=== PATIENT | female | born 1955 | race Two or more races ===

== ENCOUNTER 2020-05-01 07:41 | Emergency (ER) | payer MEDICARE, MEDICAID, SELFPAY ==
--- NOTE | 2020-05-01 08:04 | ED.FEMALEGU ---
HPI - Female Genitourinary General Chief complaint: Abdominal Pain Stated complaint: ABD PAIN TINGLING IN R ARM Time Seen by Provider: 05/01/20 08:03 Source: patient Mode of arrival: ambulatory Limitations: no limitations History of Present Illness HPI Narrative: patient noticed urinary symptoms for last 2- 3 days and pain in left lower abdomen since last night similar to that in the past when she had UTI hematuria no fever no nausea no vomiting from flank pain patient denies any history of kidney stone in the past had CT scan done on 03/12 which showed no stones Related Data Allergies Allergy/AdvReac Type Severity Reaction Status Date / Time No Known Allergies Allergy Unverified 04/09/20 14:54 [No Known Allergies*] Review of Systems Review of Systems: REVIEW OF SYSTEMS: Pertinent positives and negatives are stated above in the history. GEN: no fevers, chills, fatigue HEENT: no nasal congestion, sore throat, ear pain NEURO: no headache, dizziness, focal weakness PULM: no cough, shortness of breath CV: no chest pain, palpitations, LE edema ABD: no abdominal pain, nausea, vomiting, diarrhea SKIN: no rash ROS otherwise negative x 10 [facility] Social History Social History Alcohol intake: unknown Smoking Status: Unknown if ever smoked Use of substances other than those prescribed or required for medical reasons: No Advance Directives: No Advance Directives Information Provided: No Physical Exam Vital Signs and I&O and Narrative: Vital Signs and I&O: Vital Signs Temp 98.7 F 05/01/20 08:10 Pulse 51 05/01/20 09:55 Resp 18 05/01/20 09:55 BP 167/84 H 05/01/20 10:12 Pulse Ox 99 05/01/20 08:10 Intake & Output 04/30/20 05/01/20 05/01/20 18:59 06:59 18:59 Weight 85.729 kg Body Mass Index 34.5 Appearance: Alert. Oriented X3. No acute distress. Eyes: Pupils equal, round and reactive to light. ENT: Pharynx normal. Neck: Normal inspection. Neck supple. CVS: Normal heart rate and rhythm. Pulses normal. Respiratory: No respiratory distress. Breath sounds normal. Abdomen: Soft and mild tenderness left lower quadrant no CVA tenderness Skin: Skin warm and dry. Normal skin color. Normal skin turgor. Extremities: No lower extremity edema. No lower extremity edema. Neuro: Oriented X 3. No motor deficit. No sensory deficit. Course Course Course Narrative: patient with UTI will give her Levaquin and Pyridium feels better discharge her home MDM - Female Genitourinary Lab Data Labs: Lab Results 05/01/20 Range/Units 08:12 Urine Color YELLOW Urine Appearance CLOUDY Urine pH 6.0 (5.0-8.0) Ur Specific [place] 1.025 (1.005-1.025) Urine Protein NEG (NEG-TRACE) MG/DL Urine Glucose (UA) NEG (NEG) MG/DL Urine Ketones NEG (NEG) MG/DL Urine Blood 1+ H (NEG) Urine Nitrite NEG (NEG) Ur Leukocyte Esterase 2+ H (NEG) Urine RBC 1-4 (0) /HPF Urine WBC 15-29 H (0-4) /HPF Ur Squamous Epith Cells 4+ /LPF Urine Bacteria 1+ /LPF Urine Mucus 1+ /LPF
[2020-05-01 08:07] VITALS: BP 176/83; PULSE 64; RESP 18; TEMP 37.1; O2SAT 99; BMI 34.5
[2020-05-01 08:10] VITALS: BP 176/83; PULSE 64; RESP 18; TEMP 37.1; O2SAT 99
[2020-05-01] MEDS: oxyCODONE HCl Immed Release 5 MG TABLET PO (08:17)
[2020-05-01 08:38] LABS: Glucose Urine UA NEG (NEG); Leukocyte Esterase Urine 2+ (NEG); Nitrite Urine NEG (NEG); Specific Gravity - Urine 1.025 (1.005-1.025); Urine Blood 1+ (NEG); Urine Ketones NEG (NEG); Urine Protein NEG (NEG-TRACE)
[2020-05-01 08:41] LABS: Appearance Urine CLOUDY; Color Urine YELLOW
[2020-05-01 08:49] LABS: Bacteria Urine 1+ /LPF; Mucus Urine 1+ /LPF; Squamous Epithelial Cell Urine 4+ /LPF
[2020-05-01 09:55] VITALS: BP 163/75; PULSE 51; RESP 18
[2020-05-01 10:12] VITALS: BP 167/84
[2020-05-01] MEDS: Phenazopyridine HCL 200 MG TABLET PO (10:18)
[2020-05-01] MEDS: levoFLOXacin 500 MG TABLET PO (10:18)
== END 2020-05-01 11:19 | disposition home or self-care (01) ==
PROVIDERS: Emergency Provider Internal Medicine; PCP Family Medicine
DX: R10.9 Unspecified abdominal pain (principal); R20.2 Paresthesia of skin; Z79.899 Other long term (current) drug therapy
CPT/HCPCS: 81001; 87086; 99283; 99284

== ENCOUNTER 2020-12-17 10:22 | Outpatient (REF) | payer MEDICARE, MEDICAID, SELFPAY ==
--- NOTE | ~2020-12-17 | MM_ITS ---
EXAMINATION: MM SCREENING DIGITAL BREAST TOMOSYNTHESIS, BILATERAL CLINICAL INFORMATION: Screening. Asymptomatic. The lifetime risk of breast cancer based on the Tyrer-Cuzick Model is 3.6%. COMPARISON: Mammography: September 17, 2019 and studies dating back to July 01, 2016 TECHNIQUE: Digital breast tomosynthesis is performed in both the craniocaudal and mediolateral oblique views along with computer-aided detection (CAD). Synthesized 2D images are generated from the tomosynthesis. FINDINGS: The breasts are almost entirely fatty (ACR BI-RADS breast composition Category a). There are no significant masses, abnormal calcifications, or other abnormalities. MM/MM tomosynthesis screening BI IMPRESSION: There are no significant changes from prior study. ASSESSMENT: BI-RADS 1: Negative RECOMMENDATION: Routine annual mammography screening. This patient's information was entered into a reminder system with a target due date for their next mammogram.
== END 2020-12-17 10:23 | disposition home or self-care (01) ==
LOC: HO.MAMMO 10:22
PROVIDERS: PCP Family Medicine; Visit Provider Family Medicine
DX: Z12.31 Encounter for screening mammogram for malignant neoplasm of breast (principal)
CPT/HCPCS: 77063; 77067

== ENCOUNTER 2021-02-23 08:29 | Outpatient (REF) | payer MEDICARE, MEDICAID, SELFPAY ==
[2021-02-23 10:44] LABS: Hematocrit 37.3 % (37-47); Hemoglobin 12.3 g/dl (12.0-16.0); Mean Corpuscular Hemoglobin 29.1 pg (27.0-33.0); Mean Corpuscular Volume 88.2 fL (80-98); Mean Platelet Volume 10.2 fL (9.4-12.3); Platelet Count 320 X10*3/uL (160-400); Red Blood Count 4.23 X10*6/uL (4.20-5.50); White Blood Count 6.2 X10*3/uL (4.8-10.8)
[2021-02-23 11:22] LABS: Alanine Aminotransferase 19 U/L (0-31); Albumin Level 4.4 g/dL (3.5-5.0); Alkaline Phosphatase 94 U/L (39-117); Anion Gap 14 (12-20); Aspartate Amino Transferase 32 U/L (5-31); Bilirubin Total 0.5 mg/dL (0.0-1.0); Blood Urea Nitrogen 15 mg/dL (9-16); Calcium 9.3 mg/dL (8.4-10.2); Carbon Dioxide 24 mmol/L (22-29); Chloride 102 mmol/L (96-108); Estimated Glomerular Filt Rate > 60; Glucose Random 82 mg/dL (60-115); Potassium 4.3 mmol/L (3.3-5.1); Sodium 136 mmol/L (135-145); Total Protein 7.7 g/dL (6.5-8.0)
== END 2021-02-23 08:30 | disposition home or self-care (01) ==
LOC: HO.LAB 08:29
PROVIDERS: PCP Family Medicine; Referring Provider Family Medicine; Visit Provider Nurse Practitioner Family
DX: K58.2 Mixed irritable bowel syndrome (principal); K59.01 Slow transit constipation; Z79.899 Other long term (current) drug therapy
CPT/HCPCS: 36415; 80053; 85027; 99212

== ENCOUNTER → 2021-04-02 08:21 | Outpatient (BNVA) | payer MEDICARE, MEDICAID, SELFPAY | PROVIDERS: PCP Family Medicine; Visit Provider Nurse Practitioner Family | DX: K58.1 Irritable bowel syndrome with constipation (principal) | CPT/HCPCS: 99212 ==

== ENCOUNTER 2021-05-18 09:17 | Outpatient (REF) | payer MEDICARE, MEDICAID, SELFPAY ==
[2021-05-19 13:18] LABS: BV Int Neg Control Negative (Negative); BV Int Pos Control Positive (Positive)
[2021-05-19 13:56] LABS: CT PCR NOT DETECTED (Not Detect.); NG PCR NOT DETECTED (Not Detect.)
[2021-05-21 15:01] LABS: HPV mRNA E6/E7 rflx Not Detected (Not Detected)
== END 2021-05-18 09:18 | disposition home or self-care (01) ==
LOC: HO.LAB 09:17
PROVIDERS: PCP Family Medicine; Visit Provider Advanced Practice Midwife
DX: Z01.419 Encounter for gynecological examination (general) (routine) without abnormal findings (principal); Z11.3 Encounter for screening for infections with a predominantly sexual mode of transmission; Z20.2 Contact with and (suspected) exposure to infections with a predominantly sexual mode of transmission
CPT/HCPCS: 87480; 87491; 87510; 87591; 87624; 87660; 88142

== ENCOUNTER 2021-08-12 09:00 | Outpatient (REF) | payer MEDICARE, MEDICAID, SELFPAY ==
[2021-08-12 12:04] LABS: TSH reflex Free T4 0.59 uIU/mL (0.32-4.0)
[2021-08-12 12:23] LABS: Folate 11.4 ng/mL (> or = 4.0); Vitamin B12 188 pg/mL (200-900)
[2021-08-17 12:32] LABS: Vitamin D 25-OH, D2 <4 ng/mL; Vitamin D 25-OH, D3 12 ng/mL; Vitamin D 25-OH, Total 12 ng/mL (30-100)
== END 2021-08-12 09:01 | disposition home or self-care (01) ==
LOC: HO.LAB 09:00
PROVIDERS: PCP Family Medicine; Referring Provider Family Medicine; Visit Provider Nurse Practitioner Family
DX: R10.32 Left lower quadrant pain (principal); K59.04 Chronic idiopathic constipation; K58.1 Irritable bowel syndrome with constipation; E55.9 Vitamin D deficiency, unspecified; R19.7 Diarrhea, unspecified
CPT/HCPCS: 36415; 82306; 82607; 82746; 84443; 99212

== ENCOUNTER 2021-10-04 09:33 | Outpatient (REF) | payer MEDICARE, MEDICAID, SELFPAY ==
--- NOTE | ~2021-10-04 | XR_ITS ---
EXAMINATION: XR KNEE, LEFT CLINICAL INFORMATION: Left knee pain COMPARISON: Radiographs left knee 12/12/2016 TECHNIQUE: 5 views of the left knee. FINDINGS: There has been prior total knee arthroplasty. Hardware is intact. No fracture, dislocation, destructive process, or osteolysis. No periostitis. There is probable trace fluid suprapatellar bursa. XR/XR knee LT 3V IMPRESSION: Prior knee arthroplasty. Hardware intact. No destructive process.
== END 2021-10-04 09:34 | disposition home or self-care (01) ==
LOC: HO.XRAY 09:33
PROVIDERS: Absent Provider Family Medicine; PCP Family Medicine; Visit Provider Family Medicine
DX: M25.562 Pain in left knee (principal)
CPT/HCPCS: 73562

== ENCOUNTER 2021-12-13 08:25 | Outpatient (REF) | payer MEDICARE, MEDICAID, SELFPAY ==
[2021-12-13 09:40] LABS: Hematocrit 35.2 % (37.0-47.0); Hemoglobin 11.6 g/dl (12.0-16.0); Mean Corpuscular Hemoglobin 29.7 pg (27.0-33.0); Mean Platelet Volume 9.8 fL (9.4-12.3); Platelet Count 294 X10*3/uL (160-400); Red Blood Count 3.91 X10*6/uL (4.20-5.50); Red Cell Distribution Width 12.5 % (11.0-16.0); White Blood Count 5.9 X10*3/uL (4.8-10.8)
[2021-12-13 09:47] LABS: Estimated Average Glucose 114 mg/dL; Hemoglobin A1c % 5.6 %
[2021-12-13 10:02] LABS: Alanine Aminotransferase 23 U/L (0-31); Alkaline Phosphatase 80 U/L (39-117); Anion Gap 12 (12-20); Aspartate Amino Transferase 27 U/L (5-31); Bilirubin Total 0.5 mg/dL (0.0-1.0); Blood Urea Nitrogen 18 mg/dL (9-16); Calcium 9.4 mg/dL (8.4-10.2); Carbon Dioxide 26 mmol/L (22-29); Chloride 104 mmol/L (96-108); Cholesterol 266 mg/dL; Estimated Glomerular Filt Rate > 60; Glucose Random 94 mg/dL (60-115); HDL Cholesterol 60 mg/dL; LDL Cholesterol Calculated 179 mg/dl; Potassium 4.7 mmol/L (3.3-5.1); Sodium 137 mmol/L (135-145); Total Protein 7.3 g/dL (6.5-8.0); Triglycerides 138 mg/dL
[2021-12-13 10:25] LABS: TSH reflex Free T4 0.53 uIU/mL (0.32-4.0)
[2021-12-13 10:36] LABS: Vitamin B12 223 pg/mL (200-900)
== END 2021-12-13 08:26 | disposition home or self-care (01) ==
LOC: HO.LAB 08:25
PROVIDERS: PCP Family Medicine; Visit Provider Family Medicine
DX: E53.8 Deficiency of other specified B group vitamins (principal); E55.9 Vitamin D deficiency, unspecified; E78.5 Hyperlipidemia, unspecified; I10 Essential (primary) hypertension
CPT/HCPCS: 36415; 80053; 80061; 82607; 83036; 84443; 85027

== ENCOUNTER → 2021-12-15 08:32 | Outpatient (BNVA) | payer MEDICARE, MEDICAID, SELFPAY | PROVIDERS: PCP Family Medicine; Referring Provider Family Medicine; Visit Provider Nurse Practitioner Family | DX: K59.04 Chronic idiopathic constipation (principal); K58.2 Mixed irritable bowel syndrome; R10.32 Left lower quadrant pain; Z79.899 Other long term (current) drug therapy | CPT/HCPCS: 99212 ==

== ENCOUNTER 2021-12-21 09:20 | Outpatient (REF) | payer MEDICARE, MEDICAID, SELFPAY ==
--- NOTE | ~2021-12-21 | MM_ITS ---
EXAMINATION: MM SCREENING DIGITAL BREAST TOMOSYNTHESIS, BILATERAL CLINICAL INFORMATION: Screening. Asymptomatic. The lifetime risk of breast cancer based on the Tyrer-Cuzick Model is 3.4%. COMPARISON: Mammography: December 17, 2020 and studies dating back to July 01, 2016 TECHNIQUE: Digital breast tomosynthesis is performed in both the craniocaudal and mediolateral oblique views along with computer-aided detection (CAD). Synthesized 2D images are generated from the tomosynthesis. FINDINGS: The breasts are almost entirely fatty (ACR BI-RADS breast composition Category a). There are no significant masses, abnormal calcifications, or other abnormalities. MM/MM tomosynthesis screening BI IMPRESSION: There are no significant changes from prior study. ASSESSMENT: BI-RADS 1: Negative RECOMMENDATION: Routine annual mammography screening. This patient's information was entered into a reminder system with a target due date for their next mammogram.
== END 2021-12-21 09:21 | disposition home or self-care (01) ==
LOC: HO.MAMMO 09:20
PROVIDERS: Visit Provider Family Medicine
DX: Z12.31 Encounter for screening mammogram for malignant neoplasm of breast (principal)
CPT/HCPCS: 77063; 77067

== ENCOUNTER 2022-02-22 10:54 | Outpatient (REF) | payer MEDICARE, MEDICAID, SELFPAY ==
--- NOTE | ~2022-02-22 | US_ITS ---
EXAMINATION: US VENOUS ULTRASOUND WITH DOPPLER LOWER EXTREMITY, LEFT CLINICAL INFORMATION: Left thigh pain COMPARISON: Previous exam April 2017 TECHNIQUE: Ultrasound of the deep veins is performed from the hip to the calf with compression sonography and color and pulse Doppler assessment. Spectral analysis with color-flow imaging is performed. FINDINGS: There is normal venous compression and respiratory variation and augmented flow. The visualized common femoral vein, superficial femoral vein, profunda femoral vein, popliteal vein, and the trifurcation region shows no evidence of deep venous thrombosis. There is no significant popliteal fossa cyst. US/US venous duplex LE LT IMPRESSION: No DVT demonstrated in the left lower extremity.
--- NOTE | ~2022-02-22 | XR_ITS ---
EXAMINATION: XR FEMUR, LEFT CLINICAL INFORMATION: Left thigh pain. COMPARISON: Prior radiographs, most recently 10/04/2021 and 08/29/2016. TECHNIQUE: AP and lateral views of the left femur were obtained. FINDINGS: Bony alignment and mineralization are normal. The left acetabular joint space is well-maintained. There is a tiny peripheral osteophyte of the left acetabular roof. No fracture or dislocation is seen. This no abnormal bone erosion or periosteal thickening. There is an intact left hip total arthroplasty, without hardware failure or loosening noted. The soft tissue tissue planes are unremarkable, without gas or foreign body. XR/XR femur LT 2V IMPRESSION: Unremarkable left femur. There is minimal osteoarthritic change of the left hip. An intact left total knee arthroplasty is seen.
== END 2022-02-22 10:55 | disposition home or self-care (01) ==
LOC: HO.US 10:54
PROVIDERS: Absent Provider Family Medicine; PCP Family Medicine; Visit Provider Emergency Medicine
DX: M79.652 Pain in left thigh (principal)
CPT/HCPCS: 73552; 93971

== ENCOUNTER 2022-03-19 07:11 | Outpatient (REF) | payer MEDICARE, MEDICAID, SELFPAY ==
[2022-03-19 07:47] LABS: FIT1 NEGATIVE (NEGATIVE)
[2022-03-19 07:48] LABS: FIT Int Ctl YES; FIT2 NEGATIVE (NEGATIVE)
== END 2022-03-19 07:12 | disposition home or self-care (01) ==
LOC: HO.LNP 07:11
PROVIDERS: Visit Provider Nurse Practitioner Family
DX: Z12.11 Encounter for screening for malignant neoplasm of colon (principal)
CPT/HCPCS: 82274

== ENCOUNTER 2022-03-22 08:24 | Outpatient (REF) | payer MEDICARE, MEDICAID, SELFPAY ==
--- NOTE | ~2022-03-22 | XR_ITS ---
EXAMINATION: XR SHOULDER, LEFT CLINICAL INFORMATION: Pain COMPARISON: None TECHNIQUE: AP external rotation, Grashey, scapular Y, and axillary views of the left shoulder. FINDINGS: Bone alignment is normal. No fracture or dislocation is seen. There is arthritis at the glenohumeral and acromioclavicular joints. Soft tissues are unremarkable. There is question of small left upper lobe pulmonary nodules largest measuring 4 mm. XR/XR shoulder LT min 2V IMPRESSION: Arthritis at the glenohumeral and acromioclavicular joints. Question small left upper lobe pulmonary nodules. Follow-up chest x-ray recommended.
== END 2022-03-22 08:25 | disposition home or self-care (01) ==
LOC: HO.XRAY 08:24
PROVIDERS: PCP Family Medicine; Visit Provider Family Medicine
DX: M25.512 Pain in left shoulder (principal)
CPT/HCPCS: 73030

== ENCOUNTER 2022-05-11 11:00 | Outpatient (RCR) | payer MEDICARE, MEDICAID, SELFPAY | END 2022-06-28 11:40 | disposition home or self-care (01) | LOC: HO.PT 11:00 | PROVIDERS: PCP Family Medicine; Visit Provider Family Medicine | DX: M25.512 Pain in left shoulder (principal) | CPT/HCPCS: 97110; 97140; 97161 ==

== ENCOUNTER 2022-06-09 11:51 | Outpatient (REF) | payer MEDICARE, MEDICAID, SELFPAY ==
[2022-06-10 02:44] LABS: CT PCR NOT DETECTED (Not Detect.); NG PCR NOT DETECTED (Not Detect.)
[2022-06-10 10:10] LABS: BV Int Neg Control Negative (Negative); BV Int Pos Control Positive (Positive)
== END 2022-06-09 11:52 | disposition home or self-care (01) ==
LOC: HO.LNP 11:51
PROVIDERS: Visit Provider Advanced Practice Midwife
DX: Z01.419 Encounter for gynecological examination (general) (routine) without abnormal findings (principal)
CPT/HCPCS: 87480; 87491; 87510; 87591; 87660

== ENCOUNTER 2022-08-29 09:24 | Outpatient (REF) | payer MEDICARE, MEDICAID, SELFPAY ==
--- NOTE | ~2022-08-29 | XR_ITS ---
EXAMINATION: XR HIP, LEFT CLINICAL INFORMATION: Hip pain COMPARISON: 02/22/2022 TECHNIQUE: Two views of the left hip. FINDINGS: No fracture or dislocation. The left hip is well aligned. The joint space is maintained with subchondral sclerosis present. The visualized pelvis is intact. Normal bowel gas pattern. XR/XR hip LT min 2V IMPRESSION: Mild degenerative change of the left hip.
== END 2022-08-29 09:25 | disposition home or self-care (01) ==
LOC: HO.XRAY 09:24
PROVIDERS: PCP Family Medicine; Visit Provider Registered Nurse
DX: M25.552 Pain in left hip (principal)
CPT/HCPCS: 73502

== ENCOUNTER 2022-09-28 10:00 | Outpatient (RCR) | payer MEDICARE, MEDICAID, SELFPAY | END 2022-10-12 14:52 | disposition home or self-care (01) | LOC: HO.PT 10:00 | PROVIDERS: PCP Family Medicine; Visit Provider Registered Nurse | DX: M25.552 Pain in left hip (principal) | CPT/HCPCS: 97110; 97140; 97161 ==

== ENCOUNTER 2022-12-27 08:29 | Outpatient (REF) | payer MEDICARE, MEDICAID, SELFPAY ==
--- NOTE | ~2022-12-27 | MM_ITS ---
EXAMINATION: MM SCREENING DIGITAL BREAST TOMOSYNTHESIS, BILATERAL CLINICAL INFORMATION: Screening. Asymptomatic. The lifetime risk of breast cancer based on the Tyrer-Cuzick Model is 4%. COMPARISON: Mammography: 12/21/2021, 12/17/2020, 09/17/2019 TECHNIQUE: Digital breast tomosynthesis is performed in both the craniocaudal and mediolateral oblique views along with computer-aided detection (CAD). Synthesized 2D images are generated from the tomosynthesis. FINDINGS: The breasts are almost entirely fatty (ACR BI-RADS breast composition Category a). Background stromal markings are normal. No developing density or architectural abnormality. There are no significant masses, abnormal calcifications, or other abnormalities. The axilla and skin contours are unremarkable. MM/MM tomosynthesis screening BI IMPRESSION: No mammographic evidence of malignancy. ASSESSMENT: BI-RADS 1: Negative RECOMMENDATION: Routine annual mammography screening. This patient's information was entered into a reminder system with a target due date for their next mammogram.
== END 2022-12-27 08:30 | disposition home or self-care (01) ==
LOC: HO.MAMMO 08:29
PROVIDERS: PCP Family Medicine; Visit Provider Family Medicine
DX: Z12.31 Encounter for screening mammogram for malignant neoplasm of breast (principal)
CPT/HCPCS: 77063; 77067

== ENCOUNTER 2023-01-12 08:21 | Emergency (ER) | payer MEDICARE, MEDICAID, SELFPAY ==
[2023-01-12 08:26] VITALS: BP 137/80; PULSE 60; RESP 16; TEMP 36.7; O2SAT 99; BMI 33.3
--- NOTE | 2023-01-12 08:43 | PC.NURSE ---
pt states LUQ abd/L. sided pain x 3 days. pt states worse with movement, onset while lifting herself from bed at home.
--- NOTE | 2023-01-12 09:02 | ED.GENADULT ---
HPI - General Adult General Chief complaint: General Medical Stated complaint: Left body side pain Time Seen by Provider: 01/12/23 08:34 Source: patient Mode of arrival: ambulatory History of Present Illness HPI narrative: 67-year-old female arrives with left chest wall pain that started after reaching for an item on a high shelf and denies any falls or traumatic injury, she also denies any fever, chills, new, denies any GI symptoms such as nausea, vomiting, pain, dysuria. Related Data Home Medications Medication Instructions Recorded Confirmed hydrochlorothiazide 25 mg tablet 25 mg PO QAM 02/23/21 06/09/22 metoprolol tartrate 50 mg tablet 50 mg PO DAILY 08/12/21 06/09/22 rosuvastatin 20 mg tablet 20 mg PO BEDTIME 08/12/21 06/09/22 acetaminophen 325 mg tablet 325 mg PO Q4-6H PRN 06/09/22 06/09/22 ibuprofen 400 mg tablet 400 mg PO Q6H PRN pain 06/09/22 06/09/22 polyvinyl alcohol 1.4 % eye drops 1 drp ophthalmic (eye) TID-QID 06/09/22 06/09/22 Previous Rx's Medication Instructions Recorded phenazopyridine 200 mg tablet 200 mg PO TID 6 doses #6 tabs 05/01/20 (Pyridium) linaclotide 145 mcg capsule 145 mcg PO DAILY #30 caps 08/12/21 (Linzess) polyethylene glycol 3350 17 gram 17 g PO DAILY #100 ea 12/15/21 oral powder packet (Miralax) cholecalciferol (vitamin D3) 50 50 mcg PO DAILY #90 caps 03/29/22 mcg (2,000 unit) capsule cyanocobalamin (vitamin B-12) 500 500 mcg PO QAM #90 tabs 03/29/22 mcg tablet miconazole nitrate 2 % vaginal 1 appful vaginal BEDTIME 7 days 06/09/22 cream (Miconazole-7) #45 grams Allergies Allergy/AdvReac Type Severity Reaction Status Date / Time No Known Allergies Allergy Verified 06/09/22 10:56 [No Known Allergies*] Review of Systems Review of Systems: Pertinent positives and negatives as stated in HPI [facility] Past Medical History Source: nursing notes reviewed Medical History delivery delivered High cholesterol HTN (hypertension) Surgical History Hx of bilateral cataract extraction Hx of section Hx of colonoscopy Hx of knee surgery Hx of tubal ligation Family History Family History Mother Cancer Brother HTN (hypertension) Social History Social History Alcohol intake: unknown Patient Tobacco Use Status: Never used Tobacco Advance Directives: No Advance Directives Information Provided: No Gender identity: Female Physical Exam ED Vital Signs: Vital Signs - 24 hr 01/12/23 08:26 Temperature 98.1 F Pulse Rate 60 Respiratory Rate 16 Blood Pressure 137/80 Pulse Oximetry 99 Oxygen Delivery Method Room Air BMI result Body Mass Index 33.3 VITAL SIGNS: Reviewed. GENERAL: Well developed, well nourished, in no acute distress. HEAD: Normocephalic/atraumatic EYES: PERRLA, EOMI EARS: Ext canals without abnormality NOSE: Nares patent bilateral OROPHARYNX: no oral lesions noted, posterior pharynx clear NECK: Supple, no adenopathy LUNGS: Normal breath sounds. No adventitious sounds or accessory muscle use. SpO2<99>; CHEST WALL: There is reproducible discomfort on gentle palpation over the anterior lateral aspect of the chest wall without deformity/crepitus. CARDIOVASCULAR: Regular rate and rhythm without noted murmurs, no JVD or lower extremity edema. ABDOMEN: Soft, non-tender, non-distended with bowel sounds, no CVA tenderness. MUSCULOSKELETAL: No tenderness, deformities, or effusions noted on gross inspection. EXTREMITIES: No cyanosis, clubbing or edema. SKIN: Inspection of the skin reveals no rashes NEUROLOGIC: Alert and oriented x 4. Strength and sensation to light touch were grossly intact x 4. Medications Administered Discontinued Medications Generic Name Dose Route Start Last Admin Trade Name Freq PRN Reason Stop Dose Admin Acetaminophen 975 mg 01/12/23 08:59 01/12/23 09:34 Acetaminophen 325 Mg Tablet PO 01/12/23 09:00 975 mg ONCE ONE Administration Ibuprofen 400 mg 01/12/23 08:59 01/12/23 09:38 Ibuprofen 400 Mg Tablet PO 01/12/23 09:00 400 mg ONCE ONE Administration Lidocaine 1 patch 01/12/23 08:59 01/12/23 09:34 Lidocaine 4 % Patch Adh..Patch TRANSDERMA 01/12/23 09:00 1 patch ONCE ONE Administration Protocol Medical Decision Making Medical Decision Making MDM Narrative: 67-year-old female with history and clinical presentation consistent with muscle strain chest wall. Patient received combination analgesics to include a lidocaine patch was discharged home in stable condition. Differential Diagnosis Please see the discussion above Discharge Plan Discharge Clinical Impression: Muscle strain Patient Disposition: Home, Self-Care Instructions: Muscle Strain (ED) Additional Instructions: 1. Tylenol 1000 mg, orally, every 6 hours as needed for pain control. Do not exceed 4000 mg within 24 hours. 2. Ibuprofen 400 mg, orally with milk or food, every 6 hours as needed for pain control. You may take this medication with Tylenol for improved symptom relief. 3. Lidocaine patch, apply to the area of maximal tenderness as directed on the outside packaging. 4. Follow-up with your primary care provider in the next 1-2 days for re-evaluation and further outpatient management. Return to the ER for any worsening symptoms. Prescriptions: No Action cyanocobalamin (vitamin B-12) 500 mcg tablet 500 mcg PO QAM Qty: 90 2RF cholecalciferol (vitamin D3) 50 mcg (2,000 unit) capsule 50 mcg PO DAILY Qty: 90 3RF phenazopyridine [Pyridium] 200 mg tablet 200 mg PO TID Qty: 6 0RF rosuvastatin 20 mg tablet 20 mg PO BEDTIME metoprolol tartrate 50 mg tablet 50 mg PO DAILY Linzess 145 mcg capsule 145 mcg PO DAILY Qty: 30 2RF hydrochlorothiazide 25 mg tablet 25 mg PO QAM acetaminophen 325 mg tablet 325 mg PO Q4-6H PRN ibuprofen 400 mg tablet 400 mg PO Q6H PRN (Reason: pain) polyvinyl alcohol 1.4 % drops 1 drp ophthalmic (eye) TID-QID miconazole nitrate [Miconazole-7] 2 % cream 1 appful vaginal BEDTIME 7 Days Qty: 45 2RF Rx Instructions: May use externally to vagina for external irritation or may use internally and externally if very severe polyethylene glycol 3350 [Miralax] 17 gram powder in packet 17 g PO DAILY Qty: 100 3RF Referrals: Larisa Moreland MD [Primary Care Provider] -
[2023-01-12] MEDS: Acetaminophen 325 MG TABLET 975 MG PO (09:34)
[2023-01-12] MEDS: Lidocaine 4 % Patch ADH..PATCH 1 PATCH TRANSDERMA (09:34)
[2023-01-12] MEDS: Ibuprofen 400 MG TABLET PO (09:38)
== END 2023-01-12 09:57 | disposition home or self-care (01) ==
PROVIDERS: Emergency Provider Student in an Organized Health Care Education/Training Program; PCP Family Medicine
DX: S29.011A Strain of muscle and tendon of front wall of thorax, initial encounter (principal); X50.1XXA Overexertion from prolonged static or awkward postures, initial encounter; Y93.89 Activity, other specified; Y92.030 Kitchen in apartment as the place of occurrence of the external cause; Y99.9 Unspecified external cause status
CPT/HCPCS: 99283

== ENCOUNTER 2023-02-13 11:10 | Outpatient (REF) | payer MEDICARE, MEDICAID, SELFPAY | END 2023-02-13 11:11 | disposition home or self-care (01) | LOC: HO.HHCLNP 11:10 | PROVIDERS: Visit Provider Emergency Medicine | DX: R10.13 Epigastric pain (principal) | CPT/HCPCS: 87338 ==

== ENCOUNTER 2023-02-17 08:25 | Outpatient (REF) | payer MEDICARE, MEDICAID, SELFPAY ==
--- NOTE | ~2023-02-17 | US_ITS ---
EXAMINATION: US ABDOMEN COMPLETE CLINICAL INFORMATION: Epigastric pain. COMPARISON: CT abdomen and pelvis 03/05/2020. TECHNIQUE: Real-time imaging of the abdominal viscera. Technically limited study secondary to bowel gas and body habitus. FINDINGS: PANCREAS: Limited visualization. ABDOMINAL AORTA: Limited visualization. Mid abdominal aorta poorly visualized. Imaged portions of mid and distal abdominal aorta are nonaneurysmal. INFERIOR VENA CAVA: Visualized portions are normal. LIVER: Borderline mild diffuse increase in echogenicity of the liver is characteristic of primary hepatocellular disease, possibly due to hepatic steatosis and further limits visualization. GALLBLADDER: No gallstones. No gallbladder wall thickening. COMMON BILE DUCT: Normal in caliber measuring 0.3 cm in diameter. RIGHT KIDNEY: No hydronephrosis. No renal calculi. Renal cortical thickness is normal. Limited visualization. The kidney measures 9.0 cm in maximum dimension. LEFT KIDNEY: No hydronephrosis. No renal calculi. Renal cortical thickness is normal. Limited visualization. The kidney measures 9.2 cm in maximum dimension. SPLEEN: Normal. The spleen measures 8.0 cm in maximum dimension. FREE FLUID: None. US/US abdomen complete IMPRESSION: 1. Borderline mild diffuse increase in echogenicity of the liver is characteristic of primary hepatocellular disease, possibly due to hepatic steatosis and further limits visualization. 2. Limited visualization due to bowel gas and body habitus. CT scan should be considered for better visualization.
== END 2023-02-17 08:26 | disposition home or self-care (01) ==
LOC: HO.US 08:25
PROVIDERS: PCP Family Medicine; Visit Provider Emergency Medicine
DX: R10.13 Epigastric pain (principal)
CPT/HCPCS: 76700

== ENCOUNTER 2023-03-28 08:25 | Outpatient (REF) | payer MEDICARE, MEDICAID, SELFPAY ==
[2023-03-28 11:46] LABS: Anion Gap 12 (12-20); Blood Urea Nitrogen 18 mg/dL (9-16); Calcium 9.3 mg/dL (8.4-10.2); Carbon Dioxide 26 mmol/L (22-29); Chloride 103 mmol/L (96-108); Estimated Glomerular Filt Rate > 60; Glucose Random 88 mg/dL (60-115); Potassium 4.1 mmol/L (3.3-5.1); Sodium 137 mmol/L (135-145)
[2023-03-28 11:56] LABS: ~HepC Num1 0.14 S/CO (0.00-0.79); ~Hepatitis C Antibody Nonreactive (Nonreactive)
[2023-03-28 12:21] LABS: Vitamin D 25-OH Total 42.7 ng/mL (>30)
== END 2023-03-28 08:26 | disposition home or self-care (01) ==
LOC: HO.LAB 08:25
PROVIDERS: PCP Family Medicine; Visit Provider Family Medicine
DX: Z11.59 Encounter for screening for other viral diseases (principal); I10 Essential (primary) hypertension; E55.9 Vitamin D deficiency, unspecified
CPT/HCPCS: 36415; 80048; 82306; 86803

== ENCOUNTER 2023-05-11 08:46 | Outpatient (REF) | payer MEDICARE, MEDICAID, SELFPAY ==
[2023-05-11 12:17] LABS: Anion Gap 14 (12-20); Blood Urea Nitrogen 16 mg/dL (9-16); Calcium 9.6 mg/dL (8.4-10.2); Carbon Dioxide 25 mmol/L (22-29); Chloride 100 mmol/L (96-108); Estimated Glomerular Filt Rate > 60; Glucose Random 91 mg/dL (60-115); Potassium 4.4 mmol/L (3.3-5.1); Sodium 135 mmol/L (135-145)
== END 2023-05-11 08:47 | disposition home or self-care (01) ==
LOC: HO.HHCL 08:46
PROVIDERS: Visit Provider Family Medicine
DX: I10 Essential (primary) hypertension (principal)
CPT/HCPCS: 36415; 80048

== ENCOUNTER 2023-06-07 08:28 | Outpatient (REF) | payer MEDICARE, MEDICAID, SELFPAY ==
[2023-06-07 12:02] LABS: Anion Gap 13 (12-20); Blood Urea Nitrogen 13 mg/dL (9-16); Calcium 9.2 mg/dL (8.4-10.2); Carbon Dioxide 26 mmol/L (22-29); Chloride 101 mmol/L (96-108); Estimated Glomerular Filt Rate > 60; Glucose Random 90 mg/dL (60-115); Potassium 4.3 mmol/L (3.3-5.1); Sodium 136 mmol/L (135-145)
== END 2023-06-07 08:29 | disposition home or self-care (01) ==
LOC: HO.HHCL 08:28
PROVIDERS: Visit Provider Family Medicine
DX: I10 Essential (primary) hypertension (principal)
CPT/HCPCS: 36415; 80048

== ENCOUNTER 2023-07-13 17:27 | Outpatient (REF) | payer MEDICARE, MEDICAID, SELFPAY ==
[2023-07-14 21:18] LABS: C. trachomatis RNA TMA NOT DETECTED (NOT DETECTED); Candida glabrata RNA NOT DETECTED (NOT DETECTED); Candida species RNA DETECTED (NOT DETECTED); N. gonorrhoeae RNA TMA NOT DETECTED (NOT DETECTED); Trichomonas vaginalis RNA NOT DETECTED (NOT DETECTED)
== END 2023-07-13 17:28 | disposition home or self-care (01) ==
LOC: HO.HHCL 17:27
PROVIDERS: Visit Provider Student in an Organized Health Care Education/Training Program
DX: R10.31 Right lower quadrant pain (principal); Z20.2 Contact with and (suspected) exposure to infections with a predominantly sexual mode of transmission
CPT/HCPCS: 36415; 81513; 87481; 87491; 87591; 87661

== ENCOUNTER 2023-07-20 09:08 | Outpatient (REF) | payer MEDICARE, MEDICAID, SELFPAY ==
[2023-07-20 11:55] LABS: Alanine Aminotransferase 19 U/L (0-31); Albumin Level 4.3 g/dL (3.5-5.0); Alkaline Phosphatase 97 U/L (39-117); Anion Gap 13 (12-20); Aspartate Amino Transferase 32 U/L (5-31); Bilirubin Total 0.6 mg/dL (0.0-1.0); Blood Urea Nitrogen 15 mg/dL (9-16); Calcium 9.7 mg/dL (8.4-10.2); Carbon Dioxide 25 mmol/L (22-29); Chloride 102 mmol/L (96-108); Estimated Glomerular Filt Rate > 60; Glucose Random 97 mg/dL (60-115); Sodium 136 mmol/L (135-145); Total Protein 8.1 g/dL (6.5-8.0)
== END 2023-07-20 09:09 | disposition home or self-care (01) ==
LOC: HO.HHCL 09:08
PROVIDERS: Visit Provider Student in an Organized Health Care Education/Training Program
DX: R10.31 Right lower quadrant pain (principal)
CPT/HCPCS: 36415; 80053

== ENCOUNTER 2023-08-09 13:03 | Outpatient (REF) | payer MEDICARE, MEDICAID, SELFPAY ==
--- NOTE | ~2023-08-09 | US_ITS ---
EXAMINATION: US PELVIS CLINICAL INFORMATION: Right lower quadrant pain; postmenopausal patient. COMPARISON: CT abdomen and pelvis dated 03/05/2020; pelvic ultrasound dated 12/22/2015. TECHNIQUE: Ultrasound of the pelvis is performed using both transabdominal and transvaginal transducers along with Doppler. Transvaginal imaging is performed due to inadequate visualization transabdominally. FINDINGS: Uterus: The uterus is anteverted and retroflexed. The uterus measures 7.6 x 2.0 x 1.8 cm. The double wall endometrial thickness is 5 mm. The uterus is smooth in contour and has normal myometrial echogenicity. No visible fibroid. Adnexa: There is normal color flow to the adnexa. There is no left ovarian torsion. There is no pelvic ascites or fluid collection. The right ovary is surgically absent. Left ovary measures 2.5 x 1.4 x 1.7 cm, volume 3.1 mL. US/US pelvic and transvaginal IMPRESSION: The right ovary is surgically absent. The examination is otherwise unremarkable.
== END 2023-08-09 13:04 | disposition home or self-care (01) ==
LOC: HO.US 13:03
PROVIDERS: PCP Family Medicine; Visit Provider Student in an Organized Health Care Education/Training Program
DX: R10.31 Right lower quadrant pain (principal)
CPT/HCPCS: 76830; 76856

== ENCOUNTER 2023-10-04 09:39 | Outpatient (AMB) | payer MEDICARE, MEDICAID, SELFPAY ==
[2023-10-04 09:58] VITALS: BP 144/84; BMI 33.1
--- NOTE | 2023-10-04 09:58 | A.OFFVIS_ITS ---
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 Intake Note: having vaginal odor Medical Office Specialist Required: No Information Interpreted: non-clinical & clinical Final Inspector Movement Assembly: Final Inspector Movement Assembly Present (Aidyn) Allergies No Known Allergies [No Known Allergies*] Allergy (Verified 10/04/23 10:00) Medication List - Last Reconciled 10/04/23 by No Parrish CNM acetaminophen 325 mg PO Q4-6H PRN cholecalciferol (vitamin D3) 1,250 mcg PO QWEEK cyanocobalamin (vitamin B-12) 500 mcg PO QAM docusate sodium 100 mg PO BID PRN famotidine 20 mg PO BID hydrochlorothiazide 25 mg PO QAM ibuprofen 400 mg PO Q8H PRN ibuprofen 400 mg PO Q6H PRN linaclotide (Linzess) 145 mcg PO DAILY lisinopril 40 mg PO QPM metoprolol succinate ER 25 mg PO DAILY metoprolol tartrate 50 mg PO DAILY phenazopyridine (Pyridium) 200 mg PO TID 6 doses polyethylene glycol 3350 (Miralax) 17 grams PO DAILY polyvinyl alcohol 1.4% 1 drp ophthalmic (eye) TID-QID rosuvastatin 20 mg PO BEDTIME spironolactone 50 mg PO BID Is last menstrual period known: No Post menopausal: Yes Patient : No HPI 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 She is 68 years old she had her last Pap smear done and does not need anymore per [facility] protocols. She has not had sex for about 4 months she broke up with that person. She does sometimes complain of vaginal odor she sometimes uses different kinds of soaps and washes but she keeps herself clean she does notice that the odor will be different depending on what medication she has taken and she smells it in her urine. She has not having any abnormal discharge per se sometime she has a little itching not a lot and it has not there now she gets her regular mammograms she sees her primary care provider Dr. Moreland regularly and will be seeing her either next week or next month. She complained of leg cramps during the visit and she was holding her neck in an awkward tilt to the left. She has had both her knees replaced and was in rehab and does her exercises at home for those she tries to do some stretches. [facility] Medical History delivery delivered High cholesterol HTN (hypertension) Surgical History Hx of bilateral cataract extraction Hx of knee surgery Hx of section Hx of tubal ligation Hx of colonoscopy Family History (Updated 10/04/23 @ 10:05 by LUIS Gonsalez) Mother Cancer Uterine cancer Brother HTN (hypertension) Social History Alcohol intake: unknown Patient Tobacco Use Status: Never used Tobacco Gender identity: Female Female Reproductive History Menstrual Age of Menarche: 14 control method: other (tubal ligation) Total pregnancies: 3 Full term: 3 Number of Living Children: 3 Date of last pap smear: 05/19/21 (negative) Date of Mammogram: 12/27/22 Physical Exam Vital Signs: Last Vital Signs BP 144/84 H 10/04/23 09:58 BMI result Body Mass Index 33.1 Const Other: Patient appears shorter than her stated 5 ft 2 height in the chart Patient kept tilting her head awkwardly to the left as if in a spasm, while on the exam table Other: External exam within normal limits vagina is pink and moist cervix multiparous pink moist smooth there is no apparent abnormal discharge no apparent obvious odor perceptible today discharge is scant and clear and normal very normal appearing mucosa good tone with Kegel cervix multiparous nontender adnexa nontender uterus nontender nonenlarged Assessment & Plan Assessment & Plan (1) Cervical cancer screening: Comment: no hx abnormals, neg pap w neg hpv 2017, pap 05/18/21=neg/neg hpv ( yeast) .. 10/04/2023 now 68 years old no further Paps. Code(s): Z12.4 - Encounter for screening for malignant neoplasm of cervix (2) Women's annual routine gynecological examination: Code(s): Z01.419 - Encounter for gynecological examination (general) (routine) without abnormal findings (3) Vaginal odor: Comment: Discussed at length no apparent abnormal discharge will await testing results Code(s): N89.8 - Other specified noninflammatory disorders of vagina Plan -----Discussed in this visit the following: healthy balanced diet, regular and consistent exercise, getting recommended health screens, doing the best she can for her particular health concerns, kegel exercises, pap smear screening and followup recommendations, mammography screening and SBE, normal changes in cycles in her life stage--- . Gets her regular mammograms she follows up with her primary care provider about all of her health issues she does her best to drink lots of water and minimized soda intake she says she does not have diabetes she notices the change of odor depending on what medication or what she is eaten. She reports regular bowel habits. She is very careful to wipe front to back to prevent infection and I suggested that she may not need any special cleansers or soaps. But just clear water we will await testing results to see if there is anything to treat discussed that sometimes bacterial vaginosis can in part of odor but we will await the testing nothing obvious to treat today. Discussed stretches for her muscle spasms and recommend sufficient calcium in her bones she appears shorter than her stated height but she was not remeasured today suggested she discuss this with her primary care provider I also suggested the possibility of using magnesium and suggested she review this with her primary care provider as well as calcium and suggested she perhaps have 1 or 2 more Tums then she usually takes in reviewed her diet, she describes a healthy diet and reviewed sources of calcium as well I also suggested she maybe discuss any neck issues with her primary care provider as well she might benefit from PT. Coding Level of Care Code Est Pt Prev Care >65y(61651) Diagnoses Cervical cancer screening Z12.4 Women's annual routine gynecological examination Z01.419 Vaginal odor N89.8
== END 2023-10-04 11:39 | disposition home or self-care (01) ==
LOC: HO.HWSM 09:40
PROVIDERS: PCP Family Medicine; Visit Provider Advanced Practice Midwife
DX: Z12.4 Encounter for screening for malignant neoplasm of cervix (principal); Z01.419 Encounter for gynecological examination (general) (routine) without abnormal findings; N89.8 Other specified noninflammatory disorders of vagina
CPT/HCPCS: 99397

== ENCOUNTER 2023-10-04 09:39 | Outpatient (REF) | payer MEDICARE, MEDICAID, SELFPAY ==
[2023-10-05 11:48] LABS: CT PCR NOT DETECTED (Not Detect.); NG PCR NOT DETECTED (Not Detect.)
[2023-10-05 14:05] LABS: BV Int Neg Control Negative (Negative); BV Int Pos Control Positive (Positive)
== END 2023-10-04 09:40 | disposition home or self-care (01) ==
LOC: HO.LNP 09:39
PROVIDERS: PCP Family Medicine; Visit Provider Advanced Practice Midwife
DX: Z01.419 Encounter for gynecological examination (general) (routine) without abnormal findings (principal); N89.8 Other specified noninflammatory disorders of vagina
CPT/HCPCS: 0353U; 87480; 87510; 87660

== ENCOUNTER 2023-12-11 08:51 | Outpatient (REF) | payer MEDICARE, MEDICAID, SELFPAY ==
[2023-12-11 12:14] LABS: Alanine Aminotransferase 17 U/L (0-31); Albumin Level 4.1 g/dL (3.5-5.0); Alkaline Phosphatase 89 U/L (39-117); Anion Gap 17 (12-20); Aspartate Amino Transferase 32 U/L (5-31); Bilirubin Direct 0.1 mg/dL (0.0-0.5); Bilirubin Total 0.5 mg/dL (0.0-1.0); Blood Urea Nitrogen 15 mg/dL (9-16); Calcium 9.3 mg/dL (8.4-10.2); Carbon Dioxide 21 mmol/L (22-29); Chloride 103 mmol/L (96-108); Cholesterol 245 mg/dL (<200); Estimated Glomerular Filt Rate > 60; Glucose Random 87 mg/dL (60-115); HDL Cholesterol 60 mg/dL (>40); LDL Cholesterol Calculated 158 mg/dL (<100); Potassium 4.3 mmol/L (3.3-5.1); Sodium 137 mmol/L (135-145); Total Protein 7.9 g/dL (6.5-8.0); Triglycerides 135 mg/dL (<150)
[2023-12-12 12:26] LABS: Creatinine Urine 181.11 mg/dL; Microalbum/Creatinine Ratio Ur 18.2 ug/mg cr (<30)
== END 2023-12-11 08:52 | disposition home or self-care (01) ==
LOC: HO.HHCL 08:51
PROVIDERS: Visit Provider Family Medicine
DX: I10 Essential (primary) hypertension (principal); E78.5 Hyperlipidemia, unspecified
CPT/HCPCS: 36415; 80048; 80061; 80076; 82043; 82570

== ENCOUNTER 2023-12-29 08:32 | Outpatient (REF) | payer MEDICARE, MEDICAID, SELFPAY | END 2023-12-29 08:33 | disposition home or self-care (01) | LOC: HO.MAMMO 08:32 | PROVIDERS: PCP Family Medicine; Visit Provider Family Medicine | DX: Z12.31 Encounter for screening mammogram for malignant neoplasm of breast (principal) | CPT/HCPCS: 77063; 77067 ==

== ENCOUNTER → 2023-12-29 09:15 | Outpatient (BNV) | payer MEDICARE, MEDICAID, SELFPAY | PROVIDERS: PCP Family Medicine; Visit Provider Radiology Diagnostic Radiology | DX: Z12.31 Encounter for screening mammogram for malignant neoplasm of breast (principal) | CPT/HCPCS: 77063; 77067 ==

== ENCOUNTER 2024-01-10 10:02 | Outpatient (AMB) | payer MEDICARE, MEDICAID, SELFPAY ==
--- NOTE | 2024-01-10 10:36 | A.OFFVIS_ITS ---
Vital Signs 01/10/24 10:46 Height 5 ft 2 in Weight 181 lb 10.574 oz BMI 33.2 BP 144/74 H Blood Pressure Location Rt brachial Position Sitting Pulse 60 Pulse Source Pulse Oximeter Pulse Oximetry (%) 98 Oxygen Delivery Method Room Air Intake Visit Reasons: Colonoscopy Screening Intake Note: Trisha presents in office today for a scheduled routine colo scrn. CC; Pt reports that this is a recall colo s/p. Pt reports her last s/p was approximately 5 years ago. Pt reports having some intermittent constipation and loose stools. Pt reports that this has been a chronic issue for her that she has been trying to manage with her diet. 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 Patient continues to not empty her bowels completely Abdominal pain Occasional LLQ pain usually when patient does not have a bowel movement or does not feel like she empties completely. I will send her script for MiraLax. Patient can continue to take Linzess every day. IBS (irritable bowel syndrome) Occasional postprandial abdominal cramping usually on the left side. It could be due to gas trapping and being still constipated despite taking Linzess. Patient denies any diarrhea. Denies melena, hematochezia, unintentional weight loss or ribbon like stools. Patient can not try to take MiraLax she will call me in 2 weeks if this not going to be effective. I will see her in 6 months, sooner on as needed basis. Patient is agreeable to this plan and verbalizes understanding of instructions. She was given the opportunity to ask questions all questions answered. ? Thank you for allowing me to participate in her care Plan Medications New polyethylene glycol 3350 (Miralax) 17 grams PO DAILY 100 ea 3RF cholecalciferol (vitamin D3) 50 mcg PO DAILY 90 caps 3RF R79.89 Discontinued methylcellulose (laxative) take it with full glass of water Discontinued Reason: Patient no longer taking 500 mg PO DAILY 30 tabs 2RF K59.00 docusate sodium Discontinued Reason: Patient no longer taking 100 mg PO BEDTIME 30 caps 3RF K59.00 sennosides Discontinued Reason: Patient no longer taking 17.2 mg (2 x 8.6 mg) PO BEDTIME 60 tabs 1RF constipation K59.00 TODAY'S VISIT Last colonoscopy over 5 years ago. Symptoms of constipation and diarrhea on and off that have been going on for a long time. Patient has been treated in the past with Linzess, however her medication was not able to be approved by insurance. Patient is using [id number] laxatives. Patient reports that her symptoms of acid reflux are suppressed she is only using famotidine on as needed basis. Patient denies any melena, hematochezia, unintentional weight loss or ribbon like stools. Patient denies dyspepsia, dysphagia or odynophagia. No issues with anesthesia before. No history of sleep apnea PFSH Medical History delivery delivered High cholesterol HTN (hypertension) Surgical History Hx of bilateral cataract extraction Hx of knee surgery Hx of section Hx of tubal ligation Hx of colonoscopy Family History Mother Cancer Uterine cancer Brother HTN (hypertension) Social History Alcohol intake: unknown Patient Tobacco Use Status: Never used Tobacco Gender identity: Female Female Reproductive History Menstrual Age of Menarche: 14 Review of Systems Const Denies weight gain and Denies weight loss ENT Reports no additional complaints, Denies dysphagia and Denies odynophagia Card Reports no additional complaints Resp Reports no additional complaints GI Denies abdominal pain, Denies belching, Denies melena, Denies bloating, Reports constipation, Denies dysphagia, Denies excessive flatus, Denies dyspepsia, Denies heartburn, Denies diarrhea, Reports loose stools, Denies nausea, Denies odynophagia and Denies vomiting Reports no additional complaints Musc Reports no additional complaints Neuro Reports no additional complaints Psych Reports no additional complaints Endo Reports no additional complaints Physical Exam Vital Signs: Last Vital Signs Pulse 60 01/10/24 10:46 BP 144/74 H 01/10/24 10:46 Pulse Ox 98 01/10/24 10:46 Oxygen Delivery Method Room Air 01/10/24 10:46 BMI result Body Mass Index 33.2 Const General: healthy appearing, no acute distress and well developed Nutritional Appearance: well nourished Orientation/consciousness: patient oriented x3 Resp Effort & Inspection: normal respiratory effort, able to speak in complete sentences, no tracheal deviation and symmetric chest movement Auscultation: clear to auscultation bilaterally Cardio Rate: regular rate GI Inspection: Yes normal to inspection and No distended Palpation (GI): Soft to palpation, not firm, nontender and No hepatosplenomegaly present Auscultation: normal bowel sounds General: Yes no CVA tenderness Back/Spine/Pelvis Back: no CVA tenderness Skin General skin exam: elasticity normal, turgor normal and dry skin Neuro General: patient oriented x3 Psych Appearance: grossly normal Mental Status: mental status grossly normal Assessment & Plan Assessment & Plan (1) Screen for colon cancer: Code(s): Z12.11 - Encounter for screening for malignant neoplasm of colon (2) Chronic idiopathic constipation: Code(s): K59.04 - Chronic idiopathic constipation (3) IBS (irritable bowel syndrome): Code(s): K58.9 - Irritable bowel syndrome without diarrhea Qualifiers: Irritable bowel syndrome type: with both diarrhea and constipation Qualified Code(s): K58.2 - Mixed irritable bowel syndrome Plan Patient denies any cardiac or respiratory symptoms.? Denies any issues with anesthesia in the past.? Denies any history of sleep apnea.? No history infe ctious diseases in the past or present.? Not on any anticoagulation therapy.? No family or personal history of colon cancer or polyps.? Patient denies melena, hematochezia, unintentional weight loss or ribbon like stools.? Discussed at length the pre-procedure,? prep, diet & medications as well as what to expect prior, during and after the procedure.?? Patient will take Dulcolax starting week before the procedure to ensure good bowel prep. Recommended the use of Vaseline or Calmoseptine OTC & baby wipes with bowel movements to promote comfort.? ?Patient verbalizes understanding and agrees to plan of care.? She was given the opportunity to ask questions and all questions answered.? We will see her after the procedure.? Medications: New bisacodyl (Dulcolax (bisacodyl)) Start taking 2 tablet every night 7 days before the procedure and 1 day before procedure take 4 tablets at noon time followed by MiraLax prep 10 mg (2 x 5 mg) PO BEDTIME 16 tabs 0RF Z12.11 - Encounter for screening for malignant neoplasm of colon polyethylene glycol 3350 (Miralax) As directed by gastroenterology department at [facility] 238 grams PO ONCE 238 grams 0RF Z12.11 - Encounter for screening for malignant neoplasm of colon Coding Level of Care Code Est Pt Level 3 (76118) Diagnoses Screen for colon cancer Z12.11 Chronic idiopathic constipation K59.04 Irritable bowel syndrome with both constipation and diarrhea K58.2 Irritable bowel syndrome type: with both diarrhea and constipation Time Spent (min) 30 Comment 20 minutes spent with patient and additional 10 minutes spent reviewing her records
[2024-01-10 10:46] VITALS: BP 144/74; PULSE 60; O2SAT 98; BMI 33.2
== END 2024-01-10 11:22 | disposition home or self-care (01) ==
PROVIDERS: PCP Family Medicine; Visit Provider Nurse Practitioner Family
DX: K58.2 Mixed irritable bowel syndrome (principal); Z12.11 Encounter for screening for malignant neoplasm of colon
CPT/HCPCS: 99213

== ENCOUNTER → 2024-01-10 10:02 | Outpatient (BNVA) | payer MEDICARE, MEDICAID, SELFPAY | PROVIDERS: PCP Family Medicine; Visit Provider Nurse Practitioner Family | DX: Z12.11 Encounter for screening for malignant neoplasm of colon (principal); K59.04 Chronic idiopathic constipation; K58.2 Mixed irritable bowel syndrome | CPT/HCPCS: 99212 ==

== ENCOUNTER 2024-01-19 09:26 | Outpatient (REF) | payer MEDICARE, MEDICAID, SELFPAY ==
[2024-01-19 11:49] LABS: Anion Gap 12 (12-20); Blood Urea Nitrogen 13 mg/dL (9-16); Calcium 9.3 mg/dL (8.4-10.2); Carbon Dioxide 26 mmol/L (22-29); Chloride 101 mmol/L (96-108); Cholesterol 236 mg/dL (<200); Estimated Glomerular Filt Rate 52; Glucose Random 89 mg/dL (60-115); HDL Cholesterol 60 mg/dL (>40); LDL Cholesterol Calculated 152 mg/dL (<100); Potassium 4.1 mmol/L (3.3-5.1); Sodium 135 mmol/L (135-145); Triglycerides 123 mg/dL (<150)
== END 2024-01-19 09:27 | disposition home or self-care (01) ==
LOC: HO.HHCL 09:26
PROVIDERS: Visit Provider Family Medicine
DX: I10 Essential (primary) hypertension (principal); E78.5 Hyperlipidemia, unspecified
CPT/HCPCS: 36415; 80048; 80061

== ENCOUNTER 2024-02-28 08:47 | Outpatient (REF) | payer MEDICARE, MEDICAID, SELFPAY ==
[2024-02-28 11:39] LABS: Anion Gap 12 (12-20); Blood Urea Nitrogen 14 mg/dL (9-16); Calcium 9.3 mg/dL (8.4-10.2); Carbon Dioxide 24 mmol/L (22-29); Chloride 105 mmol/L (96-108); Estimated Glomerular Filt Rate > 60; Glucose Random 94 mg/dL (60-115); Potassium 3.9 mmol/L (3.3-5.1); Sodium 137 mmol/L (135-145)
== END 2024-02-28 08:48 | disposition home or self-care (01) ==
LOC: HO.HHCL 08:47
PROVIDERS: Visit Provider Family Medicine
DX: I10 Essential (primary) hypertension (principal)
CPT/HCPCS: 36415; 80048

== ENCOUNTER 2024-03-01 09:25 | Outpatient (AMB) | payer MEDICARE, MEDICAID, SELFPAY ==
[2024-03-01 09:59] VITALS: BP 176/90; PULSE 67; O2SAT 96; BMI 33.9
--- NOTE | 2024-03-01 09:59 | HO.NEPHOV ---
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 Walsh for evaluation of labile hypertension. She has not taken any of her antihypertensives prior to coming to office today. She denies any excessive salt intake, recent weight gain, uncontrolled thyroid disorders, sleep apnea, renal dysfunction, history of hypokalemia, hypercalcemia. She claims to be compliant with her medications. She has no history of proteinuria but has history of hypertensive retinopathy. She denies any coronary artery disease, congestive heart failure, CVA, carotid stenosis, peripheral arterial disease, renal artery stenosis. She denied any chest pain, shortness of breath, paroxysmal nocturnal dyspnea, orthopnea or urinary symptoms. She does not take excessive nonsteroidal anti-inflammatories but takes NSAIDs quite frequently. [facility] Medical History (Updated 03/01/24 @ 10:29 by José Miguel Prado MD) Hypertensive retinopathy Dyslipidemia Vitamin D deficiency Cobalamin deficiency Osteoarthritis IBS (irritable bowel syndrome) delivery delivered High cholesterol HTN (hypertension) Surgical History Hx of bilateral cataract extraction Hx of knee surgery Hx of section Hx of tubal ligation Hx of colonoscopy Family History Mother Cancer Uterine cancer Brother HTN (hypertension) Social History Alcohol intake: unknown Patient Tobacco Use Status: Never used Tobacco Gender identity: Female Female Reproductive History Menstrual Age of Menarche: 14 Review of Systems Const All systems reviewed & are unremarkable except as noted in HPI and below Physical Exam Vital Signs: Last Vital Signs Pulse 67 03/01/24 09:59 BP 176/90 H 03/01/24 09:59 Pulse Ox 96 03/01/24 09:59 Oxygen Delivery Method Room Air 03/01/24 09:59 BMI result Body Mass Index 33.9 Const General: comfortable and no acute distress Orientation/consciousness: patient oriented x3 HEENT Head: Yes normocephalic Mouth: Normal oral and palatal mucosa present Eyes EOM: EOMs intact bilaterally Neck Neck: Yes supple Resp Auscultation: clear to auscultation bilaterally Cardio Jugular venous distension: no JVD Rate: regular rate GI Palpation (GI): Soft to palpation Auscultation: normal bowel sounds General: Yes no CVA tenderness Back/Spine/Pelvis Back: no CVA tenderness Skin General skin exam: no rashes or lesions noted Neuro General: patient oriented x3 and moves all extremities Extrem General: Yes no pedal edema Results Reviewed Nephrology Results: Sodium 137 mmol/L (135-145) 02/28/24 Potassium 3.9 mmol/L (3.3-5.1) 02/28/24 Chloride 105 mmol/L (96-108) 02/28/24 Carbon Dioxide 24 mmol/L (22-29) 02/28/24 BUN 14 mg/dL (9-16) 02/28/24 Creatinine 0.86 mg/dL (0.5-1.4) 02/28/24 Calcium 9.3 mg/dL (8.4-10.2) 02/28/24 Urine Creatinine 181.11 mg/dL 12/11/23 Assessment & Plan Assessment & Plan (1) HTN (hypertension): Code(s): I10 - Essential (primary) hypertension Category: Medical Qualifiers: Hypertension type: primary hypertension Qualified Code(s): I10 - Essential (primary) hypertension Plan Ms. Walsh has longstanding hypertension. She is on multiple antihypertensive medications. She will benefit from losing some weight. I have asked her to cut back salt in the diet. She should avoid nonsteroidal anti-inflammatories. I increased her lisinopril to 20 mg daily. Her renal functions and serum potassium are normal. I have also ordered 24 hour ambulatory blood pressure monitor. I plan to check her thyroid function, renin, aldosterone, cortisol, metanephrines as well as Doppler of her renal arteries. I shall try to optimize her medications to keep her blood pressure at goal and avoid polypharmacy. All these have been explained in detail and all questions were answered. Follow-up appointment given. Orders: Orders AMB 24 HR B/P Monitor PLACEMENT Today I10 - Essential (primary) hypertension Medications: Discontinued ibuprofen Discontinued Reason: Doctor's Order 400 mg PO Q8H PRN 20 tabs 0RF pain Coding Level of Care Code New Pt Level 4 (68925) Diagnoses Primary hypertension I10 Hypertension type: primary hypertension
== END 2024-03-01 10:40 | disposition home or self-care (01) ==
PROVIDERS: PCP Family Medicine; Referring Provider Family Medicine; Visit Provider Internal Medicine Nephrology
DX: I10 Essential (primary) hypertension (principal)
CPT/HCPCS: 99204

== ENCOUNTER → 2024-03-01 09:25 | Outpatient (BNVA) | payer MEDICARE, MEDICAID, SELFPAY | PROVIDERS: PCP Family Medicine; Referring Provider Family Medicine; Visit Provider Internal Medicine Nephrology | DX: I10 Essential (primary) hypertension (principal) | CPT/HCPCS: 99202 ==

== ENCOUNTER 2024-03-06 09:27 | Outpatient (REF) | payer MEDICARE, MEDICAID, SELFPAY ==
[2024-03-06 12:14] LABS: Alanine Aminotransferase 16 U/L (0-31); Albumin Level 4.1 g/dL (3.5-5.0); Alkaline Phosphatase 81 U/L (39-117); Aspartate Amino Transferase 31 U/L (5-31); Bilirubin Direct 0.2 mg/dL (0.0-0.5); Bilirubin Total 0.5 mg/dL (0.0-1.0); Cholesterol 217 mg/dL (<200); HDL Cholesterol 64 mg/dL (>40); LDL Cholesterol Calculated 134 mg/dL (<100); Total Protein 7.5 g/dL (6.5-8.0); Triglycerides 97 mg/dL (<150)
== END 2024-03-06 09:28 | disposition home or self-care (01) ==
LOC: HO.HHCL 09:27
PROVIDERS: Visit Provider Family Medicine
DX: E78.5 Hyperlipidemia, unspecified (principal)
CPT/HCPCS: 36415; 80061; 80076

== ENCOUNTER → 2024-04-04 09:38 | Outpatient (BNVA) | payer MEDICARE, MEDICAID, SELFPAY | PROVIDERS: PCP Family Medicine; Visit Provider Internal Medicine Nephrology ==

== ENCOUNTER 2024-04-05 09:40 | Outpatient (AMB) | payer MEDICARE, MEDICAID, SELFPAY ==
[2024-04-05 09:46] VITALS: BP 144/88; PULSE 63; O2SAT 99; BMI 34.0
--- NOTE | 2024-04-05 09:46 | HO.NEPHOV_ITS ---
Vital Signs 04/05/24 09:46 Height 5 ft 2 in Weight 186 lb BMI 34.0 BP 144/88 H Blood Pressure Location Rt brachial Position Sitting Pulse 63 Pulse Source Pulse Oximeter Pulse Oximetry (%) 99 Oxygen Delivery Method Room Air Intake Visit Reasons: 1 mon follow up- [facility] Emt Required: No Accompanied by: Self / Same As Patient Allergies No Known Allergies [No Known Allergies*] Allergy (Verified 04/05/24 09:47) HPI Comments Details: Ms. Walsh was seen in follow up for labile hypertension. She had a 24 hour BP monitor which showed uncontrolled BP. She is not very sure about the medications she takes in the morning and evening. She denies any excessive salt intake, recent weight gain, uncontrolled thyroid disorders, sleep apnea, renal dysfunction, history of hypokalemia, hypercalcemia. She claims to be compliant with her medications. She has no history of proteinuria but has history of hypertensive retinopathy. She denies any coronary artery disease, congestive heart failure, CVA, carotid stenosis, peripheral arterial disease, renal artery stenosis. She denied any chest pain, shortness of breath, paroxysmal nocturnal dyspnea, orthopnea or urinary symptoms. She does not take excessive nonsteroidal anti-inflammatories but takes NSAIDs quite frequently. [facility] Medical History (Updated 03/01/24 @ 10:29 by José Miguel Prado MD) Hypertensive retinopathy Dyslipidemia Vitamin D deficiency Cobalamin deficiency Osteoarthritis IBS (irritable bowel syndrome) delivery delivered High cholesterol HTN (hypertension) Surgical History Hx of bilateral cataract extraction Hx of knee surgery Hx of section Hx of tubal ligation Hx of colonoscopy Family History Mother Cancer Uterine cancer Brother HTN (hypertension) Social History Alcohol intake: unknown Patient Tobacco Use Status: Never used Tobacco Gender identity: Female Female Reproductive History Menstrual Age of Menarche: 14 Review of Systems Const All systems reviewed & are unremarkable except as noted in HPI and below Physical Exam Vital Signs: Last Vital Signs Pulse 63 04/05/24 09:46 BP 144/88 H 04/05/24 09:46 Pulse Ox 99 04/05/24 09:46 Oxygen Delivery Method Room Air 04/05/24 09:46 BMI result Body Mass Index 34.0 Const General: comfortable and no acute distress Orientation/consciousness: patient oriented x3 HEENT Head: Yes normocephalic Mouth: Normal oral and palatal mucosa present Eyes EOM: EOMs intact bilaterally Neck Neck: Yes supple Resp Auscultation: clear to auscultation bilaterally Cardio Jugular venous distension: no JVD Rate: regular rate GI Palpation (GI): Soft to palpation Auscultation: normal bowel sounds General: Yes no CVA tenderness Back/Spine/Pelvis Back: no CVA tenderness Skin General skin exam: no rashes or lesions noted Neuro General: patient oriented x3 and moves all extremities Extrem General: Yes no pedal edema Results Reviewed Nephrology Results: Sodium 137 mmol/L (135-145) 02/28/24 Potassium 3.9 mmol/L (3.3-5.1) 02/28/24 Chloride 105 mmol/L (96-108) 02/28/24 Carbon Dioxide 24 mmol/L (22-29) 02/28/24 BUN 14 mg/dL (9-16) 02/28/24 Creatinine 0.86 mg/dL (0.5-1.4) 02/28/24 Calcium 9.3 mg/dL (8.4-10.2) 02/28/24 Assessment & Plan Assessment & Plan (1) HTN (hypertension): Code(s): I10 - Essential (primary) hypertension Category: Medical Qualifiers: Hypertension type: primary hypertension Qualified Code(s): I10 - Essential (primary) hypertension Plan Ms. Walsh has longstanding hypertension. She is on multiple antihypertensive medications. She had a 24 hour ABPM which showed sub optimally controlled BP readings. She does not know the names/doses of medications she takes in the morning and evening. She is going to call office today with the medications and doses , after which I shall adjust her medications to keep her BP at goal. She will benefit from losing some weight. I have asked her to cut back salt in the diet. She should avoid nonsteroidal anti-inflammatories. Her renal functions and serum potassium are normal. I plan to check her thyroid function, renin, aldosterone, cortisol, metanephrines as well as Doppler of her renal arteries. I shall try to optimize her medications to keep her blood pressure at goal and avoid polypharmacy. All these have been explained in detail and all questions were answered. Follow-up appointment given Coding Level of Care Code Est Pt Level 4 (38324) Diagnoses Primary hypertension I10 Hypertension type: primary hypertension
== END 2024-04-05 10:13 | disposition home or self-care (01) ==
PROVIDERS: PCP Family Medicine; Visit Provider Internal Medicine Nephrology
DX: I10 Essential (primary) hypertension (principal)
CPT/HCPCS: 93790; 99214

== ENCOUNTER → 2024-04-05 09:40 | Outpatient (BNVA) | payer MEDICARE, MEDICAID, SELFPAY | PROVIDERS: PCP Family Medicine; Visit Provider Internal Medicine Nephrology | DX: I10 Essential (primary) hypertension (principal); Z79.899 Other long term (current) drug therapy | CPT/HCPCS: 99212 ==

== ENCOUNTER 2024-04-21 12:04 | Emergency (ER) | payer MEDICARE, MEDICAID, SELFPAY ==
[2024-04-21 12:15] VITALS: BP 216/98; PULSE 69; RESP 18; TEMP 36.9; O2SAT 100; BMI 36.9
--- NOTE | 2024-04-21 12:15 | ED_ITS ---
HPI - General Adult General Chief complaint: Headache Stated complaint: neck pain Related Data Home Medications ?Medication ?Instructions ?Recorded ?Confirmed acetaminophen 325 mg tablet 325 mg PO Q4-6H PRN 06/09/22 06/09/22 docusate sodium 100 mg capsule 100 mg PO BID PRN constipation 10/04/23 10/04/23 spironolactone 50 mg tablet 50 mg PO BID 10/04/23 10/04/23 ezetimibe 10 mg tablet 10 mg PO DAILY 01/10/24 rosuvastatin 40 mg tablet 40 mg PO DAILY 01/10/24 amlodipine 10 mg tablet 10 mg PO QPM 04/09/24 chlorthalidone 25 mg tablet 25 mg PO QAM 04/09/24 cholecalciferol (vitamin D3) 25 25 mcg PO DAILY 04/09/24 mcg (1,000 unit) capsule diclofenac sodium 1 % topical gel 2 g topical BID 04/09/24 famotidine 20 mg tablet 20 mg PO BID 04/09/24 linaclotide 145 mcg capsule 145 mcg PO QAM 04/09/24 lisinopril 40 mg tablet 40 mg PO QPM 04/09/24 metoprolol succinate 25 mg 25 mg PO QAM 04/09/24 tablet,extended release 24 hr Previous Rx's ?Medication ?Instructions ?Recorded cyanocobalamin (vitamin B-12) 500 500 mcg PO QAM #90 tabs 03/29/22 mcg tablet Allergies Allergy/AdvReac Type Severity Reaction Status Date / Time No Known Allergies Allergy Verified 04/21/24 12:18 [No Known Allergies*] [facility] Past Medical History Medical History (Updated 04/24/24 @ 02:16 by Selene Singh CNP) Hypertensive retinopathy Dyslipidemia Vitamin D deficiency Cobalamin deficiency Osteoarthritis IBS (irritable bowel syndrome) delivery delivered High cholesterol HTN (hypertension) Surgical History Hx of bilateral cataract extraction Hx of knee surgery Hx of section Hx of tubal ligation Hx of colonoscopy Family History Family History Mother Cancer Uterine cancer Brother HTN (hypertension) Social History Social History Alcohol intake: unknown Patient Tobacco Use Status: Never used Tobacco Advance Directives: No Advance Directives Information Provided: No Do you have a plan to hurt others: No Plan Gender identity: Female Physical Exam ED Vital Signs: BMI result Body Mass Index 36.9 Course Course Course Narrative: This is an RME performed by Srikanth Singh CNP: Additional HPI, ROS, PE not included below will be deferred to primary provider. Patient is a 68-year-old female with past medical history of hypertension, poor compliance with her antihypertensive regimen, states she often forgets to take ?some?. She presents emergency department for evaluation of posterior neck pain extending up along her hairline to the back of her head into the frontal region. She states that she did take her blood pressure medications this morning, but does not know which ones. On arrival her blood pressure is 216/98. Denies associated chest pain or shortness of breath. Plan: Serum labs, will require hypertension crisis management Medical Decision Making Lab Data 04/21/24 12:38 04/21/24 12:38 Labs: Lab Results 04/21/24 Range/Units 12:38 WBC 6.3 (4.8-10.8) X10*3/uL RBC 3.88 L (4.20-5.50) X10*6/uL Hgb 11.8 L (12.0-16.0) g/dl Hct 34.6 L (37.0-47.0) % MCV 89.2 (80.0-98.0) fL MCH 30.4 (27.0-33.0) pg MCHC 34.1 (31.0-35.0) g/dl RDW 12.2 (11.0-16.0) % Plt Count 308 (160-400) X10*3/uL MPV 9.6 (9.4-12.3) fL Immature Gran % (Auto) 0.3 (0.0-0.4) % Neut % (Auto) 61.8 (45-73) % Lymph % (Auto) 28.5 (20-40) % [place] % (Auto) 7.8 (2-11) % Eos % (Auto) 1.1 (0-4) % Baso % (Auto) 0.5 (0-2) % Lymph # (Auto) 1.8 (1.2-4.9) X10*3/uL [place] # (Auto) 0.5 (0.1-1.2) X10*3/uL Eos # (Auto) 0.1 (0.0-0.4) X10*3/uL Baso # (Auto) 0.0 (0.0-0.2) X10*3/uL Abs Immat Gran (auto) 0.02 (0.00-0.03) X10*3/uL Absolute Neuts (auto) 3.9 (2.0-8.3) x10*3/uL Absolute Nucleated RBC 0.000 (0.0-0.012) X10*3/uL Nucleated RBC % (auto) 0.0 (0.0-0.2) /100WBC Sodium 135 (135-145) mmol/L Potassium 3.7 (3.3-5.1) mmol/L Chloride 100 (96-108) mmol/L Carbon Dioxide 25 (22-29) mmol/L Anion Gap 14 (12-20) BUN 19 H (9-16) mg/dL Creatinine 0.93 (0.5-1.4) mg/dL Estim Creat Clear Calc 54.7 Estimated GFR > 60 Random Glucose 99 (60-115) mg/dL Calcium 9.7 (8.4-10.2) mg/dL Magnesium 1.9 (1.6-2.6) mg/dL Total Bilirubin 0.4 (0.0-1.0) mg/dL AST 27 (5-31) U/L ALT 18 (0-31) U/L Alkaline Phosphatase 79 (39-117) U/L Troponin I High Sens < 2.7 (<3.5-17.0) ng/L Total Protein 7.7 (6.5-8.0) g/dL Albumin 4.3 (3.5-5.0) g/dL Discharge Plan Discharge Clinical Impression: Neck pain Patient Disposition: Left W/O Completing Treatment Prescriptions: No Action cyanocobalamin (vitamin B-12) 500 mcg tablet 500 mcg PO QAM Qty: 90 2RF acetaminophen 325 mg tablet 325 mg PO Q4-6H PRN spironolactone 50 mg tablet 50 mg PO BID docusate sodium 100 mg capsule 100 mg PO BID PRN (Reason: constipation) metoprolol succinate 25 mg tablet extended release 24 hr 25 mg PO QAM famotidine 20 mg tablet 20 mg PO BID cholecalciferol (vitamin D3) 25 mcg (1,000 unit) capsule 25 mcg PO DAILY lisinopril 40 mg tablet 40 mg PO QPM diclofenac sodium 1 % gel 2 g topical BID linaclotide 145 mcg capsule 145 mcg PO QAM rosuvastatin 40 mg tablet 40 mg PO DAILY ezetimibe 10 mg tablet 10 mg PO DAILY amlodipine 10 mg tablet 10 mg PO QPM chlorthalidone 25 mg tablet 25 mg PO QAM Discharge Date/Time: 04/21/24 19:25
--- NOTE | 2024-04-21 12:17 | ECG_ITS ---
Test Reason : HYPERTENSION Blood Pressure : / mmHG Vent. Rate : 071 BPM Atrial Rate : 071 BPM P-R Int : 148 ms QRS Dur : 084 ms QT Int : 414 ms P-R-T Axes : 069 011 034 degrees QTc Int : 449 ms Normal sinus rhythm Moderate voltage criteria for LVH, may be normal variant ( R in aVL , Karthaus product ) Borderline ECG No previous ECGs available Referred By: Selene Singh Electronically Signed By:MAURICE HERRING
[2024-04-21 12:42] LABS: MANUAL DIFF FLAG NO
[2024-04-21 12:43] LABS: Basophils Percent Auto 0.5 % (0-2); Eosinophils Absolute Auto 0.1 X10*3/uL (0.0-0.4); Eosinophils Percent Auto 1.1 % (0-4); Hematocrit 34.6 % (37.0-47.0); Hemoglobin 11.8 g/dl (12.0-16.0); Imm Gran Abs Auto 0.02 X10*3/uL (0.00-0.03); Imm Gran Pct Auto 0.3 % (0.0-0.4); Lymphocytes Absolute Auto 1.8 X10*3/uL (1.2-4.9); Lymphocytes Percent Auto 28.5 % (20-40); Mean Corpuscular HGB Conc 34.1 g/dl (31.0-35.0); Mean Corpuscular Hemoglobin 30.4 pg (27.0-33.0); Mean Corpuscular Volume 89.2 fL (80.0-98.0); Mean Platelet Volume 9.6 fL (9.4-12.3); Monocytes Absolute Auto 0.5 X10*3/uL (0.1-1.2); Monocytes Percent Auto 7.8 % (2-11); Neutrophils Absolute Auto 3.9 x10*3/uL (2.0-8.3); Neutrophils Percent Auto 61.8 % (45-73); Platelet Count 308 X10*3/uL (160-400); Red Blood Count 3.88 X10*6/uL (4.20-5.50); Red Cell Distribution Width 12.2 % (11.0-16.0); White Blood Count 6.3 X10*3/uL (4.8-10.8)
[2024-04-21 12:58] LABS: Alanine Aminotransferase 18 U/L (0-31); Albumin Level 4.3 g/dL (3.5-5.0); Alkaline Phosphatase 79 U/L (39-117); Anion Gap 14 (12-20); Aspartate Amino Transferase 27 U/L (5-31); Bilirubin Total 0.4 mg/dL (0.0-1.0); Blood Urea Nitrogen 19 mg/dL (9-16); Calcium 9.7 mg/dL (8.4-10.2); Carbon Dioxide 25 mmol/L (22-29); Chloride 100 mmol/L (96-108); Creatinine Clr Calc Pharmacy 54.7; Estimated Glomerular Filt Rate > 60; Glucose Random 99 mg/dL (60-115); Magnesium 1.9 mg/dL (1.6-2.6); Potassium 3.7 mmol/L (3.3-5.1); Sodium 135 mmol/L (135-145); Total Protein 7.7 g/dL (6.5-8.0)
[2024-04-21 13:05] LABS: Troponin-I High Sensitivity < 2.7 ng/L (<3.5-17.0)
--- NOTE | 2024-04-21 19:28 | PC.NURSE ---
Pt N/A from w/r at 1925. LWCT.
== END 2024-04-21 19:25 | disposition left against medical advice (07) ==
PROVIDERS: Nurse Practitioner Family; Emergency Provider Emergency Medicine; PCP Family Medicine
DX: R51.9 Headache, unspecified (principal); M54.2 Cervicalgia; I10 Essential (primary) hypertension; R94.31 Abnormal electrocardiogram [ECG] [EKG]; Z79.899 Other long term (current) drug therapy
CPT/HCPCS: 36415; 80053; 83735; 84484; 85025; 93005; 99283

== ENCOUNTER 2024-05-08 09:30 | Outpatient (AMB) | payer MEDICARE, MEDICAID, SELFPAY ==
[2024-05-08 09:59] VITALS: BP 104/60; PULSE 71; O2SAT 96; BMI 37.0
--- NOTE | 2024-05-08 09:59 | HO.NEPHOV_ITS ---
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 Walsh was seen in follow up for labile hypertension. She had a 24 hour BP monitor which showed uncontrolled but gotten better with medication compliance. She denies any excessive salt intake, recent weight gain, uncontrolled thyroid disorders, sleep apnea, renal dysfunction, history of hypokalemia, hypercalcemia. She has no history of proteinuria but has history of hypertensive retinopathy. She denies any coronary artery disease, congestive heart failure, CVA, carotid stenosis, peripheral arterial disease, renal artery stenosis. She denied any chest pain, shortness of breath, paroxysmal nocturnal dyspnea, orthopnea or urinary symptoms. She does not take excessive nonsteroidal anti-inflammatories but takes NSAIDs quite frequently. [facility] Medical History (Updated 04/25/24 @ 00:00 by Osvaldo Hodges) Hypertensive retinopathy Dyslipidemia Vitamin D deficiency Cobalamin deficiency Osteoarthritis IBS (irritable bowel syndrome) delivery delivered High cholesterol HTN (hypertension) Surgical History Hx of bilateral cataract extraction Hx of knee surgery Hx of section Hx of tubal ligation Hx of colonoscopy Family History Mother Cancer Uterine cancer Brother HTN (hypertension) Social History Alcohol intake: unknown Patient Tobacco Use Status: Never used Tobacco Gender identity: Female Female Reproductive History Menstrual Age of Menarche: 14 Review of Systems Const All systems reviewed & are unremarkable except as noted in HPI and below Physical Exam Vital Signs: Last Vital Signs Pulse 71 05/08/24 09:59 BP 104/60 05/08/24 09:59 Pulse Ox 96 05/08/24 09:59 Oxygen Delivery Method Room Air 05/08/24 09:59 BMI result Body Mass Index 37.0 Const General: comfortable and no acute distress Orientation/consciousness: patient oriented x3 HEENT Head: Yes normocephalic Mouth: Normal oral and palatal mucosa present Eyes EOM: EOMs intact bilaterally Neck Neck: Yes supple Resp Auscultation: clear to auscultation bilaterally Cardio Jugular venous distension: no JVD Rate: regular rate GI Palpation (GI): Soft to palpation Auscultation: normal bowel sounds General: Yes no CVA tenderness Back/Spine/Pelvis Back: no CVA tenderness Skin General skin exam: no rashes or lesions noted Neuro General: patient oriented x3 and moves all extremities Extrem General: Yes no pedal edema Results Reviewed Nephrology Results: Hgb 11.8 g/dl (12.0-16.0) L 04/21/24 WBC 6.3 X10*3/uL (4.8-10.8) 04/21/24 Plt Count 308 X10*3/uL (160-400) 04/21/24 Sodium 135 mmol/L (135-145) 04/21/24 Potassium 3.7 mmol/L (3.3-5.1) 04/21/24 Chloride 100 mmol/L (96-108) 04/21/24 Carbon Dioxide 25 mmol/L (22-29) 04/21/24 BUN 19 mg/dL (9-16) H 04/21/24 Creatinine 0.93 mg/dL (0.5-1.4) 04/21/24 Calcium 9.7 mg/dL (8.4-10.2) 04/21/24 Assessment & Plan Assessment & Plan (1) HTN (hypertension): Code(s): I10 - Essential (primary) hypertension Category: Medical Qualifiers: Hypertension type: primary hypertension Qualified Code(s): I10 - Essential (primary) hypertension Plan Ms. Walsh has longstanding hypertension. She is on multiple antihypertensive medications the timings of which I adjusted and her BP is at goal. She will benefit from losing some weight. I have asked her to cut back salt in the diet. She should avoid nonsteroidal anti-inflammatories. Her renal functions and serum potassium are normal. I plan to check her thyroid function, renin, aldosterone, cortisol, metanephrines as well as Doppler of her renal arteries. All these have been explained in detail and all questions were answered. Follow-up appointment given Coding Level of Care Code Est Pt Level 4 (84382) Diagnoses Primary hypertension I10 Hypertension type: primary hypertension
== END 2024-05-08 10:19 | disposition home or self-care (01) ==
PROVIDERS: PCP Family Medicine; Visit Provider Internal Medicine Nephrology
DX: I10 Essential (primary) hypertension (principal)
CPT/HCPCS: 99214

== ENCOUNTER → 2024-05-08 09:30 | Outpatient (BNVA) | payer MEDICARE, MEDICAID, SELFPAY | PROVIDERS: PCP Family Medicine; Visit Provider Internal Medicine Nephrology | DX: I10 Essential (primary) hypertension (principal) | CPT/HCPCS: 99212 ==

== ENCOUNTER 2024-05-30 10:11 | Day surgery (SDC) | payer MEDICARE, MEDICAID, SELFPAY ==
[2024-05-28 14:24] VITALS: BMI 33.1
--- NOTE | 2024-05-29 08:41 | HO.ANESPROP2 ---
Documented by User: Olamide Cordova NP 05/29/24 08:41 HPI - Anesthesia Eval Consult details Narrative: 68yo F for Colonoscopy PMFSH Active Problems Active Problems: All Active Problems HTN (hypertension) (Acute) Vaginal odor (Acute) Cervical cancer screening (Acute) Women's annual routine gynecological examination (Acute) Past Medical History Medical History Hypertensive retinopathy Dyslipidemia Vitamin D deficiency Cobalamin deficiency Osteoarthritis IBS (irritable bowel syndrome) delivery delivered High cholesterol HTN (hypertension) Family History Family History Mother Cancer Uterine cancer Brother HTN (hypertension) Surgical History Surgical History Hx of bilateral cataract extraction Hx of knee surgery Hx of section Hx of tubal ligation Hx of colonoscopy Social History Social History Alcohol intake: unknown Patient Tobacco Use Status: Never used Tobacco Have you been hit, kicked, punched, or otherwise hurt by someone within the past year? If so, by whom?: No Are you DNR?: No Advance Directives: No Advance Directives Information Provided: Yes Gender identity: Female Meds Allergies Allergy/AdvReac Type Severity Reaction Status Date / Time No Known Allergies Allergy Verified 05/08/24 10:02 [No Known Allergies*] Home Medications ?Medication ?Instructions ?Recorded ?Confirmed ?Last Taken ?Type acetaminophen 325 mg tablet 325 mg PO Q4-6H PRN Pain (Scale 06/09/22 05/30/24 Unknown History Score 4-6) docusate sodium 100 mg capsule 100 mg PO BID PRN constipation 10/04/23 05/30/24 Unknown History spironolactone 50 mg tablet 50 mg PO BID 10/04/23 05/30/24 Unknown History ezetimibe 10 mg tablet 10 mg PO DAILY 01/10/24 05/30/24 Unknown History rosuvastatin 40 mg tablet 40 mg PO DAILY 01/10/24 05/30/24 Unknown History amlodipine 10 mg tablet 10 mg PO QPM 04/09/24 05/30/24 05/30/24 History chlorthalidone 25 mg tablet 25 mg PO QAM 04/09/24 05/30/24 Unknown History cholecalciferol (vitamin D3) 25 25 mcg PO DAILY 04/09/24 05/30/24 Unknown History mcg (1,000 unit) capsule diclofenac sodium 1 % topical gel 2 g topical BID 04/09/24 05/30/24 Unknown History famotidine 20 mg tablet 20 mg PO BID 04/09/24 05/30/24 Unknown History linaclotide 145 mcg capsule 145 mcg PO QAM 04/09/24 05/30/24 Unknown History lisinopril 40 mg tablet 40 mg PO QPM 04/09/24 05/30/24 Unknown History metoprolol succinate 25 mg 25 mg PO QAM 04/09/24 05/30/24 05/30/24 History tablet,extended release 24 hr Exam Height,Weight and Vital Signs: Height 5 ft 2 in Weight 82.1 kg Assessment and Plan Assessment Anesthesia Assessment: Chart Reviewed Documented by User: Vivian Roman MD 05/30/24 11:18 PMFSH Past Medical History Medical History Hypertensive retinopathy Dyslipidemia Vitamin D deficiency Cobalamin deficiency Osteoarthritis IBS (irritable bowel syndrome) delivery delivered High cholesterol HTN (hypertension) Family History Family History Mother Cancer Uterine cancer Brother HTN (hypertension) Family history of problems with anesthesia: No Surgical History Surgical History Hx of bilateral cataract extraction Hx of knee surgery Hx of section Hx of tubal ligation Hx of colonoscopy History of Problems with Anesthesia: No Social History Social History Alcohol intake: unknown Patient Tobacco Use Status: Never used Tobacco Have you been hit, kicked, punched, or otherwise hurt by someone within the past year? If so, by whom?: No Are you DNR?: No Advance Directives: No Advance Directives Information Provided: Yes Gender identity: Female Meds Allergies Allergy/AdvReac Type Severity Reaction Status Date / Time No Known Allergies Allergy Verified 05/08/24 10:02 [No Known Allergies*] Home Medications ?Medication ?Instructions ?Recorded ?Confirmed ?Last Taken ?Type acetaminophen 325 mg tablet 325 mg PO Q4-6H PRN Pain (Scale 06/09/22 05/30/24 Unknown History Score 4-6) docusate sodium 100 mg capsule 100 mg PO BID PRN constipation 10/04/23 05/30/24 Unknown History spironolactone 50 mg tablet 50 mg PO BID 10/04/23 05/30/24 Unknown History ezetimibe 10 mg tablet 10 mg PO DAILY 01/10/24 05/30/24 Unknown History rosuvastatin 40 mg tablet 40 mg PO DAILY 01/10/24 05/30/24 Unknown History amlodipine 10 mg tablet 10 mg PO QPM 04/09/24 05/30/24 05/30/24 History chlorthalidone 25 mg tablet 25 mg PO QAM 04/09/24 05/30/24 Unknown History cholecalciferol (vitamin D3) 25 25 mcg PO DAILY 04/09/24 05/30/24 Unknown History mcg (1,000 unit) capsule diclofenac sodium 1 % topical gel 2 g topical BID 04/09/24 05/30/24 Unknown History famotidine 20 mg tablet 20 mg PO BID 04/09/24 05/30/24 Unknown History linaclotide 145 mcg capsule 145 mcg PO QAM 04/09/24 05/30/24 Unknown History lisinopril 40 mg tablet 40 mg PO QPM 04/09/24 05/30/24 Unknown History metoprolol succinate 25 mg 25 mg PO QAM 04/09/24 05/30/24 05/30/24 History tablet,extended release 24 hr Exam Airway Mallampati Class: II TM Dist: >3cm Neck ROM: Full Heart: rrr Lungs: cta Assessment and Plan Assessment Anesthesia Assessment: Anesthesia Plan Discussed Final Anesthetic Review Family History of Problems with Anesthesia: No History of Problems with Anesthesia: No NPO: Yes ASA Class: II Final Preanesthetic Review: No Changes in Pt Med Stat, Meds/Allgs Chart Reviewed, Consent Obtained/Reviewed and Anes Risks/Benef Reviewed Patient Risk: Low Procedure Risk: Low Anesthetic Plan Anesthetic Plan: MAC: Disposition: Standard PACU
[2024-05-30 10:32] VITALS: BP 168/92; PULSE 76; RESP 20; TEMP 36.4; O2SAT 97; BMI 33.2
[2024-05-30] MEDS: Lactated Ringers 1,000 ML 100 ML IVCONT (11:04)
--- NOTE | 2024-05-30 12:17 | MHC.SHP ---
Pre-Procedural Eval Section A - 24 Hr Update-Section A only Date of Service: 05/30/24 Section B - Complete if H&P > 30 days Chief Complaint: screening Details of Present Illness: delivery delivered High cholesterol HTN (hypertension) Surgical History Hx of bilateral cataract extraction Hx of knee surgery Hx of section Hx of tubal ligation Hx of colonoscopy History of Previous Operations: No relevant previous surgery Allergies: Allergies Allergy/AdvReac Type Severity Reaction Status Date / Time No Known Allergies Allergy Verified 05/08/24 10:02 [No Known Allergies*] Review of Systems Review of Systems Comment: Ten point ROS negative Exam Exam Comment: Gen appear: No acute distress HEENT: no icterus Chest: No overt resp distress Abd: soft, nontender, nondistended Psych: Stable affect, answering questions appropriately Neuro: A/Ox3 noted to move all extremities spontaneously Ext: no peripheral edema Plan Diagnosis/Plan: Unchanged I have reviewed the history and physical and performed a pertinent physical examination on my patient. No changes have occurred unless specified. Time Spent With Patient Time: Total time managing care of this patient today ____ minutes.
--- NOTE | 2024-05-30 13:06 | P.OPN-COLO_ITS ---
Colonoscopy Operative Note Operative Note Date of Service: 05/30/24 Narrative: Procedure: Colonoscopy Indication: Personal history of polyps Endoscopist: Reshma Lewis MD Anesthesia Provider: Juju Kirkland CRNA Anesthesia type: MAC Instrument: Olympus [id number]-H190L and [id number] Consent: Indication, risks vs benefits, and alternatives were discussed with the patient who gave written informed consent to proceed. EKG, pulse, pulse oximetry and blood pressure were monitored throughout the procedure. Please see anesthesi a flowsheet. Procedure: The patient was brought to the procedure room and placed in the left lateral decubitus position. IV medications were administered by the anesthesia provider in attendance. A digital rectal exam was performed which was normal. A distal attachment cap was affixed to the tip of the colonoscope which was then inserted through the anus and advanced through the colon to the hepatic flexure. Despite utilizing to person pressure, repositioning, cecum could not be intubated. We therefore changed the scope to the adult colonoscope. The cecum was then reached at 80 cm. Appendiceal orifice and ileocecal valve were identified. Mucosa was carefully examined under high definition white light as the instrument was slowly withdrawn in a retrograde panoramic fashion. Retroflexion was performed in rectum. The procedure was somewhat difficult. There were no immediate obvious complications. The quality of the prep was BBPS: 3+2+3 = adequate Withdrawal time 7 minutes. Limitations: No limitations. Findings: Mucosa: Normal to cecum and terminal ileum. Protruding lesions: * Medium internal hemorrhoids without stigmata of recent bleeding. Excavated lesions: * Mild to moderate diverticulosis of sigmoid colon. Impression: 1. Normal colon mucosa 2. Internal hemorrhoids Recommendations: - Repeat colonoscopy in 7-10 years.
[2024-05-30 13:10] VITALS: BP 93/69; PULSE 67; RESP 16; TEMP 36.3; O2SAT 97
[2024-05-30 13:25] VITALS: BP 125/65; PULSE 76; RESP 16; O2SAT 99
[2024-05-30 13:33] VITALS: BP 139/85; PULSE 67; RESP 16; TEMP 36.1; O2SAT 99
== END 2024-05-30 14:12 | disposition home or self-care (01) ==
PROVIDERS: PCP Family Medicine; Visit Provider Internal Medicine
PROC: 0DJD8ZZ Inspection of Lower Intestinal Tract, Via Natural or Artificial Opening Endoscopic (ICD-10-PCS; CPT 45378; principal; 2024-05-30 12:20)
DX: Z12.11 Encounter for screening for malignant neoplasm of colon (principal); K57.30 Diverticulosis of large intestine without perforation or abscess without bleeding; K64.8 Other hemorrhoids; K59.04 Chronic idiopathic constipation; K58.2 Mixed irritable bowel syndrome; I10 Essential (primary) hypertension; E78.5 Hyperlipidemia, unspecified; Z79.899 Other long term (current) drug therapy; Z79.02 Long term (current) use of antithrombotics/antiplatelets
CPT/HCPCS: G0121; J2003; J2704

== ENCOUNTER → 2024-05-30 10:11 | Outpatient (BNV) | payer MEDICARE, MEDICAID, SELFPAY | PROVIDERS: PCP Family Medicine; Visit Provider Internal Medicine | DX: Z12.11 Encounter for screening for malignant neoplasm of colon (principal); Z86.0100 Personal history of colon polyps, unspecified; K57.30 Diverticulosis of large intestine without perforation or abscess without bleeding; K64.8 Other hemorrhoids | CPT/HCPCS: G0105 ==

== ENCOUNTER 2024-06-17 16:58 | Inpatient (IN) | payer MEDICARE, MEDICAID, SELFPAY ==
[2024-06-17] VITALS (7 sets, daily range): BP systolic 83–114; BP diastolic 33–70; PULSE 57–79; RESP 16–25; TEMP 36.1–36.8; O2SAT 97–100; BMI 56.2
[2024-06-17 19:00] LABS: MANUAL DIFF FLAG NO
[2024-06-17 19:06] LABS: Basophils Percent Auto 0.2 % (0-2); Eosinophils Percent Auto 0.1 % (0-4); Hematocrit 37.5 % (37.0-47.0); Hemoglobin 13.4 g/dl (12.0-16.0); Imm Gran Pct Auto 0.6 % (0.0-0.4); Lymphocytes Absolute Auto 1.2 X10*3/uL (1.2-4.9); Lymphocytes Percent Auto 6.9 % (20-40); Mean Corpuscular HGB Conc 35.7 g/dl (31.0-35.0); Mean Corpuscular Hemoglobin 30.7 pg (27.0-33.0); Mean Corpuscular Volume 85.8 fL (80.0-98.0); Mean Platelet Volume 9.3 fL (9.4-12.3); Monocytes Absolute Auto 0.7 X10*3/uL (0.1-1.2); Monocytes Percent Auto 4.3 % (2-11); Neutrophils Absolute Auto 14.8 x10*3/uL (2.0-8.3); Neutrophils Percent Auto 87.9 % (45-73); Platelet Count 376 X10*3/uL (160-400); Red Blood Count 4.37 X10*6/uL (4.20-5.50); White Blood Count 16.8 X10*3/uL (4.8-10.8)
[2024-06-17 19:09] LABS: Influenza A PCR NEGATIVE (Negative); Influenza B PCR NEGATIVE (Negative); Resp Syncy Virus RNA Qual PCR NEGATIVE (Negative); SARS COV2 PCR INHOUSE NEGATIVE (Negative)
[2024-06-17 19:15] LABS: Alanine Aminotransferase 18 U/L (0-31); Alkaline Phosphatase 83 U/L (39-117); Anion Gap 19 (12-20); Aspartate Amino Transferase 39 U/L (5-31); Bilirubin Total 0.7 mg/dL (0.0-1.0); Blood Urea Nitrogen 23 mg/dL (9-16); Calcium 9.3 mg/dL (8.4-10.2); Carbon Dioxide 23 mmol/L (22-29); Chloride 87 mmol/L (96-108); Estimated Glomerular Filt Rate 33; Glucose Random 145 mg/dL (60-115); Potassium 3.9 mmol/L (3.3-5.1); Sodium 125 mmol/L (135-145); Total Protein 7.1 g/dL (6.5-8.0)
--- NOTE | 2024-06-17 20:09 | ECG_ITS ---
Test Reason : SYNCOPE Blood Pressure : / mmHG Vent. Rate : 058 BPM Atrial Rate : 058 BPM P-R Int : 140 ms QRS Dur : 078 ms QT Int : 454 ms P-R-T Axes : 066 029 047 degrees QTc Int : 445 ms Sinus bradycardia Otherwise normal ECG When compared with ECG of 21-APR-2024 12:18, No significant change was found Referred By: Nhi Lyons Electronically Signed By:JAMILAH FELICIANO
--- NOTE | 2024-06-17 20:09 | ED.GENADULT ---
HPI - General Adult General Chief complaint: Weakness Stated complaint: Lethargy Time Seen by Provider: 06/17/24 19:52 Source: patient Mode of arrival: ambulatory Limitations: no limitations History of Present Illness ED Provider: Dr. Nhi Lyons HPI narrative: Patient comes to the emergency room complaining of 1 episode of diarrhea, vomiting, weakness and syncope. Patient states that earlier today she had to run to the bathroom because she had diarrhea. Then, while patient was sitting trying to clean herself, patient states that her sister was assisting her, then patient passed out while sitting in the bathroom. According to the patient's sister, patient was out for about 30 seconds. Patient states that she has no abdominal pain Related Data Home Medications ?Medication ?Instructions ?Recorded ?Confirmed acetaminophen 325 mg tablet 325 mg PO Q4-6H PRN Pain (Scale 06/09/22 05/30/24 Score 4-6) docusate sodium 100 mg capsule 100 mg PO BID PRN constipation 10/04/23 05/30/24 spironolactone 50 mg tablet 50 mg PO BID 10/04/23 05/30/24 ezetimibe 10 mg tablet 10 mg PO DAILY 01/10/24 05/30/24 rosuvastatin 40 mg tablet 40 mg PO DAILY 01/10/24 05/30/24 amlodipine 10 mg tablet 10 mg PO QPM 04/09/24 05/30/24 chlorthalidone 25 mg tablet 25 mg PO QAM 04/09/24 05/30/24 cholecalciferol (vitamin D3) 25 25 mcg PO DAILY 04/09/24 05/30/24 mcg (1,000 unit) capsule diclofenac sodium 1 % topical gel 2 g topical BID 04/09/24 05/30/24 famotidine 20 mg tablet 20 mg PO BID 04/09/24 05/30/24 linaclotide 145 mcg capsule 145 mcg PO QAM 04/09/24 05/30/24 lisinopril 40 mg tablet 40 mg PO QPM 04/09/24 05/30/24 metoprolol succinate 25 mg 25 mg PO QAM 04/09/24 05/30/24 tablet,extended release 24 hr Previous Rx's ?Medication ?Instructions ?Recorded cyanocobalamin (vitamin B-12) 500 500 mcg PO QAM #90 tabs 03/29/22 mcg tablet Allergies Allergy/AdvReac Type Severity Reaction Status Date / Time No Known Allergies Allergy Verified 06/17/24 17:24 [No Known Allergies*] Review of Systems Review of Systems: Constitutional : No Weight loss, No Fever, No Chills, No Night Sweats, No Fatigue, No Malaise ENT/Mouth : No Hearing loss, No Ear Pain, No Nasal Congestion, No Sinus Pain, No Hoarseness, No sore throat, No Rhinorrhea, No Swallowing Difficulty Eyes: No Eye Pain, No Swelling, No Redness, No Foreign Body, No Discharge, No Vision Changes Cardiovascular : No Chest Pain, No SOB, No Dyspnea on Exertion, No Orthopnea, No Edema, No Palpitations Respiratory : No Cough, No Sputum, No Wheezing, No Smoke Exposure, No Dyspnea Gastrointestinal : Complaining of 1 episode of vomiting and diarrhea, No Constipation, No abdominal Pain, No Hematochezia, No Melena Genitourinary : no irregular bleeding, No Dysuria, No Urinary Frequency, No Hematuria, No Urinary Incontinence, No Urgency, No Flank Pain, No Urinary Flow Changes, No Hesitancy Musculoskeletal : No joint pain, No Myalgias, No Joint Swelling Skin : No Skin Lesions, No rash Neuro : No Weakness, No Numbness, No Paresthesias, 1 vasovagal episode of syncope while sitting in the bathroom Psych : No Anxiety/Panic, No Depression, No SI/HI/AH/VH, No Social Issues, Heme/Lymph: No Bruising, No Bleeding,No Lymphadenopathy Endocrine : No Polyuria, No Polydipsia, No Temperature Intolerance PMFSH Past Medical History Medical History Hypertensive retinopathy Dyslipidemia Vitamin D deficiency Cobalamin deficiency Osteoarthritis IBS (irritable bowel syndrome) delivery delivered High cholesterol HTN (hypertension) Surgical History Hx of bilateral cataract extraction Hx of knee surgery Hx of section Hx of tubal ligation Hx of colonoscopy Family History Family History Mother Cancer Uterine cancer Brother HTN (hypertension) Social History Social History Alcohol intake: unknown Patient Tobacco Use Status: Never used Tobacco Advance Directives: No Advance Directives Information Provided: No Gender identity: Female Physical Exam ED Vital Signs: Vital Signs - 24 hr 06/17/24 17:23 06/17/24 20:09 06/17/24 20:28 Temperature 97 F 98.2 F Pulse Rate 60 57 59 Respiratory Rate 16 16 Blood Pressure 100/50 L 83/33 L 95/44 L Pulse Oximetry 100 99 Oxygen Delivery Method Room Air Room Air 06/17/24 20:29 06/17/24 20:29 Temperature Pulse Rate 70 79 Respiratory Rate Blood Pressure 108/63 95/54 L Pulse Oximetry Oxygen Delivery Method BMI result Body Mass Index 56.2 Const Other: Appearance: Alert. Oriented X3. No acute distress. Well-appearing Eyes: Pupils equal, round and reactive to light. ENT: Pharynx normal. Neck: Normal inspection. Neck supple. No lymph nodes noted. No crepitus CVS: Normal heart rate and rhythm. Pulses normal. Normal S1 and S2 Respiratory: No respiratory distress. Breath sounds normal. No Wheezing. No rales Abdomen: Soft and nontender. No rigidity. No distention. Skin: Skin warm and dry. Normal skin color. Normal skin turgor. Extremities: No lower extremity edema. No Lacerations. No Rash Neuro: Oriented X 3. No motor deficit. No sensory deficit. Moving all extremities. No slurred speech. CN 2 through 12 grossly intact Psych: calm, cooperative, normal affect Medications Administered Discontinued Medications Generic Name Dose Route Start Last Admin Trade Name Freq PRN Reason Stop Dose Admin Sodium Chloride 250 mls @ 999 mls/hr 06/17/24 20:07 06/17/24 20:33 Ns IVCONT 06/17/24 20:22 Infused .Q16M ONE Infusion Medical Decision Making Medical Decision Making MDM Narrative: Patient has no abdominal pain. Patient states that she feels a bit better but still weak. -my interpretation of labs, patient's white blood cell count 16.8, likely reactive leukocytosis. Patient likely has viral gastritis versus gastroenteritis. Patient's sodium is 125, creatinine 1.55, baseline below 1.0. -patient being hydrated slowly to help with the DARRYN. However, going so due to hyponatremia. -in the emergency room, patient has not had any episodes of diarrhea or vomiting. -overall patient feels well. However patient does feel weak I discussed the patient with Dr. Rivas from the Medicine team, patient being admitted Differential Diagnosis Differential Diagnoses: The differential diagnosis associated with the presentation includes Admission/Observation Consideration of admission/observation: Escalation of care including admission/observation considered Consult Healthcare Provider Management of the patient was discussed with: Hospitalist Lab Data [facility] Lab Attestation statement: I reviewed the patient's lab results. 06/17/24 18:56 06/17/24 18:56 Labs: Lab Results 06/17/24 06/17/24 Range/Units 18:26 18:56 WBC 16.8 H (4.8-10.8) X10*3/uL RBC 4.37 (4.20-5.50) X10*6/uL Hgb 13.4 (12.0-16.0) g/dl Hct 37.5 (37.0-47.0) % MCV 85.8 (80.0-98.0) fL MCH 30.7 (27.0-33.0) pg MCHC 35.7 H (31.0-35.0) g/dl RDW 12.0 (11.0-16.0) % Plt Count 376 (160-400) X10*3/uL MPV 9.3 L (9.4-12.3) fL Immature Gran % (Auto) 0.6 H (0.0-0.4) % Neut % (Auto) 87.9 H (45-73) % Lymph % (Auto) 6.9 L (20-40) % [place] % (Auto) 4.3 (2-11) % Eos % (Auto) 0.1 (0-4) % Baso % (Auto) 0.2 (0-2) % Lymph # (Auto) 1.2 (1.2-4.9) X10*3/uL [place] # (Auto) 0.7 (0.1-1.2) X10*3/uL Eos # (Auto) 0.0 (0.0-0.4) X10*3/uL Baso # (Auto) 0.0 (0.0-0.2) X10*3/uL Abs Immat Gran (auto) 0.10 H (0.00-0.03) X10*3/uL Absolute Neuts (auto) 14.8 H (2.0-8.3) x10*3/uL Absolute Nucleated RBC 0.000 (0.0-0.012) X10*3/uL Nucleated RBC % (auto) 0.0 (0.0-0.2) /100WBC Sodium 125 L (135-145) mmol/L Potassium 3.9 (3.3-5.1) mmol/L Chloride 87 L (96-108) mmol/L Carbon Dioxide 23 (22-29) mmol/L Anion Gap 19 (12-20) BUN 23 H (9-16) mg/dL Creatinine 1.55 H (0.5-1.4) mg/dL Estim Creat Clear Calc 26.0 Estimated GFR 33 Random Glucose 145 H (60-115) mg/dL Calcium 9.3 (8.4-10.2) mg/dL Magnesium 2.0 (1.6-2.6) mg/dL Total Bilirubin 0.7 (0.0-1.0) mg/dL AST 39 H (5-31) U/L ALT 18 (0-31) U/L Alkaline Phosphatase 83 (39-117) U/L Troponin I High Sens 8.2 D (<3.5-17.0) ng/L Total Protein 7.1 (6.5-8.0) g/dL Albumin 4.0 (3.5-5.0) g/dL Influenza Type A (PCR) NEGATIVE (Negative) Influenza Type B (PCR) NEGATIVE (Negative) RSV RNA Qual (PCR) NEGATIVE (Negative) SARS-CoV-2 RNA (RT-PCR) NEGATIVE (Negative) Critical Care Time Critical Care Time Critical Care Time: Yes Total Critical Care Time: 60 Attestation: I have personally provided critical care time. Time includes review of lab data, radiology results, discussion with consultants, and monitoring for potential decompensation. Intervention performed as documented. Discharge Plan Discharge Clinical Impression: Acute hyponatremia, DARRYN (acute kidney injury), Nausea vomiting and diarrhea Patient Disposition: Admitted As Inpatient Prescriptions: No Action cyanocobalamin (vitamin B-12) 500 mcg tablet 500 mcg PO QAM Qty: 90 2RF acetaminophen 325 mg tablet 325 mg PO Q4-6H PRN (Reason: Pain (Scale Score 4-6)) spironolactone 50 mg tablet 50 mg PO BID docusate sodium 100 mg capsule 100 mg PO BID PRN (Reason: constipation) metoprolol succinate 25 mg tablet extended release 24 hr 25 mg PO QAM famotidine 20 mg tablet 20 mg PO BID cholecalciferol (vitamin D3) 25 mcg (1,000 unit) capsule 25 mcg PO DAILY lisinopril 40 mg tablet 40 mg PO QPM diclofenac sodium 1 % gel 2 g topical BID linaclotide 145 mcg capsule 145 mcg PO QAM rosuvastatin 40 mg tablet 40 mg PO DAILY ezetimibe 10 mg tablet 10 mg PO DAILY amlodipine 10 mg tablet 10 mg PO QPM chlorthalidone 25 mg tablet 25 mg PO QAM Print Language: Scottish
[2024-06-17] MEDS: 0.9 % Sodium Chloride 250 ML 999 ML IVCONT (20:15)
[2024-06-17 20:29] LABS: Troponin-I High Sensitivity 8.2 ng/L (<3.5-17.0)
--- NOTE | 2024-06-17 21:38 | P.HPHOSP_ITS ---
History of Present Illness Date of Service: 06/17/24 Attending physician on admission: Dain Osborn Chief Complaint: I fainted Trisha Walsh is a 68 years old past medical history significant essential hypertension on metoprolol, lisinopril, amlodipine, chlorthalidone and spironolactone presents to the ED via EMS after she fainted today. At the time of fainting the patient was sitting on the toilet and had 1 event of watery nonbloody diarrhea. She also reported 1 event of nonbloody vomiting. She denied abdominal pain or fever. She did not report any acute urinary symptoms. Denies headache, focal weakness or acute visual problems. She reported poor appetite. Denied alcohol abuse, tobacco smoking or illicit drug use. Denies recent travel history or contact with ill people. Abdominal surgery history is remarkable for x3 and tubal ligation. In the ED, she was found to have blood pressure of 83/33 (positive orthostatics). There is no tachycardia, fever and O2 sats are normal on room air. Blood workup was remarkable for leukocytosis of 16.8. Hemoglobin is 13.4 and platelets are normal. There is hyponatremia of 125 and creatinine is 1.55 (prior 0.93). LFTs are basically unremarkable except for minimal elevation of AST of 39. ECG showed sinus bradycardia, 58 bpm without ischemic changes. ED tx: NS 250 ml Review of Systems 2 Review of Systems: All 12 systems were reviewed and normal except as noted in HPI. [facility] Medical History Hypertensive retinopathy Dyslipidemia Vitamin D deficiency Cobalamin deficiency Osteoarthritis IBS (irritable bowel syndrome) delivery delivered High cholesterol HTN (hypertension) Family History Mother Cancer Uterine cancer Brother HTN (hypertension) Surgical History Hx of bilateral cataract extraction Hx of knee surgery Hx of section Hx of tubal ligation Hx of colonoscopy Social History Alcohol intake: unknown Patient Tobacco Use Status: Never used Tobacco Advance Directives: No Advance Directives Information Provided: No Gender identity: Female Meds Allergies Allergy/AdvReac Type Severity Reaction Status Date / Time No Known Allergies Allergy Verified 06/17/24 17:24 [No Known Allergies*] Active Medications: Current Medications Acetaminophen (Acetaminophen 325 Mg Tablet) 975 mg PO Q6H PRN PRN Reason: Pain, Mild (Pain Scale 1-3), fever or headache Calcium Carbonate (Calcium Carbonate 750 Mg Tab.Chew) 750 mg PO Q4H PRN PRN Reason: Heartburn Enoxaparin Sodium (Enoxaparin Sodium 40 Mg/0.4 Ml Syringe) 40 mg SUBCUT Q24H LD Sodium Chloride (Ns) 1,000 mls @ 999 mls/hr IV .Q1H1M STA Stop: 06/17/24 22:36 Sodium Chloride (Ns) 1,000 mls @ 100 mls/hr IVCONT .Q10H LD Melatonin (Melatonin 3 Mg Tablet) 6 mg PO BEDTIME PRN PRN Reason: Insomnia Ondansetron HCl (Ondansetron Hcl 4 Mg/2 Ml Vial) 4 mg IVPUSH Q6H PRN PRN Reason: nausea and vomiting Sodium Chloride (0.9 % Sodium Chloride Flush 3 Ml Syringe) 3 ml IVFLUSH QSHIFT [facility] Home Medications ?Medication ?Instructions ?Recorded ?Confirmed ?Last Taken ?Type acetaminophen 325 mg tablet 325 mg PO Q4-6H PRN Pain (Scale 06/09/22 06/17/24 Unknown History Score 4-6) docusate sodium 100 mg capsule 100 mg PO BID PRN constipation 10/04/23 06/17/24 Unknown History spironolactone 50 mg tablet 50 mg PO BID 10/04/23 06/17/24 Unknown History ezetimibe 10 mg tablet 10 mg PO DAILY 01/10/24 06/17/24 Unknown History rosuvastatin 40 mg tablet 40 mg PO BEDTIME 01/10/24 06/17/24 Unknown History amlodipine 10 mg tablet 10 mg PO BEDTIME 04/09/24 06/17/24 05/30/24 History chlorthalidone 25 mg tablet 25 mg PO DAILY 04/09/24 06/17/24 Unknown History cholecalciferol (vitamin D3) 25 25 mcg PO DAILY 04/09/24 06/17/24 Unknown History mcg (1,000 unit) capsule diclofenac sodium 1 % topical gel 2 g topical BID 04/09/24 06/17/24 Unknown History famotidine 20 mg tablet 20 mg PO BID 04/09/24 06/17/24 Unknown History linaclotide 145 mcg capsule 145 mcg PO DAILY 04/09/24 06/17/24 Unknown History lisinopril 40 mg tablet 40 mg PO BEDTIME 04/09/24 06/17/24 Unknown History metoprolol succinate 25 mg 25 mg PO DAILY 04/09/24 06/17/24 05/30/24 History tablet,extended release 24 hr cyanocobalamin (vitamin B-12) 500 500 mcg PO DAILY 06/17/24 06/17/24 Unknown History mcg tablet polyvinyl alcohol 1.4 % eye drops 2 drp ophthalmic (eye) DAILY PRN 06/17/24 06/17/24 Unknown History dry eyes Physical Exam 2 Vital Signs and Narrative: Vital Signs: Last Vital Signs Temp 98.2 F 06/17/24 20:09 Pulse 79 06/17/24 20:29 Resp 16 06/17/24 20:09 BP 95/54 L 06/17/24 20:29 Pulse Ox 99 06/17/24 20:09 O2 Del Method Room Air 06/17/24 20:09 BMI result Body Mass Index 56.2 Constitutional - Awake and Alert, No apparent distress. Pleasant. Cooperative. Obese. HEENT - PER, EOMI. Normal sclerae. Dry oral mucosa. Heart - S1S2, RRR, No murmurs. Lungs - Normal lung expansion, Normal respiratory effort, No respiratory distress, CTA bilaterally Abdomen - NT / ND; +BS; No rebound or guarding Extremities - no calf tenderness bilaterally, no swelling Musculoskeletal - Normal inspection, normal ROM Skin - Warm/Dry Neurological - Alert & oriented x3. No focal weakness grossly noted. Normal speech. Psychological - Appropriate affect Results Labs 06/17/24 18:56 06/17/24 18:56 Labs: Laboratory Results - last 24 hr 06/17/24 06/17/24 18:26 18:56 MCV 85.8 MCH 30.7 MCHC 35.7 H RDW 12.0 Plt Count 376 MPV 9.3 L Immature Gran % (Auto) 0.6 H Neut % (Auto) 87.9 H Lymph % (Auto) 6.9 L [place] % (Auto) 4.3 Eos % (Auto) 0.1 Baso % (Auto) 0.2 Lymph # (Auto) 1.2 [place] # (Auto) 0.7 Eos # (Auto) 0.0 Baso # (Auto) 0.0 Abs Immat Gran (auto) 0.10 H Absolute Neuts (auto) 14.8 H Absolute Nucleated RBC 0.000 Nucleated RBC % (auto) 0.0 Anion Gap 19 Estim Creat Clear Calc 26.0 Estimated GFR 33 Random Glucose 145 H Calcium 9.3 Magnesium 2.0 Total Bilirubin 0.7 AST 39 H ALT 18 Alkaline Phosphatase 83 Troponin I High Sens 8.2 D Total Protein 7.1 Albumin 4.0 Influenza Type A (PCR) NEGATIVE Influenza Type B (PCR) NEGATIVE RSV RNA Qual (PCR) NEGATIVE SARS-CoV-2 RNA (RT-PCR) NEGATIVE Assessment and Plan (1) Acute hyponatremia: Status: Acute (2) DARRYN (acute kidney injury): Status: Acute (3) Syncope: Qualifiers: Syncope type: unspecified Qualified Code(s): R55 - Syncope and collapse Status: Acute Plan Trisha Walsh is a 68 y/o woman admitted with: * Syncopal episode likely secondary to orthostasis due to dehydration caused by diarrhea, vomiting + diuretics use. Admit to hospitalist service. Telemetry. Bedrest. Continue IV fluids. Orthostatic VS with every shift. Hold diuretics and hypertensive meds. * Hyponatremia, multifactorial: Nausea, vomiting and diuretics (chlorthalidone, spironolactone). Continue IV fluids. Continue to monitor Na+ level every 4 hours. Hyponatremia workup ordered in ED -will follow results. * Acute kidney injury, secondary to diarrhea, vomiting in the setting of lisinopril, chlorthalidone and spironolactone use. Hold lisinopril, chlorthalidone and spironolactone. Continue IV fluids. Continue to monitor renal function. Avoid nephrotoxic agents. * Nausea and diarrhea, resolved. The cause unclear. Maybe viral. * Essential hypertension. BP soft. Hold metoprolol, lisinopril, amlodipine, chlorthalidone and spironolactone. Continue IV fluids. Continue to monitor BP. * Leukocytosis, likely secondary to vomiting and dehydration. Continue IV fluids. Patient's WBC count in the morning. * Hyperlipidemia. Continue statin and ezetimibe. DVT prophylaxis: Lovenox Code status: Full Patient will need hospitalization for at least 2 midnights for hyponatremia associated with DARRYN treatment with IV fluids and close monitoring of sodium level. Quality Stroke Does the patient have a stroke diagnosis?: No VTE Prior VTE?: No VTE Risk Level:: Medical - moderate - high VTE Device Contraindication: Treatment Not Indicated VTE Drug Contraindication: N/A - Med Ordered
[2024-06-17] MEDS: 0.9 % Sodium Chloride 1,000 ML 999 ML IV (21:45)
--- NOTE | 2024-06-17 21:55 | PHA.MEDREC ---
Pharmacy Consult ? Medication Reconciliation Pharmacy has completed the medication reconciliation. Spoke with patient in the ED. Patient knew all medications. Patient is a med box patient at [facility]. Patient last took medications this morning
[2024-06-17 21:57] LABS: Osmolality, Serum 267 mosm/kg (281-305)
--- NOTE | 2024-06-17 23:04 | PC.NURSE ---
IVF bolus still infusing at this time
[2024-06-17 23:06] LABS: Anion Gap 13 (12-20); Blood Urea Nitrogen 23 mg/dL (9-16); Calcium 8.7 mg/dL (8.4-10.2); Carbon Dioxide 24 mmol/L (22-29); Chloride 90 mmol/L (96-108); Creatinine Clr Calc Pharmacy 27.3; Estimated Glomerular Filt Rate 35; Glucose Random 134 mg/dL (60-115); Potassium 3.9 mmol/L (3.3-5.1); Sodium 123 mmol/L (135-145)
[2024-06-17 23:13] LABS: Lactic Acid 2.8 mmol/L (0.5-2.0)
[2024-06-18] VITALS (7 sets, daily range): BP systolic 112–146; BP diastolic 51–74; PULSE 58–67; RESP 13–20; TEMP 36.4–36.9; O2SAT 96–99; BMI 55.5
[2024-06-18 00:49] LABS: Reflex Lactate? Lactic Acid Added
[2024-06-18 01:51] LABS: ~Lactic Acid-LAB USE ONLY 2.1 mmol/L (0.5-2.0)
[2024-06-18] MEDS: 0.9 % Sodium Chloride 1,000 ML 100 ML IVCONT ×3 (02:38→21:03)
[2024-06-18 03:20] LABS: Reflex Lactate? 2 Y
[2024-06-18 03:31] LABS: Anion Gap 12 (12-20); Blood Urea Nitrogen 26 mg/dL (9-16); Calcium 8.6 mg/dL (8.4-10.2); Carbon Dioxide 25 mmol/L (22-29); Chloride 90 mmol/L (96-108); Creatinine Clr Calc Pharmacy 25.8; Estimated Glomerular Filt Rate 33; Glucose Random 119 mg/dL (60-115); Potassium 4.4 mmol/L (3.3-5.1); Sodium 123 mmol/L (135-145)
[2024-06-18 05:41] LABS: MANUAL DIFF FLAG NO
[2024-06-18 05:42] LABS: Basophils Percent Auto 0.2 % (0-2); Eosinophils Percent Auto 0.3 % (0-4); Hematocrit 32.2 % (37.0-47.0); Hemoglobin 11.3 g/dl (12.0-16.0); Imm Gran Abs Auto 0.06 X10*3/uL (0.00-0.03); Imm Gran Pct Auto 0.5 % (0.0-0.4); Lymphocytes Absolute Auto 1.9 X10*3/uL (1.2-4.9); Lymphocytes Percent Auto 16.3 % (20-40); Mean Corpuscular HGB Conc 35.1 g/dl (31.0-35.0); Mean Corpuscular Hemoglobin 30.6 pg (27.0-33.0); Mean Corpuscular Volume 87.3 fL (80.0-98.0); Mean Platelet Volume 9.3 fL (9.4-12.3); Monocytes Absolute Auto 0.7 X10*3/uL (0.1-1.2); Monocytes Percent Auto 6.4 % (2-11); Neutrophils Absolute Auto 8.8 x10*3/uL (2.0-8.3); Neutrophils Percent Auto 76.3 % (45-73); Platelet Count 346 X10*3/uL (160-400); Red Blood Count 3.69 X10*6/uL (4.20-5.50); Red Cell Distribution Width 12.4 % (11.0-16.0); White Blood Count 11.5 X10*3/uL (4.8-10.8)
[2024-06-18 05:58] LABS: Anion Gap 13 (12-20); Blood Urea Nitrogen 27 mg/dL (9-16); Calcium 8.7 mg/dL (8.4-10.2); Carbon Dioxide 23 mmol/L (22-29); Chloride 91 mmol/L (96-108); Creatinine Clr Calc Pharmacy 27.1; Estimated Glomerular Filt Rate 35; Glucose Random 120 mg/dL (60-115); Potassium 3.9 mmol/L (3.3-5.1); Sodium 123 mmol/L (135-145)
[2024-06-18 06:00] LABS: ~Lactic Acid-LAB USE ONLY 1.4 mmol/L (0.5-2.0)
[2024-06-18 06:14] LABS: Alanine Aminotransferase 14 U/L (0-31); Albumin Level 3.6 g/dL (3.5-5.0); Alkaline Phosphatase 70 U/L (39-117); Anion Gap 14 (12-20); Aspartate Amino Transferase 30 U/L (5-31); Bilirubin Total 0.6 mg/dL (0.0-1.0); Blood Urea Nitrogen 26 mg/dL (9-16); Calcium 8.5 mg/dL (8.4-10.2); Carbon Dioxide 23 mmol/L (22-29); Chloride 91 mmol/L (96-108); Creatinine Clr Calc Pharmacy 26.8; Estimated Glomerular Filt Rate 34; Glucose Random 120 mg/dL (60-115); Potassium 3.9 mmol/L (3.3-5.1); Sodium 124 mmol/L (135-145); Total Protein 6.2 g/dL (6.5-8.0)
--- NOTE | 2024-06-18 08:30 | PM.CNNEP ---
History of Present Illness Reason for Consult Consult date: 06/18/24 Chief Complaint Chief complaint: hyponatremia History of Present Illness Narrative: 68 y/o female with a medical history of resistant hypertension, sees Dr Prado outpatient for management. 06/17 presented after episode of diarrhea followed by fainting at home, reports earlier in the day vomited after eating breakfast x1. Nephrology consulted for hyponatremia. 06/17 sodium 125, 123 06/18 sodium 123, 124, 123 06/17 creatinine 1.55 (baseline 0.93 in March) 06/18 is 1.49 has received NS fluid boluses (250mL and 1000mL) and now NS 100mL/hr since ~22:00 06/17 she states she is not sure if she had been drinking less fluid or not, but did not feel all that well states she threw up after breakfast states she has been very thirsty over the last day or so and mouth has felt very dry reports she has been taking her blood pressure medicines as prescribed: chlorthalidone 25mg daily, spironolactone 50mg BID, amlodipine 10mg daliy, lisinopril 40mg daily, metoprolol 25mg daily. blood pressure was low on arrival, lowest 88/33. Most recent BP 06/18 a.m. is 124/68 reports she does take aleve from time to time but is not daily as she knows it is not recommended with her blood pressure medicine, reports tylenol does not work for her. she states she is feeling very thirsty and tired but otherwise well. denies lightheadedness, headache, tremors, muscle creamping, abnormal movements, nausea/vomiting/diarrhea. states she is urinating comfortably/easily, reports voided recently this a.m. in bed ch[place]. Denies other symptoms/concerns Review of Systems Constitutional: Reports fatigue and Denies headache(s) Denies dizziness and Denies headache(s) Comments: reports dry mouth Cardiovascular: Denies chest pain, Denies leg edema, Denies lightheadedness and Denies dyspnea Respiratory: Denies cough and Denies dyspnea Gastrointestinal: Denies abdominal pain, Denies constipation, Denies diarrhea, Denies nausea and Denies vomiting Genitourinary: Denies hematuria, Denies difficulty voiding, Denies dysuria and Denies flank pain Musculoskeletal: Denies arthralgias and Denies muscle cramps Skin/Breast: Denies rash Denies dizziness, Denies headache(s) and Denies tremor(s) Comments: denies tremors/abnormal movements Endocrine: Reports fatigue PMFSH Past Medical History Medical History Hypertensive retinopathy Dyslipidemia Vitamin D deficiency Cobalamin deficiency Osteoarthritis IBS (irritable bowel syndrome) delivery delivered High cholesterol HTN (hypertension) Family History Family History Mother Cancer Uterine cancer Brother HTN (hypertension) Surgical History Surgical History Hx of bilateral cataract extraction Hx of knee surgery Hx of section Hx of tubal ligation Hx of colonoscopy Social History Social History Household Members: None Housing: Apartment Do you presently have visiting nurse or other home services: No Alcohol intake: unknown Patient Tobacco Use Status: Never used Tobacco Gender identity: Female Meds Allergies Allergy/AdvReac Type Severity Reaction Status Date / Time No Known Allergies Allergy Verified 06/17/24 17:24 [No Known Allergies*] Active Medications: Current Medications Acetaminophen (Acetaminophen 325 Mg Tablet) 975 mg PO Q6H PRN PRN Reason: Pain, Mild (Pain Scale 1-3), fever or headache Atorvastatin Calcium (Atorvastatin Calcium 80 Mg Tablet) 80 mg PO BEDTIME PENDING SALE TO [facility] Calcium Carbonate (Calcium Carbonate 750 Mg Tab.Chew) 750 mg PO Q4H PRN PRN Reason: Heartburn Ezetimibe (Ezetimibe 10 Mg Tablet) 10 mg PO DAILY [facility] Last Admin: 06/18/24 08:51 Dose: 10 mg Enoxaparin Sodium (Enoxaparin Sodium 30 Mg/0.3 Ml Syringe) 30 mg SUBCUT Q24H [facility] Last Admin: 06/18/24 08:52 Dose: 30 mg Famotidine (Famotidine 20 Mg Tablet) 20 mg PO DAILY [facility] Last Admin: 06/18/24 08:51 Dose: 20 mg Sodium Chloride (Ns) 1,000 mls @ 100 mls/hr IVCONT .Q10H [facility] Last Admin: 06/18/24 08:52 Dose: Not Given Melatonin (Melatonin 3 Mg Tablet) 6 mg PO BEDTIME PRN PRN Reason: Insomnia Ondansetron HCl (Ondansetron Hcl 4 Mg/2 Ml Vial) 4 mg IVPUSH Q6H PRN PRN Reason: nausea and vomiting Sodium Chloride (0.9 % Sodium Chloride Flush 3 Ml Syringe) 3 ml IVFLUSH [facility] Last Admin: 06/18/24 08:52 Dose: Not Given Home Medications ?Medication ?Instructions ?Recorded ?Confirmed ?Last Taken ?Type acetaminophen 325 mg tablet 325 mg PO Q4-6H PRN Pain (Scale 06/09/22 06/17/24 Unknown History Score 4-6) docusate sodium 100 mg capsule 100 mg PO BID PRN constipation 10/04/23 06/17/24 Unknown History spironolactone 50 mg tablet 50 mg PO BID 10/04/23 06/17/24 06/17/24 History ezetimibe 10 mg tablet 10 mg PO DAILY 01/10/24 06/17/24 06/17/24 History rosuvastatin 40 mg tablet 40 mg PO BEDTIME 01/10/24 06/17/24 06/16/24 History amlodipine 10 mg tablet 10 mg PO BEDTIME 04/09/24 06/17/24 06/16/24 History chlorthalidone 25 mg tablet 25 mg PO DAILY 04/09/24 06/17/24 06/17/24 History cholecalciferol (vitamin D3) 25 25 mcg PO DAILY 04/09/24 06/17/24 06/17/24 History mcg (1,000 unit) capsule diclofenac sodium 1 % topical gel 2 g topical BID 04/09/24 06/17/24 06/17/24 History famotidine 20 mg tablet 20 mg PO BID 04/09/24 06/17/24 Unknown History linaclotide 145 mcg capsule 145 mcg PO DAILY 04/09/24 06/17/24 06/17/24 History lisinopril 40 mg tablet 40 mg PO BEDTIME 04/09/24 06/17/24 06/16/24 History metoprolol succinate 25 mg 25 mg PO DAILY 04/09/24 06/17/24 06/17/24 History tablet,extended release 24 hr cyanocobalamin (vitamin B-12) 500 500 mcg PO DAILY 06/17/24 06/17/24 06/17/24 History mcg tablet polyvinyl alcohol 1.4 % eye drops 2 drp ophthalmic (eye) DAILY PRN 06/17/24 06/17/24 Unknown History dry eyes Physical Exam Vital Signs: Last Vital Signs Temp 97.5 F 06/18/24 08:48 Pulse 59 06/18/24 08:48 Resp 15 06/18/24 08:48 BP 124/68 06/18/24 08:48 Pulse Ox 99 06/18/24 08:48 O2 Del Method Room Air 06/18/24 08:48 BMI result Body Mass Index 56.2 Const General: no acute distress, alert and awake Neck Neck: Yes no JVD Resp Effort & Inspection: normal respiratory effort and able to speak in complete sentences Auscultation: clear to auscultation bilaterally Cardio Jugular venous distension: no JVD Rate: regular rate Rhythm: regular rhythm Heart sounds: S1 normal heart sound present and S2 normal heart sound present GI Palpation (GI): Soft to palpation and nontender General: Yes no CVA tenderness Back/Spine/Pelvis Back: no CVA tenderness Skin Lesions: no lesions Rashes: no rashes Neuro Other: no headache, tremors, muscle cramping Extrem General: No edema Results Lab Results 06/18/24 05:34 06/18/24 05:34 Lab results: Chemistry 06/17/24 06/17/24 06/18/24 18:56 22:44 03:03 Sodium 125 L 123 L 123 L Potassium 3.9 3.9 4.4 Carbon Dioxide 23 24 25 BUN 23 H 23 H 26 H Creatinine 1.55 H 1.48 H 1.56 H Calcium 9.3 8.7 D 8.6 06/18/24 06/18/24 06/18/24 05:34 05:34 05:34 Sodium 124 L 123 L Potassium 3.9 3.9 Carbon Dioxide 23 BUN Creatinine Calcium 06/18/24 06/18/24 06/18/24 05:34 05:34 05:34 Sodium Potassium Carbon Dioxide 23 BUN 26 H 27 H Creatinine 1.51 H 1.49 H Calcium 8.5 06/18/24 05:34 Sodium Potassium Carbon Dioxide BUN Creatinine Calcium 8.7 Hematology 06/17/24 06/18/24 18:56 05:34 WBC 16.8 H 11.5 H Hgb 13.4 11.3 L Plt Count [id number] Assessment and Plan (1) DARRYN (acute kidney injury): Status: Acute (2) Acute hyponatremia: Status: Acute Plan Hyponatremia and DARRYN in setting of hypovolemia and concurrent diuretic and ACEi use DARRYN likely secondary to renal hypoperfusion in setting of dehydratoin/reduced PO intake and use of diuretics/ACEi - recommend continue to hold blood pressure medications hyponatremia - pt appears hypovolemic, most likely secondary to hypovolemia, thiazide may have also contributed recommend continuing to hold all blood pressure medications- may slowly add back as blood pressure increases (adequately controlled at this time) recommend continuing 100mL/hr NS for hypernatremia check sodium level every 6 hours to avoid correcting sodium too quickly sodium should increase by no more than 10mmol/24hrs or by no more than 0.5mmol/L/hr Discussed with Dr Johnson Procedures Date of Service Date of Service: 06/18/24
--- NOTE | 2024-06-18 08:38 | PC.NURSE ---
pt voided in bedpan but sample contaminated with stool
--- NOTE | 2024-06-18 08:45 | MHC.CM.PN ---
CM ATTEMPTED TO MEET W/PT HOWEVER PT HAS NOT YET COME TO UNIT, CM TO REVISIT.
[2024-06-18] MEDS: Famotidine 20 MG TABLET PO (08:51)
[2024-06-18] MEDS: Ezetimibe 10 MG TABLET PO (08:51)
[2024-06-18] MEDS: Enoxaparin Sodium 30 MG/0.3 ML SYRINGE SUBCUT (08:52)
[2024-06-18 11:45] LABS: Appearance Urine Cloudy; Color Urine Yellow; Glucose Urine UA Negative (Negative); Leukocyte Esterase Urine Small (1+) (Negative); Nitrite Urine Positive (Negative); Specific Gravity - Urine 1.015 (1.005-1.025); UMIC TRIGGER UACC YES; Urine Blood Trace (Negative); Urine Ketones Negative (Negative); Urine Protein Negative (Neg-Trace)
--- NOTE | 2024-06-18 11:56 | P.PNIM_ITS ---
Subjective Subjective Date of Service: 06/18/24 Interval History: seen and examined this morning follow up for vomiting, hyponatremia, episode of diarrhea feeling better this am Review of Systems Review of Systems: Yes all other systems are reviewed and are negative Constitutional Constitutional: Denies chills and Denies fever(s) Cardiovascular Cardiovascular: Denies chest pain, Denies palpitations and Denies dyspnea Respiratory Respiratory: Denies cough and Denies dyspnea Gastrointestinal Gastrointestinal: Denies abdominal pain Endocrine Endocrine: Denies palpitations Physical Exam 2 Vital Signs: Vital Signs: Last Vital Signs Temp 97.6 F 06/18/24 10:50 Pulse 58 06/18/24 10:50 Resp 18 06/18/24 10:50 BP 132/71 06/18/24 10:50 Pulse Ox 98 06/18/24 10:50 O2 Del Method Room Air 06/18/24 10:50 BMI result Body Mass Index 55.5 Const: General: cooperative, comfortable, alert and awake Nutritional Appearance: obese Orientation/consciousness: patient oriented x3 Resp: Effort & Inspection: normal respiratory effort, able to speak in complete sentences, no respiratory distress and no use of accessory muscles Cardio: Rate: regular rate GI: Inspection: No distended Palpation (GI): Soft to palpation and nontender Neuro: General: patient oriented x3, moves all extremities and CN's II-XI intact bilaterally Extrem: General: Yes no pedal edema Objective Data Active Medications Acetaminophen (Acetaminophen 325 Mg Tablet) 975 mg PO Q6H PRN PRN Reason: Pain, Mild (Pain Scale 1-3), fever or headache Atorvastatin Calcium (Atorvastatin Calcium 80 Mg Tablet) 80 mg PO BEDTIME [facility] Calcium Carbonate (Calcium Carbonate 750 Mg Tab.Chew) 750 mg PO Q4H PRN PRN Reason: Heartburn Ezetimibe (Ezetimibe 10 Mg Tablet) 10 mg PO DAILY [facility] Last Admin: 06/18/24 08:51 Dose: 10 mg Documented By: STEVE Enoxaparin Sodium (Enoxaparin Sodium 30 Mg/0.3 Ml Syringe) 30 mg SUBCUT Q24H [facility] Last Admin: 06/18/24 08:52 Dose: 30 mg Documented By: STEVE Famotidine (Famotidine 20 Mg Tablet) 20 mg PO DAILY [facility] Last Admin: 06/18/24 08:51 Dose: 20 mg Documented By: STEVE Sodium Chloride (Ns) 1,000 mls @ 100 mls/hr IVCONT .Q10H [facility] Last Admin: 06/18/24 08:52 Dose: Not Given Documented By: STEVE Non-Admin Reason: IV Running Melatonin (Melatonin 3 Mg Tablet) 6 mg PO BEDTIME PRN PRN Reason: Insomnia Ondansetron HCl (Ondansetron Hcl 4 Mg/2 Ml Vial) 4 mg IVPUSH Q6H PRN PRN Reason: nausea and vomiting Sodium Chloride (0.9 % Sodium Chloride Flush 3 Ml Syringe) 3 ml IVFLUSH QSHIFT [facility] Last Admin: 06/18/24 08:52 Dose: Not Given Documented By: STEVE Non-Admin Reason: IV Running Labs 06/18/24 05:34 06/18/24 05:34 Labs: Laboratory Results - last 24 hr 06/17/24 06/17/24 06/17/24 18:26 18:56 21:34 MCV 85.8 MCH 30.7 MCHC 35.7 H RDW 12.0 Plt Count 376 MPV 9.3 L Immature Gran % (Auto) 0.6 H Neut % (Auto) 87.9 H Lymph % (Auto) 6.9 L [place] % (Auto) 4.3 Eos % (Auto) 0.1 Baso % (Auto) 0.2 Lymph # (Auto) 1.2 [place] # (Auto) 0.7 Eos # (Auto) 0.0 Baso # (Auto) 0.0 Abs Immat Gran (auto) 0.10 H Absolute Neuts (auto) 14.8 H Absolute Nucleated RBC 0.000 Nucleated RBC % (auto) 0.0 Hold Purple Top Anion Gap 19 Estim Creat Clear Calc 26.0 Estimated GFR 33 Random Glucose 145 H Osmolality 267 L Lactic Acid Lactic Acid F/U @ 2Hr Lactic Acid F/U @ 4Hr Calcium 9.3 Magnesium 2.0 Total Bilirubin 0.7 AST 39 H ALT 18 Alkaline Phosphatase 83 Troponin I High Sens 8.2 D Total Protein 7.1 Albumin 4.0 Hold Yellow Top Urine Color Urine Appearance Urine pH Ur Specific [place] Urine Protein Urine Glucose (UA) Urine Ketones Urine Blood Urine Nitrite Ur Leukocyte Esterase Ur Random Sodium Influenza Type A (PCR) NEGATIVE Influenza Type B (PCR) NEGATIVE RSV RNA Qual (PCR) NEGATIVE SARS-CoV-2 RNA (RT-PCR) NEGATIVE 11/25/24 11/26/24 11/26/24 22:44 01:14 03:03 MCV MCH MCHC RDW Plt Count MPV Immature Gran % (Auto) Neut % (Auto) Lymph % (Auto) [place] % (Auto) Eos % (Auto) Baso % (Auto) Lymph # (Auto) [place] # (Auto) Eos # (Auto) Baso # (Auto) Abs Immat Gran (auto) Absolute Neuts (auto) Absolute Nucleated RBC Nucleated RBC % (auto) Hold Purple Top SEE NOTE Anion Gap 13 12 Estim Creat Clear Calc 27.3 25.8 Estimated GFR 35 33 Random Glucose 134 H 119 H Osmolality Lactic Acid 2.8 H* Lactic Acid F/U @ 2Hr 2.1 H* Lactic Acid F/U @ 4Hr Calcium 8.7 D 8.6 Magnesium Total Bilirubin AST ALT Alkaline Phosphatase Troponin I High Sens Total Protein Albumin Hold Yellow Top See Note Urine Color Urine Appearance Urine pH Ur Specific [place] Urine Protein Urine Glucose (UA) Urine Ketones Urine Blood Urine Nitrite Ur Leukocyte Esterase Ur Random Sodium Influenza Type A (PCR) Influenza Type B (PCR) RSV RNA Qual (PCR) SARS-CoV-2 RNA (RT-PCR) 06/18/24 06/18/24 06/18/24 05:34 05:34 05:34 MCV 87.3 MCH 30.6 MCHC 35.1 H RDW 12.4 Plt Count 346 MPV 9.3 L Immature Gran % (Auto) 0.5 H Neut % (Auto) 76.3 H Lymph % (Auto) 16.3 L [place] % (Auto) 6.4 Eos % (Auto) 0.3 Baso % (Auto) 0.2 Lymph # (Auto) 1.9 [place] # (Auto) 0.7 Eos # (Auto) 0.0 Baso # (Auto) 0.0 Abs Immat Gran (auto) 0.06 H Absolute Neuts (auto) 8.8 H Absolute Nucleated RBC 0.000 Nucleated RBC % (auto) 0.0 Hold Purple Top Anion Gap 14 13 Estim Creat Clear Calc 26.8 27.1 Estimated GFR 34 Random Glucose Osmolality Lactic Acid Lactic Acid F/U @ 2Hr Lactic Acid F/U @ 4Hr Calcium Magnesium Total Bilirubin AST ALT Alkaline Phosphatase Troponin I High Sens Total Protein Albumin Hold Yellow Top Urine Color Urine Appearance Urine pH Ur Specific [place] Urine Protein Urine Glucose (UA) Urine Ketones Urine Blood Urine Nitrite Ur Leukocyte Esterase Ur Random Sodium Influenza Type A (PCR) Influenza Type B (PCR) RSV RNA Qual (PCR) SARS-CoV-2 RNA (RT-PCR) 06/18/24 06/18/24 06/18/24 05:34 05:34 05:34 MCV MCH MCHC RDW Plt Count MPV Immature Gran % (Auto) Neut % (Auto) Lymph % (Auto) [place] % (Auto) Eos % (Auto) Baso % (Auto) Lymph # (Auto) [place] # (Auto) Eos # (Auto) Baso # (Auto) Abs Immat Gran (auto) Absolute Neuts (auto) Absolute Nucleated RBC Nucleated RBC % (auto) Hold Purple Top Anion Gap Estim Creat Clear Calc Estimated GFR 35 Random Glucose 120 H 120 H Osmolality Lactic Acid Lactic Acid F/U @ 2Hr Lactic Acid F/U @ 4Hr 1.4 Calcium 8.5 8.7 Magnesium 2.0 Total Bilirubin 0.6 AST 30 ALT 14 Alkaline Phosphatase 70 Troponin I High Sens Total Protein 6.2 L Albumin 3.6 Hold Yellow Top Urine Color Urine Appearance Urine pH Ur Specific [place] Urine Protein Urine Glucose (UA) Urine Ketones Urine Blood Urine Nitrite Ur Leukocyte Esterase Ur Random Sodium Influenza Type A (PCR) Influenza Type B (PCR) RSV RNA Qual (PCR) SARS-CoV-2 RNA (RT-PCR) 06/18/24 11:20 MCV MCH MCHC RDW Plt Count MPV Immature Gran % (Auto) Neut % (Auto) Lymph % (Auto) [place] % (Auto) Eos % (Auto) Baso % (Auto) Lymph # (Auto) [place] # (Auto) Eos # (Auto) Baso # (Auto) Abs Immat Gran (auto) Absolute Neuts (auto) Absolute Nucleated RBC Nucleated RBC % (auto) Hold Purple Top Anion Gap Estim Creat Clear Calc Estimated GFR Random Glucose Osmolality Lactic Acid Lactic Acid F/U @ 2Hr Lactic Acid F/U @ 4Hr Calcium Magnesium Total Bilirubin AST ALT Alkaline Phosphatase Troponin I High Sens Total Protein Albumin Hold Yellow Top Urine Color Yellow Urine Appearance Cloudy Urine pH 5.0 Ur Specific [place] 1.015 Urine Protein Negative Urine Glucose (UA) Negative Urine Ketones Negative Urine Blood Trace H Urine Nitrite Positive H Ur Leukocyte Esterase Small (1+) H Ur Random Sodium 75.0 Influenza Type A (PCR) Influenza Type B (PCR) RSV RNA Qual (PCR) SARS-CoV-2 RNA (RT-PCR) Assessment and Plan (1) Acute hyponatremia: Status: Acute (2) Nausea vomiting and diarrhea: Status: Acute Plan Trisha Walsh is a 68 y/o woman admitted with: Syncopal episode likely secondary to orthostasis due to dehydration caused by diarrhea, vomiting + diuretics use. Continue IV fluids. Hold diuretics and hypertensive meds. Hyponatremia, multifactorial: Nausea, vomiting and diuretics (chlorthalidone, spironolactone). Continue IV fluids. Continue to monitor Na+ level every 6 hours UA and urine studies pending nephrology following Acute kidney injury secondary to diarrhea, vomiting in the setting of lisinopril, chlorthalidone and spironolactone use. Hold lisinopril, chlorthalidone and spironolactone. Continue IV fluids. Continue to monitor renal function. Avoid nephrotoxic agents. Nausea and diarrhea improving symptomatic management clear liquids, ADAT Essential hypertension. BP soft. mproving with IVF Hold metoprolol, lisinopril, amlodipine, chlorthalidone and spironolactone. Continue IV fluids. Continue to monitor BP. Leukocytosis, likely reactive due to vomiting and dehydration. trending down Hyperlipidemia. Continue statin and ezetimibe. DVT prophylaxis: Lovenox Code status: Full Patient needs ongoing inpatient stay for management of hyponatremia associated with DARRYN treatment with IV fluids and close monitoring of sodium level and specialist evaluation Quality Stroke Does the patient have a stroke diagnosis?: No VTE Prior VTE?: No VTE Risk Level:: Medical - moderate - high VTE Device Contraindication: Treatment Not Indicated VTE Drug Contraindication: N/A - Med Ordered
[2024-06-18 12:00] LABS: Bacteria Urine 4+ (None Seen); UACC Culture Trigger YES; WBC Urine 21-50 /HPF (0-5)
[2024-06-18] MEDS: ondansetron HCL 4 MG/2 ML VIAL IVPUSH (12:02)
[2024-06-18 12:13] LABS: Osmolality Urine 517 mosm/kg (373-1093)
--- NOTE | 2024-06-18 14:18 | MHC.CM.PN ---
Addendum entered by Niya Ryan RN 06/18/24 14:30: COPY OF HCP UPLOADED TO [facility] AND PLACED IN CHART. Original Note: IMM 06/18/24, PT W/HYPONATREMIA, CM MET W/PT WHO REPORTS SHE LIVES ALONE BUT HAD BEEN STAYING WITH HER SISTER FOR A FEW DAYS PRIOR TO ADMISSION, ANTIC PT WILL RETURN TO SISTERS HOME WHEN MEDICALLY CLEARED, PT REPORTS SHE HAS A [employer] W[employer]ER SHE USES NEEDED AND NO HOME SERVICES, PT'S GOAL FOR DC IS HOME PRIOR TO THANKSGIVING. PT VERIFIES PCP ON FILE IS CORRECT AND HAS BEEN EDUCATED ON AND COMPLETED A HCP NAMING HER DTR URIAH CARRASCO [phone] HER [facility] AND PT'S YOUNGER SISTER VINNY RICHARD [phone] HER ALTERNATE.
[2024-06-18 14:22] LABS: Sodium 123 mmol/L (135-145)
[2024-06-18] MEDS: Urea 15 GM POWDER PO (17:17)
[2024-06-18 19:49] LABS: Sodium 122 mmol/L (135-145)
[2024-06-18] MEDS: Atorvastatin Calcium 80 MG TABLET PO (21:02)
[2024-06-18] MEDS: 0.9 % Sodium Chloride Flush 3 ML SYRINGE IVFLUSH (21:04)
[2024-06-19 01:29] LABS: Sodium 127 mmol/L (135-145)
[2024-06-19 03:26] VITALS: BP 132/63; PULSE 57; RESP 18; O2SAT 99
[2024-06-19 07:46] VITALS: BP 150/79; PULSE 52; RESP 18; TEMP 36.5; O2SAT 96
[2024-06-19] MEDS: Enoxaparin Sodium 30 MG/0.3 ML SYRINGE SUBCUT (08:16)
[2024-06-19] MEDS: 0.9 % Sodium Chloride 1,000 ML 100 ML IVCONT ×2 (08:17→18:01)
[2024-06-19] MEDS: Famotidine 20 MG TABLET PO (08:17)
[2024-06-19] MEDS: Ezetimibe 10 MG TABLET PO (08:17)
--- NOTE | 2024-06-19 08:30 | PM.PNNEP ---
Subjective Subjective Date of Service: 06/19/24 Interval history: 68 y/o female with a medical history of resistant hypertension, sees Dr Prado outpatient for management. 06/17 presented after episode of diarrhea followed by fainting at home, reports earlier in the day vomited after eating breakfast x1. Nephrology consulted for hyponatremia. 06/17 sodium 125, 123 06/18 sodium 123, 124, 123, 122 06/19 at 0100 sodium 127; next bmp ordered/pending patient has been getting NS drip at 100mL/hr and 1.5L fluid restriction also received urea powder 15gm x1 06/18 06/17 creatinine 1.55 (baseline 0.93 in March) 06/18 is 1.49; 06/19 BMP ordered/pending had been taking her blood pressure medicines as prescribed prior to admission: chlorthalidone 25mg daily, spironolactone 50mg BID, amlodipine 10mg daily, lisinopril 40mg daily, metoprolol 25mg daily. blood pressure was low on arrival, lowest 88/33. Most recent BP 06/19 a.m. is 146/71 she states she continues to feel thirsty denies lightheadedness, headache, tremors, muscle creamping, abnormal movements, nausea/vomiting/diarrhea. states she is urinating comfortably/easily, reports voiding regularly (no UOP recorded) Denies other symptoms/concerns Physical Exam Vital Signs: Vital Signs: Last Vital Signs Temp 99.0 F 06/19/24 11:07 Pulse 56 06/19/24 11:07 Resp 18 06/19/24 11:07 BP 146/71 H 06/19/24 11:07 Pulse Ox 97 06/19/24 11:07 O2 Del Method Room Air 06/19/24 11:07 BMI result Body Mass Index 55.5 Const: General: cooperative, comfortable, alert and awake Nutritional Appearance: obese Orientation/consciousness: patient oriented x3 Resp: Effort & Inspection: normal respiratory effort, able to speak in complete sentences, no respiratory distress and no use of accessory muscles Cardio: Rate: regular rate GI: Inspection: No distended Palpation (GI): Soft to palpation and nontender Neuro: General: patient oriented x3, moves all extremities and CN's II-XI intact bilaterally Extrem: General: Yes no pedal edema Objective Data Labs 06/18/24 05:34 06/19/24 01:11 Labs: Laboratory Results - last 24 hr 06/18/24 06/18/24 06/18/24 11:20 13:48 14:00 Hold Purple Top SEE NOTE Sodium 123 L Urine Color Yellow Urine Appearance Cloudy Urine pH 5.0 Ur Specific [place] 1.015 Urine Protein Negative Urine Glucose (UA) Negative Urine Ketones Negative Urine Blood Trace H Urine Nitrite Positive H Ur Leukocyte Esterase Small (1+) H Urine RBC 11-20 H Urine WBC 21-50 H Ur Squamous Epith Cells 11-20 Urine Bacteria 4+ Hyaline Casts 6-10 Urine Osmolality 517 Ur Random Sodium 75.0 06/18/24 06/19/24 19:30 01:11 Hold Purple Top Sodium 122 L 127 L Urine Color Urine Appearance Urine pH Ur Specific [place] Urine Protein Urine Glucose (UA) Urine Ketones Urine Blood Urine Nitrite Ur Leukocyte Esterase Urine RBC Urine WBC Ur Squamous Epith Cells Urine Bacteria Hyaline Casts Urine Osmolality Ur Random Sodium Procedures Date of Service Date of Service: 06/19/24 Assessment & Plan Assessment and plan (1) DARRYN (acute kidney injury): Status: Acute (2) Acute hyponatremia: Status: Acute Plan Hyponatremia and DARRYN in setting of hypovolemia and concurrent diuretic and ACEi use DARRYN likely secondary to renal hypoperfusion in setting of dehydratoin/reduced PO intake and use of diuretics/ACEi - recommend continue to hold ACEi and diuretics; may restart amlodipine if SBP>150 hyponatremia improving- most likely secondary to hypovolemia, thiazide may have also contributed recommend continuing 100mL/hr NS for hypernatremia recommend continue 1.5L/24 fluid restriction check sodium level every 6 hours to avoid correcting sodium too quickly sodium should increase by no more than 10mmol/24hrs or by no more than 0.5mmol/L/hr Discussed with Dr Johnson Time Spent With Patient Time: Total time managing care of this patient today ____ minutes. Progress Note: Quality Stroke Does the patient have a stroke diagnosis?: No
[2024-06-19 11:07] VITALS: BP 146/71; PULSE 56; RESP 18; TEMP 37.2; O2SAT 97
[2024-06-19 14:06] LABS: Sodium 128 mmol/L (135-145)
[2024-06-19 14:11] LABS: Anion Gap 12 (12-20); Blood Urea Nitrogen 15 mg/dL (9-16); Calcium 8.5 mg/dL (8.4-10.2); Carbon Dioxide 24 mmol/L (22-29); Chloride 95 mmol/L (96-108); Creatinine Clr Calc Pharmacy 46.1; Estimated Glomerular Filt Rate > 60; Glucose Random 91 mg/dL (60-115); Potassium 3.6 mmol/L (3.3-5.1); Sodium 127 mmol/L (135-145)
[2024-06-19 15:27] VITALS: BP 155/74; PULSE 58; RESP 17; TEMP 36.5; O2SAT 98
--- NOTE | 2024-06-19 16:03 | HO.PM.IMPN ---
Subjective Subjective Date of Service: 06/19/24 Interval History: No acute issues overnight. Tolerant of therapies Review of Systems Denies chest pain Denies shortness of breath Denies nausea vomiting diarrhea Denies fever chills Physical Exam Vital Signs: Vital Signs: Last Vital Signs Temp 97.7 F 06/19/24 15:27 Pulse 58 06/19/24 15:27 Resp 17 06/19/24 15:27 BP 155/74 H 06/19/24 15:27 Pulse Ox 98 06/19/24 15:27 O2 Del Method Room Air 06/19/24 15:27 BMI result Body Mass Index 55.5 Const: Other: Awake alert no acute distress Resp: Other: Clear to auscultation bilaterally no rales rhonchi or wheezes Cardio: Other: No S4; positive S1-S2; no S3 murmurs rubs or gallops GI: Other: Soft nontender nondistended normoactive bowel sounds Extrem: Other: No edema bilaterally Objective Data Active Medications Acetaminophen (Acetaminophen 325 Mg Tablet) 975 mg PO Q6H PRN PRN Reason: Pain, Mild (Pain Scale 1-3), fever or headache Atorvastatin Calcium (Atorvastatin Calcium 80 Mg Tablet) 80 mg PO BEDTIME [facility] Last Admin: 06/18/24 21:02 Dose: 80 mg Documented By: MARISA Calcium Carbonate (Calcium Carbonate 750 Mg Tab.Chew) 750 mg PO Q4H PRN PRN Reason: Heartburn Ezetimibe (Ezetimibe 10 Mg Tablet) 10 mg PO DAILY [facility] Last Admin: 06/19/24 08:17 Dose: 10 mg Documented By: HORACIO Enoxaparin Sodium (Enoxaparin Sodium 30 Mg/0.3 Ml Syringe) 30 mg SUBCUT Q24H [facility] Last Admin: 06/19/24 08:16 Dose: 30 mg Documented By: HORACIO Famotidine (Famotidine 20 Mg Tablet) 20 mg PO DAILY [facility] Last Admin: 06/19/24 08:17 Dose: 20 mg Documented By: HORACIO Sodium Chloride (Ns) 1,000 mls @ 100 mls/hr IVCONT .Q10H [facility] Last Admin: 06/19/24 08:17 Dose: 100 mls/hr Documented By: HORACIO Melatonin (Melatonin 3 Mg Tablet) 6 mg PO BEDTIME PRN PRN Reason: Insomnia Ondansetron HCl (Ondansetron Hcl 4 Mg/2 Ml Vial) 4 mg IVPUSH Q6H PRN PRN Reason: nausea and vomiting Last Admin: 06/18/24 12:02 Dose: 4 mg Documented By: MARGARITO Sodium Chloride (0.9 % Sodium Chloride Flush 3 Ml Syringe) 3 ml IVFLUSH QSHIFT [facility] Last Admin: 06/19/24 08:15 Dose: Not Given Documented By: HORACIO Non-Admin Reason: IV Running Labs 06/18/24 05:34 06/19/24 13:51 Labs: Laboratory Results - last 24 hr 06/19/24 13:51 Anion Gap 12 Estim Creat Clear Calc 46.1 Estimated GFR > 60 Random Glucose 91 Calcium 8.5 Microbiology Microbiology Results: Microbiology 06/18/24 11:20 Urine Culture - Preliminary Urine clean catch - Clean Catch Midstream Gram negative lorena Assessment and Plan (1) Syncope: Status: Acute (2) DARRYN (acute kidney injury): Status: Acute Plan Trisha Walsh is a 68 y/o woman admitted with: 1.Syncopal episode -no further episodes since admission -continue to hold diuretics and hypertensive meds. 2.Hyponatremia, multifactorial: -continue to hold diuretics -continue to monitor Na+ level every 6 hours 3.Acute kidney injury -responded to volume -continue to hold lisinopril/chlorthalidone/spironolactone. -continue IV fluids. -follow renal/divalent 4.Essential hypertension. -acceptable control on current therapies -adjust as indicated Lovenox Full Patient needs ongoing inpatient stay for management of hyponatremia associated with DARRYN treatment with IV fluids and close monitoring of sodium level and specialist evaluation Quality Stroke Does the patient have a stroke diagnosis?: No VTE Prior VTE?: No VTE Risk Level:: Medical - moderate - high VTE Device Contraindication: Treatment Not Indicated VTE Drug Contraindication: N/A - Med Ordered
[2024-06-19 20:00] VITALS: BP 147/77; PULSE 60; RESP 17; TEMP 36; O2SAT 100
[2024-06-19] MEDS: Atorvastatin Calcium 80 MG TABLET PO (20:22)
[2024-06-19 23:53] VITALS: BP 139/63; PULSE 62; RESP 20; TEMP 36.4; O2SAT 98
[2024-06-20 01:53] LABS: Anion Gap 11 (12-20); Blood Urea Nitrogen 14 mg/dL (9-16); Calcium 8.6 mg/dL (8.4-10.2); Carbon Dioxide 24 mmol/L (22-29); Chloride 95 mmol/L (96-108); Creatinine Clr Calc Pharmacy 44.5; Estimated Glomerular Filt Rate > 60; Glucose Random 98 mg/dL (60-115); Potassium 3.4 mmol/L (3.3-5.1); Sodium 127 mmol/L (135-145)
[2024-06-20 03:50] VITALS: BP 146/74; PULSE 55; RESP 16; TEMP 36; O2SAT 100
[2024-06-20] MEDS: 0.9 % Sodium Chloride 1,000 ML 100 ML IVCONT (03:59)
[2024-06-20 06:33] LABS: MANUAL DIFF FLAG NO
[2024-06-20 06:36] LABS: Basophils Percent Auto 0.4 % (0-2); Eosinophils Absolute Auto 0.1 X10*3/uL (0.0-0.4); Eosinophils Percent Auto 1.6 % (0-4); Hematocrit 28.9 % (37.0-47.0); Hemoglobin 10.4 g/dl (12.0-16.0); Imm Gran Abs Auto 0.02 X10*3/uL (0.00-0.03); Imm Gran Pct Auto 0.3 % (0.0-0.4); Lymphocytes Absolute Auto 1.6 X10*3/uL (1.2-4.9); Lymphocytes Percent Auto 24.1 % (20-40); Mean Platelet Volume 9.5 fL (9.4-12.3); Monocytes Absolute Auto 0.6 X10*3/uL (0.1-1.2); Monocytes Percent Auto 8.3 % (2-11); Neutrophils Absolute Auto 4.4 x10*3/uL (2.0-8.3); Neutrophils Percent Auto 65.3 % (45-73); Platelet Count 259 X10*3/uL (160-400); Red Blood Count 3.36 X10*6/uL (4.20-5.50); Red Cell Distribution Width 11.9 % (11.0-16.0); White Blood Count 6.7 X10*3/uL (4.8-10.8)
[2024-06-20 07:01] LABS: Alanine Aminotransferase 14 U/L (0-31); Albumin Level 3.6 g/dL (3.5-5.0); Alkaline Phosphatase 63 U/L (39-117); Anion Gap 12 (12-20); Aspartate Amino Transferase 29 U/L (5-31); Bilirubin Total 0.5 mg/dL (0.0-1.0); Blood Urea Nitrogen 13 mg/dL (9-16); Calcium 8.7 mg/dL (8.4-10.2); Carbon Dioxide 25 mmol/L (22-29); Chloride 95 mmol/L (96-108); Creatinine Clr Calc Pharmacy 47.1; Estimated Glomerular Filt Rate > 60; Glucose Fasting 93 mg/dL (60-99); Potassium 3.5 mmol/L (3.3-5.1); Sodium 128 mmol/L (135-145); Total Protein 6.2 g/dL (6.5-8.0)
[2024-06-20 08:00] VITALS: BP 148/78; PULSE 54; RESP 18; TEMP 36.2; O2SAT 99
[2024-06-20] MEDS: Ezetimibe 10 MG TABLET PO (08:16)
[2024-06-20] MEDS: Famotidine 20 MG TABLET PO (08:16)
[2024-06-20] MEDS: Enoxaparin Sodium 30 MG/0.3 ML SYRINGE SUBCUT (08:16)
[2024-06-20 12:00] VITALS: BP 150/78; PULSE 66; RESP 18; TEMP 37.2; O2SAT 97
--- NOTE | 2024-06-20 12:33 | PM.DS ---
DS: Providers Provider Date of Service: 06/20/24 Date of admission: 06/17/24 21:34 Date of discharge: 06/20/24 Primary care physician: Larisa Moreland MD Consults: 06/18/24 07:58 Consult to Nephrology Routine Consulting Provider: [facility] Reason for consultation: hyponatremia Has provider been notified: No DS: Diagnosis Discharge Diagnosis (1) Syncope: Status: Acute (2) DARRYN (acute kidney injury): Status: Acute DS: Summary Hospital Course Hospital Course: [place] [address] Internal Med History&Physical Signed Patient: Trisha Walsh MR#: [id number] : 1955 Acct:[id number] Trisha Walsh is a 68 years old past medical history significant essential hypertension on metoprolol, lisinopril, amlodipine, chlorthalidone and spironolactone presents to the ED via EMS after she fainted today. At the time of fainting the patient was sitting on the toilet and had 1 event of watery nonbloody diarrhea. She also reported 1 event of nonbloody vomiting. She denied abdominal pain or fever. She did not report any acute urinary symptoms. Denies headache, focal weakness or acute visual problems. She reported poor appetite. Denied alcohol abuse, tobacco smoking or illicit drug use. Denies recent travel history or contact with ill people. Abdominal surgery history is remarkable for x3 and tubal ligation. In the ED, she was found to have blood pressure of 83/33 (positive orthostatics). There is no tachycardia, fever and O2 sats are normal on room air. Blood workup was remarkable for leukocytosis of 16.8. Hemoglobin is 13.4 and platelets are normal. There is hyponatremia of 125 and creatinine is 1.55 (prior 0.93). LFTs are basically unremarkable except for minimal elevation of AST of 39. ECG showed sinus bradycardia, 58 bpm without ischemic changes. Hospital course Patient was admitted to telemetry where monitor failed to show any abnormal rhythms responsible for presenting complaint. She was found to have DARRYN and given the fact she was orthostatic on admission she was volume repleted with normal saline. She had persistently low sodiums however appears to be her new chronic state. All diuretics were DC at the discretion of renal. At this time she feels well and has had no other complaints. She wishes discharge and believe she is medically acceptable for same. She will follow up with renal and PCP as scheduled Time Attestation Discharge Coordination Time (in mins): 35 Quality: Safe Use of Opioids Does Pt have an Active Cancer Diagnosis on the Problem List?: No Quality: Stroke Does the patient have a stroke diagnosis?: No Physical Exam Vital Signs: Vital Signs: Last Vital Signs Temp 98.9 F 06/20/24 12:00 Pulse 66 06/20/24 12:00 Resp 18 06/20/24 12:00 BP 150/78 H 06/20/24 12:00 Pulse Ox 97 06/20/24 12:00 O2 Del Method Room Air 06/20/24 12:00 BMI result Body Mass Index 55.5 Const: Other: Awake alert no acute distress Resp: Other: Clear to auscultation bilaterally no rales rhonchi or wheezes Cardio: Other: No S4; positive S1-S2; no S3 murmurs rubs or gallops GI: Other: Soft nontender nondistended normoactive bowel sounds Extrem: Other: No edema bilaterally DS: Data Data Completed and Pending Labs on day of discharge: Laboratory Results - last 24 hr 06/19/24 06/19/24 06/20/24 13:51 13:51 01:12 WBC RBC Hgb Hct MCV MCH MCHC RDW Plt Count MPV Immature Gran % (Auto) Neut % (Auto) Lymph % (Auto) [place]field % (Auto) Eos % (Auto) Baso % (Auto) Lymph # (Auto) [place]field # (Auto) Eos # (Auto) Baso # (Auto) Abs Immat Gran (auto) Absolute Neuts (auto) Absolute Nucleated RBC Nucleated RBC % (auto) Hold Purple Top SEE NOTE Sodium 128 L 127 L 127 L Potassium 3.6 3.4 Chloride 95 L 95 L Carbon Dioxide 24 24 Anion Gap 12 11 L BUN 15 14 Creatinine 0.87 0.90 Estim Creat Clear Calc 46.1 44.5 Estimated GFR > 60 > 60 Random Glucose 91 98 Fasting Glucose Calcium 8.5 8.6 Total Bilirubin AST ALT Alkaline Phosphatase Total Protein Albumin 06/20/24 05:54 WBC 6.7 RBC 3.36 L Hgb 10.4 L Hct 28.9 L MCV 86.0 MCH 31.0 MCHC 36.0 H RDW 11.9 Plt Count 259 D MPV 9.5 Immature Gran % (Auto) 0.3 Neut % (Auto) 65.3 Lymph % (Auto) 24.1 Whitfield % (Auto) 8.3 Eos % (Auto) 1.6 Baso % (Auto) 0.4 Lymph # (Auto) 1.6 Whitfield # (Auto) 0.6 Eos # (Auto) 0.1 Baso # (Auto) 0.0 Abs Immat Gran (auto) 0.02 Absolute Neuts (auto) 4.4 Absolute Nucleated RBC 0.000 Nucleated RBC % (auto) 0.0 Hold Purple Top Sodium 128 L Potassium 3.5 Chloride 95 L Carbon Dioxide 25 Anion Gap 12 BUN 13 Creatinine 0.85 Estim Creat Clear Calc 47.1 Estimated GFR > 60 Random Glucose Fasting Glucose 93 Calcium 8.7 Total Bilirubin 0.5 AST 29 ALT 14 Alkaline Phosphatase 63 Total Protein 6.2 L Albumin 3.6 Discharge Plan Discharge Anticipated Discharge Date/Time: 06/20/24 12:20 Patient Disposition: Home, Self-Care Discharge Diagnosis: Acute kidney injury Referrals: Larisa Moreland MD [Primary Care Provider] - 1 Week Discharge Medications: Continued polyvinyl alcohol 1.4 % drops 2 drp ophthalmic (eye) DAILY PRN (Reason: dry eyes) cyanocobalamin (vitamin B-12) 500 mcg tablet 500 mcg PO DAILY acetaminophen 325 mg tablet 325 mg PO Q4-6H PRN (Reason: Pain (Scale Score 4-6)) docusate sodium 100 mg capsule 100 mg PO BID PRN (Reason: constipation) metoprolol succinate 25 mg tablet extended release 24 hr 25 mg PO DAILY famotidine 20 mg tablet 20 mg PO BID cholecalciferol (vitamin D3) 25 mcg (1,000 unit) capsule 25 mcg PO DAILY diclofenac sodium 1 % gel 2 g topical BID linaclotide 145 mcg capsule 145 mcg PO DAILY rosuvastatin 40 mg tablet 40 mg PO BEDTIME ezetimibe 10 mg tablet 10 mg PO DAILY amlodipine 10 mg tablet 10 mg PO BEDTIME Discontinued spironolactone 50 mg tablet 50 mg PO BID lisinopril 40 mg tablet 40 mg PO BEDTIME chlorthalidone 25 mg tablet 25 mg PO DAILY Discharge Orders: Discharge Order (Routine); Ordered 06/20/24 Ordered By: Humza Leal Diet: 1.5 l fluid restiction Activity on Discharge: As tolerated Stand Alone Forms: Patient Portal Discharge page Print Language: Turkmen Care Plan Goals: Resume all meds as taken prior to hospital. Stop medications that are listed under the discontinue portion of your discharge summary Health Concerns: Continue to try and restrict her fluid intake to 1.5 L per day Plan of Treatment: Follow up with your PCP and renal as scheduled Assessment: See discharge summary
--- NOTE | 2024-06-20 12:44 | MHC.CM.PN ---
Patient has been medically cleared for dc to home today, self care. Last IMM was addressed on 06/18/2024.
--- NOTE | 2024-06-23 13:04 | P.CDIM_ITS ---
PROVIDER RESPONSE TEXT: To clarify, the appropriate diagnosis supported by the clinical indicators: Severe or Morbid Obesity QUERY TEXT: PHYSICIAN'S DOCUMENTATION REQUEST Date of Query: 06/19/2024 11:16 AM EST Patient Name: Trisha Walsh Admit Date: 06/18/2024 Dear Humza Leal DO, A review of the medical record indicates additional documentation may be needed. Please review below and update the documentation accordingly. Clinical Indicators: Height: 4ft 1in Weight: 86 kg BMI: 55.5 Other Clinical Notes Supporting Significance of the BMI: Nursing assessment notes Height and Weight- Extreme obesity Class III with BMI 55.5 If possible, please provide an associated diagnosis related to the abnormal BMI, such as: Severe or Morbid Obesity Other specifics to the high bmi Other (explain) Clinically unable to determine (explain) Thank you, Ashia Chavira, CCS, CDIS Use of terms such as suspected, likely, concern for, or probable (associated with a specific diagnosi s that is being evaluated, monitored, or treated as if it exists) are acceptable and can be coded in the inpatient se tting, when documented at the time of discharge. Please use your independent medical judgment in providing your response. THIS QUERY IS PART OF THE PERMANENT MEDICAL RECORD
== END 2024-06-20 13:24 | disposition home or self-care (01) | DRG 641 ==
LOC: HO.ED 21:23 → HO.EDOVER 21:38 → HO.IMC 06-18 07:39
PROVIDERS: Internal Medicine; Nurse Practitioner Family; Physician Assistant Medical; Admitting Provider Internal Medicine; Emergency Provider Emergency Medicine; PCP Family Medicine; Visit Provider Hospitalist
DX: E87.1 Hypo-osmolality and hyponatremia (principal); Z68.43 Body mass index [BMI] 50.0-59.9, adult; I95.1 Orthostatic hypotension; E86.0 Dehydration; I10 Essential (primary) hypertension; I1A.0 Resistant hypertension; E66.01 Morbid (severe) obesity due to excess calories; E86.1 Hypovolemia; E78.5 Hyperlipidemia, unspecified; Z20.822 Contact with and (suspected) exposure to COVID-19; Z79.899 Other long term (current) drug therapy
CPT/HCPCS: 0241U; 36415; 80048; 80053; 81001; 83605; 83735; 83930; 83935; 84295; 84300; 84484; 85025; 87086; 87088; 87186; 93005; 99285; J1650; J2405

== ENCOUNTER → 2024-06-17 20:09 | Outpatient (BNV) | payer MEDICARE, MEDICAID, SELFPAY | PROVIDERS: Admitting Provider Internal Medicine; Emergency Provider Emergency Medicine; PCP Family Medicine; Visit Provider Internal Medicine | DX: R00.1 Bradycardia, unspecified (principal) | CPT/HCPCS: 93010 ==

== ENCOUNTER → 2024-06-17 21:34 | Outpatient (BNV) | payer MEDICARE, MEDICAID, SELFPAY | PROVIDERS: Admitting Provider Internal Medicine; Emergency Provider Emergency Medicine; PCP Family Medicine; Visit Provider Internal Medicine | DX: R55 Syncope and collapse (principal); N17.9 Acute kidney failure, unspecified | CPT/HCPCS: 99223; 99232; 99239 ==

== ENCOUNTER → 2024-06-17 21:34 | Outpatient (BNV) | payer MEDICARE, MEDICAID, SELFPAY | PROVIDERS: Admitting Provider Internal Medicine; Emergency Provider Emergency Medicine; PCP Family Medicine; Visit Provider Nurse Practitioner Family | DX: N17.9 Acute kidney failure, unspecified (principal); E87.1 Hypo-osmolality and hyponatremia | CPT/HCPCS: 99222; 99232 ==

== ENCOUNTER 2024-07-01 10:46 | Outpatient (REF) | payer MEDICARE, MEDICAID, SELFPAY ==
[2024-07-01 12:08] LABS: Anion Gap 15 (12-20); Blood Urea Nitrogen 21 mg/dL (9-16); Calcium 9.8 mg/dL (8.4-10.2); Carbon Dioxide 25 mmol/L (22-29); Chloride 95 mmol/L (96-108); Estimated Glomerular Filt Rate 51; Glucose Random 96 mg/dL (60-115); Potassium 4.5 mmol/L (3.3-5.1); Sodium 130 mmol/L (135-145)
== END 2024-07-01 10:47 | disposition home or self-care (01) ==
LOC: HO.HHCL 10:46
PROVIDERS: Visit Provider Family Medicine
DX: I10 Essential (primary) hypertension (principal)
CPT/HCPCS: 36415; 80048

== ENCOUNTER 2024-07-29 13:14 | Outpatient (AMB) | payer MEDICARE, MEDICAID, SELFPAY ==
--- NOTE | 2024-07-29 13:52 | HO.NEPHOV ---
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 Walsh was seen in follow up for labile hypertension. She recently had syncope , low BP and DARRYN. She is drinking excess free water. She denies any excessive salt intake, recent weight gain, uncontrolled thyroid disorders, sleep apnea, renal dysfunction, history of hypokalemia, hypercalcemia. She has no history of proteinuria but has history of hypertensive retinopathy. She denies any coronary artery disease, congestive heart failure, CVA, carotid stenosis, peripheral arterial disease, renal artery stenosis. She denied any chest pain, shortness of breath, paroxysmal nocturnal dyspnea, orthopnea or urinary symptoms. She does not take excessive nonsteroidal anti-inflammatories but takes NSAIDs quite frequently [facility] Medical History Hypertensive retinopathy Dyslipidemia Vitamin D deficiency Cobalamin deficiency Osteoarthritis IBS (irritable bowel syndrome) delivery delivered High cholesterol HTN (hypertension) Surgical History Hx of bilateral cataract extraction Hx of knee surgery Hx of section Hx of tubal ligation Hx of colonoscopy Family History Mother Cancer Uterine cancer Brother HTN (hypertension) Social History Household Members: None Housing: Apartment Do you presently have visiting nurse or other home services: No Alcohol intake: unknown Patient Tobacco Use Status: Never used Tobacco Gender identity: Female Female Reproductive History Menstrual Age of Menarche: 14 Review of Systems Const All systems reviewed & are unremarkable except as noted in HPI and below Physical Exam Vital Signs: Last Vital Signs Pulse 69 07/29/24 13:54 BP 170/82 H 07/29/24 13:54 Pulse Ox 99 07/29/24 13:54 Oxygen Delivery Method Room Air 07/29/24 13:54 BMI result Body Mass Index 53.4 Const General: comfortable and no acute distress Orientation/consciousness: patient oriented x3 HEENT Head: Yes normocephalic Mouth: Normal oral and palatal mucosa present Eyes EOM: EOMs intact bilaterally Neck Neck: Yes supple Resp Auscultation: clear to auscultation bilaterally Cardio Jugular venous distension: no JVD Rate: regular rate GI Palpation (GI): Soft to palpation Auscultation: normal bowel sounds General: Yes no CVA tenderness Back/Spine/Pelvis Back: no CVA tenderness Skin General skin exam: no rashes or lesions noted Neuro General: patient oriented x3 and moves all extremities Extrem General: Yes no pedal edema Results Reviewed Nephrology Results: Hgb 10.4 g/dl (12.0-16.0) L 06/20/24 WBC 6.7 X10*3/uL (4.8-10.8) 06/20/24 Plt Count 259 X10*3/uL (160-400) 06/20/24 Sodium 130 mmol/L (135-145) L 07/01/24 Potassium 4.5 mmol/L (3.3-5.1) 07/01/24 Chloride 95 mmol/L (96-108) L 07/01/24 Carbon Dioxide 25 mmol/L (22-29) 07/01/24 BUN 21 mg/dL (9-16) H 07/01/24 Creatinine 1.07 mg/dL (0.5-1.4) 07/01/24 Calcium 9.8 mg/dL (8.4-10.2) 07/01/24 Urine Protein Negative mg/dL (Neg-Trace) 06/18/24 Assessment & Plan Assessment & Plan (1) HTN (hypertension): Code(s): I10 - Essential (primary) hypertension Category: Medical Qualifiers: Hypertension type: primary hypertension Qualified Code(s): I10 - Essential (primary) hypertension (2) Hyponatremia: Code(s): E87.1 - Hypo-osmolality and hyponatremia Category: Medical Plan Ms. Walsh has longstanding hypertension. She will benefit from losing some weight. I have asked her to cut back salt in the diet. She should avoid nonsteroidal anti-inflammatories. Her renal functions and serum potassium are close to baseline. She should restrict free water. All these have been explained in detail and all questions were answered. Follow-up appointment given Orders: Orders Osmolality, Serum 2 Months E87.1 - Hypo-osmolality and hyponatremia, I10 - Essential (primary) hypertension Cortisol Random 2 Months E87.1 - Hypo-osmolality and hyponatremia, I10 - Essential (primary) hypertension Osmolality Urine 2 Months E87.1 - Hypo-osmolality and hyponatremia, I10 - Essential (primary) hypertension Sodium Urine Random 2 Months E87.1 - Hypo-osmolality and hyponatremia, I10 - Essential (primary) hypertension Creatinine 2 Months E87.1 - Hypo-osmolality and hyponatremia, I10 - Essential (primary) hypertension Blood Urea Nitrogen 2 Months E87.1 - Hypo-osmolality and hyponatremia, I10 - Essential (primary) hypertension Uric Acid 2 Months E87.1 - Hypo-osmolality and hyponatremia, I10 - Essential (primary) hypertension Thyroid Stimulating Hormone 2 Months E87.1 - Hypo-osmolality and hyponatremia, I10 - Essential (primary) hypertension Electrolytes 2 Months E87.1 - Hypo-osmolality and hyponatremia, I10 - Essential (primary) hypertension Coding Level of Care Code Est Pt Level 4 (11658) Diagnoses Primary hypertension I10 Hypertension type: primary hypertension Hyponatremia E87.1
[2024-07-29 13:54] VITALS: BP 170/82; PULSE 69; O2SAT 99; BMI 53.4
== END 2024-07-29 14:17 | disposition home or self-care (01) ==
PROVIDERS: PCP Family Medicine; Visit Provider Internal Medicine Nephrology
DX: I10 Essential (primary) hypertension (principal); E87.1 Hypo-osmolality and hyponatremia
CPT/HCPCS: 99214

== ENCOUNTER → 2024-07-29 13:14 | Outpatient (BNVA) | payer MEDICARE, MEDICAID, SELFPAY | PROVIDERS: PCP Family Medicine; Visit Provider Internal Medicine Nephrology | DX: I10 Essential (primary) hypertension (principal); E87.1 Hypo-osmolality and hyponatremia | CPT/HCPCS: 99212 ==

== ENCOUNTER 2024-07-30 09:23 | Outpatient (REF) | payer MEDICARE, MEDICAID, SELFPAY ==
[2024-07-30 12:20] LABS: Alanine Aminotransferase 15 U/L (0-31); Albumin Level 4.2 g/dL (3.5-5.0); Anion Gap 10 (12-20); Aspartate Amino Transferase 34 U/L (5-31); Bilirubin Direct 0.2 mg/dL (0.0-0.5); Bilirubin Total 0.5 mg/dL (0.0-1.0); Blood Urea Nitrogen 12 mg/dL (9-16); Calcium 9.4 mg/dL (8.4-10.2); Carbon Dioxide 27 mmol/L (22-29); Chloride 99 mmol/L (96-108); Cholesterol 159 mg/dL (<200); Estimated Glomerular Filt Rate > 60; Glucose Random 95 mg/dL (60-115); HDL Cholesterol 63 mg/dL (>40); LDL Cholesterol Calculated 81 mg/dL (<100); Potassium 4.4 mmol/L (3.3-5.1); Sodium 132 mmol/L (135-145); Total Protein 7.3 g/dL (6.5-8.0); Triglycerides 75 mg/dL (<150)
[2024-07-30 12:44] LABS: Alkaline Phosphatase 76 U/L (39-117)
== END 2024-07-30 09:24 | disposition home or self-care (01) ==
LOC: HO.HHCL 09:23
PROVIDERS: Visit Provider Family Medicine
DX: E78.5 Hyperlipidemia, unspecified (principal); I10 Essential (primary) hypertension
CPT/HCPCS: 36415; 80048; 80061; 80076

== ENCOUNTER 2024-08-19 11:01 | Outpatient (REF) | payer MEDICARE, MEDICAID, SELFPAY ==
[2024-08-19 13:47] LABS: Anion Gap 13 (12-20); Blood Urea Nitrogen 15 mg/dL (9-16); Calcium 9.6 mg/dL (8.4-10.2); Carbon Dioxide 24 mmol/L (22-29); Chloride 101 mmol/L (96-108); Estimated Glomerular Filt Rate > 60; Glucose Random 90 mg/dL (60-115); Potassium 4.1 mmol/L (3.3-5.1); Sodium 134 mmol/L (135-145)
[2024-08-19 13:55] LABS: Osmolality, Serum 282 mosm/kg (281-305)
--- OUTSIDE RECORDS SUMMARY | 2024-08-19 15:58 | XMS_ITS | Encounter Summary ---
Author Organization [employer] [facility] Address [address] [place] [address] Care Team Providers Care Landing Man Name Role Phone Larisa Moreland MD Primary Care Provider [phone]- [phone] Ameena Grant PharmD Unavailable [phone] Jos éMiguel Prado MD Unavailable Jennifer Torres Unavailable Reason for Visit * Reason Comments Medication Problem Patient stated dizzi ness and loss of apatite since new medication. Encounter Details Date Type Department Care Team (Late st Contact Info) Description 08/19/2024 10:30 AM EST Office Visit [facility] [address] [place], [place] [phone] Larisa Moreland MD [address] [place], [place] [phone] Primary hypertension (Primary Dx); Depression, recurrent (CMS/HCC); Dyslipidemia; Colon cancer screening; Class 2 severe obesity due to excess calories with serious comorbidity and body mass index (BMI) of 38.0 to 38.9 in adult (CMS/HCC); Exercise counseling; Dietary counseling; Other specified health status; Acute hyponatremia Social History Tobacco Use Types Packs/Day Years Used Date Smoking Tobacco: Never Smokeless Tobacco: Never Alcohol Answer Date Recorded Frequency of Alcohol Consumption Not on file 05/15/2024 Average Number of Drinks Not on file 024 Frequency of Binge Drinking Not on file 04/24 Score 0 05/15/2024 Depression Answer Date Recorded Patient Health Questionnaire-9 Score 8 05/15/2024 Patient Health Questionnaire-9 Score 8 05/15/2024 Last PHQ-9: Questionnaire Data Not on file 1 Housing Stability Answer Date Recorded What is your housing situation today? I have liz alba 05/10/[address] you li ve. Do you have problems with any of the following? None of the above 05/10/2023 Food Insecurity Answer Date Recorded Within the past 12 months, y ou worried that your food would run out before you got money to buy more: Sometimes True 2024 Within the past 12 months,th e food you bought just didn't last and you didn't have enough money to get more: Sometimes True 08/08/2024 Transportation Answer Date Recorded In the past 12 months, has l ack of transportation kept you from medical appts, meetings, work or from getting things needed for daily living? No 05/10/2023 Utilities Answer Date Recorded In the past 12 months, has t he electric, gas, oil or water company threatened to shut off services in your home? No 05/10/2023 Depression Answer Date Recorded Patient Health Questionnaire-2 Score 1 05/15/2024 Internet Access Answer Date Recorded Internet Access Q1 Yes 08/08/2024 Internet Access Q2 Not on file 08/08/2024 Comments Unknown Sex and Gender Information Value Date Recorded Sex Assigned at Female 05/23/2022 10:19 AM EDT Legal Sex Female 10:19 AM EDT Gender Identity Female 05/23/2022 10:19 AM EDT Sexual Orientation Choose not to disclose 2021 10:19 AM EDT documented as of this encounter Last Filed Vital Signs Vital Sign Reading Time Taken Comments Blood Pressure 130/80 08/19/2024 10:25 AM EST Pulse 69 08/19/2024 10:03 AM EST Temperature 36.1 ??C (97 ??F) 08/19/2024 10:03 AM EST Respiratory Rate 20 08/19/2024 10:03 AM EST Oxygen Saturation 96% 08/19/2024 10:03 AM EST Inhaled Oxygen Concentration - - Weight 82 kg (180 lb 12.8 oz) 08/19/2024 10:03 A M EST Height 147.3 cm (4' 10 ) 08/19/2024 10:03 AM EST Body Mass Index 37.79 08/19/2024 10:03 AM EST documented in this encounter Progress Notes * Larisa Moreland MD - 08/19/2024 10:30 AM EST Sidney Rico is a 69 y.o. female with PMHx of hypertension, constipation, IBS, osteoarthritis of both knees, cobalamin deficiency, vitamin D deficiency, Dyslipidemia, and hypertensive retinopathy who presents to the office today for chronic medical conditions and comprehensive annual evaluation. Saw CDTM on 07/01/24, reporting recently hospitalized 06/17/24-06/20/24 fainting, DARRYN, hyponatremia:Medications discontinued: chlorthalidone, lisinopril, spironolactone. Continued Amlodipine 10mg once daily and Metoprolol Succ ER 25mg once daily. Saw Molding Supervisor on 07/29/24, BP 170/82mmHg. No medication changes noted. Saw CDTM again on 07/30/24, repeat BMP with slight improvement in sodium noted however remains below normal limits (hyponatremia). Discussed with myself(PCP) to start hydralazine 10mg take 1 tablet by mouth 4 times daily. Awaiting Molding Supervisor input, but has not received a call back. Pt no showed to follow-up CDTM visit on 08/07/24 outreached patient for status check and patient reports dizziness following start of hydralazine and home BP readings in the 170s . Patient was educated to seek medical attention at the ER however patient resistant. Pt called back later that day reporting that yesterday SBP 160-170, today SBP 130-140. Reported dizziness yesterday, today feels well. Dizziness occurred while walking outside. Reports dizziness started after starting new blood pressure med hydralazine 10mg QID. Confirms that she did take medication today at ~08:10. Pt currently at home. I requested that she take blood pressure while on the phone. Blood pressure 170/107 heart rate 66. Pt reports is asymptomatic, I feel fine . Denies current dizziness, CP, chest pressure, blurred vision, or current ELLIOTT. Did report that she occasionally gets headaches but doesn't correlate to blood pressure. Reports drinking plenty of water and has reduced sodium intake. Recommended ED evaluation of ?hypertensive urgency. Pt refused. Explained that we are concerned regarding her health and want to avoid adverse outcomes. Pt states is unable to go to ED today but will take 1/2 pill tomorrow and will present to the ED. Advised to monitor blood pressure very closely today. If it increases and/or she becomes symptomatic she needs to go to the ED immediately. Pt reports she is still taking her Hydralazine, 4 times a day and she has still been getting dizzy but she gets better when she sits down. She reports she sees her Molding Supervisor again on 10/07/24. Social History Tobacco: denied Drugs: none Alcohol: No Suicide/Depression: The patient denies any present symptoms of depression or anxiety. Review of Systems Constitutional: Negative for fatigue, fever and unexpected weight change. Respiratory: Negative for cough. Cardiovascular: Negative for chest pain. Gastrointestinal: Negative for abdominal pain. Genitourinary: Negative for difficulty urinating. Neurological: Positive for dizziness. Current Outpatient Medications: amLODIPine (Norvasc) 10 MG tablet, TAKE 1 TABLET BY MOUTH EVERY EVENING, Disp: 90 tablet, Rfl: 3 Blood Pressure Monitoring (Blood Pressure Kit) kit, Use as directed, Disp: 1 kit, Rfl: 0 chlorthalidone (Hygroton) 25 MG tablet, Take one tablet by mouth once daily in the morning, Disp: 90 tablet, Rfl: 3 cholecalciferol (Vitamin D-3) 25 MCG (1000 UT) tablet, Take 1 tablet (25 mcg) by mouth Once per day., Disp: 90 tablet, Rfl: 3 cyanocobalamin (Vitamin B-12) 500 MCG tablet, TAKE 1 TABLET BY MOUTH EVERY MORNING, Disp: 90 tablet, Rfl: 3 Diclofenac Sodium 1 % gel, APPLY 2 GRAMS TOPICALLY TWICE DAILY IN THE MORNING AND AT BEDTIME NEEDED, Disp: 100 g, Rfl: 3 docusate sodium (Colace) 100 MG capsule, TAKE 1 CAPSULE BY MOUTH TWICE DAILY NEEDED FOR CONSTIPATION, Disp: 180 capsule, Rfl: 1 ezetimibe (Zetia) 10 MG tablet, Take 1 tablet (10 mg) by mouth Once per day., Disp: 90 tablet, Rfl:3 famotidine (Pepcid) 20 MG tablet, TAKE 1 TABLET BY MOUTH TWICE DAILY, Disp: 60 tablet, Rfl: 1 hydrALAZINE (Apresoline) 10 MG tablet, Take 1 tablet (10 mg) by mouth 4 times daily., Disp: 120 tablet, Rfl: 0 Linzess 145 MCG capsule, TAKE 1 CAPSULE BY MOUTH EVERY MORNING, Disp: 30 capsule, Rfl: 1 metoprolol succinate XL (Toprol-XL) 25 MG 24 hr tablet, TAKE 1 TABLET BY MOUTH EVERY MORNING DO NOTBREAK, CRUSH, DISSOLVE OR CHEW, Disp: 90 tablet, Rfl: 3 rosuvastatin (Crestor) 40 MG tablet, Take 1 tablet (40 mg) by mouth Once per day., Disp: 30 tablet,Rfl: 11 No Known Allergies Past Medical History: Diagnosis Date Dyslipidemia 04/11/2012 Lab Results Component Value Date CHOL 245 (H) 12/11/2023 TRIG 135 12/11/2023 TRIG 121 08/10/2022 HDL 60 12/11/2023 LDLCHOLCAL 158 (H) 12/11/2023 Lab Results Component Value Date LDLCHOLCAL 158 (H) 12/11/2023 CHOL 245 (H) 12/11/2023 TRIG 135 Hypertension 04/11/2012 -Blood pressure is generally not controlled, but at goal today 05/15/24 - Continue lifestyle modifications -Continue current medications -continue amlodipine 10mg -hydrochlorothiazide switched to chlorthalidone 11/27/23 with CDTM, chlorthalidone increased to 25mg once daily by CDTM 12/15/23 -continue li sinopril 40mg -metoprolol XL 25mg -spironolactone 50mg daily added 03/06/2023 and increased to Osteoarthritis of both knees 07/07/2014 History of L TKA ~6 years ago Vitamin D deficiency 08/31/2021 Lab Results Component Value Date [id number] 42.7 03/28/2023 Improved with Vit D supplementation Past Surgical History: Procedure Laterality Date LAPAROTOMY OOPHERECTOMY Right No family history on file. Objective Visit Vitals BP 130/80 Pulse 69 Temp 97 ??F (36.1 ??C) (Temporal) Resp 20 Ht 4' 10 (1.473 m) Wt 180 lb 12.8 oz (82 kg) SpO2 96% BMI 37.79 kg/m?? Smoking Status Never BSA 1.83 m?? Physical Exam Constitutional: Appearance: Normal appearance. HENT: Head: Normocephalic. Right Ear: Tympanic membrane normal. Left Ear: Tympanic membrane normal. Mouth/Throat: Pharynx: Oropharynx is clear. Eyes: Pupils: Pupils are equal, round, and reactive to light. Cardiovascular: Rate and Rhythm: Normal rate and regular rhythm. Heart sounds: Normal heart sounds. Pulmonary: Effort: Pulmonary effort is normal. Breath sounds: Normal breath sounds. Chest: Breasts: Larry Score is 5. Breasts are symmetrical. Right: Normal. No inverted nipple, mass, nipple discharge or skin change. Left: Normal. No inverted nipple, mass, nipple discharge or skin change. Abdominal: General: Abdomen is flat. Palpations: There is no mass. Tenderness: There is no abdominal tenderness. Musculoskeletal: General: Normal range of motion. Cervical back: Normal range of motion and neck supple. Lymphadenopathy: Cervical: No cervical adenopathy. Upper Body: Right upper body: No supraclavicular or axillary adenopathy. Left upper body: No supraclavicular or axillary adenopathy. Skin: General: Skin is warm and dry. Neurological: General: No focal deficit present. Mental Status: She is alert. Psychiatric: Behavior: Behavior normal. 69 y.o. female annual evaluation. Problem List Items Addressed This Visit Hypertension - Primary -Blood pressure is generally not controlled. Followed up Collaborative Drug Therapy Managment Program with our PharmD Medication history: -hydrochlorothiazide switched to chlorthalidone 11/27/23 with CDTM, chlorthalidone increased to 25mg once daily by CDTM 12/15/23 -spironolactone 50mg daily added 03/06/2023 and increased to BID 06/19/23 -seen by Dr. Lind, assistant auditor 02/28/24 lisinopril increased to 20 mg daily. (She was on 40 in the past) 24 hour ambulatory blood pressure monitor ordered. Thyroid function, renin, aldosterone, cortisol, metanephrines as well as Doppler of her renal arteries ordered. -Hospitalized 06/17/24-06/20/24 fainting, DARRYN, hyponatremia: Medications discontinued: chlorthalidone, lisinopril, spironolactone -BP remained elevated. We started hydralazine but she was dizzy so decreased from QID to tid 10mg 08/19/24 -08/19/24 pt is on Depression, recurrent (CMS/HCC) Dyslipidemia Lab Results Component Value Date CHOL 159 07/30/2024 CHOL 217 (H) 03/06/2024 CHOL 236 (H) 01/19/2024 TRIG 75 07/30/2024 TRIG 97 03/06/2024 TRIG 123 01/19/2024 TRIG 121 08/10/2022 HDL 63 07/30/2024 HDL 64 03/06/2024 HDL 60 01/19/2024 LDLCHOLCAL 81 07/30/2024 LDLCHOLCAL 134 (H) 03/06/2024 LDLCHOLCAL 152 (H) 01/19/2024 -continue lifestyle modification The 10-year ASCVD risk score : 12.5% (high risk) Calculated 12/15/23 by CDTM -goal LDL < 100 -continue lifestyle modifications -Increase rosuvastatin to 40mg daily 11/15/23 -zetia 10mg once daily added by CDTM 12/15/23; repeat FLP ordered for 4 weeks after start Colon cancer screening Colonoscpoy on 12/10/2018 showed minor diverticulosis. There were no obvious polys but preporation was poor. recommending FIT testing in 1 year. -FIT testing ordered 01/[address] Busch. -recommend follow up 2023. -referral placed to GI 11/16/23 -intake for colonoscopy with Jennifer PEREZ-BC done 01/29/2024 -done on 05/30/[address] Lewis, showing normal internal hemorrhoids. Repeat in 10-7 years. Class 2 severe obesity due to excess calories with serious comorbidity and body mass index (BMI) of38.0 to 38.9 in adult (CMS/[facility]) Discussed weight, diet, exercise with patient in relation to health conditions. Used motivational interviewing to illicit change talk and established initial goals with patient. Exercise counseling Exercise Recommendations: At least 150 minutes of moderate-intensity physical activity per week, or an equivalent combinationof moderate- and vigorous-intensity activity Dietary counseling Dietary Recommendations: Fruits, vegetables, whole grains, protein foods, and fat-free or low-fat dairy products are healthychoices. Eat different types of protein foods in your diet. This can include seafood, lean meats, poultry, beans, peas, lentils, nuts, seeds, soy products, and eggs. Limit foods and beverages higher in added sugars, saturated fat, and sodium. Other specified health status -next comprehensive annual evaluation due after 08/19/25 -eye care facilitated by [facility] -dental home is [facility] -health care proxy paperwork given 08/17/23 Acute hyponatremia Hyponatremia new onset in May 2024 in the absence of hyperglycemia. No obvious medication changes that would have precipitated this. GFR is not impaired. No longer on thiazide. No edema or ascites present. No obvious heart failure. Na was normal up to and including 03/2024. In 05/2024 Na was down to125. Lab Results Component Value Date NA 132 (L) 07/30/2024 NA 130 (L) 07/01/2024 NA 125 (L) 06/17/2024 NA 135 04/21/2024 -will check serum osmolality, urine-sodium, BMP and urine osmolality 08/19/24 Relevant Orders Osmolality, Serum Sodium Without creatinine, Random Urine Basic Metabolic Panel Osmolality, Urine Annual Evaluation -Normal growth and development. -Anticipatory guidance discussed. -Preventative care / harm reduction discussed. Follow up in about 3 months (around 11/17/2024) for HTN. I, Markus Knight, am serving as a scribe to document services personally performed by Dr. Vital, based on the patient's response to questions by provider and providers statements to me. documented in this encounter Miscellaneous Notes * Assessment & Plan Note - Markus Knight - 08/19/2024 10:59 AM ESTAssociated Problem(s): Colon cancer screening Colonoscpoy on 12/10/2018 showed minor diverticulosis. There were no obvious polys but preporation was poor. recommending FIT testing in 1 year. -FIT testing ordered 01/[address] Busch. -recommend follow up 2023. -referral placed to GI 11/16/23 -intake for colonoscopy with Jennifer PEREZ-BC done 01/29/2024 -done on 05/30/[address] Lewis, showing normal internal hemorrhoids. Repeat in 10-7 years. * Assessment & Plan Note - Markus Knight - 08/19/2024 10:50 AM ESTAssociated Problem(s): Hypertension -Blood pressure is generally not controlled. Followed up Collaborative Drug Therapy Managment Program with our PharmD Medication history: -hydrochlorothiazide switched to chlorthalidone 11/27/23 with CDTM, chlorthalidone increased to 25mg once daily by CDTM 12/15/23 -spironolactone 50mg daily added 03/06/2023 and increased to BID 06/19/23 -seen by Dr. Lind, assistant auditor 02/28/24 lisinopril increased to 20 mg daily. (She was on 40 in the past) 24 hour ambulatory blood pressure monitor ordered. Thyroid function, renin, aldosterone, cortisol, metanephrines as well as Doppler of her renal arteries ordered. -Hospitalized 06/17/24-06/20/24 fainting, DARRYN, hyponatremia: Medications discontinued: chlorthalidone, lisinopril, spironolactone -BP remained elevated. We started hydralazine but she was dizzy so decreased from QID to tid 10mg 08/19/24 -08/19/24 pt is on * Assessment & Plan Note - Markus Knight - 08/19/2024 10:50 AM ESTAssociated Problem(s): Class 2 severe obesity due to excess calories with serious comorbidity and body mass index (BMI) of 38.0 to 38.9 in adult ([facility]) Discussed weight, diet, exercise with patient in relation to health conditions. Used motivational interviewing to illicit change talk and established initial goals with patient. * Assessment & Plan Note - Markus Knight - 08/19/2024 10:49 AM ESTAssociated Problem(s): Dyslipidemia Lab Results Component Value Date CHOL 159 07/30/2024 CHOL 217 (H) 03/06/2024 CHOL 236 (H) 01/19/2024 TRIG 75 07/30/2024 TRIG 97 03/06/2024 TRIG 123 01/19/2024 TRIG 121 08/10/2022 HDL 63 07/30/2024 HDL 64 03/06/2024 HDL 60 01/19/2024 LDLCHOLCAL 81 07/30/2024 LDLCHOLCAL 134 (H) 03/06/2024 LDLCHOLCAL 152 (H) 01/19/2024 -continue lifestyle modification The 10-year ASCVD risk score : 12.5% (high risk) Calculated 12/15/23 by CDTM -goal LDL < 100 -continue lifestyle modifications -Increase rosuvastatin to 40mg daily 11/15/23 -zetia 10mg once daily added by CDTM 12/15/23; repeat FLP ordered for 4 weeks after start * Assessment & Plan Note - Markus Knight - 08/19/2024 10:48 AM ESTAssociated Problem(s): Other specified health status -next comprehensive annual evaluation due after 08/19/25 -eye care facilitated by [facility] -dental home is [facility] -health care proxy paperwork given 08/17/23 * Assessment & Plan Note - Markus Knight - 08/19/2024 10:27 AM ESTAssociated Problem(s): Exercise counseling Exercise Recommendations: At least 150 minutes of moderate-intensity physical activity per week, or an equivalent combinationof moderate- and vigorous-intensity activity * Assessment & Plan Note - Markus Knight - 08/19/2024 10:27 AM ESTAssociated Problem(s): Dietary counseling Dietary Recommendations: Fruits, vegetables, whole grains, protein foods, and fat-free or low-fat dairy products are healthychoices. Eat different types of protein foods in your diet. This can include seafood, lean meats, poultry, beans, peas, lentils, nuts, seeds, soy products, and eggs. Limit foods and beverages higher in added sugars, saturated fat, and sodium. * Assessment & Plan Note - Markus Kinght - 08/19/2024 10:23 AM ESTAssociated Problem(s): Acute hyponatremia Hyponatremia new onset in May 2024 in the absence of hyperglycemia. No obvious medication changes that would have precipitated this. GFR is not impaired. No longer on thiazide. No edema or ascites present. No obvious heart failure. Na was normal up to and including 03/2024. In 05/2024 Na was down to125. Lab Results Component Value Date NA 132 (L) 07/30/2024 NA 130 (L) 07/01/2024 NA 125 (L) 06/17/2024 NA 135 04/21/2024 -will check serum osmolality, urine-sodium, BMP and urine osmolality 08/19/24 documented in this encounter Plan of Treatment Scheduled Orders Name Type Priority Associated Diagnoses Orde r Schedule Osmolality, Urine Lab Routine Acute hyponatremia Expected: 08/19/2024 (Approximate), Expires: 08/19/2025 documented as of this encounter Goals Goal Patient Goal Type Associated Problems Recent Progress Patient-Stated? Author Blood Pressure < 150/90 Blood Pressure 130/80( 025 10:25 AM EST) No Ameena Quiles, PharmD documented as of this encounter Procedures Procedure Name Priority Date/Time Associated Diagnosis Comments SODIUM W/O CREATININE, RANDOM URINE Routine 08/19/2024 11:03 AM EST Acute hyponatremia OSMOLALITY (SERUM) Routine 08/19/2024 11 :03 AM EST Acute hyponatremia BASIC METABOLIC PANEL Routine 08/19/2024 11:03 AM EST Acute hyponatremia documented in this encounter Results * (ABNORMAL) Basic Metabolic Panel (08/19/2024 11:03 AM EST) Sodium 134(L) 135 - 145 mmol/L [facility] Potassium 4.1 3.3 - 5.1 mmol/L [facility] Chloride 101 96 - 108 mmol/L [facility] Carbon Dioxide 24 22 - 29 mmol/L [facility] Anion Gap 13 12 - 20 [facility] Urea Nitrogen (BUN) 15 9 - 16 mg/dL [facility] Creatinine, Serum 0.78 0.5 - 1.4 mg/dL [facility] Estimated Glomerular Filt Rate >60 [facility] Comment:Chronic Kidney Disea se: Estimated GFR < 60 mL/min/[id number] Kidney Disease: Estimated GFR < 15 mL/min/1.73m2 Glucose 90 60 - 115 mg/dL [facility] Calcium 9.6 8.4 - 10.2 mg/dL [facility] Blood Venous blood specimen / Unknown 08/19/2024 11:03 AM EST 08/19/2024 1:22 PM EST Larisa Moreland MD LAB BLOOD ORDERABLES Final Result Performing Organization Address City/[facility]/ZIP Co de Phone Number [facility] [address] [place] [phone] * Sodium Without creatinine, Random Urine (08/19/2024 11:03 AM EST) Sodium Urine Random 100.0 mmol/L [facility] Urine Urine specimen obtained by clean catch procedure / Unknown 08/19/2024 11:03 AM EST 08/19/2024 1:11 PM EST Larisa Moreland MD LAB BLOOD ORDERABLES Final Result Performing Organization Address City/[facility]/ZIP Co de Phone Number [facility] [address] [place] [phone] * Osmolality, Serum (08/19/2024 11:03 AM EST) Osmolality (Serum) 282 281 - 305 mosm/kg [facility] Blood Venous blood specimen / Unknown 08/19/2024 11:03 AM EST 08/19/2024 1:22 PM EST us Larisa Moreland MD LAB BLOOD ORDERABLES Final Result [facility] [address] [place] [phone] documented in this encounter Visit Diagnoses Diagnosis Primary hypertension- Primary Unspecified essential hypertension Depression, recurrent (CMS/HCC) Major depressive disorder, recurrent episode, unspecified Dyslipidemia Other and unspecified hyperlipidemia Colon cancer screening Special screening for malignant neoplasms, colon Class 2 severe obesity due to excess calories with serious comorbidity and body mass index (BMI) of 38.0 to 38.9 in adult (CMS/HCC) Exercise counseling Dietary counseling Dietary surveillance and counseling Other specified health status Acute hyponatremia Hyposmolality and/or hyponatremia documented in this encounter Additional Health Concerns Assessment Noted Time PHQ-9 Depression Total Score: 8 05/15/20 24 10:16 AM EDT documented as of this encounter Care Teams Landing Man Relationship Specialty Start Date End Date Larisa Moreland MD [address] [place] [address] PCP - General Family Medicine 07/24/18 Ameena Grant, MelchorD [address] [place] [phone] Pharmacist Internal Medicine 08/15/22 José Miguel Prado MD [address] [place] [address] Nephrology 07/30/24 Jennifer Torres [address] [place] [address] Gastroenterology 08/19/24 documented as of this encounter
--- OUTSIDE RECORDS SUMMARY | 2024-08-19 15:58 | XMS_ITS | Encounter Summary ---
Author Organization [employer] Address [address] [facility] [address] 7t [place] [address] Care Team Providers Care Television News Photographer Name Role Phone Larisa Moreland MD Primary Care Provider +- [phone] Ameena Grant PharmD Unavailable +1- [phone] José Miguel Prado MD Unavailable Jennifer Torres Unavailable Encounter Details Date Type Department Care Team (Late st Contact Info) Description 11/22/2023 Orders Only [facility] [address] [place], [place] [phone] Larisa Moreland MD [address] [place], [place] [phone] Vitamin D deficiency (Primary Dx) Social History Tobacco Use Types Packs/Day Years Used Date Smoking Tobacco: Never Smokeless Tobacco: Never Housing Stability Answer Date Recorded What is your housing situation today? I have liz alba 05/10/[address] you li ve. Do you have problems with any of the following? None of the above 05/10/2023 Food Insecurity Answer Date Recorded Within the past 12 months, y ou worried that your food would run out before you got money to buy more: Never True 05/10/2023 Within the past 12 months,th e food you bought just didn't last and you didn't have enough money to get more: Never True Transportation Answer Date Recorded In the past 12 months, has l ack of transportation kept you from medical appts, meetings, work or from getting things needed for daily living? No 05/10/2023 Utilities Answer Date Recorded In the past 12 months, has t he electric, gas, oil or water [employer] threatened to shut off services in your home? No 05/10/2023 Depression Answer Date Recorded Patient Health Questionnaire-2 Score 0 03/06/2023 Comments Unknown Sex and Gender Information Value Date Recorded Sex Assigned at Female 05/23/2022 10:19 AM EDT Legal Sex Female 10:19 AM EDT Gender Identity Female 05/23/2022 10:19 AM EDT Sexual Orientation Choose not to disclose 2021 10:19 AM EDT documented as of this encounter Plan of Treatment Not on file documented as of this encounter Goals Goal Patient Goal Type Associated Problems Recent Progress Patient-Stated? Author Blood Pressure < 150/90 Blood Pressure 130/80( 025 10:25 AM EST) No Ameena Quiles, PharmD documented as of this encounter Visit Diagnoses Diagnosis Vitamin D deficiency- Primary documented in this encounter Care Teams Television News Photographer Relationship Specialty Start Date End Date Larisa Moreland MD [address] [place] [address] PCP - General Family Medicine 07/24/18 Ameena Grant, PharmD [address] [place] [address] Pharmacist Internal Medicine 08/15/22 José Miguel Prado MD [address] [place] [address] Nephrology 07/30/[address] Torres [address] 3rd [place] [address] Gastroenterology 08/19/24 documented as of this encounter
--- OUTSIDE RECORDS SUMMARY | 2024-08-19 15:58 | XMS_ITS | Encounter Summary ---
Author Organization [employer] Address [address] [facility] [address] 7t [place] [address] Care Team Providers Care Fraud Analyst Name Role Phone Larisa Moreland MD Primary Care Provider +1- [phone] Ameena Grant PharmD Unavailable +1- [phone] José Miguel Prado MD Unavailable Jennifer Torres Unavailable Encounter Details Date Type Department Care Team (Latest Contact Info) Description 08/19/2024 Travel Social History Tobacco Use Types Packs/Day Years [...] documented as of this encounter Visit Diagnoses Not on filedocumented in this encounter Additional Health Concerns Assessment Noted Time PHQ-9 Depression Total Score: 8 05/15/20 24 10:16 AM EDT documented as of this encounter Care Teams Fraud Analyst Relationship Specialty Start Date End Date Larisa Moreland MD [address] [place] [address] PCP - General Family Medicine 07/24/18 Ameena Grant, PharmD [address] [place] [address] Pharmacist Internal Medicine 08/15/22 José Miguel Prado MD [address] [place] [address] Nephrology 07/30/[address] Torres [address] 3rd [place] [address] Gastroenterology 08/19/24 documented as of this encounter
--- OUTSIDE RECORDS SUMMARY | 2024-08-19 15:58 | XMS_ITS | Encounter Summary ---
Author Organization [employer] Address [address] [facility] [address] 7t [place] [address] Care Team Providers Care Sliver Former Name Role Phone Larisa Moreland MD Primary Care Provider +1- [phone] Ameena Grant PharmD Unavailable +1- [phone] José Miguel Prado MD Unavailable Encounter Details Date Type Department Care Team (Latest Contact Info) Description 07/30/2024 Travel Social History Tobacco Use Types Packs/Day [...] Recorded Patient Health Questionnaire-2 Score 1 05/15/2024 Comments Unknown Sex and Gender Information Value [...] documented as of this encounter Care Teams Sliver Former Relationship Specialty Start Date End Date Larisa Moreland MD 230 [place] [address] PCP - General Family Medicine 07/24/18 Ameena Grant, PharmD [address] [place] [address] Pharmacist Internal Medicine 08/15/22 José Miguel Prado MD [address] [place] [address] [address] [place] [address] Nephrology 07/30/24 documented as of this encounter
--- OUTSIDE RECORDS SUMMARY | 2024-08-19 15:58 | XMS_ITS | Encounter Summary ---
Author Organization [employer] Address [address] [facility] 7t [place] [address] Care Team Providers Care Supply Chain Generalist Name Role Phone Larisa Moreland MD Primary Care Provider +1- [phone] Ameena Grant PharmD Unavailable +1- [phone] José Miguel Prado MD Unavailable Reason for Visit * Reason Comments Care Coordination CHW outreach for SDO H PT-1 and food needs-LVM Encounter Details Date Type Department Care Team (Latest Contact Info) Description 08/08/2024 [address] [facility] [address] [place] [address] Larisa Moreland MD [address] [place] [address] Care Coordination (CHW outreach for SDOH PT-1 and food needs-LVM ) Social History Tobacco Use Types Packs/Day Years [...] the past 12 months, has t he [employer], gas, oil or water [employer] threatened to shut off services in your [...] AM EDT documented as of this encounter Progress Notes * López Kruger - 08/08/2024 10:34 AM EST CHW López Kruger, placed outbound call to patient for assistance with SDOH as a referral was placed by the provider. Patient had screened positive for the following SDOH insecurities. No answer atthis time. Patient's name and were not confirmed. CHW left detailed message and provided contact information requesting return call for assistance. Patient educated on extended clinic hours on Mondays through Wednesdays, and Walk-In Urgent Care Located in [facility] of [facility]. Patient provided with after-hours line for [facility], , which offer night time triage service and option to transfer toon call provider if needed. documented in this encounter Plan of Treatment Not on [...] documented as of this encounter Care Teams Supply Chain Generalist Relationship Specialty Start Date End Date Larisa Moreland MD [address] [place] [address] PCP - General Family Medicine 07/24/18 Ameena Grant, PharmD [address] [place] [address] Pharmacist Internal Medicine 08/15/22 José Miguel Prado MD [address] [place] [address] Drive [address] [place] [address] Nephrology 07/30/24 documented as of this encounter
--- OUTSIDE RECORDS SUMMARY | 2024-08-19 15:58 | XMS_ITS | Encounter Summary ---
Author Organization [employer] Address [address] [facility] [address] 7t [place] [address] Care Team Providers Care Product Sales Engineer Name Role Phone Larisa Moreland MD Primary Care Provider +1- [phone] Ameena Grant PharmD Unavailable +1- [phone] José Miguel Prado MD Unavailable Reason for Visit * Reason Onset Date Comments chartprep 08/13/2024 Encounter Details Date Type Department Care Team (Late st Contact Info) Description 08/13/2024 Telephone [facility] 230 [place], [place] [phone] Katarina Martino MA chartprep Social History Tobacco Use Types Packs/Day Years [...] AM EDT documented as of this encounter Miscellaneous Notes * Telephone Encounter - Katarina Martino MA - 08/13/2024 1:38 PM EST Chart Prep Labs: done Images: done Vaccines due: Covid Due Referrals: Not Applicable Screenings: none Overdue care gaps: updates documented in this encounter Plan of Treatment Not on file documented as of this encounter Goals Goal Patient Goal Type Associated Problems Recent Progress Patient-Stated? Author Blood Pressure < 150/90 Blood Pressure 130/80( 025 10:25 AM EST) No Ameena Quiles PharmD documented as of this encounter Visit Diagnoses Not on filedocumented in this encounter Additional Health Concerns Assessment Noted Time PHQ-9 Depression Total Score: 8 05/15/20 24 10:16 AM EDT documented as of this encounter Care Teams Product Sales Engineer Relationship Specialty Start Date End Date Larisa Moreland MD [address] [place] [address] PCP - General Family Medicine 07/24/18 Ameena Grant, PharmD [address] [place] [address] Pharmacist Internal Medicine 08/15/22 José Miguel Prado MD [address] [place] [address] Drive [address] [place] [address] Nephrology 07/30/24 documented as of this encounter
--- OUTSIDE RECORDS SUMMARY | 2024-08-19 15:58 | XMS_ITS | Encounter Summary ---
Author Organization [employer] Address [address] [facility] [facility] [address] 7t [place] [address] Care Team Providers Care Control Equipment Electrician Name Role Phone Larisa Moreland MD Primary Care Provider +- [phone] Ameena Grant PharmD Unavailable José Miguel Prado MD Unavailable Jennifer Torres Unavailable Reason for Visit * Reason Comments Med Refill Encounter Details Date Type Department Care Team (Late st Contact Info) Description 08/17/2024 Refill [facility] [address] [place], [place] [phone] Larisa Moreland MD [address] [place], [place] [phone] Gastroesophageal reflux disease, unspecified whether esophagitis present; Irritable bowel syndrome, unspecified type Social History Tobacco Use Types Packs/Day Years [...] as of this encounter Visit Diagnoses Diagnosis Gastroesophageal reflux disease, unspecified whether esophagitis present Irritable bowel syndrome, unspecified type documented in this encounter Additional Health Concerns Assessment Noted Time PHQ-9 Depression Total Score: 8 05/15/20 24 10:16 AM EDT documented as of this encounter Care Teams Control Equipment Electrician Relationship Specialty Start Date End Date Larisa Moreland MD [address] [place], [place] [phone] PCP - General Family Medicine 07/24/18 Ameena Grant PharmD [address] [place] [address] Pharmacist Internal Medicine 08/15/22 José Miguel Prado MD [address] [place] [address] Nephrology 07/30/[address] Jennifer Torres [address] 3rd [place] [address] Gastroenterology 08/19/24 documented as of this encounter
--- OUTSIDE RECORDS SUMMARY | 2024-08-19 16:00 | XMS_ITS ---
Author Organization [employer] [facility] [place] Address Unknown Problems Problem Status Start Date End Date AFTERCARE FOLLOWING JOINT RE PLACEMENT SURGERY (Primary) (Z47.1 - ICD-10-CM) ACTIVE 05/01/2015 UNSPECIFIED LACK OF COORDINATION (R27.9 - ICD-10-CM) A CTIVE 05/01/2015 AFTERCARE FOLLOWING EXPLANTA TION OF KNEE JOINT PROSTHESIS (Z47.33 - ICD-10-CM) ACTIVE 05/01/2015 PRIMARY GENERALIZED (OSTEO)ARTHRITIS (M15.0 - ICD-10-C M) ACTIVE 11/09/2012 HYPERLIPIDEMIA, UNSPECIFIED (E78.5 - ICD-10-CM) ACTIVE 05/01/2015 ESSENTIAL (PRIMARY) HYPERTENSION (I10 - ICD-10-CM) ACT DEBI 11/09/2012 Encounters Encounter Performer Performer Role Encounter Diagnoses Location Date Discharge - Discharged to home or self care - Home(5) - [facility] [place] 11/09/2012 11:00 am EDT - 11/27/2012 09:17 am EDT Discharge - Discharged to home or self care - Home(5) [facility] [place] 05/01/2015 03:13 pm EDT - 05/15/2015 11:15 am EDT Immunizations Vaccine Date Influenza Pneumovax Dose 1 Social History
--- OUTSIDE RECORDS SUMMARY | 2024-08-19 16:00 | XMS_ITS | Encounter Summary ---
Author Organization [facility] Address [address] [facility] 7t [place] [address] Care Team Providers Care Nursing Coordinator Name Role Phone Larisa Moreland MD Primary Care Provider +1- [phone] Ameena Grant PharmD Unavailable José Miguel Prado MD Unavailable Jennifer Torres Unavailable Encounter Details Date Type Department Care Team (Late st Contact Info) Description 08/23/2022 Abstract [facility] 230 [place] [address] Larisa Moreland MD [address] [place], [place] [phone] Social History Tobacco Use Types Packs/Day Years Used Date Smoking Tobacco: Never Assessed Comments Unknown Sex and Gender Information Value Date Recorded Sex Assigned at Female 05/23/2022 10:19 AM EDT Legal Sex Female 10:19 AM EDT Gender Identity Female 05/23/2022 10:19 AM EDT Sexual Orientation Choose not to disclose 2021 10:19 AM EDT COVID-19 Exposure Response Date Recorded In the last 10 days, have yo u been in contact with someone who was confirmed or suspected to have Coronavirus/COVID-19? No / Unsure 08/25/2022 3:10 PM EST documented as of this encounter Plan of Treatment Not on file documented as of this encounter Goals Goal Patient Goal Type Associated Problems Recent Progress Patient-Stated? Author Blood Pressure < 150/90 Blood Pressure 130/80( 025 10:25 AM EST) No Ameena Quiles, PharmD documented as of this encounter Procedures Procedure Name Priority Date/Time Associated Diagnosis Comments MAMMOGRAPHY Routine 12/21/2021 COLONOSCOPY Routine 12/03/2018 PAP SMEAR Routine 02/27/2017 12:00 AM EDT documented in this encounter Results * Mammography (12/21/2021) HM Mammogram BIRADS 1 Anatomical Region Laterality Modality Other Historical Provider HEALTH MAINTENANCE Final Result * Hm Colonoscopy (12/03/2018) Colonoscopy poor prep Historical Provider HEALTH MAINTENANCE Final Result * Pap Smear (02/27/2017 12:00 AM EDT) [facility] Provider LAB CYTOLOGY ORDERABLES F inal Result IMAGING documented in this encounter Visit Diagnoses Not on filedocumented in this encounter Care Teams Nursing Coordinator Relationship Specialty Start Date End Date Larisa Moreland MD [address] [place] [address] PCP - General Family Medicine 07/24/18 Ameena Grant PharmD [address] [place] [address] Pharmacist Internal Medicine 08/15/22 José Miguel Prado MD [address] [place] [address] Nephrology 07/30/[address] Jennifer Torres [address] 3rd [place] [address] Gastroenterology 08/19/24 documented as of this encounter
--- OUTSIDE RECORDS SUMMARY | 2024-08-19 16:00 | XMS_ITS | Encounter Summary ---
Author Organization [employer] Address [address] [facility] 7t [place] [address] Care Team Providers Care Head Doffer Name Role Phone Larisa Moreland MD Primary Care Provider Ameena Grant PharmD Unavailable José Miguel Prado MD Unavailable Jennifer Torres Unavailable Encounter Details Date Type Department Care Team (Late st Contact Info) Description 2022 Orders Only [facility] [address] [place] [address] [phone] Larisa Moreland MD [address] [place] [address] [phone] Vitamin D deficiency (Primary Dx) Social History [...] suspected to have Coronavirus/COVID-19? No / Unsure 07/12/2022 10:54 AM EST documented as of this encounter Plan of Treatment Not on file documented as of this encounter Visit Diagnoses Diagnosis Vitamin D deficiency- Primary documented in this encounter Care Teams Head Doffer Relationship Specialty Start Date End Date Larisa Moreland MD [address] [place] [address] PCP - General Family Medicine 07/24/18 Ameena Grant PharmD [address] [facility] [place] [address] Pharmacist Internal Medicine 08/15/22 José Miguel Prado MD [address] [place] [address] Nephrology 07/30/[address] Jennifer Torres [address] 3rd [place] [address] Gastroenterology 08/19/24 documented as of this encounter
--- OUTSIDE RECORDS SUMMARY | 2024-08-19 16:00 | XMS_ITS | Clinical Summary ---
Author Organization [facility] Address [address] [place] [address] Care Team Providers Care Machine Zipper Trimmer Name Role Phone System, Provider Not In Primary Care Provider Un available Allergies No known active allergies Medications No known medications Immunizations Name Administration Dates Next Due Tdap 03/08/2023 Social History Tobacco Use Types Packs/Day Years Used Date Smoking Tobacco: Never Assessed Sex and Gender Information Value Date Recorded Sex Assigned at Female 03/08/2023 3:23 PM EDT Gender Identity Female 03/08/2023 3:23 PM EDT Sexual Orientation Heterosexual (straight) 03/08 3:23 PM EDT Last Filed Vital Signs Vital Sign Reading Time Taken Comments Blood Pressure 183/82 03/08/2023 3:09 PM EDT Pulse 64 03/08/2023 3:09 PM EDT Temperature 36.6 ??C (97.8 ??F) 03/08/2023 3:09 PM ED T Respiratory Rate 18 03/08/2023 3:09 PM EDT Oxygen Saturation 97% 03/08/2023 3:09 PM EDT Inhaled Oxygen Concentration - - Weight 81.6 kg (180 lb) 03/08/2023 1:25 PM EDT Height - - Body Mass Index - - Plan of Treatment Health Maintenance Due Date Last Done Comments Hepatitis C Virus Screening 1956 Mammogram 1996 Colonoscopy 2001 Pneumococcal Vaccines 50+ (1 of 1 - PCV) 2006 Zoster (Shingles) Vaccine (1 of 2) 2006 DXA Bone Density (Females,Ages 65 and older) 2021 Influenza Vaccine 02/22/2024 05/10/2022, , 04/08/2020, Additional history exists COVID-19 Vaccine (2023- season) 2024 03/06/2023, 11/30/2021, 08/02/2021, Additional history exists RSV Vaccine 60 years and older and Patients (1 - 1-dose 75+ series) 2031 DTaP/Tdap/Td Vaccines (2 - Td or Tdap) 03/08/2033 03/08/2023 Hepatitis B Vaccines Aged Out No long er eligible based on patient's age to complete this topic Care Teams Machine Zipper Trimmer Relationship Specialty Start Date End Date System, Provider Not In PCP - General 12/02/17
--- OUTSIDE RECORDS SUMMARY | 2024-08-19 16:00 | XMS_ITS | Encounter Summary ---
Author Organization [employer] Address [address] 7t [place] [address] Care Team Providers Care Share Dairy Farmer Name Role Phone Larisa Moreland MD Primary Care Provider +1- [phone] Ameena Grant PharmD Unavailable +1- [phone] José Miguel Prado MD Unavailable Encounter Details Date Type Department Care Team (Late st Contact Info) Description 07/30/2024 Orders Only [facility] [address] [place], [place] [phone] Larisa Moreland MD [address] [place], [place] [phone] Social History Tobacco Use Types Packs/Day Years [...] Procedure Name Priority Date/Time Associated Diagnosis Comments HEPATIC FUNCTION PANEL Routine 07/30/2024 9:25 AM EST LIPID PANEL, STANDARD Routine 07/30/2024 9:25 AM EST BASIC METABOLIC PANEL Routine 07/30/2024 9:25 AM EST documented in this encounter Results * Lipid Panel, Standard (07/30/2024 9:25 AM EST) Triglycerides 75 <150 mg/dL [facility] Comment:Desirable Triglyceri de: less than 150 mg/dLBorderline High Triglyceride 150-199 mg/dLHigh Triglyceride: 200-499 mg/dLVery High Triglyceride: greater than or equal to 5OO mg/dL Cholesterol 159 <200 mg/dL [facility] Comment:Desirable Cholestero l: less than 200 mg/dLBorderline High Cholesterol: 200-239 mg/dLHigh Cholesterol: greater than 239 mg/dL LDL Cholesterol Calculated 81 <100 mg/dL [facility] Comment:Desirable LDL: less than 100 mg/dLNear Optimal/Above Optimal LDL: 110- 129 mg/dLBorderline High LDL: 130-159 mg/dLHigh LDL: 160-189 mg/dLVery High LDL: greater than or equal to 190 mg/dL HDL Cholesterol 63 >40 mg/dL [facility] Comment:Desirable HDL: great er than 40 mg/dL Note: This HDL assay may give artificially low results in patients with liver disease. 07/30/2024 9:25 AM EST 07/30/2024 11:39 AM EST Larisa Moreland MD LAB BLOOD ORDERABLES Final Result [facility] [address] [place] [address] [phone] * (ABNORMAL) Basic Metabolic Panel (07/30/2024 9:25 AM EST) Sodium 132(L) 135 - 145 mmol/L [facility] Potassium 4.4 3.3 - 5.1 mmol/L [facility] Chloride 99 96 - 108 mmol/L [facility] Carbon Dioxide 27 22 - 29 mmol/L [facility] Anion Gap 10(L) 12 - 20 [facility] Urea Nitrogen (BUN) 12 9 - 16 mg/dL [facility] Creatinine, Serum 0.81 0.5 - 1.4 mg/dL [facility] Estimated Glomerular Filt Rate >60 [facility] Comment:Chronic Kidney Disea se: Estimated GFR < 60 mL/min/[id number] Kidney Disease: Estimated GFR < 15 mL/min/1.73m2 Glucose 95 60 - 115 mg/dL [facility] Calcium 9.4 8.4 - 10.2 mg/dL [facility] 07/30/2024 9:25 AM EST 07/30/2024 11:39 AM EST Larisa Moreland MD LAB BLOOD ORDERABLES Final Result Performing Organization Address City/[facility]/ZIP Co de Phone Number [facility] [address] [place] [address] [phone] * (ABNORMAL) Hepatic Function Panel (07/30/2024 9:25 AM EST) Bilirubin, Total 0.5 0.0 - 1.0 mg/dL [facility] Bilirubin, Direct 0.2 0.0 - 0.5 mg/dL [facility] Aspartate Amino Transferase 34(H) 5 - 31 U/L [facility] Alanine Aminotransferase 15 0 - 31 U/L [facility] Total Protein 7.3 6.5 - 8.0 g/dL [facility] Albumin Level 4.2 3.5 - 5.0 g/dL [facility] Alkaline Phosphatase 76 39 - 117 U/L [facility] 07/30/2024 9:25 AM EST 07/30/2024 11:39 AM EST Larisa Moreland MD LAB BLOOD ORDERABLES Final Result Performing Organization Address [facility] de Phone Number [facility] [address] [place] [address] [phone] documented in this encounter Visit Diagnoses Not on filedocumented in this encounter Additional Health Concerns Assessment Noted Time PHQ-9 Depression Total Score: 8 05/15/20 24 10:16 AM EDT documented as of this encounter Care Teams Share Dairy Farmer Relationship Specialty Start Date End Date Larisa Moreland MD [address] [place] [address] PCP - General Family Medicine 07/24/18 Ameena Grant, MelchorD [address] [place] [address] Pharmacist Internal Medicine 08/15/22 José Miguel Prado MD [address] [place] [address] Nephrology 07/30/24 documented as of this encounter
--- OUTSIDE RECORDS SUMMARY | 2024-08-19 16:00 | XMS_ITS | Encounter Summary ---
Author Organization [facility] Address [address] [facility] 7t [place] [address] Care Team Providers Care Laundry Machine Tender Name Role Phone Larisa Moreland MD Primary Care Provider +- [phone] Ameena Grant PharmD Unavailable +1- [phone] José Miguel Prado MD Unavailable Jennifer Torres Unavailable Encounter Details Date Type Department Care Team (Late st Contact Info) Description 04/26/2023 Abstract [facility] [address] [place], [place] [phone] Deepika Gurrola Social History Tobacco Use Types Packs/Day Years Used Date Smoking Tobacco: Never Smokeless Tobacco: Never Depression Answer Date Recorded Patient Health Questionnaire-2 [...] Procedure Name Priority Date/Time Associated Diagnosis Comments PAP/HPV Routine 05/18/2021 documented in this encounter Results * Hm Pap Smear (05/18/2021) Pap Negative for intraephithelial lesion or malignancy Negative for intraephithelial lesion or malignancy, Other HPV Undetected us Historical Provider HEALTH MAINTENANCE Final Result documented in this encounter Visit Diagnoses Not on filedocumented in this encounter Care Teams Laundry Machine Tender Relationship Specialty Start Date End Date Larisa Moreland MD [address] [place] [address] PCP - General Family Medicine 07/24/18 Ameena Grant, MelchorD [address] [place] [address] Pharmacist Internal Medicine 08/15/22 José Miguel Prado MD [address] [place] [address] Nephrology 07/30/24 Jennifer Torres [address]rd [place] [address] Gastroenterology 08/19/24 documented as of this encounter
--- OUTSIDE RECORDS SUMMARY | 2024-08-19 16:00 | XMS_ITS | Encounter Summary ---
Author Organization [employer] Address [address] [place] [address] Care Team Providers Care Garbage Pick Up Man Name Role Phone Larisa Moreland MD Primary Care Provider [phone]- [phone] Ameena Grant PharmD Unavailable [phone]- [phone] José Miguel Prado MD Unavailable Reason for Visit * Reason Comments Pre-visit Planning SDOH Screening posit john and Tobacco screening negative Encounter Details Date Type Department Care Team (Late st Contact Info) Description 08/08/2024 Patient Outreach [facility] [address] [place] [address] Larisa Moreland MD [address] [place], [place] [phone] Pre-visit Planning (SDOH Screening positive and Tobacco screening negative) Social History Tobacco Use Types Packs/Day Years [...] as of this encounter Progress Notes * Katarina Cohen - 08/08/2024 9:29 AM EST MUKESH Dawkins placed successful outbound call to patient for pre-visit planning. Patient name and confirmed. Patient confirms appt date and time, and has transportation arrangements. Biggest concern for appointment at this time is HTN this AM was 150/64 but does not want to go to the ER. Patienteducated on extended clinic hours on Mondays and Wednesdays, and Walk-In Urgent Care Located in [facility]. Patient provided with after-hours line for [facility], , which offer night time triage service and option to transfer to concrete laborer provider if needed. Patient advised to bring to appointment a photo id and insurance card. Appropriate screenings completed in anticipation of appointment.SDOH positive. Patient looking for assistance with Food insecurities: Sometimes. Referral will be placed. documented in this encounter Plan of Treatment [...] documented as of this encounter Care Teams Garbage Pick Up Man Relationship Specialty Start Date End Date Larisa Moreland MD [address] [place] [id number] PCP - General Family Medicine 07/24/18 Ameena Grant, PharmD [address] [place] [phone] Pharmacist Internal Medicine 08/15/22 José Miguel Prado MD [address] [place] [address] Drive [address] [place] [id number] Nephrology 07/30/24 documented as of this encounter
--- OUTSIDE RECORDS SUMMARY | 2024-08-19 16:00 | XMS_ITS | Clinical Summary ---
Author Organization [facility] Address [address] [facility] [address] [place] [address] Phone Care Team Providers Care Costume Cutter Name Role Phone Larisa Moreland MD Primary Care Provider U navailable Allergies No known active allergies Medications cholecalciferol (VITAMIN D-3) 1.25 MG (76511 UT) capsule Take 1 capsule by mouth every 7 (seven) days On Monday 3 Active cyancobalamine (VITAMIN B-12) 500 MCG tablet Take 500 mcg by mouth 1 (one) time each day in the morning 3 Active Docusate Sodium (DSS) 100 MG capsule Take 1 capsule by mouth every night 2 Active famotidine (PEPCID) 20 MG tablet Take 20 mg by mouth in the morning and 20 mg in the evening. 3 Active Artificial Tears 0.2-0.2-1 % solution Administer 1 drop into both eyes in the morning and 1 drop at noon and 1 drop in the evening and 1 drop before bedtime. 3 Active ibuprofen (ADVIL,MOTRIN) 400 MG tablet Take 400 mg by mouth every 8 (eight) hours if needed 3 Active losartan-hydroC HLOROthiazide (Hyzaar) 100-25 MG per tablet Take 1 tablet by mouth 1 (one) time each day 30 tablet 11 3 Active Social History Tobacco Use Types Packs/Day Years Used Date Smoking Tobacco: Never Smokeless Tobacco: Never Tobacco Cessation:Counseling Given: Not Answered Alcohol Use Standard Drinks/Week Comments Never 0 (1 standard drink = 0.6 oz pur e alcohol) Comments Unknown Sex and Gender Information Value Date Recorded Sex Assigned at Not on file Legal Sex Female 1:25 PM EDT Gender Identity Not on file Sexual Orientation Not on file Last Filed Vital Signs Vital Sign Reading Time Taken Comments Blood Pressure 180/90 04/19/2023 1:44 PM EDT Pulse 72 04/19/2023 1:44 PM EDT Temperature - - Respiratory Rate - - Oxygen Saturation - - Inhaled Oxygen Concentration - - Weight 83.5 kg (184 lb) 04/19/2023 1:44 PM EDT Height - - Body Mass Index - - Plan of Treatment Health Maintenance Due Date Last Done Comments Breast Cancer Screening 1955 Colorectal Cancer Screening: Annual FOBT 2005 Colorectal Cancer Screening: Colonoscopy 2005 Colorectal Cancer Screening: Sigmoidoscopy 2005 Influenza Vaccine (#1) 2024 , 04/08/2020, 07/02/2019, Additional history exists Pneumococcal Vaccine: 65+ Years Completed 05/19/2022 Hepatitis B Vaccine Aged Out No longe r eligible based on patient's age to complete this topic Insurance MEDICAID [place] UHC MEDICARE [facility] MEDICARE MEDICAID [place] Care Teams Costume Cutter Relationship Specialty Start Date End Date Larisa Moreland MD [address] [place] [phone] PCP - General Family Medicine 04/19/23
--- OUTSIDE RECORDS SUMMARY | 2024-08-19 16:00 | XMS_ITS | Encounter Summary ---
Author Organization [employer] Address [address] [place] [address] Care Team Providers Care Steam Pan Sponger Name Role Phone Larisa Moreland MD Primary Care Provider [phone]- [phone] Ameena Grant PharmD Unavailable José Miguel Prado MD Unavailable Jennifer Torres Unavailable Encounter Details Date Type Department Care Team (Late st Contact Info) Description 03/02/2023 Orders Only [facility] [address] [place] [address] Paulo Rosa MD [address] [place], [place] [phone] H. pylori infection (Primary Dx) Social History Tobacco Use Types [...] as of this encounter Plan of Treatment Scheduled Orders Name Type Priority Associated Diagnoses Orde r Schedule Helicobacter pylori??Antigen, EIA, Stool Lab Routine H. pylori infection Expected: 03/02/2023 (Approximate), Expires: 03/02/2024 documented as of this encounter Goals Goal Patient Goal Type Associated Problems Recent Progress Patient-Stated? Author Blood Pressure < 150/90 Blood Pressure 130/80( 025 10:25 AM EST) No Ameena Quiles PharmD documented as of this encounter Visit Diagnoses Diagnosis H. pylori infection- Primary Helicobacter pylori (H. pylori) documented in this encounter Care Teams Steam Pan Sponger Relationship Specialty Start Date End Date Larisa Moreland MD [address] [place] [address] PCP - General Family Medicine 07/24/18 Ameena Grant, PharmD [address] [place] [address] Pharmacist Internal Medicine 08/15/22 José Miguel Prado MD [address] [place] [address] Nephrology 07/30/[address] Jennifer Torres [address] [place] [address] Gastroenterology 08/19/24 documented as of this encounter
--- OUTSIDE RECORDS SUMMARY | 2024-08-19 16:00 | XMS_ITS | Clinical Summary ---
Author Organization [id number] Address [address] [facility] [address] [place] [address] Care Team Providers Care First Aid Trainer Name Role Phone Larisa Moreland MD Primary Care Provider [phone]- [phone] Ameena Grant PharmD Unavailable [phone] José Miguel Prado MD Unavailable Jennifer Torres Unavailable Allergies No known active allergies Medications Diclofenac Sodium 1 % gelIndications: Left hip pain APPLY 2 GRAMS TOPICALLY TWICE DAILY IN THE MORNING AND AT BEDTIME NEEDED 100 g 3 023 Active amLODIPine (Norvasc) 10 MG tabletIndicatio ns:Essential hypertension TAKE 1 TABLET BY MOUTH EVERY EVENING 90 tablet 3 024 Active metoprolol succinate XL (Toprol-XL) 25 MG 24 hr tabletIndicatio ns:Essential hypertension TAKE 1 TABLET BY MOUTH EVERY MORNING DO NOT BREAK, CRUSH, DISSOLVE OR CHEW 90 tablet 3 024 Active rosuvastatin (Crestor) 40 MG tabletIndicatio ns:Cardiac risk counseling,Dysl ipidemia Take 1 tablet (40 mg) by mouth Once per day. 30 tablet 11 024 2024 Active cholecalciferol (Vitamin D-3) 25 MCG (1000 UT) tabletIndicatio ns:Vitamin D Deficiency Take 1 tablet (25 mcg) by mouth Once per day. 90 tablet 3 024 2024 Active chlorthalidone (Hygroton) 25 MG tabletIndicatio ns:Primary hypertension Take one tablet by mouth once daily in the morning 90 tablet 3 024 Active ezetimibe (Zetia) 10 MG tabletIndicatio ns:Dyslipidemia Take 1 tablet (10 mg) by mouth Once per day. 90 tablet 3 024 Active Blood Pressure Monitoring (Blood Pressure Kit) kitIndications: Primary hypertension Use as directed 1 kit Active docusate sodium (Colace) 100 MG capsuleIndicati ons:Irritable bowel syndrome, unspecified type TAKE 1 CAPSULE BY MOUTH TWICE DAILY NEEDED FOR CONSTIPATION 180 capsule 1 024 Active cyanocobalamin (Vitamin B-12) 500 MCG tabletIndicatio ns:Cobalamin deficiency TAKE 1 TABLET BY MOUTH EVERY MORNING 90 tablet 3 024 Active hydrALAZINE (Apresoline) 10 MG tabletIndicatio ns:Hypertension , unspecified type Take 1 tablet (10 mg) by mouth 4 times daily. 120 tablet 025 Active famotidine (Pepcid) 20 MG tabletIndicatio ns:Gastroesopha geal reflux disease, unspecified whether esophagitis present TAKE 1 TABLET BY MOUTH TWICE DAILY 60 tablet 1 025 Active Linzess 145 MCG capsuleIndicati ons:Irritable bowel syndrome, unspecified type TAKE 1 CAPSULE BY MOUTH EVERY MORNING 30 capsule 1 025 Active lisinopril 40 MG tabletIndicatio ns:Essential hypertension TAKE 1 TABLET BY MOUTH EVERY EVENING 90 tablet 3 024 2024 Discontinued(M ed list cleanup (will not trigger notification to Pharmacy)) Bisacodyl EC 5 MG EC tablet TAKE 2 TABLETS BY MOUTH AT BEDTIME 7 NIGHTS BEFORE PROCEDURE. THE DAY BEFORE PROCEDURE TAKE 4 TABLETS AT NOON THEN MIRALAX 024 2024 Discontinued(D uplicate order (will not trigger notification to Pharmacy)) Polyethylene Glycol 3350 (PEG 3350) 17 GM/SCOOP powder USE DIRECTED ONCE DIRECTED 024 2024 Discontinued(D uplicate order (will not trigger notification to Pharmacy)) Polyethyl Glycol-Propyl Glycol (Lubricating Eye Drops) 0.4-0.3 % solution Use 2 drops each eye daily prn dry eye 10 mL 1 024 2024 Discontinued(D uplicate order (will not trigger notification to Pharmacy)) famotidine (Pepcid) 20 MG tabletIndicatio ns:Gastroesopha geal reflux disease, unspecified whether esophagitis present TAKE 1 TABLET BY MOUTH TWICE DAILY 60 tablet 1 024 2024 Discontinued Linzess 145 MCG capsuleIndicati ons:Irritable bowel syndrome, unspecified type TAKE 1 CAPSULE BY MOUTH EVERY MORNING 30 capsule 1 024 2024 Discontinued spironolactone (Aldactone) 50 MG tabletIndicatio ns:Primary hypertension TAKE 1 TABLET BY MOUTH TWICE DAILY IN THE MORNING AND IN THE EVENING 180 tablet 3 024 2024 Discontinued(M ed list cleanup (will not trigger notification to Pharmacy)) Active Problems Patient Care Coordination No te Formatting of this note migh t be different from the original. Enrolled in [employer] [facility] HTN clinic with Ameena Grant PharmD Problem Noted Date Diagnosed Date Class 2 severe obesity due t o excess calories with serious comorbidity and body mass index (BMI) of 38.0 to 38.9 in adult 08/19/2024 Overview (08/19/2024): Discussed weight, diet, exercise with patient in relation to health conditions. Used motivational interviewing to illicit change talk and established initial goals with patient. Assessment & Plan (08/19/2024 10:50 AM EST): Discussed weight, diet, exercise with patient in relation to health conditions. Used motivational interviewing to illicit change talk and established initial goals with patient. Exercise counseling 08/19/2024 Assessment & Plan (08/19/2024 10:27 AM EST): Exercise Recommendations: At least 150 minutes of moderate-intensity physical activity per week, or an equivalent combination of moderate- and vigorous-intensity activity Dietary counseling 08/19/2024 Assessment & Plan (08/19/2024 10:27 AM EST): Dietary Recommendations: Fruits, vegetables, whole grains, protein foods, and fat-free or low-fat dairy products are healthy choices. Eat different types of protein foods in your diet. This can include seafood, lean meats, poultry, beans, peas, lentils, nuts, seeds, soy products, and eggs. Limit foods and beverages higher in added sugars, saturated fat, and sodium. Acute hyponatremia 07/30/2024 Overview (08/19/2024): Hyponatremia new onset in May 2024 in the absence of hyperglycemia. No obvious medication changes that would have precipitated this. GFR is not impaired. No longer on thiazide. No edema or ascites present. No obvious heart failure. Na was normal up to and including 03/2024. In 05/2024 Na was down to 125. Lab Results Component Value Date NA 132 (L) 07/30/2024 NA 130 (L) 07/01/2024 NA 125 (L) 06/17/2024 NA 135 04/21/2024 -will check serum osmolality, urine-sodium, BMP and urine osmolality 08/19/24 Assessment & Plan (08/19/2024 10:23 AM EST): Hyponatremia new onset in May 2024 in the absence of hyperglycemia. No obvious medication changes that would have precipitated this. GFR is not impaired. No longer on thiazide. No edema or ascites present. No obvious heart failure. Na was normal up to and including 03/2024. In 05/2024 Na was down to 125. Lab Results Component Value Date NA 132 (L) 07/30/2024 NA 130 (L) 07/01/2024 NA 125 (L) 06/17/2024 NA 135 04/21/2024 -will check serum osmolality, urine-sodium, BMP and urine osmolality 08/19/24 DARRYN (acute kidney injury) 07/30/2024 Overview (08/19/2024): Lab Results Component Value Date CREATININE 0.81 07/30/2024 CREATININE 1.07 07/01/2024 CREATININE 1.55 (H) 06/17/2024 CREATININE 0.87 12/13/2021 CREATININE 0.87 12/13/2021 CREATININE 0.87 02/23/2021 Depression, recurrent 05/15/2024 Dry eyes 05/15/2024 Overview (05/15/2024): -prescribed Polyethyl Glycol-Propyl Glycol (Lubricating Eye Drops) 0.4-0.3 % solution Assessment & Plan (05/15/2024 10:41 AM EDT): -prescribed Polyethyl Glycol-Propyl Glycol (Lubricating Eye Drops) 0.4-0.3 % solution Cardiac risk counseling 11/16/2023 Overview (08/19/2024): Calculated 08/19/24: intermediate risk The 10-year ASCVD risk score (Thee WHEELER, et al., 2019) is: 9.3% Values used to calculate the score: Age: 69 years Sex: Female Is Non- : No Diabetic: No Tobacco smoker: No Systolic Blood Pressure: 130 mmHg Is BP treated: Yes HDL Cholesterol: 63 mg/dL Total Cholesterol: 159 mg/dL Lab Results Component Value Date LDLCHOL 133 (H) 08/10/2022 -goal LDL < 100 Plan: -Tobacco cessation: not applicable -Statin therapy: high intensity dose: rosuvastatin 20, will increase to 40mg 10/24/23, recheck in 1 month -Importance of moderate physical activity and nutrition interventions discussed. Assessment & Plan (11/16/2023 10:55 AM EDT): Calculated 11/16/23: intermediate risk The 10-year ASCVD risk score (Thee WHEELER, et al., 2019) is: 10.6% Values used to calculate the score: Age: 68 years Sex: Female Is Non- : No Diabetic: No Tobacco smoker: No Systolic Blood Pressure: 138 mmHg Is BP treated: Yes HDL Cholesterol: 63 mg/dL Total Cholesterol: 219 mg/dL Lab Results Component Value Date LDLCHOL 133 (H) 08/10/2022 -goal LDL < 100 Plan: -Tobacco cessation: not applicable -Statin therapy: high intensity dose: rosuvastatin 20, will increase to 40mg 10/24/23, recheck in 1 month -Importance of moderate physical activity and nutrition interventions discussed. Obesity, morbid 11/16/2023 Other specified health status 03/06/2023 Overview (08/19/2024): -next comprehensive annual evaluation due after 08/19/25 -eye care facilitated by [facility] -dental home is [facility] -health care proxy paperwork given 08/17/23 Assessment & Plan (08/19/2024 10:48 AM EST): -next comprehensive annual evaluation due after 08/19/25 -eye care facilitated by [facility] -dental home is [facility] -health care proxy paperwork given 08/17/23 Assessment & Plan (06/19/2023 9:05 AM EST): -next physical exam due 03/06/2024. -eye care facilitated by [facility]. -dental home is [facility]. Assessment & Plan (03/06/2023 10:40 AM EDT): -next physical exam due 03/06/2024. -eye care facilitated by [facility]. -dental home is [facility]. Peripheral reticular degeneration of both eyes 0 03/06/2023 Overview (03/06/2023): Noted on eye exam 2019. The patient was educated that there are areas in both of her eyes that show thinning of the retina secondary to aging, which is called reticular degeneration. She was educated that this is a benign finding, but that it is possible for the retina to thin enough to break/tear. There were not tears/breaks in the retina today. She was educated to [facility] with any sudden onset of flashes of lights, floaters, or decreased vision. Otherwise, will monitor with a complete eye exam in 2 years. Assessment & Plan (06/19/2023 9:05 AM EST): Noted on eye exam 2019. The patient was educated that there are areas in both of her eyes that show thinning of the retina secondary to aging, which is called reticular degeneration. She was educated that this is a benign finding, but that it is possible for the retina to thin enough to break/tear. There were not tears/breaks in the retina today. She was educated to [facility] with any sudden onset of flashes of lights, floaters, or decreased vision. Otherwise, will monitor with a complete eye exam in 2 years. Assessment & Plan (03/06/2023 10:20 AM EDT): Noted on eye exam 2018. The patient was educated that there are areas in both of her eyes that show thinning of the retina secondary to aging, which is called reticular degeneration. She was educated that this is a benign finding, but that it is possible for the retina to thin enough to break/tear. There were not tears/breaks in the retina today. She was educated to [facility] with any sudden onset of flashes of lights, floaters, or decreased vision. Otherwise, will monitor with a complete eye exam in 2 years. Colon cancer screening 03/06/2023 Overview (08/19/2024): Colonoscpoy on 12/10/2018 showed minor diverticulosis. There were no obvious polys but preporation was poor. recommending FIT testing in 1 year. -FIT testing ordered 01/[address] Busch. -recommend follow up 2023. -referral placed to GI 11/16/23 -intake for colonoscopy with Jennifer D Melissa [employer] done 01/29/2024 -done on 05/30/[address] Lewis, showing normal internal hemorrhoids. Repeat in 10-7 years. Assessment & Plan (08/19/2024 11:00 AM EST): Colonoscpoy on 12/10/2018 showed minor diverticulosis. There were no obvious polys but preporation was poor. recommending FIT testing in 1 year. -FIT testing ordered 01/[address] Busch. -recommend follow up 2023. -referral placed to GI 11/16/23 -intake for colonoscopy with Jennifer D Melissa [employer]-BC done 01/29/2024 -done on 05/30/[address] Lewis, showing normal internal hemorrhoids. Repeat in 10-7 years. Assessment & Plan (05/15/2024 10:38 AM EDT): Colonoscpoy on 12/10/2018 showed minor diverticulosis. There were no obvious polys but preporation was poor. recommending FIT testing in 1 year. -FIT testing ordered 01/[address] Busch. -recommend follow up 2023. -referral placed to GI 11/16/23 -intake for colonoscopy with Jennifer PEREZ-BC done 01/29/2024 -has appt. On 05/30/24 Assessment & Plan (11/16/2023 10:55 AM EDT): Colonoscpoy on 12/10/2018 showed minor diverticulosis. There were no obvious polys but preporation was poor. recommending FIT testing in 1 year. -FIT testing ordered 01/[address] Busch. -Recommend follow up 2023. - Referral placed to GI 11/16/23 Assessment & Plan (06/19/2023 9:05 AM EST): Colonoscpoy on 12/10/2018 showed minor diverticulosis. There were no obvious polys but preporation was poor. recommending FIT testing in 1 year. -FIT testing ordered 01/[address] Busch. -Recommend follow up 2023. Assessment & Plan (03/06/2023 10:33 AM EDT): Colonoscpoy on 12/10/2018 showed minor diverticulosis. There were no obvious polys but preporation was poor. recommending FIT testing in 1 year. -FIT testing ordered 01/[address] Busch. -Recommend follow up 2023. Chronic constipation 03/06/2023 Overview (03/06/2023): Followed by Dr. Torres. Assessment & Plan (06/19/2023 9:06 AM EST): Followed by Dr. Torres. Assessment & Plan (03/06/2023 10:29 AM EDT): Followed by Dr. Torres. IBS (irritable bowel syndrome) 03/06/2023 Overview (03/06/2023): Followed by Dr. Torres. Assessment & Plan (06/19/2023 9:06 AM EST): Followed by Dr. Torres. Assessment & Plan (03/06/2023 10:29 AM EDT): Followed by Dr. Torres. Helicobacter pylori (H. pylori) infection 2022 Overview (03/06/2023): Positive 02/02/2023. Assessment & Plan (06/19/2023 9:05 AM EST): Positive 02/02/2023. Assessment & Plan (03/06/2023 10:27 AM EDT): Positive 02/02/2023. Cobalamin deficiency 02/04/2022 Overview (03/06/2023): Normal on 10/13/2017. Assessment & Plan (06/19/2023 9:01 AM EST): Normal on 10/13/2017. Assessment & Plan (03/06/2023 10:28 AM EDT): Normal on 10/13/2017. Hypertensive retinopathy 02/04/2022 Overview (08/16/2023): Exam 2019 revealed The patient has mild attenuation of the retinal vessels in both eyes. These change are a sign of early hypertensive retinopathy. She is currently on multiple blood pressure medications. Assessment & Plan (06/19/2023 9:04 AM EST): Exam 2019 revealed The patient has mild attenuation of the retinal vessels in both eyes. These change are a sign of early hypertensive retinopathy. She is currently on multiple blood pressure medications. Assessment & Plan (03/06/2023 10:21 AM EDT): Exam 2019 revealed The patient has mild attenuation of the retinal vessels in both eyes. These change are a sign of early hypertensive retinopathy. She is currently on multiple blood pressure medications. Vitamin D deficiency 08/31/2021 Overview (11/16/2023): Lab Results Component Value Date [id number] 42.7 03/28/2023 Improved with Vit D supplementation Assessment & Plan (06/19/2023 9:05 AM EST): Patient Vitamin D level was 12 on 08/12/21. Repeat was low 07/2021 188 continue oral b12 and recheck today. Vitamin D3 1000 units, 1 tablet daily started. No results found for: [id number] Assessment & Plan (03/06/2023 10:26 AM EDT): Patient Vitamin D level was 12 on 08/12/21. Repeat was low 07/2021 188 continue oral b12 and recheck today. Vitamin D3 1000 units, 1 tablet daily started. No results found for: [id number] Osteoarthritis of both knees 07/07/2014 Overview (08/16/2023): History of L TKA ~6 years ago Assessment & Plan (06/19/2023 9:04 AM EST): History of L TKA ~6 years ago Assessment & Plan (03/06/2023 10:20 AM EDT): History of L TKA ~6 years ago Dyslipidemia 04/11/2012 Overview (08/19/2024): Lab Results Component Value Date CHOL 159 [...] FLP ordered for 4 weeks after start Assessment & Plan (08/19/2024 10:49 AM EST): Lab Results Component Value Date CHOL 159 [...] FLP ordered for 4 weeks after start Assessment & Plan (11/16/2023 8:59 PM EDT): Lab Results Component Value Date CHOLESTEROL 219 (H) 08/10/2022 LDLCHOL 133 (H) 08/10/2022 TRIG 121 08/10/2022 HDLCHOL 63 08/10/2022 CHOLHDLRAT 3.5 08/10/2022 The 10-year ASCVD risk score : 10.6% Calculated 11/16/23: intermediate risk -goal LDL < 100 -continue lifestyle modifications -Increase rosuvastatin to 40mg daily 11/15/23 -check FLP and LFTs in 4 weeks Assessment & Plan (08/16/2023 7:17 PM EST): Lab Results Component Value Date CHOLESTEROL 219 (H) 08/10/2022 LDLCHOL 133 (H) 08/10/2022 TRIG 121 08/10/2022 HDLCHOL 63 08/10/2022 CHOLHDLRAT 3.5 08/10/2022 -continue lifestyle modifications -Continue rosuvastatin Assessment & Plan (06/19/2023 10:38 AM EST): Lab Results Component Value Date CHOLESTEROL 219 (H) 08/10/2022 LDLCHOL 133 (H) 08/10/2022 TRIG 121 08/10/2022 HDLCHOL 63 08/10/2022 CHOLHDLRAT 3.5 08/10/2022 -continue lifestyle modifications -Continue rosuvastatin Assessment & Plan (03/06/2023 9:50 AM EDT): Lab Results Component Value Date CHOLESTEROL 219 (H) 08/10/2022 LDLCHOL 133 (H) 08/10/2022 TRIG 121 08/10/2022 HDLCHOL 63 08/10/2022 CHOLHDLRAT 3.5 08/10/2022 -continue lifestyle modifications Hypertension 04/11/2012 Overview (08/19/2024): -Blood pressure is generally not controlled. Followed up Collaborative Drug Therapy Managment Program with our PharmD Medication history: -hydrochlorothiazide switched to chlorthalidone 11/27/23 with CDTM, chlorthalidone increased to 25mg once daily by CDTM 12/15/23 -spironolactone 50mg daily added 03/06/2023 and increased to BID 06/19/23 -seen by Dr. Lind, skip loader 02/28/24 lisinopril increased to 20 mg daily. [...] tid 10mg 08/19/24 -08/19/24 pt is on Metoprolol 25 XL and amlodipine 10mg and hydralazine -Continue lifestyle modifications Assessment & Plan (08/19/2024 11:22 AM EST): -Blood pressure is generally not controlled. Followed up Collaborative Drug Therapy Managment Program with our PharmD Medication history: -hydrochlorothiazide switched to chlorthalidone 11/27/23 with CDTM, chlorthalidone increased to 25mg once daily by CDTM 12/15/23 -spironolactone 50mg daily added 03/06/2023 and increased to BID 06/19/23 -seen by Dr. Lind, skip loader 02/28/24 lisinopril increased to 20 mg daily. [...] tid 10mg 08/19/24 -08/19/24 pt is on Assessment & Plan (05/15/2024 10:44 AM EDT): -Blood pressure is generally not controlled, but at goal today 05/15/24 -Continue lifestyle modifications -Continue current medications -continue amlodipine 10mg -hydrochlorothiazide switched to chlorthalidone 11/27/23 with CDTM, chlorthalidone increased to 25mg once daily by CDTM 12/15/23 -continue lisinopril 40mg -metoprolol XL 25mg -spironolactone 50mg daily added 03/06/2023 and increased to BID 06/19/23 -Last saw nephro on 04/19/[address] Lynne -follow up Collaborative Drug Therapy Managment Program with our PharmD -seen by Dr. Lind, skip loader 02/28/24 I increased her lisinopril to 20 mg daily. (She was on 40 in the past) Her renal functions and serum potassium are normal. 24 hour ambulatory blood pressure monitor ordered. Thyroid function, renin, aldosterone, cortisol, metanephrines as well as Doppler of her renal arteries ordered. -05/15/24 pt notes she has not heard from skip loader, is schedule for follow- up 08/09/24. Assessment & Plan (11/16/2023 8:57 PM EDT): -Blood pressure is controlled here but not at home -Continue lifestyle modifications -Continue current medications -continue amlodipine 10mg -continue hydrochlorothiazide 25mg -continue lisinopril 40mg - metoprolol XL 25mg -spironolactone 50mg daily added 03/06/2023 and increased to BID 06/19/23 -Last saw jah on 04/19/[address] Lynne -follow up Collaborative Drug Therapy Managment Program with our PharmD -return with me in 4 months Assessment & Plan (08/17/2023 10:08 AM EST): -Blood pressure is controlled here but not at home -Continue lifestyle modifications -Continue current medications -continue amlodipine 10mg -continue hydrochlorothiazide 25mg -continue lisinopril 40mg - metoprolol XL 25mg -spironolactone 50mg daily added 03/06/2023 and increased to BID 06/19/23 -Last saw jah on 04/19/[address] Lynne -return with BP machine and will check BP machine against ours for nurse visit -return with me in 3 months Assessment & Plan (07/13/2023 7:36 PM EST): BP at home 150 to 160s max 170s, denies ELLIOTT,blurry vision, no CP,no SOB,no new neurologic symptoms Here manual BP 150/90 Spironolactone was increased last month for BP control Possible elevated BP now as well in part can be reactive to pain -advised to be compliant w all her meds and to continue f up w PCP for HTN management Assessment & Plan (06/19/2023 10:58 AM EST): -Blood pressure is not controlled. -Continue lifestyle modifications -Continue current medications -continue amlodipine 10mg -continue hydrochlorothiazide 25mg -continue lisinopril 40mg - metoprolol XL 25mg -spironolactone 50mg daily added 03/06/2023 and increased to BID 06/19/23 -Last saw nephhoracio on 04/19/[address] Maged Assessment & Plan (03/06/2023 11:20 AM EDT): -Blood pressure is not controlled. -Continue lifestyle modifications -Continue current medications -continue amlodipine 1mg -continue hydrochlorothiazide 25mg -continue lisinopril 40mg -continue metoprolol L 25mg -Spironolactone 25mg daily added 03/06/2023 -check BMP in 2 weeks Resolved Problems Problem Noted Date Diagnosed Date Resolved Date Lower abdominal pain 07/13/2023 025 Assessment & Plan (07/13/2023 7:43 PM EST): -CT abd/pelvis w/o contrast 2019: The uterus is anteverted and appears unremarkable.There is no adnexal mass seen. There is no free fluid. No acute intra-abdominal process seen.There is scattered colonic diverticulosis without diverticulitis appendix is not seen. Colonoscpoy on 12/10/2018 showed minor diverticulosis. There were no obvious polys but prep was poor .recommending FIT testing in 1 year. -FIT testing ordered 01/[address] Busch. -Recommend follow up 2023 -hx of IBS and chronic constipation -chem 06/07/2023 wnl Pt reports RLQ pain with some urinary and also vaginal symptoms,from exam benign abd exam and noted strong whitish vaginal discharge, Today urinedipstick protein 30 mg/d nit and LE neg ,ketones neg ,gl neg ,blood small ,also reports constipation - chronic From exam no CMT nor bimanual pelvic pain . Pt has hx of diverticulosis so in the differential ,from exam appendicitis is less in differential but discussed alarm signs and symptoms today and advised to avoid NSAIDS to not mask pain . -pelvic and TV US , may need CT scan if worsen symptoms -will hold on Ucx w no obvious urinary symptoms and neg urinedipstick -sent today for self collected sureswab -chem today-pt had increased recently spironolactone to monitor K+ -fluconazole 150 mg x1 -tylenol prn -resume linzess, start colace, advised hydration -alarm signs and symptoms discussed today in case needs to go to ED -[employer] apt 09/2023 -apt w PCP 08/17/2022 Muscle strain 01/26/2023 07/30/2024 Encounters Date Type Department Care Team Description 08/19/2024 10:30 AM EST Office Visit [facility] [address] [place] [id number] Larisa Moreland MD Primary hypertension (Primary Dx); Depression, recurrent ([facility]); Dyslipidemia; Colon cancer screening; Class 2 severe obesity due to excess calories with serious comorbidity and body mass index (BMI) of 38.0 to 38.9 in adult ([facility]); Exercise counseling; Dietary counseling; Other specified health status; Acute hyponatremia 08/19/2024 Travel 08/17/[address] [facility] [address] [place] [id number] Larisa Moreland MD Gastroesophageal reflux disease, unspecified whether esophagitis present; Irritable bowel syndrome, unspecified type 08/13/[address] [facility] [address] [place] [phone] Katarina Martino MA chartprep 08/08/2024 Patient Outreach [address] [id number] Larisa Moreland MD Care Coordination (CHW outreach for SDOH PT-1 and food needs-LVM ) 08/08/2024 Patient Outreach [address] [address] Larisa Moreland MD Pre-visit Planning (SDOH Screening positive and Tobacco screening negative) 08/07/[address] [address] Ameena Grant, MelchorD Nurse Triage 07/30/2024 Orders Only [address] [address] Larisa Moreland MD 07/30/2024 Travel 07/04/2024 Patient Outreach [address] [address] Larisa Moreland MD Transition Of Care (Tcm) (HDF- Unscheduled second LVM) 07/02/2024 Orders Only [address] [address] Larisa Moreland MD Primary hypertension (Primary Dx) 07/02/2024 Patient Outreach [facility] [address] [place] [address] Larisa Moreland MD Transition Of Care (Tcm) (HDF- Unscheduled LVM) 07/01/[address] [facility] [address] [place] [address] Ameena Grant, PharmD 07/01/[address] [facility] [address] [place] [address] Ameena Grant PharmD 07/01/2024 Orders Only [facility] [address] [place] [address] Larisa Moreland MD 07/01/2024 Travel 06/25/[address] [facility] [address] [place] [address] Larisa Moreland MD Primary hypertension 06/21/[address] [facility] [address] [place] [address] Larisa Moreland MD Gastroesophageal reflux disease, unspecified whether esophagitis present; Irritable bowel syndrome, unspecified type 06/17/2024 Orders Only GENERIC EXTERNAL DATA DEPARTMENT Provider, Generic External Data 06/04/[address] [address] IsbellEmelyn gibson [place] July05/31/[address] [facility] [address] [place] [address] Larisa Morealnd MD 05/27/[address] [facility] [address] [place] [address] Larisa Moreland MD Cobalamin deficiency 05/23/[address] [facility] [address] [place] [address] Larisa Moreland MD Irritable bowel syndrome, unspecified type 05/20/[address] [address] Larisa Moreland MD Call Back Request from Last 3 Months Immunizations Name Administration Dates Next Due Influenza High-dose Quadriva lent Preservative Free 05/10/2023,05/10/2022 Influenza injectable quadriv alent IIV4 with preservative 05/17/2018,08/20/2015 Influenza injectable quadriv alent preservative free 05/04/2021,04/08/2020,07/02/2019,2016 Influenza, High Dose Seasona l, Preservative Free 05/15/2024 Influenza, IIV3, injectable 04/19/2016, 4,04/07/2011 Moderna Covid-19 Vaccine 12+ 08/02/2021,11/24/19 21,10/26/2020 Pfizer Covid-19 Vaccine 12+ Bivalent 03/06/2023 Pfizer Covid-19 Vaccine 12+ paz-sucrose (Ramírez Cap) 11/30/2021 Pneumococcal Conjugate PCV 20 05/19/2022 RSV Bivalent 11/22/2023 Tdap 03/08/2023,03/06/2023,04/11/2012 Zoster, Recombinant 08/16/2022,05/19/2022 Social History Tobacco Use Types Packs/Day Years Used Date Smoking Tobacco: Never Smokeless Tobacco: Never Tobacco Cessation:Counseling Given: Not Answered Alcohol Answer Date Recorded Frequency of Alcohol [...] not to disclose 2021 10:19 AM EDT Last Filed Vital Signs Vital Sign [...] Mass Index 37.79 08/19/2024 10:03 AM EST Plan of Treatment Health Maintenance Due Date Last Done Comments CT Colonography 1956 FIT DNA/Cologuard 1955 FOBT 1955 Sigmoidoscopy 1955 FIT 03/15/2023 03/15/2022 Alcohol/Substance Use Screening 05/15/2025 05/15/2024 Depression Screening 05/15/2025 05/15/2024, 05/15/20 24 SDOH Screening 08/08/2025 08/08/2024 COVID-19 Vaccine ( season) 2025 03/06/2023, 11/30/2021, 08/02/2021, Additional history exists Postponed from 03/24/2024 (Patient Refused) Tobacco Screening 08/19/2025 08/19/2024 Mammogram 01/23/2026 01/24/2024, 0601/2024, 12/27/2022, Additional history exists Colonoscopy 05/30/2029 05/30/2024, 12/03/2018 Colorectal Cancer Screening 05/30/2029 Lipid Panel 07/30/2029 07/30/2024, 02/21, 01/19/2024, Additional history exists DTaP/Tdap/Td Vaccines (4 - Td or Tdap) 03/08/2033 03/08/2023, 03/06/2023, 04/11/2012 Cervical Cancer Screening Discontinued HPV/Cotest Discontinued 05/18/2021, 04/24, 05/18/2021 Pap Smear Discontinued 05/18/2021, 02/27/2017 Pneumococcal Vaccine: 65+ Years Completed 05/19/2022 Zoster Vaccines Completed 08/16/2022, 05/19/2022 Hepatitis C Screening Completed 03/28/2023 RSV Patients and Patients Aged 60 years or older Completed 11/22/2023 Influenza Vaccine Completed 05/15/2024, , 05/10/2022, Additional history exists HIB Vaccines Aged Out No longer eligi ble based on patient's age to complete this topic HPV Vaccines Aged Out No longer eligi ble based on patient's age to complete this topic Hepatitis A Vaccines Aged Out No long er eligible based on patient's age to complete this topic Hepatitis B Vaccines Aged Out No long er eligible based on patient's age to complete this topic IPV Vaccines Aged Out No longer eligi ble based on patient's age to complete this topic Meningococcal Vaccine Aged Out No derek marianne eligible based on patient's age to complete this topic RSV under 20 months Aged Out No longe r eligible based on patient's age to complete this topic Rotavirus Vaccines Aged Out No longer eligible based on patient's age to complete this topic Goals Goal Patient Goal Type Associated Problems Recent Progress Patient-Stated? Author Blood Pressure < 150/90 Blood Pressure 130/80( 025 10:25 AM EST) No Ameena Quiles PharmD Procedures Procedure Name Priority Date/Time Associated Diagnosis Comments BASIC METABOLIC PANEL Routine 08/19/2024 11:03 AM EST Acute hyponatremia SODIUM W/O CREATININE, RANDOM URINE Routine 08/19/2024 11:03 AM EST Acute hyponatremia OSMOLALITY (SERUM) Routine 08/19/2024 11 :03 AM EST Acute hyponatremia LIPID PANEL, STANDARD Routine 07/30/2024 9:25 AM EST BASIC METABOLIC PANEL Routine 07/30/2024 9:25 AM EST HEPATIC FUNCTION PANEL Routine 9:25 AM EST BASIC METABOLIC PANEL Routine 07/01/2024 10:47 AM EST HIGH SENSITIVITY TROPONIN I Routine 06/17/2024 6:56 PM EST MAGNESIUM Routine 06/17/2024 6:56 PM EST COMPREHENSIVE METABOLIC PANEL Routine 06/17/2024 6:56 PM EST CBC WITH AUTO DIFFERENTIAL Routine 06/17/2024 6:56 PM EST SARS COV2/INFLUENZA A/B AND RSV RNA QL NAAT Routine 06/17/2024 6:26 PM EST HM COLONOSCOPY Routine 05/30/2024 HM MAMMOGRAPHY Routine 01/24/2024 4:16 PM EDT HEPATITIS C AB W/REFL TO HCV RNA, QN, PCR Routine 03/28/2023 8:50 AM EDT Encounter for hepatitis C screening test for low risk patient ZZZ HISTORICAL FECAL IMMUNOCHEMICAL TEST X1 (FIT) Routine 03/15/2022 12:00 AM EDT HM PAP/HPV Routine 05/18/2021 from Last 3 Months or Most Recently Relevant to Health Maintenance Results * Sodium Without creatinine, Random Urine (08/19/2024 11:03 AM EST) Sodium Urine Random 100.0 mmol/L [facility] Urine Urine specimen obtained by clean catch procedure / Unknown 08/19/2024 11:03 AM EST 08/19/2024 1:11 PM EST Larisa Moreland MD LAB BLOOD ORDERABLES Final Result Performing Organization Address City/[facility]/ZIP Co de Phone Number [facility] [address] [place] [phone] * Osmolality, Serum (08/19/2024 11:03 AM EST) Pathologist [facility] [place] Osmolality (Serum) 282 281 - 305 mosm/kg [facility] Blood Venous blood specimen / Unknown 08/19/2024 11:03 AM EST 08/19/2024 1:22 PM EST Larisa Moreland MD LAB BLOOD ORDERABLES Final Result Performing Organization Address City/[facility] Co de Phone Number [facility] [address] [place] [phone] * (ABNORMAL) Basic Metabolic Panel (08/19/2024 11:03 AM EST) Only the most recent of3 resultswithin the time period is included. Sodium 134(L) 135 - 145 mmol/L [facility] Potassium 4.1 3.3 - 5.1 mmol/L [facility] Chloride 101 96 - 108 mmol/L [facility] Carbon Dioxide 24 22 - 29 mmol/L [facility] Anion Gap 13 12 - 20 [facility] Urea Nitrogen (BUN) 15 9 - 16 mg/dL [facility] Creatinine, Serum 0.78 0.5 - 1.4 mg/dL [facility] Estimated Glomerular Filt Rate >60 [facility] Comment:Chronic Kidney Disea se: Estimated GFR < 60 mL/min/1.31x0Ayrofl Kidney Disease: Estimated GFR < 15 mL/min/1.73m2 Glucose 90 60 - 115 mg/dL [facility] Calcium 9.6 8.4 - 10.2 mg/dL [facility] Blood Venous blood specimen / Unknown 08/19/2024 11:03 AM EST 08/19/2024 1:22 PM EST Larisa Morelnad MD LAB BLOOD ORDERABLES Final Result Performing Organization Address [facility] Co de Phone Number [facility] [address] [place] [phone] * (ABNORMAL) Hepatic Function Panel (07/30/2024 9:25 AM EST) Bilirubin, Total 0.5 0.0 - 1.0 mg/dL [facility] Bilirubin, Direct 0.2 0.0 - 0.5 mg/dL [facility] Aspartate Amino Transferase 34(H) 5 - 31 U/L [facility] Alanine Aminotransferase 15 0 - 31 U/L [facility] Total Protein 7.3 6.5 - 8.0 g/dL [facility] Albumin Level 4.2 3.5 - 5.0 g/dL [facility] Alkaline Phosphatase 76 39 - 117 U/L [facility] 07/30/2024 9:25 AM EST 07/30/2024 11:39 AM EST Larisa Moreland MD LAB BLOOD ORDERABLES Final Result Performing Organization Address [facility] Co de Phone Number [facility] [address] [place] [phone] * Lipid Panel, Standard (07/30/2024 9:25 AM EST) Triglycerides 75 <150 mg/dL [facility] Comment:Desirable Triglyceri de: less than 150 mg/dLBorderline High Triglyceride 150-199 mg/dLHigh Triglyceride: 200-499 mg/dLVery High Triglyceride: greater than or equal to 5OO mg/dL Cholesterol 159 <200 mg/dL [facility] Comment:Desirable Cholestero l: less than 200 mg/dLBorderline High Cholesterol: 200-239 mg/dLHigh Cholesterol: greater than 239 mg/dL LDL Cholesterol Calculated 81 <100 mg/dL [facility] Comment:Desirable LDL: less than 100 mg/dLNear Optimal/Above Optimal LDL: 110- 129 mg/dLBorderline High LDL: 130-159 mg/dLHigh LDL: 160-189 mg/dLVery High LDL: greater than or equal to 190 mg/dL HDL Cholesterol 63 >40 mg/dL [facility] Comment:Desirable HDL: great er than 40 mg/dL Note: This HDL assay may give artificially low results in patients with liver disease. 07/30/2024 9:25 AM EST 07/30/2024 11:39 AM EST us Larisa Moreland MD LAB BLOOD ORDERABLES Final Result Performing Organization Address City/[facility]/ZIP Co de Phone Number [facility] [address] [place] [phone] * High Sensitivity Troponin I (06/17/2024 6:56 PM EST) TROPONIN I HIGH SENSITIVITY 8.2 <3.5 - 17.0 ng/L [facility] Comment:The Rodríguez high sens itivity Troponin-I results should beused in conjunction with other diagnostic information suchas ECG, clinical observations and information, and patientsymptoms to aid in the diagnosis of VT. 06/17/2024 6:56 PM EST 06/17/2024 8:11 PM EST us Generic External Data Provider LAB BLOOD ORDERAB LES Final Result Performing Organization Address City/[facility]/ZIP Co de Phone Number [facility] [address] [place] [phone] * (ABNORMAL) CBC auto differential (06/17/2024 6:56 PM EST) White Blood Count 16.8(H) 4.8 - 10.8 X10*3/uL [facility] Red Blood Count 4.37 4.20 - 5.50 X10*6/uL [facility] Hemoglobin 13.4 12.0 - 16.0 g/dl [facility] Hematocrit 37.5 37.0 - 47.0 % [facility] Mean Corpuscular Volume 85.8 80.0 - 98.0 fL [facility] Mean Corpuscular Hemoglobin 30.7 27.0 - 33.0 pg [facility] Mean Corpuscular HGB Conc 35.7(H) 31.0 - 35.0 g/dl [facility] Red Cell Distribution Width 12.0 11.0 - 16.0 % [facility] Platelet Count 376 160 - 400 X10*3/uL [facility] Mean Platelet Volume 9.3(L) 9.4 - 12.3 fL [facility] Neutrophils Percent Auto 87.9(H) 45 - 73 % [facility] Imm Gran Pct Auto 0.6(H) 0.0 - 0.4 % [facility] Lymphocytes Percent Auto 6.9(L) 20 - 40 % [facility] Monocytes Percent Auto 4.3 2 - 11 % [facility] Eosinophils Percent Auto 0.1 0 - 4 % [facility] Basophils Percent Auto 0.2 0 - 2 % [facility] NRBC Pct Auto 0.0 0.0 - 0.2 /100WBC [facility] Neutrophils Absolute Auto 14.8(H) 2.0 - 8.3 x10*3/uL [facility] Imm Gran Abs Auto 0.10(H) 0.00 - 0.03 X10*3/uL [facility] Lymphocytes Absolute Auto 1.2 1.2 - 4.9 X10*3/uL [facility] Monocytes Absolute Auto 0.7 0.1 - 1.2 X10*3/uL [facility] Eosinophils Absolute Auto 0.0 0.0 - 0.4 X10*3/uL [facility] Basophils Absolute Auto 0.0 0.0 - 0.2 X10*3/uL [facility] NRBC Abs Auto 0.000 0.0 - 0.012 X10*3/uL [facility] 06/17/2024 6:56 PM EST 06/17/2024 6:59 PM EST Generic External Data Provider LAB BLOOD ORDERAB LES Final Result Performing Organization Address [facility]/ZIP Co de Phone Number [facility] [address] [place] [phone] * Magnesium (06/17/2024 6:56 PM EST) [facility] Magnesium 2.0 1.6 - 2.6 mg/dL [facility] 06/17/2024 6:56 PM EST 06/17/2024 6:59 PM EST FOCUS Trainr External Data Provider LAB BLOOD ORDERAB LES Final Result Performing Organization Address [facility] de Phone Number [facility] [address] [place] [phone] * (ABNORMAL) Comprehensive Metabolic Panel (06/17/2024 6:56 PM EST) Pathologist [facility] [place] Sodium 125(L) 135 - 145 mmol/L [facility] Potassium 3.9 3.3 - 5.1 mmol/L [facility] Comment:Slight Hemolysis.Int erpret result with caution. Chloride 87(L) 96 - 108 mmol/L [facility] Carbon Dioxide 23 22 - 29 mmol/L [facility] Anion Gap 19 12 - 20 [facility] Urea Nitrogen (BUN) 23(H) 9 - 16 mg/dL [facility] Creatinine, Serum 1.55(H) 0.5 - 1.4 mg/dL [facility] Creatinine Clr Calc Pharmacy 26.0 [facility] Comment:Provided height and weight: 124.46 cm,87 kg.eGFR (calculated from the MDRD study equation) and eCrCl(calculated from the Cockcroft-Gault equation) are based ondifferent parameters and may not yield comparable results.If eCrCl result is absurd, please check patient'sheight/weight. Estimated Glomerular Filt Rate 33 [facility] Comment:Chronic Kidney Disea se: Estimated GFR < 60 mL/min/1.20o9Jostvz Kidney Disease: Estimated GFR < 15 mL/min/1.73m2 Glucose 145(H) 60 - 115 mg/dL [facility] Calcium 9.3 8.4 - 10.2 mg/dL [facility] Bilirubin, Total 0.7 0.0 - 1.0 mg/dL [facility] Aspartate Amino Transferase 39(H) 5 - 31 U/L [facility] Comment:Slight Hemolysis.Int erpret result with caution. Alanine Aminotransferase 18 0 - 31 U/L [facility] Total Protein 7.1 6.5 - 8.0 g/dL [facility] Albumin Level 4.0 3.5 - 5.0 g/dL [facility] Alkaline Phosphatase 83 39 - 117 U/L [facility] 06/17/2024 6:56 PM EST 06/17/2024 6:59 PM EST us Generic External Data Provider LAB BLOOD ORDERAB LES Final Result [facility] [address] [place] [phone] * SARS-CoV-2 RNA, Influenza A/B, and RSV RNA, Ql NAAT (06/17/2024 6:26 PM EST) Influenza A PCR NEGATIVE Negative [facility] Influenza B PCR NEGATIVE Negative [facility] Resp Syncy Virus RNA Qual PCR NEGATIVE Negative [facility] SARS COV2 PCR NEGATIVE Negative [facility] Comment:All test results mus t be correlated with clinical findings.Negative results do not preclude SARS-CoV2, influenza Avirus, influenza B virus and/or RSV infectionand should not be used as the sole basis for treatment orother patient management decisions. Negative results must becombined with clinical observations, patient history, andepidemiological information.This test has not been evaluated for monitoring treatment ofinfection.This test has been authorized by the FDA under an EmergencyUse Authorization (EUA) for use by authorized laboratories.Testing performed on the [employer] GeneXpert utilizingreal-time RT-PCR.All SARS CoV2 and positive influenza A/B results arereported to [facility]. 06/17/2024 6:26 PM EST 06/17/2024 6:30 PM EST Generic External Data Provider LAB MICROBIOLOGY - GENERAL ORDERABLES Final Result [facility] [address] [place] [phone] * Colonoscopy (05/30/2024) Pathologist [facility] [place] Colonoscopy Normal Normal Comment:Reshma Lewis MD , pers onal history of polyps Historical Provider HEALTH MAINTENANCE Final Result * Mammography (01/24/2024 4:16 PM EDT) Pathologist [facility] Mammogram BIRADS 1 Normal, Abnormal, BIRADS 1 , BIRADS 2 Anatomical Region Laterality Modality Other Historical Provider HEALTH MAINTENANCE Final Result * Hepatitis C Antibody with Reflex to HCV, RNA, Quantitative, Real-Time PCR (03/28/2023 8:50 AM EDT) Pathologist [facility] [place] Hepatitis C Antibody Nonreactive Nonreactive [facility] Comment:Antibodies to HCV no t detected; does not exclude early acuteHCV infection. Blood Venous blood specimen / Unknown 03/28/2023 8:50 AM EDT 03/28/2023 8:50 AM EDT Larisa Moreland MD LAB BLOOD ORDERABLES Final Result [facility] [address] [place] [phone] * Fecal immunochemical test x1 (FIT) (03/15/2022 12:00 AM EDT) FIT Date 1 03/14/2022 [facility] FIT Date 2 03/15/2022 [facility] FIT1 NEGATIVE NEGATIVE [facility] FIT2 NEGATIVE NEGATIVE [facility] 03/15/2022 Historical Provider HISTORICAL/NON ORDERABLE LABS Final Result [facility] [address] * Pap Smear (05/18/2021) Pap Negative for intraephithelial lesion or malignancy Negative for intraephithelial lesion or malignancy, Other HPV Undetected Historical Provider HEALTH MAINTENANCE Final Result from Last 3 Months or Most Recently Relevant to Health Maintenance Insurance [facility] MEDICARE ADVANTAGE HMO Care Teams First Aid Trainer Relationship Specialty Start Date End Date [place], MD Larisa [address] [place] [phone] PCP - General Family Medicine 07/24/18 Ameena Grant, MelchorD [address] [place] [address] Pharmacist Internal Medicine 08/15/22 José Miguel Prado MD [address] [place] [address] Nephrology 07/30/24 Jennifer Torres [address] [place] [address] Gastroenterology 08/19/24
--- OUTSIDE RECORDS SUMMARY | 2024-08-19 16:00 | XMS_ITS | Encounter Summary ---
Author Organization [employer] Address [address] [facility] [address] [place] [address] Care Team Providers Care Clinical Athletic Instructor Name Role Phone Larisa Moreland MD Primary Care Provider + [phone] Ameena Grant PharmD Unavailable José Miguel Prado MD Unavailable Jennifer Torres Unavailable Encounter Details Date Type Department Care Team (Late st Contact Info) Description 07/06/2022 Orders Only [facility] [address] [place], [place] [phone] Hanna Aguirre LPN Social History Tobacco Use Types Packs/Day Years [...] on filedocumented in this encounter Care Teams Clinical Athletic Instructor Relationship Specialty Start Date End Date Larisa Moreland MD [address] [place], [place] [phone] PCP - General Family Medicine 07/24/18 Ameena Grant, PharmD [address], [place] [phone] Pharmacist Internal Medicine 08/15/22 José Miguel Prado MD [address] [place] [address] Nephrology 07/30/24 Jennfier Torres [address] [place] [address] Gastroenterology 08/19/24 documented as of this encounter
--- OUTSIDE RECORDS SUMMARY | 2024-08-19 16:00 | XMS_ITS | Encounter Summary ---
Author Organization [facility] Address [address] [facility] [address]t [place] [address] Care Team Providers Care Senior Marketing Manager Name Role Phone Larisa Moreland MD Primary Care Provider +- [phone] Ameena Grant PharmD Unavailable José Miguel Prado MD Unavailable Jennifer Torres Unavailable Reason for Visit * Reason Comments Med Refill Encounter Details Date Type Department Care Team (Late st Contact Info) Description 12/01/2022 Refill [facility] [address] [place] [address] Crista Victor FNP [address] [place] [address] [place] [address] Left hip pain Social History Tobacco Use Types Packs/Day Years [...] suspected to have Coronavirus/COVID-19? No / Unsure 11/01/2022 9:18 AM EDT documented as of this encounter Plan of Treatment Not on file documented as of this encounter Goals Goal Patient Goal Type Associated Problems Recent Progress Patient-Stated? Author Blood Pressure < 150/90 Blood Pressure 130/80( 025 10:25 AM EST) No Ameena Quiles, PharmD documented as of this encounter Visit Diagnoses Diagnosis Left hip pain Pain in joint, pelvic region and thigh documented in this encounter Care Teams Senior Marketing Manager Relationship Specialty Start Date End Date Larisa Moreland MD [address] [place] [address] PCP - General Family Medicine 07/24/18 Ameena Grant, MelchorD [address] [place] [address] Pharmacist Internal Medicine 08/15/22 José Miguel Prado MD [address] [place] [address] Nephrology 07/30/[address] Jennifer Torres [address] [place] [address] Gastroenterology 08/19/24 documented as of this encounter
--- OUTSIDE RECORDS SUMMARY | 2024-08-19 16:00 | XMS_ITS | Encounter Summary ---
Author Organization [employer] Address [address] [place] [address] Care Team Providers Care Lipstick Molder Name Role Phone Larisa Moreland MD Primary Care Provider +- [phone] Ameena Grant PharmD Unavailable [phone]- [phone] José Miguel Prado MD Unavailable Reason for Visit * Reason Onset Date Comments Nurse Triage 08/07/2024 Encounter Details Date Type Department Care Team (Late st Contact Info) Description 08/07/2024 Telephone [facility] MEDICINE [address] [place] [address] Ameena Grant, PharmD [address] [place], [place] [phone] Nurse Triage Social History Tobacco Use Types Packs/Day Years [...] encounter Miscellaneous Notes * Telephone Encounter - No Tafoya RN - 08/08/2024 9:19 AM EST TC placed to pt and LVM to call back [facility] and ask for the [place] Team nurses * Telephone Encounter - Justine Spangler RN - 08/07/2024 1:15 PM EST Incoming call from Scarlet GAYTAN at [facility] returning below call. She states that pt had labs done 07/30 and kidney function improved so, Dr Prado isn't concerned and doesn't think she needs a follow up . * Telephone Encounter - Justine Spangler RN - 08/07/2024 10:57 AM EST Incoming call from pt returning below call. Pt reported yesterday SBP 160-170, today SBP 130-140. Reports dizziness yesterday, today feels well. Dizziness occurred while walking outside. Reports dizziness started after starting new blood pressure med hydralazine 10mg QID. Confirms that she did takemedication today at ~08:10. Pt currently at home. I requested that she take blood pressure while onthe phone. Blood pressure 170/107 heart rate 66. [...] symptomatic she needs to go to the EDimmediately. Gave my name and told her she can call back and ask for me PRN. If she needs anything after we are closed today, informed of [facility] staff that are available to help. Will retask to check and make sure she goes tomorrow and to call nephrology again if no call back. * Telephone Encounter - Justine Spangler RN - 08/07/2024 10:03 AM EST Telephone call placed to pt to triage regarding below message. No answer, left v/m. Telephone call placed to [facility]. No answer, left detailed v/m with my direct ext for call back. Will retask to continue reaching out to pt and specialist * Telephone Encounter - Ameena Grant PharmD - 08/07/2024 9:26 AM EST Patient no showed today's [facility] HTN visit for BP check following recent addition of hydralazine. [facility] outreached patient for status check and patient reports dizziness following start of hydralazine and home BP readings in the 170s . Patient was educated to seek medical attention at the ER however patient resistant. [facility] discussed with PCP who recommends patient go to the ER for further evaluation and to request assistance from RN team to have patient seen as follow up in nephrology (recently seen 07/29/24) as soon as possible. Please assist in outreach to patient for follow up as notedabove. Thank you! documented in this encounter Plan of Treatment [...] documented as of this encounter Care Teams Lipstick Molder Relationship Specialty Start Date End Date Larisa Moreland MD [address] [place] [address] PCP - General Family Medicine 07/24/18 Ameena Grant PharmD [address] [place] [address] Pharmacist Internal Medicine 08/15/22 José Miguel Prado MD [address] [place] [address] Drive [address] [place] [address] Nephrology 07/30/24 documented as of this encounter
--- OUTSIDE RECORDS SUMMARY | 2024-08-19 16:00 | XMS_ITS | Encounter Summary ---
Author Organization [employer] [facility] Address [address] [facility] [address] [place] [address] Care Team Providers Care Motorcycle Racer Name Role Phone Larisa Moreland MD Primary Care Provider [phone]- [phone] Ameena Grant PharmD Unavailable José Miguel Prado MD Unavailable Jennifer Torres Unavailable Reason for Visit * Reason Comments Med Refill Encounter Details Date Type Department Care Team (Late st Contact Info) Description 07/06/[address] [facility] MEDICINE [address] [place] [address] Ameena Grant, PharmD [address] [place], [place] [phone] Hypertension, essential (Primary Dx) Social History Tobacco Use Types [...] as of this encounter Visit Diagnoses Diagnosis Hypertension, essential- Primary Unspecified essential hypertension documented in this encounter Care Teams Motorcycle Racer Relationship Specialty Start Date End Date Larisa Moreland MD [address] [place], [place] [phone] PCP - General Family Medicine 07/24/18 Ameena Grant PharmD [address] [place] [address] Pharmacist Internal Medicine 08/15/22 José Miguel Prado MD [address] [place] [address] Nephrology 07/30/[address] Jennifer Torres [address] [place] [address] Gastroenterology 08/19/24 documented as of this encounter
== END 2024-08-19 11:02 | disposition home or self-care (01) ==
LOC: HO.HHCL 11:01
PROVIDERS: Visit Provider Family Medicine
DX: E87.1 Hypo-osmolality and hyponatremia (principal)
CPT/HCPCS: 36415; 80048; 83930; 84300

== ENCOUNTER 2024-09-27 10:16 | Outpatient (REF) | payer MEDICARE, MEDICAID, SELFPAY ==
--- OUTSIDE RECORDS SUMMARY | 2024-09-27 11:30 | XMS_ITS | Encounter Summary ---
Author Organization [employer] Address [address] [place] [address] Care Team Providers Care Turntable Engineer Name Role Phone Larisa Moreland MD Primary Care Provider +- [phone] Ameena Grant PharmD Unavailable [phone]- [phone] José Miguel Prado MD Unavailable Jennifer Torres Unavailable Encounter Details Date Type Department Care Team (Late st Contact Info) Description 11/22/2023 Orders Only [facility] [address] [place], [place] [phone] Larisa Moreland MD [address] [place], [place] [phone] Vitamin D deficiency (Primary Dx) Social History [...] t he electric, gas, oil or water [employer] threatened to shut off services in your [...] as of this encounter Plan of Treatment Upcoming Encounters Date Type Department Care Team (Late st Contact Info) Description 10/21/2024 10:30 AM EDT Medication Management [facility] MED[facility]INE [address] [place] [phone] Ameena Grant PharmD [address] [place] [phone] documented as of this encounter Goals Goal Patient Goal Type Associated Problems Recent Progress Patient-Stated? Author Blood Pressure < 150/90 Blood Pressure 150/82( 025 9:42 AM EST) No Ameena Quiles PharmD documented as of this encounter Visit Diagnoses Diagnosis Vitamin D deficiency- Primary documented in this encounter Care Teams Turntable Engineer Relationship Specialty Start Date End Date Larisa Moreland MD [address] [place] [phone] PCP - General Family Medicine 07/24/18 Ameena Grant PharmD [address] [place] [phone] Pharmacist Internal Medicine 08/15/22 José Miguel Prado MD [address] [place] [address] Nephrology 07/30/24 Jennifer Torres [address] [place] [address] Gastroenterology 08/19/24 documented as of this encounter
--- OUTSIDE RECORDS SUMMARY | 2024-09-27 11:31 | XMS_ITS | Clinical Summary ---
Author Organization [facility] Address [address] [place] [address] Care Team Providers Care Bill Collector Name Role Phone System, Provider Not In [...] age to complete this topic Care Teams Bill Collector Relationship Specialty Start Date End Date System, Provider Not In PCP - General 12/02/17
--- OUTSIDE RECORDS SUMMARY | 2024-09-27 11:31 | XMS_ITS | Clinical Summary ---
Author Organization [facility] Address [address] [facility] [address] [place] [address] Phone Care Team Providers Care Legal Researcher Name Role Phone Larisa Moreland MD Primary Care Provider U navailable Allergies No known active allergies Medications cholecalciferol (VITAMIN D-3) 1.25 MG (67990 UT) capsule Take 1 capsule by mouth [...] age to complete this topic Insurance [place] MEDICARE [facility] MEDICARE MEDICAID [place] Care Teams Legal Researcher Relationship Specialty Start Date End Date Larisa Moreland MD [address] [place] [id number] PCP - General Family Medicine 04/19/23
--- OUTSIDE RECORDS SUMMARY | 2024-09-27 11:31 | XMS_ITS | Clinical Summary ---
Author Organization [employer] Address [address] [facility] 7t [place] [address] Care Team Providers Care Airport Attendant Name Role Phone Larisa Moreland MD Primary Care Provider +- [phone] Ameena Grant PharmD Unavailable +1- [phone] José Miguel Prado MD Unavailable Jennifer Torres [...] day. 90 tablet 3 024 2024 Active ezetimibe (Zetia) 10 MG tabletIndicatio ns:Dyslipidemia Take 1 tablet (10 mg) by mouth Once per day. 90 tablet 3 024 Active Blood Pressure Monitoring (Blood Pressure Kit) kitIndications: Primary hypertension Use as directed 1 kit 024 Active docusate sodium (Colace) 100 MG capsuleIndicati ons:Irritable bowel syndrome, unspecified type TAKE 1 CAPSULE BY MOUTH TWICE DAILY NEEDED FOR CONSTIPATION 180 capsule 1 024 Active cyanocobalamin (Vitamin B-12) 500 MCG tabletIndicatio ns:Cobalamin deficiency TAKE 1 TABLET BY MOUTH EVERY MORNING 90 tablet 3 024 Active famotidine (Pepcid) 20 MG tabletIndicatio ns:Gastroesopha geal reflux disease, unspecified whether esophagitis present TAKE 1 TABLET BY MOUTH TWICE DAILY 60 tablet 1 025 Active Linzess 145 MCG capsuleIndicati ons:Irritable bowel syndrome, unspecified type TAKE 1 CAPSULE BY MOUTH EVERY MORNING 30 capsule 1 025 Active hydrALAZINE (Apresoline) 10 MG tabletIndicatio ns:Hypertension , unspecified type Take 1 tablet (10 mg) by mouth 4 times daily. 120 tablet 025 Active chlorthalidone (Hygroton) 25 MG tabletIndicatio ns:Primary hypertension Take one tablet by mouth once daily in the morning 90 tablet 3 024 2024 Discontinued(M ed list cleanup (will not trigger notification to Pharmacy)) hydrALAZINE (Apresoline) 10 MG tabletIndicatio ns:Hypertension , unspecified type Take 1 tablet (10 mg) by mouth 3 times daily. 120 tablet 025 2024 Discontinued Active Problems Patient Care Coordination No te Formatting of this note migh t be different from the original. Enrolled in [facility] HTN clinic with Ameena Grant PharmD Problem [...] fat, and sodium. Acute hyponatremia 07/30/2024 Overview (08/20/2024): Hyponatremia new onset in May 2024 in [...] osmolality, urine-sodium, BMP and urine osmolality 08/19/24 -serum osmolality 282 mOsm/kg (normal but low normal ) isotonic hyponatremia -urine Na 100 mEq/L -urine osm pending Assessment & Plan (08/19/2024 10:23 AM EST): [...] risk The 10-year ASCVD risk score (Thee DK, et al., 2019) is: 9.3% Values used [...] due after 08/19/25 -eye care facilitated by [facility] -dental [place] is [facility] -health care proxy paperwork given 08/17/23 Assessment & Plan (08/19/2024 10:48 AM EST): -next comprehensive annual evaluation due after 08/19/25 -eye care facilitated by [facility] -dental [place] is [facility] -health care proxy paperwork given 08/17/23 Assessment & Plan (06/19/2023 9:05 AM EST): -next physical exam due 03/06/2024. -eye care facilitated by [facility]. -dental home is [facility]. Assessment & Plan (03/06/2023 10:40 AM EDT): -next physical exam due 03/06/2024. -eye care facilitated by [facility]. -dental home is [facility]. Peripheral reticular degeneration of both eyes 0 [...] the retina today. She was educated to [facility] with any sudden onset of flashes of [...] the retina today. She was educated to [facility] with any sudden onset of flashes of lights, floaters, or decreased vision. Otherwise, will monitor with a complete eye exam in 2 years. Assessment & Plan (03/06/2023 10:20 AM EDT): Noted on eye exam 2019. The patient [...] the retina today. She was educated to [facility] with any sudden onset of flashes of [...] GI 11/16/23 -intake for colonoscopy with Jennifer DURANP-BC done 01/29/2024 -done on 05/30/[address] Lewis, showing normal internal hemorrhoids. Repeat in 10- years. Assessment & Plan (08/19/2024 11:00 AM EST): Colonoscpoy on 12/10/2018 showed minor diverticulosis. There were no obvious polys but preporation was poor. recommending FIT testing in 1 year. -FIT testing ordered 01/[address] Busch. -recommend follow up 2023. -referral placed to GI 11/16/23 -intake for colonoscopy with Jennifer D Melissa RECEIVING SPECIALIST-BC done 01/29/2024 -done on 05/30/[address] Lewis, showing normal internal hemorrhoids. Repeat in 10- years. Assessment & Plan (05/15/2024 10:38 AM EDT): Colonoscpoy on 12/10/2018 showed minor diverticulosis. There were no obvious polys but preporation was poor. recommending FIT testing in 1 year. -FIT testing ordered 01/[address] Busch. -recommend follow up 2023. -referral placed to GI 11/16/23 -intake for colonoscopy with Jennifer D Melissa RECEIVING SPECIALIST-BC done 01/29/2024 -has appt. On 05/30/24 Assessment [...] Overview (11/16/2023): Lab Results Component Value Date [id number] 42.7 03/28/2023 Improved with Vit D supplementation Assessment & Plan (06/19/2023 9:05 AM EST): Patient Vitamin D level was 12 on 08/12/21. Repeat was low 07/2021 188 continue oral b12 and recheck today. Vitamin D3 1000 units, 1 tablet daily started. No results found for: [id number] Assessment & Plan (03/06/2023 10:26 AM EDT): Patient Vitamin D level was 12 on 08/12/21. Repeat was low 07/2021 188 continue oral b12 and recheck today. Vitamin D3 1000 units, 1 tablet daily started. No results found for: [id number] Osteoarthritis of both knees 07/07/2014 Overview (08/16/2023): [...] to BID 06/19/23 -seen by Dr. Lind, sap administrator 02/28/24 lisinopril increased to 20 mg daily. [...] increased to BID 06/19/23 -seen by Dr. Lidn, sap administrator 02/28/24 lisinopril increased to 20 mg daily. [...] with our PharmD -seen by Dr. Lind, sap administrator 02/28/24 I increased her lisinopril to 20 mg daily. (She was on 40 in the past) Her renal functions and serum potassium are normal. 24 hour ambulatory blood pressure monitor ordered. Thyroid function, renin, aldosterone, cortisol, metanephrines as well as Doppler of her renal arteries ordered. -05/15/24 pt notes she has not heard from sap administrator, is schedule for follow- up 08/09/24. Assessment [...] saw nephro on 04/19/[address] Lynne -return with [...] saw nephro on 04/19/[address] Lynne Assessment & Plan (03/06/2023 11:20 AM EDT): [...] in case needs to go to ED -BACTERIOLOGY RESEARCH ASSISTANT apt 09/2023 -apt w PCP 08/17/2022 Muscle strain 01/26/2023 07/30/2024 Encounters Date Type Department Care Team Description 09/18/2024 Travel 08/19/2024 10:30 AM EST Office Visit [facility] [address] [place] [phone] Larisa Moreland MD Primary hypertension (Primary Dx); Depression, recurrent (CMS/HCC); Dyslipidemia; Colon cancer screening; Class 2 severe obesity due to excess calories with serious comorbidity and body mass index (BMI) of 38.0 to 38.9 in adult (CMS/HCC); Exercise counseling; Dietary counseling; Other specified health status; Acute hyponatremia 08/19/2024 Refill [facility] [address] [place] [address] [phone] Ameena Grant PharmD Hypertension, unspecified type 08/19/2024 Travel 08/17/2024 Refill [facility] [address] [place] [address] [phone] Larisa Moreland MD Gastroesophageal reflux disease, unspecified whether esophagitis present; Irritable bowel syndrome, unspecified type 08/13/2024 Telephone [facility] [address] [place] [address] [phone] Katarina Martino MA chartprep 08/08/2024 Patient Outreach [facility] [address] [place] [phone] Larisa Moreland MD Care Coordination (CHW outreach for SDOH PT-1 and food needs-LVM ) 08/08/2024 Patient Outreach [address] [place] [address] Larisa Moreland MD Pre-visit Planning (SDOH Screening positive and Tobacco screening negative) 08/07/[address] [address] Ameena Grant, PharmD Nurse Triage 07/30/2024 Orders Only [address] [address] Larisa Moreland MD 07/30/2024 Travel 07/04/2024 Patient Outreach [address] [address] Larisa Moreland MD Transition Of Care (Tcm) (HDF- Unscheduled second LVM) 07/02/2024 Orders Only [address] [address] Larisa Moreland MD Primary hypertension (Primary Dx) 07/02/2024 Patient Outreach [address] [address] Larisa Moreland MD Transition Of Care (Tcm) (HDF- Unscheduled LVM) 07/01/[address] [address] Ameena Grant, PharmD 07/01/[address] [address] Ameena Grant, PharmD 07/01/2024 Orders Only [address] [address] Larisa Moreland MD 07/01/2024 Travel from Last 3 Months Immunizations Name Administration [...] Sign Reading Time Taken Comments Blood Pressure 150/82 09/18/2024 9:42 AM EST Pulse 54 09/18/2024 9:42 AM EST Temperature 36.1 ??C (97 ??F) 08/19/2024 10:03 AM EST Respiratory Rate 20 08/19/2024 10:03 AM EST Oxygen Saturation 96% 08/19/2024 10:03 AM EST Inhaled Oxygen Concentration - - Weight 82 kg (180 lb 12.8 oz) 08/19/2024 10:03 A M EST Height 147.3 cm (4' 10 ) 08/19/2024 10:03 AM EST Body Mass Index 37.79 08/19/2024 10:03 AM EST Plan of Treatment Upcoming Encounters Date Type Department Care Team (Late st Contact Info) Description 10/21/2024 10:30 AM EDT Medication Management [facility] [address] [place] [address] Ameena Grant, PharmD [address] [place] [address] Health Maintenance Due Date Last Done Comments CT Colonography 1956 FIT DNA/Cologuard 1956 FOBT 1955 Sigmoidoscopy 1956 FIT 03/15/2023 03/15/2022 Alcohol/Substance Use Screening 05/15/2025 05/15/2024 Depression Screening 05/15/2025 05/15/2024, 05/15/20 24 SDOH Screening 08/08/2025 08/08/2024 COVID-19 Vaccine ( season) 2025 03/06/2023, 11/30/2021, 08/02/2021, Additional history exists Postponed from 03/24/2024 (Patient Refused) Tobacco Screening 08/19/2025 08/19/2024 Mammogram 01/23/2026 01/24/2024, 06/01/2024, 12/27/2022, Additional history exists Colonoscopy 05/30/2029 05/30/2024, 12/03/2018 Colorectal Cancer Screening 05/30/2029 Lipid Panel 07/30/2029 07/30/2024, 02/21, 01/19/2024, Additional history exists DTaP/Tdap/Td Vaccines (4 - Td or Tdap) 03/08/2033 03/08/2023, 03/06/2023, 04/11/2012 Cervical Cancer Screening Discontinued HPV/Cotest Discontinued 05/18/2021, 04/24, 05/18/2021 Pap Smear Discontinued 05/18/2021, 02/27/2017 Pneumococcal Vaccine: 50+ Years Completed 05/19/2022 Zoster Vaccines Completed 08/16/2022, [...] Blood Pressure 150/82( 025 9:42 AM EST) Ameena Decker PharmD Procedures Procedure Name Priority Date/Time Associated [...] METABOLIC PANEL Routine 07/01/2024 10:47 AM EST HM COLONOSCOPY Routine 05/30/2024 MAMMOGRAPHY Routine 01/24/2024 4:16 PM EDT HEPATITIS C AB W/REFL TO HCV RNA, QN, PCR Routine 03/28/2023 8:50 AM EDT Encounter for hepatitis C screening test for low risk patient [facility] HISTORICAL FECAL IMMUNOCHEMICAL TEST X1 (FIT) Routine 03/15/2022 12:00 AM EDT PAP/HPV Routine 05/18/2021 from Last 3 Months or Most Recently Relevant to Health Maintenance Results * Sodium Without creatinine, Random Urine (08/19/2024 11:03 AM EST) Sodium Urine Random 100.0 mmol/L [facility] Urine Urine specimen obtained by clean catch procedure / Unknown 08/19/2024 11:03 AM EST 08/19/2024 1:11 PM EST Larisa Moreland MD LAB BLOOD ORDERABLES Final Result Performing Organization Address City/[facility]/ZIP Co de Phone Number [facility] [address] [place] [phone] * Osmolality, Serum (08/19/2024 11:03 AM EST) Osmolality (Serum) 282 281 - 305 mosm/kg [facility] Blood Venous blood specimen / Unknown 08/19/2024 11:03 AM EST 08/19/2024 1:22 PM EST Larisa Moreland MD LAB BLOOD ORDERABLES Final Result Performing Organization Address [facility] Phone Number [facility] [address] [place] [phone] * (ABNORMAL) Basic Metabolic Panel (08/19/2024 11:03 AM EST) Only the most recent of3 resultswithin the time period is included. Sodium 134(L) 135 - 145 mmol/L [facility] Potassium 4.1 3.3 - 5.1 mmol/L [facility] Chloride 101 96 - 108 mmol/L [facility] Carbon Dioxide 24 22 - 29 mmol/L [facility] Anion Gap 13 12 - 20 [facility] Urea Nitrogen (BUN) 15 9 - 16 mg/dL [facility] Creatinine, Serum 0.78 0.5 - 1.4 mg/dL [facility] Estimated Glomerular Filt Rate >60 [facility] Comment:Chronic Kidney Disea se: Estimated GFR < 60 mL/min/1.85d9Gropte Kidney Disease: Estimated GFR < 15 mL/min/1.73m2 Glucose 90 60 - 115 mg/dL [facility] Calcium 9.6 8.4 - 10.2 mg/dL [facility] Blood Venous blood specimen / Unknown 08/19/2024 11:03 AM EST 08/19/2024 1:22 PM EST Larisa Moreland MD LAB BLOOD ORDERABLES Final Result Performing Organization Address [facility] Co de Phone Number [facility] [address] [place] [phone] * (ABNORMAL) Hepatic Function Panel (07/30/2024 9:25 AM EST) Bilirubin, Total 0.5 0.0 - 1.0 mg/dL [facility] Bilirubin, Direct 0.2 0.0 - 0.5 mg/dL [facility] Aspartate Amino Transferase 34(H) 5 - 31 U/L [facility] Alanine Aminotransferase 15 0 - 31 U/L [facility] Total Protein 7.3 6.5 - 8.0 g/dL [facility] Albumin Level 4.2 3.5 - 5.0 g/dL [facility] Alkaline Phosphatase 76 39 - 117 U/L [facility] 07/30/2024 9:25 AM EST 07/30/2024 11:39 AM EST Larisa Moreland MD LAB BLOOD ORDERABLES Final Result Performing Organization Address [facility] Co va Phone Number [facility] [address] [place] [phone] * Lipid Panel, Standard (07/30/2024 9:25 AM EST) Triglycerides 75 <150 mg/dL [facility] Comment:Desirable Triglyceri de: less than 150 mg/dLBorderline High Triglyceride 150-199 mg/dLHigh Triglyceride: 200-499 mg/dLVery High Triglyceride: greater than or equal to 5OO mg/dL Cholesterol 159 <200 mg/dL [facility] Comment:Desirable Cholestero l: less than 200 mg/dLBorderline High Cholesterol: 200-239 mg/dLHigh Cholesterol: greater than 239 mg/dL LDL Cholesterol Calculated 81 <100 mg/dL [facility] Comment:Desirable LDL: less than 100 mg/dLNear Optimal/Above Optimal LDL: 110- 129 mg/dLBorderline High LDL: 130-159 mg/dLHigh LDL: 160-189 mg/dLVery High LDL: greater than or equal to 190 mg/dL HDL Cholesterol 63 >40 mg/dL [facility] Comment:Desirable HDL: great er than 40 mg/dL Note: This HDL assay may give artificially low results in patients with liver disease. 07/30/2024 9:25 AM EST 07/30/2024 11:39 AM EST Larisa Moreland MD LAB BLOOD ORDERABLES Final Result Performing Organization Address [facility] Co de Phone Number [facility] [address] [place] [phone] * Colonoscopy (05/30/2024) Pathologist [facility] Colonoscopy Normal Normal Comment:Reshma Lewis MD , pers onal history of polyps Historical Provider HEALTH MAINTENANCE Final Result * Mammography (01/24/2024 4:16 PM EDT) Pathologist [facility] Mammogram BIRADS 1 Normal, Abnormal, BIRADS 1 , BIRADS 2 Anatomical Region Laterality Modality Other Historical Provider HEALTH MAINTENANCE Final Result * Hepatitis C Antibody with Reflex to HCV, RNA, Quantitative, Real-Time PCR (03/28/2023 8:50 AM EDT) Pathologist [facility] Hepatitis C Antibody Nonreactive Nonreactive [facility] Comment:Antibodies to HCV no t detected; does not exclude early acuteHCV infection. Blood Venous blood specimen / Unknown 03/28/2023 8:50 AM EDT 03/28/2023 8:50 AM EDT Larisa Moreland MD LAB BLOOD ORDERABLES Final Result Performing Organization Address [facility]/ZIP Co de Phone Number [facility] [address] [place] [phone] * Fecal immunochemical test x1 (FIT) (03/15/2022 12:00 AM EDT) FIT Date 1 03/14/2022 [facility] FIT Date 2 03/15/2022 [facility] FIT1 NEGATIVE NEGATIVE [facility] FIT2 NEGATIVE NEGATIVE [facility] 03/15/2022 Historical Provider HISTORICAL/NON ORDERABLE LABS Final Result [facility] [address] * Hm Pap Smear (05/18/2021) Pap Negative for intraephithelial lesion or malignancy Negative for intraephithelial lesion or malignancy, Other HPV Undetected Historical Provider HEALTH MAINTENANCE Final Result from Last 3 Months or Most Recently Relevant to Health Maintenance Insurance [facility] STANDARD [facility] MEDICARE ADVANTAGE Care Teams Airport Attendant Relationship Specialty Start Date End Date Merly, MD Larisa [address] [place] [address] PCP - General Family Medicine 07/24/18 Ameena Grant PharmD [address] [place] [address] Pharmacist Internal Medicine 08/15/22 José Miguel Prado MD [address] [place] [address] Nephrology 07/30/24 Jennifer Torres [address] 3rd [place] [address] Gastroenterology 08/19/24
--- OUTSIDE RECORDS SUMMARY | 2024-09-27 11:31 | XMS_ITS | Encounter Summary ---
Author Organization [facility] [facility] Address [address] [facility] 7t [place] [address] Care Team Providers Care Surgical Brace Maker Name Role Phone Larisa Moreland MD Primary Care Provider + [phone] Ameena Grant PharmD Unavailable José Miguel Prado MD Unavailable Jennifer Torres Unavailable Encounter Details Date Type Department Care Team (Late st Contact Info) Description 04/26/2023 Abstract [facility] [address] [place], [place] [phone] Deepika Gurrola Social History Tobacco Use Types [...] Description 10/21/2024 10:30 AM EDT Medication Management [facility] [address] [place], [place] [phone] Ameena Grant, PharmD [address] [place], [place] [phone] documented as of this encounter Goals Goal Patient Goal Type Associated Problems Recent Progress Patient-Stated? Author Blood Pressure < 150/90 Blood Pressure 150/82( 025 9:42 AM EST) No Ameena Quiles PharmD documented as of this encounter Procedures Procedure Name Priority Date/Time Associated Diagnosis Comments HM PAP/HPV Routine 05/18/2021 documented in this encounter Results * Pap Smear (05/18/2021) Pap Negative for intraephithelial lesion or malignancy Negative for intraephithelial lesion or malignancy, Other HPV Undetected Historical Provider HEALTH MAINTENANCE Final Result documented in this encounter Visit Diagnoses Not on filedocumented in this encounter Care Teams Surgical Brace Maker Relationship Specialty Start Date End Date Larisa Moreland MD [address] [place] [phone] PCP - General Family Medicine 07/24/18 Ameena Grant, PharmD [address] [place] [phone] Pharmacist Internal Medicine 08/15/22 José Miguel Prado MD [address] [place] [address] Nephrology 07/30/24 Jennifer Torres [address]rd [place] [address] Gastroenterology 08/19/24 documented as of this encounter
--- OUTSIDE RECORDS SUMMARY | 2024-09-27 11:31 | XMS_ITS | Encounter Summary ---
Author Organization [employer] Address [address] [facility] [address] [place] [address] Care Team Providers Care Invoice Clerk Name Role Phone Larisa Moreland MD Primary Care Provider +1- [phone] Ameena Grant PharmD Unavailable +1- [phone] José Miguel Prado MD Unavailable Jennifer Torres Unavailable Encounter Details Date Type Department Care Team (Latest Contact Info) Description 09/18/2024 Travel Social History Tobacco Use Types Packs/Day [...] Description 10/21/2024 10:30 AM EDT Medication Management [facility] [address] [place] [phone] Ameena Grant PharmD [address] [place] [phone] documented as of this encounter Goals Goal [...] documented as of this encounter Care Teams Invoice Clerk Relationship Specialty Start Date End Date Larisa Moreland MD [address] [place] [address] [phone] PCP - General Family Medicine 07/24/18 Ameena Grant, PharmD [address] [place] [phone] Pharmacist Internal Medicine 08/15/22 José Miguel Prado MD [address] [place] [address] Nephrology 07/30/24 Jennifer Torres [address] 3rd [place] [address] Gastroenterology 08/19/24 documented as of this encounter
--- OUTSIDE RECORDS SUMMARY | 2024-09-27 11:31 | XMS_ITS | Encounter Summary ---
Author Organization [employer] [facility] Address [address] [facility] 7t [place] [address] Care Team Providers Care Manager Program Name Role Phone Larisa Moreland MD Primary Care Provider +1- [phone] Ameena Grant PharmD Unavailable José Miguel Prado MD Unavailable Jennifer Torres Unavailable Reason for Visit * Reason Comments Med Refill Encounter Details Date Type Department Care Team (Late st Contact Info) Description 07/06/2022 Refill [facility] [address] [place] [address] [phone] Ameena Grant, PharmD [address] [place], [place] [phone] Hypertension, essential (Primary Dx) Social History Tobacco [...] Encounters Date Type Department Care Team (Late Contact Info) Description 10/21/2024 10:30 AM EDT Medication Management [facility] [address] [place] [phone] Penelope Grantsa, PharmD [address] [place], [place] [phone] documented as of this encounter Visit Diagnoses Diagnosis Hypertension, essential- Primary Unspecified essential hypertension documented in this encounter Care Teams Manager Program Relationship Specialty Start Date End Date Larisa Moreland MD [address] [place] [address] PCP - General Family Medicine 07/24/18 Ameena Grant PharmD [address] [place] [address] Pharmacist Internal Medicine 08/15/22 José Miguel Prado MD [address] [place] [address] Nephrology 07/30/24 Jennifer Torres [address]rd [place] [address] Gastroenterology 08/19/24 documented as of this encounter
--- OUTSIDE RECORDS SUMMARY | 2024-09-27 11:31 | XMS_ITS ---
Author Organization [facility] Care Team Providers Care Transmission Systems Operator Name Role Phone Murphy Albrecht Unavailable Unavailable Porter Solomon Unavailable Unavailable Allergies and adverse reactions No Known Allergies Care Team Name Role Address Phone Organization Dates Murphy Albrecht Attending Physician [address] [place] [address] [address], [place], [address], [place] (Office[place] : Adel[facility] 05/01/2015 - 05/15/2015 Porter Solomon Attending Physician [address] [place] [address], [address], [place] (Office): : [facility] [place] 05/01/2015 - 05/15/2015 Immunizations Immunization Status Vaccine Details Vaccine Code CodeSystem Date Notes Influenza cancelled Influenza, high-dose, split virus, trivalent, injectable, preservative free 135 CVX created date: 11/20/2012 consent date: 05/04/2015 Pneumovax Dose 1 cancelled pneumococcal polysaccharide vaccine, 23 valent 33 CVX created date: 11/20/2012 consent date: 05/04/2015 Mental Status Section Date Assessment Total Score Description 05/15/2015 BIMS 15 cognitively int act PHQ-9 02 minimal depress ion 05/08/2015 BIMS 15 cognitively int act PHQ-9 04 minimal depress ion Problems Problem # Description Date of onset Resolved Date Code CodeSystem Concern Status 1 AFTERCARE FOLLOWING EXPLANTATION OF KNEE JOINT PROSTHESIS 05/01/[address] active 2 AFTERCARE FOLLOWING JOINT REPLACEMENT SURGERY 05/01/[address] active 3 HYPERLIPIDEMIA, UNSPECIFIED 05/01/[address] active 4 UNSPECIFIED LACK OF COORDINATION 05/01/[address] active 5 ESSENTIAL (PRIMARY) HYPERTENSION 11/09/[address] active 6 PRIMARY GENERALIZED (OSTEO)ARTHRITIS 11/09/[address] active Reason for Referral No Reasons for Referral Entered Social History Social History Observation Description Start Date End Date Code Code System Current Smoking Status Tobacco smoking consumption unknown 627724582 SNOMED CT Sex Assigned At Female 1955 33331-4 [facility] Vital Signs Code Code System Vitals Name Values and Units Timing Information 08184-8 [facility] Pain Level Value=5.0 05/15/2015 17419-5 LOINC Weight Xynav=582.5 Units=Lbs 9279-1 [facility] Respiratory Rate Value=18.0 Units=/m in 05/14/2015 8462-4 [facility] Blood Pressure-Diastolic Value=74 Un its=mmHg 05/14/2015 8480-6 [facility] Blood Pressure-Systolic Glcih=286 Un its=mmHg 05/14/2015 8310-5 [facility] Body Temperature Value=97.4 Units=?? F 05/14/2015 8867-4 [facility] Heart rate Value=82.0 Units=/min 12213-0 [facility] O2 % dC Oximetry Value=97.0 Units= % 05/14/2015 8302-2 [facility] Height Value=55.9 Units=Inches 11/09/2012
--- OUTSIDE RECORDS SUMMARY | 2024-09-27 11:31 | XMS_ITS | Encounter Summary ---
Author Organization [employer] Address [address] [facility] 7t [place] [address] Care Team Providers Care Note Specialist Name Role Phone Larisa Moreland MD Primary Care Provider + [phone] Ameena Grant PharmD Unavailable José Miguel Prado MD Unavailable Jennifer Torres Unavailable Encounter Details Date Type Department Care Team (Late st Contact Info) Description 07/06/2022 Orders Only [facility] [address] [place] [address] Hanna Aguirre LPN Social History Tobacco Use [...] Description 10/21/2024 10:30 AM EDT Medication Management [facility] [address] [place] [address] Ameena Grant, PharmD [address] [place] [address] documented as of this encounter Visit Diagnoses Not on filedocumented in this encounter Care Teams Note Specialist Relationship Specialty Start Date End Date Larisa Moreland MD [address] [place] [address] PCP - General Family Medicine 07/24/18 Ameena Grant PharmD [address] [place] [address] Pharmacist Internal Medicine 08/15/22 José Miguel Prado MD [address] [place] [address] Nephrology 07/30/[address] Torres [address] 3rd [place] [address] Gastroenterology 08/19/24 documented as of this encounter
--- OUTSIDE RECORDS SUMMARY | 2024-09-27 11:31 | XMS_ITS | Encounter Summary ---
Author Organization [employer] [facility] Address [address] [facility] 7t [place] [address] Care Team Providers Care 3D Technologist Name Role Phone Larisa Moreland MD Primary Care Provider +1- [phone] Ameena Grant PharmD Unavailable José Miguel Prado MD Unavailable Jennifer Torres Unavailable Encounter Details Date Type Department Care Team (Late Contact Info) Description 08/23/2022 Abstract [facility] [address] [place] [address] Larisa Moreland MD [address] [place], [place] [phone] Social History Tobacco Use Types Packs/Day Years [...] Description 10/21/2024 10:30 AM EDT Medication Management [facility] [address] [place], [place] [phone] Ameena Grant, PharmD [address] [place] [address] documented as of this encounter Goals Goal [...] in this encounter Results * Mammography (12/21/2021) Mammogram BIRADS 1 Anatomical Region Laterality Modality Other Historical Provider HEALTH MAINTENANCE Final Result * Colonoscopy (12/03/2018) Colonoscopy poor prep Historical Provider HEALTH MAINTENANCE Final Result * Pap Smear (02/27/2017 12:00 AM EDT) Swab [facility] Provider LAB CYTOLOGY ORDERABLES F inal Result IMAGING documented in this encounter Visit Diagnoses Not on filedocumented in this encounter Care Teams 3D Technologist Relationship Specialty Start Date End Date Larisa Moreland MD [address] [place] [address] PCP - General Family Medicine 07/24/18 Ameena Grant, PharmD [address] [place] [address] Pharmacist Internal Medicine 08/15/22 José Miguel Prado MD [address] [place] [address] Nephrology 07/30/24 Jennifer Torres [address] [place] [address] Drive 3rd Floor [place], [place] [phone] Gastroenterology 08/19/24 documented as of this encounter
--- OUTSIDE RECORDS SUMMARY | 2024-09-27 11:31 | XMS_ITS | Encounter Summary ---
Author Organization [employer] [facility] Address [address] [place] [address] 7t [place] [address] Care Team Providers Care Paper Stacker Name Role Phone MerlyLarisa diop MD Primary Care Provider + [phone] Ameena Grant PharmD Unavailable [phone]- [phone] José Miguel Prado MD Unavailable Jennifer Torres Unavailable Reason for Visit * Reason Comments Med Refill Encounter Details Date Type Department Care Team ([facility] Contact Info) Description 12/01/2022 Refill [facility] [address] [place], [place] [phone] Crista Victor FNP [address] [place] [address] Dept [place] [address] Left hip pain Social History Tobacco Use [...] Description 10/21/2024 10:30 AM EDT Medication Management [facility] [address] [place], [place] [phone] PierAmeena Azul PharmD [address] [place] [address] documented as of this encounter Goals Goal Patient Goal Type Associated Problems Recent Progress Patient-Stated? Author Blood Pressure < 150/90 Blood Pressure 150/82( 025 9:42 AM EST) No Ameena Quiles PharmD documented as of this encounter Visit Diagnoses Diagnosis Left hip pain Pain in joint, pelvic region and thigh documented in this encounter Care Teams Paper Stacker Relationship Specialty Start Date End Date Larisa Moreland MD [address] [place] [address] PCP - General Family Medicine 07/24/18 Ameena Grant, MelchorD [address] [place] [address] Pharmacist Internal Medicine 08/15/22 José Miguel Prado MD [address] [place] [address] Nephrology 07/30/[address] Torres [address] 3rd [place] [address] Gastroenterology 08/19/24 documented as of this encounter
--- OUTSIDE RECORDS SUMMARY | 2024-09-27 11:31 | XMS_ITS | Encounter Summary ---
Author Organization [facility] Address [address] 7t [place] [address] Care Team Providers Care Student Affairs Vice President Name Role Phone Larisa Moreland MD Primary Care Provider +1- [phone] Ameena Grant PharmD Unavailable José Miguel Prado MD Unavailable Jennifer Torres Unavailable Encounter Details Date Type Department Care Team (Late st Contact Info) Description 03/02/2023 Orders Only [facility] [address] [place] [address] Paulo Rosa MD [address] [place] [address] H. pylori infection (Primary Dx) Social History [...] Description 10/21/2024 10:30 AM EDT Medication Management [facility] [address] [place] [address] Ameena Grant, PharmD [address] [place] [address] Scheduled Orders Name Type Priority Associated Diagnoses Orde r Schedule Helicobacter pylori??Antigen, EIA, Stool Lab Routine H. pylori infection Expected: 03/02/2023 (Approximate), Expires: 03/02/2024 documented as of this encounter Goals Goal Patient Goal Type Associated Problems Recent Progress Patient-Stated? Author Blood Pressure < 150/90 Blood Pressure 150/82( 025 9:42 AM EST) No Ameena Quiles, PharmD documented as of this encounter Visit Diagnoses Diagnosis H. pylori infection- Primary Helicobacter pylori (H. pylori) documented in this encounter Care Teams Student Affairs Vice President Relationship Specialty Start Date End Date Larisa Moreland MD [address] [place] [address] PCP - General Family Medicine 07/24/18 Ameena Grant, PharmD [address] [place] [address] Pharmacist Internal Medicine 08/15/22 José Miguel Prado MD [address] [place] [address] Nephrology 07/30/[address] Torres [address] 3rd [place] [address] Gastroenterology 08/19/24 documented as of this encounter
--- OUTSIDE RECORDS SUMMARY | 2024-09-27 11:31 | XMS_ITS | Encounter Summary ---
Author Organization [employer] [facility] Address [address] [facility] 7t [place] [address] Care Team Providers Care Harp Maker Name Role Phone Larisa Moreland MD Primary Care Provider Ameena Grant PharmD Unavailable José Miguel Prado MD Unavailable Jennifer Torres Unavailable Encounter Details Date Type Department Care Team (Late Contact Info) Description 2022 Orders Only [facility] [address] [place] [address] Larisa Moreland MD [address] [place], [place] [phone] Vitamin D deficiency (Primary Dx) Social History [...] 10/21/2024 10:30 AM EDT Medication Management [facility] [address] [place] [address] Ameena Grant, PharmD [address] [place] [address] documented as of this encounter Visit Diagnoses Diagnosis Vitamin D deficiency- Primary documented in this encounter Care Teams Harp Maker Relationship Specialty Start Date End Date Larisa Moreland MD [address] [place] [address] PCP - General Family Medicine 07/24/18 Ameena Grant, PharmD [address] [place], [place] [phone] Pharmacist Internal Medicine 08/15/22 José Miguel Prado MD [address] [place] [address] Nephrology 07/30/24 Jennifer Torres [address] 3rd [place] [address] Gastroenterology 08/19/24 documented as of this encounter
[2024-09-27 11:56] LABS: Osmolality, Serum 284 mosm/kg (281-305)
[2024-09-27 12:03] LABS: Anion Gap 13 (12-20); Blood Urea Nitrogen 17 mg/dL (9-16); Carbon Dioxide 23 mmol/L (22-29); Chloride 104 mmol/L (96-108); Estimated Glomerular Filt Rate > 60; Potassium 4.1 mmol/L (3.3-5.1); Sodium 136 mmol/L (135-145); Uric Acid 4.9 mg/dL (2.4-5.7)
[2024-09-27 12:18] LABS: Thyroid Stimulating Hormone 0.81 uIU/mL (0.32-4.0)
[2024-09-27 12:39] LABS: Cortisol Random 7.3 ug/dL
== END 2024-09-27 10:17 | disposition home or self-care (01) ==
LOC: HO.HHCL 10:16
PROVIDERS: Visit Provider Internal Medicine Nephrology
DX: E87.1 Hypo-osmolality and hyponatremia (principal); I10 Essential (primary) hypertension
CPT/HCPCS: 36415; 80051; 82533; 82565; 83930; 84443; 84520; 84550

== ENCOUNTER 2024-10-03 08:58 | Outpatient (REF) | payer MEDICARE, MEDICAID, SELFPAY ==
--- OUTSIDE RECORDS SUMMARY | 2024-10-03 12:11 | XMS_ITS | Clinical Summary ---
Author Organization [facility] Address [address] [place] [address] Care Team Providers Care Jig Boring Machine Set Up Operator Name Role Phone System, Provider Not In [...] age to complete this topic Care Teams Jig Boring Machine Set Up Operator Relationship Specialty Start Date End Date System, Provider Not In PCP - General 12/02/17
--- OUTSIDE RECORDS SUMMARY | 2024-10-03 12:11 | XMS_ITS | Clinical Summary ---
Author Organization [facility] Address [address] [facility] [address] [place] [address] Phone Care Team Providers Care Termite Control Servicer Name Role Phone Larisa Moreland MD Primary Care Provider U navailable Allergies No known active allergies Medications cholecalciferol (VITAMIN D-3) 1.25 MG (63941 UT) capsule Take 1 capsule by mouth [...] age to complete this topic Insurance MEDICAID [place] [employer] MEDICARE [facility] MEDICARE MEDICAID [place] Care Teams Termite Control Servicer Relationship Specialty Start Date End Date Larisa Moreland MD [address] [place] [address] PCP - General Family Medicine 04/19/23
--- OUTSIDE RECORDS SUMMARY | 2024-10-03 12:11 | XMS_ITS ---
Author Organization [facility] Care Team Providers Care Boom Master Name Role Phone Murphy Albrecht Unavailable Unavailable Porter Solomon Unavailable Unavailable Allergies and adverse reactions No Known Allergies Care Team Name Role Address Phone Organization Dates Murphy Albrecht Attending Physician [address] [place] [address] [address], [place], [address], [place]Office): : Gilmarrazia [facility] [place] 05/01/2015 - 05/15/2015 Porter Solomon Attending Physician [address] [place] [address], [address], [place]Office): : [facility] [place] 05/01/2015 - 05/15/2015 Immunizations Immunization Status Vaccine [...] FOLLOWING EXPLANTATION OF KNEE JOINT PROSTHESIS 05/01/[address] active 2 AFTERCARE FOLLOWING JOINT REPLACEMENT SURGERY 05/01/[address] active 3 HYPERLIPIDEMIA, UNSPECIFIED 05/01/[address] active 4 UNSPECIFIED LACK OF COORDINATION 05/01/[address] active 5 ESSENTIAL (PRIMARY) HYPERTENSION 11/09/[address] active 6 PRIMARY GENERALIZED (OSTEO)ARTHRITIS 11/09/[address] active Reason for Referral No Reasons for Referral Entered Social History Social History Observation Description Start Date End Date Code Code System Current Smoking Status Tobacco smoking consumption unknown 975987358 SNOMED CT Sex Assigned At Female 1955 43670-6 [facility] Vital Signs Code Code System Vitals Name Values and Units Timing Information 22541-2 [facility] Pain Level Value=5.0 05/15/2015 21915-1 LOINC Weight Hajfr=522.5 Units=Lbs 9279-1 [facility] Respiratory Rate Value=18.0 Units=/m in 05/14/2015 8462-4 [facility] Blood Pressure-Diastolic Value=74 Un its=mmHg 05/14/2015 8480-6 [facility] Blood Pressure-Systolic Jwpgt=076 Un its=mmHg 05/14/2015 8310-5 [facility] Body Temperature Value=97.4 Units=?? F 05/14/2015 8867-4 [facility] Heart rate Value=82.0 Units=/min 66368-2 [facility] O2 % dC Oximetry Value=97.0 Units= % 05/14/2015 8302-2 [facility] Height Value=55.9 Units=Inches 11/09/2012
[2024-10-04 11:38] LABS: CT PCR NOT DETECTED (Not Detect.); NG PCR NOT DETECTED (Not Detect.)
[2024-10-04 13:54] LABS: Bacterial Vaginosis PCR NEGATIVE (Negative); Candida Group PCR NOT DETECTED (Not Detect); Candida glab krusei PCR NOT DETECTED (Not Detect); Trichomonas vaginalis PCR NOT DETECTED (Not Detect)
== END 2024-10-03 08:59 | disposition home or self-care (01) ==
LOC: HO.LAB 08:58
PROVIDERS: PCP Family Medicine; Visit Provider Advanced Practice Midwife
DX: Z01.419 Encounter for gynecological examination (general) (routine) without abnormal findings (principal); N89.8 Other specified noninflammatory disorders of vagina; Z98.51 Tubal ligation status
CPT/HCPCS: 81515; 87491; 87591; 99397; 99459

== ENCOUNTER 2024-10-03 08:58 | Outpatient (AMB) | payer MEDICARE, MEDICAID, SELFPAY ==
[2024-10-03 09:03] VITALS: BP 146/84; BMI 53.3
--- NOTE | 2024-10-03 09:03 | A.OFFVIS_ITS ---
Vital Signs 10/03/24 09:03 Height 4 ft 1 in Weight 182 lb BMI 53.3 BP 146/84 H Intake Visit Reasons: LEGAL ADMINISTRATIVE ASSISTANT annual exam Spinning Lathe Operator Hydraulic Required: No Spinning Lathe Operator Hydraulic Services: Spinning Lathe Operator Hydraulic Present Information Interpreted: clinical only Director Of Instrumental Music: Director Of Instrumental Music Present Allergies No Known Allergies [No Known Allergies*] Allergy (Verified 10/03/24 09:04) Medication List - Last Reconciled 10/03/24 by No Parrish CNM acetaminophen 325 mg PO Q4-6H PRN amlodipine 10 mg PO BEDTIME cholecalciferol (vitamin D3) 25 mcg PO DAILY cyanocobalamin (vitamin B-12) 500 mcg PO DAILY diclofenac sodium 1% 2 grams topical BID docusate sodium 100 mg PO BID PRN ezetimibe 10 mg PO DAILY famotidine 20 mg PO BID hydralazine 10 mg PO QID linaclotide 145 mcg PO DAILY metoprolol succinate ER 25 mg PO DAILY polyvinyl alcohol 1.4% 2 drps ophthalmic (eye) DAILY PRN rosuvastatin 40 mg PO BEDTIME Post menopausal: Yes (20 yrs) HPI HPI LEGAL ADMINISTRATIVE ASSISTANT annual exam: Details: 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 The concerns she has today are not related to chrome polisher concerns. She recently was started on a medication for her blood pressure she takes all of her pills together and they are pre packed for her to take all together morning mid day and evening as she needs to per the [facility] pharmacy. She sees Dr. Mason at the [facility] and she sees a nurse frequently for medical management. She said she was put on a new medication and it was 1 of the 5 she had in her morning pill pack but they are not individually identified they are labeled on the outside as to what is present. She said that since she started taking the slightly pinkish colored 1 she has noticed more loose stools and in fact she started twice and poop came out and soiled her on these and she is distressed about this. She has a plan to go talk to her primary care provider saw office today while she is in the building which I recommend.. She was sexually active in May and June with her regular partner they just do not see each other very much. She says she does have family around to support her.. [facility] Medical History Acute hyponatremia Hypertensive retinopathy Dyslipidemia Vitamin D deficiency Cobalamin deficiency Osteoarthritis IBS (irritable bowel syndrome) delivery delivered High cholesterol HTN (hypertension) Surgical History Hx of bilateral cataract extraction Hx of knee surgery Hx of section Hx of tubal ligation Hx of colonoscopy Family History Mother Cancer Uterine cancer Brother HTN (hypertension) Social History Household Members: None Housing: Apartment Do you presently have visiting nurse or other home services: No Alcohol intake: unknown Patient Tobacco Use Status: Never used Tobacco Gender identity: Female Female Reproductive History Menstrual Age of Menarche: 14 control method: permanent sterilization Total pregnancies: 3 Full term: 3 Date of last pap smear: 05/19/21 (neg.) History of abnormal pap smear: No Date of Mammogram: 12/29/23 (negative) Physical Exam Vital Signs: Last Vital Signs BP 146/84 H 10/03/24 09:03 BMI result Body Mass Index 53.3 Const General: healthy appearing, comfortable, no acute distress, well developed and alert Nutritional Appearance: average body habitus Orientation/consciousness: patient oriented x3 Limitations: no limitations HEENT Head: Yes normocephalic Neck Neck: Yes normal visual inspection Chest Chest palpation & inspection: normal inspection of the chest Breast/axilla inspection: normal inspection of the breasts and normal inspection of the axillae Breast/axilla palpation: normal palpation of the breasts and normal palpation of the axillae Resp Effort & Inspection: normal respiratory effort GI Inspection: Yes normal to inspection, No Abdominal wall edema and No distended Palpation (GI): Soft to palpation and nontender Other: External exam within normal limits no abnormal discharge at all. Vagina is pink and moist cervix multiparous pink smooth moist with healthy white appearing mucus does not appear abnormal or thickened or as if it is coating montiel. Cervix long close thick mobile nontender uterus slightly difficult to palpate but nontender mobile adnexa nontender very good tone with Kegel no evidence of rectocele or cystocele or any other abnormality. General: Yes bladder normal to palpation External Female Exam: normal external appearance and normal appearance of the urethra Speculum Exam - Vagina: normal appearance of the vagina, normal palpation and normal vaginal discharge Speculum Exam - Cervix: normal appearance of the cervix, normal palpation and nontender Bimanual exam- vagina & uterus: normal bimanual exam, normal palpation, uterine size normal, bladder normal to palpation, consistency normal, normal palpation, uterine mobility normal, uterine shape normal, No Cervical tenderness present, non-tender and no cervical motion tenderness Bimanual Exam- Adnexa, other: normal adnexae, no masses, normal and No adnexal tenderness Neuro General: patient oriented x3 Results Reviewed Results Reviewed: Name: Trisha Walsh Age/Sex: 65/F Attending: No Parrish CNM : 1955 Submitted by: No Parrish CNM Copies to: MER[facility] MASON MD MR #: [id number] Status: DEP REF Collected: 05/18/21 Location: .LAB Received: 05/19/21 Interpretation Satisfactory for evaluation. Fungal organisms consistent with Cristela species. Negative for intraepithelial lesion or malignancy. HPV mRNA E6/E7: NOT DETECTED This assay detects E6/E7 viral messenger RNA (mRNA) from 14 high-risk HPV types (16, 18, 31, 33, 35, 39, 45, 51, 52, 56, 58, 59, 66, 68) HPV testing performed by [employer] [facility], [place], [place]. See reference laboratory portion of the EMR for entire report. Clinical Information LMP: Postmenopausal Previous PAP test: 2018, WNL Material Received ThinPrep- Cervical Copies To [facility] MAS[facility] MD [address] [place] [address] No Parrish CNM [address] [place] [address] [place] [address] Electronically Signed By: MARLENE Lewis ([facility]) 06/01/21 8047 The Pap Test is a screening procedure with the inherent possibility of both false negative and false positive results. Results should be interpreted in the context of historic and current clinical findings. Reliability of the Pap Test is enhanced by performing the test on a regular repetitive basis. Patient: Trisha Walsh Age/[facility]: 65[facility]F [id number]#: [id number] Page 1 of 1 Assessment & Plan Assessment & Plan (1) Women's annual routine gynecological examination: Code(s): Z01.419 - Encounter for gynecological examination (general) (routine) without abnormal findings Category: Medical (2) Cervical cancer screening: Comment: no hx abnormals, neg pap w neg hpv 2017, pap 05/18/21=neg/neg hpv ( yeast) .. 10/04/2023 now 68 years old no further Paps. Code(s): Z12.4 - Encounter for screening for malignant neoplasm of cervix Category: Medical (3) HTN (hypertension): Code(s): I10 - Essential (primary) hypertension Category: Medical Qualifiers: Hypertension type: primary hypertension Qualified Code(s): I10 - Essential (primary) hypertension Plan -----Discussed in this visit the following: healthy balanced diet, regular and consistent exercise, getting recommended health screens, doing the best she can for her particular health concerns, kegel exercises, pap smear screening and followup recommendations, mammography screening and SBE, normal changes in cycles in her life stage--- . She tells me she is up-to-date on her mammograms she just had it a couple of months ago. She also had a colonoscopy last year and does not need another 1 for 10 years. She tries to eat really well and she cited several foods that she makes sure she eats every day at such as a banana every day avocados spin edge and a couple of other vegetables that her doctor told her to always have in her diet. She said she was in the hospital for 5 days in the fall because she felt faint and her sodium was low and they had to give her many many IVs and take out 20 something tubes of blood, and she does not want to be there anymore. Patient to go review her GI symptoms with her primary care provider as I could not advise her on which medication did or did not have the effect that she was thinking it did,. She does not need any further Pap smears. She maintains her hygiene very well and testing today was done for STIs as she does not see her partner very often. Her discharge was within normal limits. Discussed self-care she is doing as well as she can. And she says she lives alone but she does have family nearby. Orders: Orders CT NG by PCR Today N89.8 - Other specified noninflammatory disorders of vagina Bacterial Vaginosis Panel Today N89.8 - Other specified noninflammatory disorders of vagina Coding Level of Care Code Est Pt Prev Care >65y(98741) Diagnoses Women's annual routine gynecological examination Z01.419 Cervical cancer screening Z12.4 Primary hypertension I10 Hypertension type: primary hypertension
== END 2024-10-03 10:17 | disposition home or self-care (01) ==
LOC: HO.HWSM 08:59
PROVIDERS: PCP Family Medicine; Visit Provider Advanced Practice Midwife
DX: Z01.419 Encounter for gynecological examination (general) (routine) without abnormal findings (principal); I10 Essential (primary) hypertension
CPT/HCPCS: 99397; 99459

== ENCOUNTER 2024-10-09 10:30 | Outpatient (AMB) | payer MEDICARE, MEDICAID, SELFPAY ==
--- NOTE | 2024-10-09 10:37 | HO.NEPHOV ---
Vital Signs 10/09/24 10:38 Height 4 ft 1 in Weight 179 lb 2 oz BMI 52.4 BP 130/80 Blood Pressure Location Rt brachial Position Sitting Pulse 65 Pulse Source Pulse Oximeter Pulse Oximetry (%) 97 Oxygen Delivery Method Room Air Intake Visit Reasons: 2mon follow-up w/[employer] Research Scientist Required: No Accompanied by: Self / Same As Patient Allergies No Known Allergies [No Known Allergies*] Allergy (Verified 10/09/24 10:38) HPI Comments Details: Ms. Walsh was seen in follow up for labile hypertension. She denies any excessive salt intake, recent weight gain, uncontrolled thyroid disorders, sleep apnea, renal dysfunction, history of hypokalemia, hypercalcemia. She has no history of proteinuria but has history of hypertensive retinopathy. She denies any coronary artery disease, congestive heart failure, CVA, carotid stenosis, peripheral arterial disease, renal artery stenosis. She denied any chest pain, shortness of breath, paroxysmal nocturnal dyspnea, orthopnea or urinary symptoms. She does not take excessive nonsteroidal anti-inflammatories but takes NSAIDs quite frequently PFSH Medical History Acute hyponatremia Hypertensive retinopathy Dyslipidemia Vitamin D deficiency Cobalamin deficiency Osteoarthritis IBS (irritable bowel syndrome) delivery delivered High cholesterol HTN (hypertension) Surgical History Hx of bilateral cataract extraction Hx of knee surgery Hx of section Hx of tubal ligation Hx of colonoscopy Family History Mother Cancer Uterine cancer Brother HTN (hypertension) Social History Household Members: None Housing: Apartment Do you presently have visiting nurse or other home services: No Alcohol intake: unknown Patient Tobacco Use Status: Never used Tobacco Gender identity: Female Female Reproductive History Menstrual Age of Menarche: 14 Review of Systems Const All systems reviewed & are unremarkable except as noted in HPI and below Physical Exam Vital Signs: Last Vital Signs Pulse 65 10/09/24 10:38 BP 150/80 H 10/09/24 10:38 Pulse Ox 97 10/09/24 10:38 Oxygen Delivery Method Room Air 10/09/24 10:38 BMI result Body Mass Index 52.4 Const General: comfortable and no acute distress Orientation/consciousness: patient oriented x3 HEENT Head: Yes normocephalic Mouth: Normal oral and palatal mucosa present Eyes EOM: EOMs intact bilaterally Neck Neck: Yes supple Resp Auscultation: clear to auscultation bilaterally Cardio Jugular venous distension: no JVD Rate: regular rate GI Palpation (GI): Soft to palpation Auscultation: normal bowel sounds General: Yes no CVA tenderness Back/Spine/Pelvis Back: no CVA tenderness Skin General skin exam: no rashes or lesions noted Neuro General: patient oriented x3 and moves all extremities Extrem General: Yes no pedal edema Results Reviewed Nephrology Results: Sodium 136 mmol/L (135-145) 09/27/24 Potassium 4.1 mmol/L (3.3-5.1) 09/27/24 Chloride 104 mmol/L (96-108) 09/27/24 Carbon Dioxide 23 mmol/L (22-29) 09/27/24 BUN 17 mg/dL (9-16) H 09/27/24 Creatinine 0.80 mg/dL (0.5-1.4) 09/27/24 Assessment & Plan Assessment & Plan (1) HTN (hypertension): Code(s): I10 - Essential (primary) hypertension Category: Medical Qualifiers: Hypertension type: primary hypertension Qualified Code(s): I10 - Essential (primary) hypertension Plan Ms. Walsh has longstanding hypertension. Her BP is at goal . She will benefit from losing some weight. I have asked her to cut back salt in the diet. She should avoid nonsteroidal anti-inflammatories. Her renal functions and serum potassium are close to baseline. She should restrict free water. All these have been explained in detail and all questions were answered. Follow-up appointment given Orders: Orders Electrolytes 3 Months I10 - Essential (primary) hypertension Creatinine 3 Months I10 - Essential (primary) hypertension Blood Urea Nitrogen 3 Months I10 - Essential (primary) hypertension Coding Level of Care Code Est Pt Level 4 (94408) Diagnoses Primary hypertension I10 Hypertension type: primary hypertension
[2024-10-09 10:38] VITALS: BP 130/80; PULSE 65; O2SAT 97; BMI 52.4
--- OUTSIDE RECORDS SUMMARY | 2024-10-09 12:25 | XMS_ITS | Clinical Summary ---
Author Organization [facility] Address [address] [place] [address] Phone Care Team Providers Care Slubber Runner Name Role Phone Larisa Moreland MD Primary Care Provider U navailable Allergies No known active allergies Medications cholecalciferol (VITAMIN D-3) 1.25 MG (67580 UT) capsule Take 1 capsule by mouth [...] age to complete this topic Insurance [place]ICAID [place] MEDICARE [facility] MEDICARE MEDICAID [place] Care Teams Slubber Runner Relationship Specialty Start Date End Date Larisa Moreland MD [address] [place] [id number] PCP - General Family Medicine 04/19/23
--- OUTSIDE RECORDS SUMMARY | 2024-10-09 12:25 | XMS_ITS | Clinical Summary ---
Author Organization [facility] Address [address] [place] [address] Care Team Providers Care Neurology Nurse Name Role Phone System, Provider Not In [...] age to complete this topic Care Teams Neurology Nurse Relationship Specialty Start Date End Date System, Provider Not In PCP - General 12/02/17
--- OUTSIDE RECORDS SUMMARY | 2024-10-09 12:25 | XMS_ITS ---
Author Name [facility] Organization Unknown Encounters Encounter Type Encounter Reason Primary Diagnosis Location Date Emergency Fall (on) (from) other stairs and steps, initial encounter Fall (on) (from) other stairs and steps, initial encounter [facility] 03/08/2023 Care Team Organization Name Specialty Phone Email Start Date End Da te [facility] PROVIDER SYSTEM Primary Care 03/08/20232022 [facility] System,Provider Primary Care 03/08/2023
--- OUTSIDE RECORDS SUMMARY | 2024-10-09 12:25 | XMS_ITS ---
Author Organization [facility] [place] Care Team Providers Care Registered Radiation Therapist Name Role Phone Murphy Albrecht Unavailable Unavailable Porter Solomon Unavailable Unavailable Allergies and adverse reactions No Known Allergies Care Team Name Role Address Phone Organization Dates Murphy Albrecht Attending Physician [address] [place] [address] [address], [place], [address], [place] (Office): : [facility] [place] 05/01/2015 - 05/15/2015 Porter Solomon Attending Physician [address] [place] [address], [id number], [place] (Office): : [facility] [place] 05/01/2015 - 05/15/2015 Immunizations Immunization Status Vaccine [...] FOLLOWING EXPLANTATION OF KNEE JOINT PROSTHESIS 05/01/[address] active 2 AFTERCARE FOLLOWING JOINT REPLACEMENT SURGERY 05/01/[address] active 3 HYPERLIPIDEMIA, UNSPECIFIED 05/01/[address] active 4 UNSPECIFIED LACK OF COORDINATION 05/01/[address] active 5 ESSENTIAL (PRIMARY) HYPERTENSION 11/09/[address] active 6 PRIMARY GENERALIZED (OSTEO)ARTHRITIS 11/09/[address] active Reason for Referral No Reasons for Referral Entered Social History Social History Observation Description Start Date End Date Code Code System Current Smoking Status Tobacco smoking consumption unknown 869070980 SNOMED CT Sex Assigned At Female 1955 06732-4 [facility] Vital Signs Code Code System Vitals Name Values and Units Timing Information 31453-2 [facility] Pain Level Value=5.0 05/15/2015 65168-5 LOINC Weight Niwhr=311.5 Units=Lbs 9279-1 [facility] Respiratory Rate Value=18.0 Units=/m in 05/14/2015 8462-4 [facility] Blood Pressure-Diastolic Value=74 Un its=mmHg 05/14/2015 8480[facility] Blood Pressure-Systolic Hpbig=761 Un its=mmHg 05/14/2015 8310-5 [facility] Body Temperature Value=97.4 Units=?? F 05/14/2015 8867-4 [facility] Heart rate Value=82.0 Units=/min 12698-7 [facility] O2 % dC Oximetry Value=97.0 Units= % 05/14/2015 8302-2 [facility] Height Value=55.9 Units=Inches 11/09/2012
== END 2024-10-09 11:16 | disposition home or self-care (01) ==
LOC: HO.HKA 10:31
PROVIDERS: PCP Family Medicine; Visit Provider Internal Medicine Nephrology
DX: I10 Essential (primary) hypertension (principal)
CPT/HCPCS: 99214

== ENCOUNTER → 2024-10-09 10:30 | Outpatient (BNVA) | payer MEDICARE, MEDICAID, SELFPAY | PROVIDERS: PCP Family Medicine; Visit Provider Internal Medicine Nephrology | DX: I10 Essential (primary) hypertension (principal) | CPT/HCPCS: 99212 ==

== ENCOUNTER 2024-12-03 09:01 | Outpatient (REF) | payer MEDICARE, MEDICAID, SELFPAY ==
--- NOTE | ~2024-12-03 | XR_ITS ---
EXAMINATION: XR HIP, RIGHT CLINICAL INFORMATION: 4 day h/o pain in right posterior hip area COMPARISON: None available. TECHNIQUE: Two views of the right hip. FINDINGS: No fracture, dislocation, or suspicious bone lesion. There is normal alignment. There is mild degenerative arthritis in the right hip joint. There is over coverage of the posterior acetabulum, a finding which can be associated with pincer-type femoral acetabular impingement. There is mild enthesopathic spurring of the greater trochanter. No soft tissue abnormalities. XR/XR hip RT min 2V IMPRESSION: No acute findings right hip. Mild degenerative arthritis. See above. Electronically signed by: Jaylen Sandy MD 12/03/2024 09:39 AM EDT RP
--- OUTSIDE RECORDS SUMMARY | 2024-12-03 09:26 | XMS_ITS | Encounter Summary ---
Author Organization [facility] Address [address] [facility] 7[address] [place] [address] Care Team Providers Care Gate Operator Name Role Phone Merly, Larisa HOLLINS Primary Care Provider Ameena Grant PharmD Unavailable José Miguel Prado MD Unavailable Jennifer Torres Unavailable Encounter Details Date Type Department Care Team (Late st Contact Info) Description 03/02/2023 Orders Only [facility] [address] [place], [place] [phone] Paulo Rosa MD [address] [place] [address] H. pylori infection (Primary Dx) Social History [...] Care Team (Late st Contact Info) Description 12/10/2024 10:00 AM EDT Medication Management [facility] [address] [place] [address] Ameena Grant, PharmD [address] [place], [place] [phone] 01/13/2025 9:45 AM EDT Office Visit [facility] [address] [place] [address] Larisa Moreland MD [address] [place] [address] Scheduled Orders Name Type Priority Associated Diagnoses Orde r Schedule Helicobacter pylori??Antigen, EIA, Stool Lab Routine H. pylori infection Expected: 03/02/2023 (Approximate), Expires: 03/02/2024 documented as of this encounter Goals Goal Patient Goal Type Associated Problems Recent Progress Patient-Stated? Author Blood Pressure < 150/90 Blood Pressure 159/93( 025 8:52 AM EDT) No Ameena Quiles, PharmD documented as of this encounter Visit Diagnoses Diagnosis H. pylori infection- Primary Helicobacter pylori (H. pylori) documented in this encounter Care Teams Gate Operator Relationship Specialty Start Date End Date Larisa Moreland MD [address] [place] [address] PCP - General Family Medicine 07/24/18 Ameena Grant, PharmD [address] [place] [address] Pharmacist Internal Medicine 08/15/22 José Miguel Prado MD [address] [place] [address] Nephrology 07/30/[address] Torres [address] 3rd [place] [address] Gastroenterology 08/19/24 documented as of this encounter
--- OUTSIDE RECORDS SUMMARY | 2024-12-03 09:26 | XMS_ITS | Encounter Summary ---
Author Organization [facility] [facility] Address [address] [facility] [address] [place] [address] Care Team Providers Care Piece Dye Worker Name Role Phone Larisa Moreland MD Primary Care Provider +- [phone] Ameena Grant PharmD Unavailable [phone]- [phone] José Miguel Prado MD Unavailable Jennifer Torres Unavailable Encounter Details Date Type Department Care Team (Late st Contact Info) Description 11/22/2023 Orders Only [facility] [address] [place], [place] [phone] Larisa Moreland MD [address] [place], [place] [phone] Vitamin D deficiency (Primary Dx) Social History [...] Description 12/10/2024 10:00 AM EDT Medication Management [facility] [address] [place] [address] Ameena Grant PharmD [address] [place] [address] 01/13/2025 9:45 AM EDT Office Visit [facility] [address] [place] [address] Larisa Moreland MD [address] [place] [address] documented as of this encounter Goals Goal Patient Goal Type Associated Problems Recent Progress Patient-Stated? Author Blood Pressure < 150/90 Blood Pressure 159/93( 025 8:52 AM EDT) No Ameena Quiles PharmD documented as of this encounter Visit Diagnoses Diagnosis Vitamin D deficiency- Primary documented in this encounter Care Teams Piece Dye Worker Relationship Specialty Start Date End Date Larisa Moreland MD [address] [place] [address] PCP - General Family Medicine 07/24/18 Ameena Grant PharmD [address] [place] [address] Pharmacist Internal Medicine 08/15/22 José Miguel Prado MD [address] [place] [address] Nephrology 07/30/[address] Jennifer Torres [address]rd [place] [address] Gastroenterology 08/19/24 documented as of this encounter
--- OUTSIDE RECORDS SUMMARY | 2024-12-03 09:26 | XMS_ITS | Encounter Summary ---
Author Organization [facility] Address [address] [facility] 7t [place] [address] Care Team Providers Care Director Automotive Name Role Phone Larisa Moreland MD Primary Care Provider [phone]- [phone] Ameena Grant PharmD Unavailable [phone]- [phone] José Miguel Prado MD Unavailable Jennifer Torres Unavailable Reason for Visit * Reason Comments Burn Encounter Details Date Type Department Care Team (Late st Contact Info) Description 12/03/2024 8:40 AM EDT Office Visit [facility] [address] [place] [address] H/O mock (Primary Dx); Pain of right thigh; Hypertension, unspecified type Social History Tobacco Use Types [...] Sign Reading Time Taken Comments Blood Pressure 159/93 12/03/2024 8:52 AM EDT Pulse 98 12/03/2024 8:40 AM EDT Temperature 36.7 ??C (98.1 ??F) 12/03/2024 8:40 AM ED T Respiratory Rate 18 12/03/2024 8:40 AM EDT Oxygen Saturation 98% 12/03/2024 8:40 AM EDT Inhaled Oxygen Concentration - - Weight 78.1 kg (172 lb 3.2 oz) 12/03/2024 8:40 A M EDT Height - - Body Mass Index 35.99 08/19/2024 10:03 AM EST documented in this encounter Plan of Treatment Upcoming Encounters Date Type Department Care Team (Late st Contact Info) Description 12/10/2024 10:00 AM EDT Medication Management [facility] [address] [place] [address] Ameena Grant, PharmD [address] [place] [address] 01/13/2025 9:45 AM EDT Office Visit [facility] [address] [place] [address] Larisa Moreland MD [address] [place] [address] Scheduled Orders Name Type Priority Associated Diagnoses Orde r Schedule XR Hip 2 or 3 Views Right Imaging Routine Pain of right thigh Expected: 12/03/2024, Expires: 12/03/2025 documented as of this encounter Goals Goal Patient Goal Type Associated Problems Recent Progress Patient-Stated? Author Blood Pressure < 150/90 Blood Pressure 159/93( 025 8:52 AM EDT) No Ameena Quiles PharmD documented as of this encounter Visit Diagnoses Diagnosis H/O mock- Primary Pain of right thigh Hypertension, unspecified type documented in this encounter Additional Health Concerns Assessment Noted Time PHQ-9 Depression Total Score: 8 05/15/20 24 10:16 AM EDT documented as of this encounter Care Teams Director Automotive Relationship Specialty Start Date End Date Larisa Moreland MD [address] [place] [address] PCP - General Family Medicine 07/24/18 Ameena Grant, PharmD [address] [place] [address] Pharmacist Internal Medicine 08/15/22 José Miguel Prado MD [address] [place] [address] Nephrology 07/30/[address] Jennifer Torres [address] 3rd [place] [address] Gastroenterology 08/19/24 documented as of this encounter
--- OUTSIDE RECORDS SUMMARY | 2024-12-03 09:26 | XMS_ITS | Clinical Summary ---
Author Organization [employer] Address [address] [facility] 7t [place] [address] Care Team Providers Care Aircraft Instrument Repairer Name Role Phone Larisa Moreland MD Primary Care Provider +- [phone] Ameena Grant PharmD Unavailable [phone] José Miguel Prado MD Unavailable Jennifer Torres Unavailable Allergies No known active allergies Medications Diclofenac Sodium 1 % gelIndications: Left hip pain APPLY 2 GRAMS TOPICALLY TWICE DAILY IN THE MORNING AND AT BEDTIME NEEDED 100 g 3 023 Active ezetimibe (Zetia) 10 MG tabletIndicatio ns:Dyslipidemia Take 1 tablet (10 mg) by mouth Once per day. 90 tablet 3 024 Active docusate sodium (Colace) 100 MG capsuleIndicati ons:Irritable bowel syndrome, unspecified type TAKE 1 CAPSULE BY MOUTH TWICE DAILY NEEDED FOR CONSTIPATION 180 capsule 1 024 Active cyanocobalamin (Vitamin B-12) 500 MCG tabletIndicatio ns:Cobalamin deficiency TAKE 1 TABLET BY MOUTH EVERY MORNING 90 tablet 3 024 Active polyvinyl alcohol (Liquifilm Tears) 1.4 % ophthalmic solution INSTILL 2 DROPS IN EACH EYE DAILY NEEDED DRY EYES 15 mL 1 025 Active amLODIPine (Norvasc) 10 MG tabletIndicatio ns:Essential hypertension TAKE 1 TABLET BY MOUTH EVERY EVENING 90 tablet 3 025 Active metoprolol succinate XL (Toprol-XL) 25 MG 24 hr tabletIndicatio ns:Essential hypertension TAKE 1 TABLET BY MOUTH EVERY MORNING DO NOT BREAK, CRUSH, DISSOLVE OR CHEW 90 tablet 3 025 Active famotidine (Pepcid) 20 MG tabletIndicatio ns:Gastroesopha geal reflux disease, unspecified whether esophagitis present TAKE 1 TABLET BY MOUTH TWICE DAILY 60 tablet 1 025 Active Linzess 145 MCG capsuleIndicati ons:Irritable bowel syndrome, unspecified type TAKE 1 CAPSULE BY MOUTH EVERY MORNING 30 capsule 1 025 Active rosuvastatin (Crestor) 40 MG tabletIndicatio ns:Cardiac risk counseling,Dysl ipidemia TAKE 1 TABLET BY MOUTH EVERY EVENING 30 tablet 11 025 Active hydrALAZINE (Apresoline) 10 MG tabletIndicatio ns:Hypertension , unspecified type TAKE 1 TABLET BY MOUTH FOUR TIMES DAILY 360 tablet 025 Active cholecalciferol (Vitamin D-3) 25 MCG tabletIndicatio ns:Vitamin D deficiency TAKE 1 TABLET BY MOUTH EVERY MORNING 90 tablet 3 025 Active lidocaine-prilo maxx (Emla) 2.5-2.5 % cream Apply topically if needed in the morning and at bedtime for moderate pain. 30 g 025 Active acetaminophen (Tylenol) 325 MG tablet Take 1 tablet (325 mg) by mouth every 6 (six) hours if needed for moderate pain or fever. 30 tablet 025 Active cholecalciferol (Vitamin D-3) 25 MCG (1000 UT) tabletIndicatio ns:Vitamin D Deficiency Take 1 tablet (25 mcg) by mouth Once per day. 90 tablet 3 024 2024 Discontinued Blood Pressure Monitoring (Blood Pressure Kit) kitIndications: Primary hypertension Use as directed 1 kit 024 2024 Discontinued(M ed list cleanup (will not trigger notification to Pharmacy)) Active Problems Patient Care Coordination No te Formatting of this note migh t be different from the original. Enrolled in [facility] HTN clinic with Ameena Grant PharmD Problem [...] 08/19/24 DARRYN (acute kidney injury) 07/30/2024 Overview (10/15/2024): Lab Results Component Value Date CREATININE 0.81 07/30/2024 CREATININE 1.07 07/01/2024 CREATININE 1.55 (H) 06/17/2024 CREATININE 0.87 12/13/2021 CREATININE 0.87 12/13/2021 CREATININE 0.87 02/23/2021 Note from José Miguel Prado MD , aluminum boat assembly supervisor 09/2024 reviewed Depression, recurrent 05/15/2024 Dry eyes 05/15/2024 Overview [...] due after 08/19/25 -eye care facilitated by [facility] -dental home is [facility] -health care proxy paperwork given 08/17/23 Assessment & Plan (08/19/2024 10:48 AM EST): -next comprehensive annual evaluation due after 08/19/25 -eye care facilitated by [facility] -dental home is [facility] -health care proxy paperwork given 08/17/23 Assessment & Plan (06/19/2023 9:05 AM EST): -next physical exam due 03/06/2024. -eye care facilitated by [facility]. -dental home is [facility]. Assessment & Plan (03/06/2023 10:40 AM EDT): -next physical exam due 03/06/2024. -eye care facilitated by [facility]. -dental home is [facility]. Peripheral reticular degeneration of both eyes 0 [...] the retina today. She was educated to [facility] with any sudden onset of flashes of [...] the retina today. She was educated to [facility] R[facility] with any sudden onset of flashes of [...] the retina today. She was educated to [facility] [place] with any sudden onset of flashes of [...] -intake for colonoscopy with Jennifer D Melissa MEDICINAL CHEMIST-BC done 01/29/2024 -done on 05/30/[address] [...] -intake for colonoscopy with Jennifer D Melissa MEDICINAL CHEMIST-BC done 01/29/2024 -done on 05/30/[address] [...] -intake for colonoscopy with Jennifer D Melissa MEDICINAL CHEMIST-BC done 01/29/2024 -has appt. On 05/30/24 Assessment [...] Overview (11/16/2023): Lab Results Component Value Date [id number] 42.7 03/28/2023 Improved with Vit D supplementation Assessment & Plan (06/19/2023 9:05 AM EST): Patient Vitamin D level was 12 on 08/12/21. Repeat was low 07/2021 188 continue oral b12 and recheck today. Vitamin D3 1000 units, 1 tablet daily started. No results found for: [id number] Assessment & Plan (03/06/2023 10:26 AM EDT): Patient Vitamin D level was 12 on 08/12/21. Repeat was low 07/2021 188 continue oral b12 and recheck today. Vitamin D3 1000 units, 1 tablet daily started. No results found for: [id number] Osteoarthritis of both knees 07/07/2014 Overview (08/16/2023): [...] to BID 06/19/23 -seen by Dr. Lind, aluminum boat assembly supervisor 02/28/24 lisinopril increased to 20 mg daily. [...] to BID 06/19/23 -seen by Dr. Lind, aluminum boat assembly supervisor 02/28/24 lisinopril increased to 20 mg daily. (She was on 40 in the past) 24 hour ambulatory blood pressure monitor ordered. Thyroid function, renin, aldosterone, cortisol, metanephrines as well as Doppler of her renal arteries ordered. -Hospitalized 06/17/24-06/20/24 fainting, DARRNY, hyponatremia: Medications discontinued: chlorthalidone, lisinopril, spironolactone -BP [...] with our PharmD -seen by Dr. Lind, aluminum boat assembly supervisor 02/28/24 I increased her lisinopril to 20 mg daily. (She was on 40 in the past) Her renal functions and serum potassium are normal. 24 hour ambulatory blood pressure monitor ordered. Thyroid function, renin, aldosterone, cortisol, metanephrines as well as Doppler of her renal arteries ordered. -05/15/24 pt notes she has not heard from aluminum boat assembly supervisor, is schedule for follow- up 08/09/24. Assessment [...] in case needs to go to ED -PROCESS TANK TENDER apt 09/2023 -apt w PCP 08/17/2022 Muscle strain 01/26/2023 07/30/2024 Encounters Date Type Department Care Team Description 12/03/2024 8:40 AM EDT Office Visit [facility] [address] [place] [phone] H/O mock (Primary Dx); Pain of right thigh; Hypertension, unspecified type 11/21/2024 Refill [facility] [address] [place] [address] Ameena Grant PharmD Hypertension, unspecified type 11/13/2024 Telephone [facility] [address] [place] [address] Ameena Grant PharmD Appointment Confirmation (The appointment was already made on 01/13/2025 at 9:45 am.) 11/13/2024 Refill [facility] [address] [place] [phone] Larisa Moreland MD Vitamin D deficiency 11/07/2024 Telephone [facility] [address] [place] [address] Larisa Moreland MD May recall 10/30/2024 Travel 10/21/2024 Refill [facility] [address] [place] [address] Ameena Grant, Camryn Hypertension, unspecified type 10/16/2024 Refill [facility] [address] [place], [place] [phone] Larisa Moreland MD Essential hypertension; Gastroesophageal reflux disease, unspecified whether esophagitis present; Irritable bowel syndrome, unspecified type; Cardiac risk counseling; Dyslipidemia 10/03/2024 Orders Only GENERIC EXTERNAL DATA DEPARTMENT Provider, Generic External Data 10/01/2024 Refill [facility] [address] [place] [address] Larisa Moreland MD 09/18/2024 Travel from Last 3 Months Immunizations Name [...] oz) 12/03/2024 8:40 A M EDT Height 147.3 cm (4' 10 ) 08/19/2024 10:03 AM EST Body Mass Index 35.99 08/19/2024 10:03 AM EST Plan of Treatment Upcoming Encounters Date Type Department Care Team (Late st Contact Info) Description 12/10/2024 10:00 AM EDT Medication Management [facility] [address] [place] [phone] Ameena Grant, PharmD [address] [place] [address] 01/13/2025 9:45 AM EDT Office Visit [facility] [address] [place], [place] [phone] Larisa Moreland MD [address] [place] [address] Health Maintenance Due Date Last Done Comments CT Colonography 1956 FIT DNA/Cologuard 1956 FOBT 1955 Sigmoidoscopy 1956 FIT 03/15/2023 03/15/2022 Alcohol/Substance Use Screening 05/15/2025 05/15/2024 Depression Screening 05/15/2025 05/15/2024, 05/15/20 24 SDOH Screening 08/08/2025 08/08/2024 COVID-19 Vaccine ( season) 2025 03/06/2023, 11/30/2021, 08/02/2021, Additional history exists Postponed from 03/24/2024 (Patient Refused) Tobacco Screening 12/03/2025 12/03/2024 Mammogram 01/23/2026 01/24/2024, 06/01/2024, 12/27/2022, Additional history [...] Pressure 159/93( 025 8:52 AM EDT) No Piers-Gambl e, Ameena, PharmD Procedures Procedure Name Priority Date/Time Associated Diagnosis Comments BACTERIAL VAGINOSIS PANEL Routine 10/03/2024 12:00 AM EDT CHLAMYDIA/N. GONORRHOEAE RNA, TMA, UROGENITAL Routine 10/03/2024 12:00 AM EDT LIPID PANEL, STANDARD Routine 07/30/2024 9:25 AM EST HM COLONOSCOPY Routine 05/30/2024 MAMMOGRAPHY [...] Recently Relevant to Health Maintenance Results * Bacterial Vaginosis (10/03/2024 12:00 AM EDT) TRICHOMONAS VAGINALIS DETECTION BY PCR NOT DETECTED Not Detect [facility] BACTERIAL VAGINOSIS DETECTION BY PCR NEGATIVE Negative [facility] Comment:The BV organism targ ets of the Xpert Xpress MVP test can becommensal in women; Xpert Xpress MVP positive results forbacterial vaginosis should be considered in conjunction withother clinical and patient information to determine thedisease status. Organisms that are not detected by the XpertXpress MVP test have also been reported to be associatedwith BV and aerobic vaginitis.The Xpert Xpress MVP test performance has not been evaluatedin patients under the age of 14. CRISTEL[employer] GROUP DETECTION BY PCR NOT DETECTED Not Detect [facility] Cristela glab krusei PCR NOT DETECTED Not Detect [facility] 10/03/2024 10/03/2024 us Generic External Data Provider LAB MICROBIOLOGY - GENERAL ORDERABLES Final Result [facility] [address] [place] [phone] * Chlamydia/N. Gonorrhoeae RNA, TMA, Urogenitial (10/03/2024 12:00 AM EDT) CT PCR NOT DETECTED Not Detect. [facility] Comment:A not detected test result does not exclude the possibilityof infection because test results can be affected byimproper specimen collection, concurrent antibiotic therapy,or the number of organisms in the specimen which may bebelow the sensitivity of the test. As with many diagnostictests, results from the Xpert CT/NG assay should beinterpreted in conjunction with other laboratory andclinical data available to the clinician.Xpert CT/NG performance has not been evaluated in patientsless than 14 years of age. The assay should not be used forthe evaluationof suspected sexual abuse or for other medico-legalindications. Additional testing is recommended in anycircumstance when false positive or false negative resultscould lead to adverse medical, social or psychologicalconsequences. NG PCR NOT DETECTED Not Detect. [facility] Comment:A not detected test result does not exclude the possibilityof infection because test results can be affected byimproper specimen collection, concurrent antibiotic therapy,or the number of organisms in the specimen which may bebelow the sensitivity of the test. As with many diagnostictests, results from the Xpert CT/NG assay should beinterpreted in conjunction with other laboratory andclinical data available to the clinician.Xpert CT/NG performance has not been evaluated in patientsless than 14 years of age. The assay should not be used forthe evaluationof suspected sexual abuse or for other medico-legalindications. Additional testing is recommended in anycircumstance when false positive or false negative resultscould lead to adverse medical, social or psychologicalconsequences. 10/03/2024 10/03/2024 Narrative [facility] - 10/04/2024 11:39 AM EDT Vaginal us Generic External Data Provider LAB MICROBIOLOGY - GENERAL ORDERABLES Final Result [facility] [address] [place] [phone] * Lipid Panel, Standard (07/30/2024 9:25 AM EST) Pathologist [facility] Triglycerides 75 <150 mg/dL [facility] Comment:Desirable Triglyceri de: less than 150 mg/dLBorderline High Triglyceride 150-199 mg/dLHigh Triglyceride: 200-499 mg/dLVery High Triglyceride: greater than or equal to 5OO mg/dL Cholesterol 159 <200 mg/dL [facility] Comment:Desirable Cholestero l: less than 200 mg/dLBorderline High Cholesterol: 200-239 mg/dLHigh Cholesterol: greater than 239 mg/dL LDL Cholesterol Calculated 81 <100 mg/dL [facility] Comment:Desirable LDL: less than 100 mg/dLNear Optimal/Above Optimal LDL: 110- 129 mg/dLBorderline High LDL: 130-159 mg/dLHigh LDL: 160-189 mg/dLVery High LDL: greater than or equal to 190 mg/dL HDL Cholesterol 63 >40 mg/dL [facility] Comment:Desirable HDL: great er than 40 mg/dL Note: This HDL assay may give artificially low results in patients with liver disease. 07/30/2024 9:25 AM EST 07/30/2024 11:39 AM EST Larisa Moreland MD LAB BLOOD ORDERABLES Final Result [facility] [address] [place] [phone] * Colonoscopy (05/30/2024) Colonoscopy Normal Normal Comment:Reshma Lewis MD , pers onal history of polyps Historical Provider HEALTH MAINTENANCE Final Result * Mammography (01/24/2024 4:16 PM EDT) Mammogram BIRADS 1 Normal, Abnormal, BIRADS 1 , BIRADS 2 Anatomical Region Laterality Modality Other Historical Provider HEALTH MAINTENANCE Final Result * Hepatitis C Antibody with Reflex to HCV, RNA, Quantitative, Real-Time PCR (03/28/2023 8:50 AM EDT) Pathologist [facility] Hepatitis C Antibody Nonreactive Nonreactive [facility] Comment:Antibodies to HCV no t detected; does not exclude early acuteHCV infection. Blood Venous blood specimen / Unknown 03/28/2023 8:50 AM EDT 03/28/2023 8:50 AM EDT Larisa Moreland MD LAB BLOOD ORDERABLES Final Result [facility] [address] [place] [phone] * Fecal immunochemical test x1 (FIT) (03/15/2022 12:00 AM EDT) FIT Date 1 03/14/2022 [facility] FIT Date 2 03/15/2022 [facility] FIT1 NEGATIVE NEGATIVE [facility] FIT2 NEGATIVE NEGATIVE [facility] 03/15/2022 Dru Fernández MD HISTORICAL/NON ORDERABLE LABS Final Result Performing Organization Address City/[facility] Co de Phone Number [facility] [address] [place] [address], * Hm Pap Smear (05/18/2021) Pap Negative for intraephithelial lesion or malignancy Negative for intraephithelial lesion or malignancy, Other HPV Undetected Dru Fernández MD HEALTH MAINTENANCE Final Result from Last 3 Months or Most Recently Relevant to Health Maintenance Insurance [facility] STANDARD [facility] MEDICARE ADVANTAGE HMO [facility] MEDICARE ADVANTAGE Care Teams Aircraft Instrument Repairer Relationship Specialty Start Date End Date Ney, MD Larisa [address] [place] [address] PCP - General Family Medicine 07/24/18 Ameena Grant, PharmD [address] [place] [address] Pharmacist Internal Medicine 08/15/22 José Miguel Prado MD [address] [place] [address] Drive [address] [place] [address] Nephrology 07/30/24 Jennifer Torres [address] [place] [address] Drive 3rd [place] [address] Gastroenterology 08/19/24
--- OUTSIDE RECORDS SUMMARY | 2024-12-03 09:26 | XMS_ITS | Encounter Summary ---
Author Organization [employer] Address [address] [facility] 7t [place] [address] Care Team Providers Care Unix Systems Administrator Name Role Phone Larisa Moreland MD Primary Care Provider Ameena Grant PharmD Unavailable [phone] José Miguel Prado MD Unavailable Jennifer Torres Unavailable Encounter Details Date Type Department Care Team ([facility] Contact Info) Description 08/23/2022 Abstract [facility] [address] [place] [address] Larisa Moreland MD [address] [place], [place] [phone] Social History Tobacco Use Types Packs/Day Years [...] Upcoming Encounters Date Type Department Care Team ([facility] Contact Info) Description 12/10/2024 10:00 AM EDT Medication Management [facility] [address] [place] [address] Ameena Grant, PharmD [address] [place] [address] 01/13/2025 9:45 AM EDT Office Visit [facility] [address] [place] [place] [address] Larisa Moreland MD [address] [facility] [address] [place] [address] documented as of this encounter Goals Goal [...] Result * Colonoscopy (12/03/2018) Colonoscopy poor prep [facility] Provider HEALTH MAINTENANCE Final Result * Pap Smear (02/27/2017 12:00 AM EDT) Swab [facility] Provider LAB CYTOLOGY ORDERABLES F inal Result IMAGING documented in this encounter Visit Diagnoses Not on filedocumented in this encounter Care Teams Unix Systems Administrator Relationship Specialty Start Date End Date Larisa Moreland MD [facility] [facility] [place], [place] [phone] PCP - General Family Medicine 07/24/18 Ameena Grant, MelchorD [address] [place], [place] [phone] Pharmacist Internal Medicine 08/15/22 José Miguel Prado MD [address] [place] [address] Nephrology 07/30/[address] Jennifer Torres [address] 3rd [place] [address] Gastroenterology 08/19/24 documented as of this encounter
--- OUTSIDE RECORDS SUMMARY | 2024-12-03 09:26 | XMS_ITS | Encounter Summary ---
Author Organization [employer] Address [address] [facility] [address] [place] [address] Care Team Providers Care Industrial Ecologist Name Role Phone Merly, Larisa HOLLINS Primary Care Provider + [phone] Ameena Grant PharmD Unavailable [phone] José Miguel Prado MD Unavailable Jennifre Torres Unavailable Reason for Visit * Reason Comments Med Refill Encounter Details Date Type Department Care Team ([facility] Contact Info) Description 12/01/2022 Refill [facility] [address] [place], [place] [phone] Crista Victor, ANA [address] [place] [address] Dept [place] [address] Left hip pain Social History Tobacco Use [...] Department Care Team (Late Contact Info) Description 12/10/2024 10:00 AM EDT Medication Management [facility] [address] [place], [place] [phone] Ameena Grant, PharmD [address] [place] [address] 01/13/2025 9:45 AM EDT Office Visit [facility] [address] [place] [address] Larisa Moreland MD [address] [place] [address] documented as of this encounter Goals Goal Patient Goal Type Associated Problems Recent Progress Patient-Stated? Author Blood Pressure < 150/90 Blood Pressure 159/93( 025 8:52 AM EDT) No Ameena Quiles PharmD documented as of this encounter Visit Diagnoses Diagnosis Left hip pain Pain in joint, pelvic region and thigh documented in this encounter Care Teams Industrial Ecologist Relationship Specialty Start Date End Date Larisa Moreland MD [address] [place] [address] PCP - General Family Medicine 07/24/18 Ameena Grant, PharmD [address] [place] [address] Pharmacist Internal Medicine 08/15/22 José Miguel Prado MD [address] [place] [address] Nephrology 07/30/24 Jennifer Torres [address] 3rd [place] [address] Gastroenterology 08/19/24 documented as of this encounter
--- OUTSIDE RECORDS SUMMARY | 2024-12-03 09:26 | XMS_ITS | Encounter Summary ---
Author Organization [employer] Address [address] [facility] 7t [place] [address] Care Team Providers Care Map Mounter Name Role Phone Larisa Moreland MD Primary Care Provider + [phone] Ameena Grant PharmD Unavailable José Miguel Prado MD Unavailable Jennifer Torres Unavailable Encounter Details Date Type Department Care Team (Late st Contact Info) Description 07/06/2022 Orders Only [facility] [address] [place], [place] [phone] Hanna Aguirre LPN Social History Tobacco Use [...] Description 12/10/2024 10:00 AM EDT Medication Management [facility] [address] [place] [phone] Ameena Grant, PharmD [address] [place], [place] [phone] 01/13/2025 9:45 AM EDT Office Visit [facility] [address] [place] [address] [phone] Larisa Moreland MD [address] [place] [address] documented as of this encounter Visit Diagnoses Not on filedocumented in this encounter Care Teams Map Mounter Relationship Specialty Start Date End Date Larisa Moreland MD [address] [place] [address] PCP - General Family Medicine 07/24/18 Ameena Grant, MelchorD [address] [place] [address] Pharmacist Internal Medicine 08/15/22 José Miguel Prado MD [address] [place] [address] Nephrology 07/30/24 Jennifer Torres [address] 3rd [place] [address] Gastroenterology 08/19/24 documented as of this encounter
--- OUTSIDE RECORDS SUMMARY | 2024-12-03 09:26 | XMS_ITS | Encounter Summary ---
Author Organization [employer] Address [address] [facility] 7t [place] [address] Care Team Providers Care Lining Stuffer Name Role Phone Larisa Moreland MD Primary Care Provider + [phone] Ameena Grant PharmD Unavailable José Miguel Prado MD Unavailable Jennifer Torres Unavailable Encounter Details Date Type Department Care Team (Late st Contact Info) Description 04/26/2023 Abstract [facility] [address] [place] [address] Deepika Gurrola Social History Tobacco Use Types [...] Description 12/10/2024 10:00 AM EDT Medication Management [facility] [address] [place], [place] [phone] Ameena Grant, PharmD [address] [place] [address] 01/13/2025 9:45 AM EDT Office Visit [facility] [address] [place], [place] [phone] Larisa Moreland MD [address] [place] [address] documented as of this encounter Goals Goal [...] on filedocumented in this encounter Care Teams Lining Stuffer Relationship Specialty Start Date End Date Larisa Moreland MD [address] [place] [address] PCP - General Family Medicine 07/24/18 Ameena Grant, PharmD [address] [place] [address] Pharmacist Internal Medicine 08/15/22 José Miguel Prado MD [address] [place] [address] Nephrology 07/30/[address] Jennifer Torres [address] 3rd [place] [address] Gastroenterology 08/19/24 documented as of this encounter
--- OUTSIDE RECORDS SUMMARY | 2024-12-03 09:26 | XMS_ITS | Encounter Summary ---
Author Organization [employer] [facility] Address [address] [facility] 7t [place] [address] Care Team Providers Care Plc Programmer Name Role Phone Merly, Larisa HOLLINS Primary Care Provider Ameena Grant PharmD Unavailable José Miguel Prado MD Unavailable Jennifer Torres Unavailable Reason for Visit * Reason Comments Med Refill Encounter Details Date Type Department Care Team (Late st Contact Info) Description 07/06/2022 Refill [facility] [address] [place] [address] [phone] Ameena Grant, PharmD [address] [place], [place] [phone] Hypertension, essential (Primary Dx) Social History Tobacco [...] Description 12/10/2024 10:00 AM EDT Medication Management [facility] [address] [place] [address] Penelope Grantsa, PharmD [address] [place], [place] [phone] 01/13/2025 9:45 AM EDT Office Visit [facility] 230 [place] [address] Larisa Moreland MD [address] [place] [address] documented as of this encounter Visit Diagnoses Diagnosis Hypertension, essential- Primary Unspecified essential hypertension documented in this encounter Care Teams Plc Programmer Relationship Specialty Start Date End Date Larisa Moreland MD [address] [place] [address] PCP - General Family Medicine 07/24/18 Ameena Grant, MelchorD [address] [place] [address] Pharmacist Internal Medicine 08/15/22 José Miguel Prado MD [address] [place] [address] Nephrology 07/30/[address] Torres [address] 3rd [place] [address] Gastroenterology 08/19/24 documented as of this encounter
--- OUTSIDE RECORDS SUMMARY | 2024-12-03 09:26 | XMS_ITS | Encounter Summary ---
Author Organization [employer] Address 75 [facility] 7t [place] [address] Care Team Providers Care General Lot Attendant Name Role Phone Larisa Moreland MD Primary Care Provider +- [phone] Ameena Grant PharmD Unavailable José Miguel Prado MD Unavailable Jennifer Torres Unavailable Reason for Visit * Reason Comments Med Refill Encounter Details Date Type Department Care Team (Late st Contact Info) Description 11/21/2024 Refill [facility] 230 [place], [place] [phone] Ameena Grant, PharmD [address] [place], [place] [phone] Hypertension, unspecified type Social History Tobacco Use [...] Description 12/10/2024 10:00 AM EDT Medication Management [facility] [address] [place] [address] Ameena Grant, PharmD [address] [place] [address] 01/13/2025 9:45 AM EDT Office Visit [facility] [address] [place] [address] Larisa Moreland MD [address] [place] [address] documented as of this encounter Goals Goal Patient Goal Type Associated Problems Recent Progress Patient-Stated? Author Blood Pressure < 150/90 Blood Pressure 159/93( 025 8:52 AM EDT) No Ameena Quiles PharmD documented as of this encounter Visit Diagnoses Diagnosis Hypertension, unspecified type documented in this encounter Additional Health Concerns Assessment Noted Time PHQ-9 Depression Total Score: 8 05/15/20 24 10:16 AM EDT documented as of this encounter Care Teams General Lot Attendant Relationship Specialty Start Date End Date Larisa Moreland MD [address] [place] [address] PCP - General Family Medicine 07/24/18 Ameena Grant, MelchorD [address] [place] [address] Pharmacist Internal Medicine 08/15/22 José Miguel Prado MD [address] [place] [address] Nephrology 07/30/[address] Jennifer Torres [address] 3rd [place] [address] Gastroenterology 08/19/24 documented as of this encounter
--- OUTSIDE RECORDS SUMMARY | 2024-12-03 09:26 | XMS_ITS | Clinical Summary ---
Author Organization [facility] Address 100 [facility] 200 [place] [address] Phone Care Team Providers Care Catia Designer Name Role Phone Larisa Moreland MD Primary Care Provider U navailable Allergies No known active allergies Medications cholecalciferol (VITAMIN D-3) 1.25 MG (00221 UT) capsule Take 1 capsule by mouth [...] Colorectal Cancer Screening: Sigmoidoscopy 2005 Influenza Vaccine (Season Ended) 2025 05/04/2021, 04/08/2020, 07/02/2019, Additional history exists Pneumococcal Vaccine: 50+ Years Completed 05/19/2022 Hepatitis B Vaccine Aged Out No longe r eligible based on patient's age to complete this topic Insurance Medicaid [place] UHC Medicare [facility] Medicare Medicaid [place] Care Teams Catia Designer Relationship Specialty Start Date End Date Larisa Moreland MD [address] [place] [address] PCP - General Family Medicine 04/19/23
--- OUTSIDE RECORDS SUMMARY | 2024-12-03 09:26 | XMS_ITS | Clinical Summary ---
Author Organization [facility] Address 100 [place] [address] Care Team Providers Care Car Usher Name Role Phone System, Provider Not In Primary Care Provider Un available Allergies No known active allergies Medications No known medications Immunizations Immunization Administration Dates Next Due Tdap 03/08/2023 Social History Tobacco Use Types Packs/Day Years Used Date Smoking Tobacco: Never Assessed Comments No Sex and Gender Information Value Date Recorded Sex Assigned at Female 03/08/2023 3:23 PM EDT Legal Sex Female 3:14 PM EDT Gender Identity Female 03/08/2023 3:23 [...] Bone Density (Females,Ages 65 and older) 2021 COVID-19 Vaccine (2023-25 season) 2024 03/06/2023, 11/30/2021, 08/02/2021, Additional history exists Influenza Vaccine 02/21/2025 05/10/2022, , 04/08/2020, Additional history exists RSV Vaccine 60 years and older and Patients (1 - 1-dose 75+ series) 2031 DTaP/Tdap/Td Vaccines (2 - Td or Tdap) 03/08/2033 03/08/2023 Hepatitis B Vaccines Aged Out No long er eligible based on patient's age to complete this topic Insurance MEDICAID OUT OF STATE [facility] [place] [address] [facility] MEDIC[employer] Care Teams Car Usher Relationship Specialty Start Date End Date System, Provider Not In PCP - General 12/02/17
--- OUTSIDE RECORDS SUMMARY | 2024-12-03 09:26 | XMS_ITS | Encounter Summary ---
Author Organization [employer] Address 75 [facility] 7t [place] [address] Care Team Providers Care Transformer Assembly Supervisor Name Role Phone Larisa Moreland MD Primary Care Provider Ameena Grant PharmD Unavailable José Miguel Prado MD Unavailable Jennifer Torres Unavailable Encounter Details Date Type Department Care Team (Late Contact Info) Description 2022 Orders Only [facility] 230 [place] [address] Larisa Moreland MD 230 [place], [place] [phone] Vitamin D deficiency (Primary Dx) Social History [...] Description 12/10/2024 10:00 AM EDT Medication Management [facility] [address] [place], [place] [phone] Ameena Grant, PharmD 230 [place] [address] 01/13/2025 9:45 AM EDT Office Visit [facility] [address] [place] [address] Larisa Moreland MD 230 [place] [address] documented as of this encounter Visit Diagnoses Diagnosis Vitamin D deficiency- Primary documented in this encounter Care Teams Transformer Assembly Supervisor Relationship Specialty Start Date End Date Larisa Moreland MD [address] [place], [place] [phone] PCP - General Family Medicine 07/24/18 Ameena Grant PharmD [address] [place] [address] [phone] Pharmacist Internal Medicine 08/15/22 José Miguel Prado MD [address] [place] [address] Nephrology 07/30/24 Jennifer Torres [address] 3rd [place] [address] Gastroenterology 08/19/24 documented as of this encounter
== END 2024-12-03 09:02 | disposition home or self-care (01) ==
LOC: HO.HHCX 09:01
PROVIDERS: Visit Provider Emergency Medicine
DX: M79.651 Pain in right thigh (principal)
CPT/HCPCS: 73502

== ENCOUNTER → 2024-12-03 09:02 | Outpatient (BNV) | payer MEDICARE, MEDICAID, SELFPAY | PROVIDERS: Visit Provider Radiology Diagnostic Radiology | DX: M25.551 Pain in right hip (principal) | CPT/HCPCS: 73502 ==

== ENCOUNTER 2024-12-25 08:59 | Outpatient (REF) | payer MEDICARE, MEDICAID, SELFPAY ==
--- OUTSIDE RECORDS SUMMARY | 2024-12-25 09:27 | XMS_ITS | Encounter Summary ---
Author Organization [employer] Address [address] [facility] [address] 7t [place] [address] Care Team Providers Care Pastry Cook Name Role Phone Larisa Moreland MD Primary Care Provider + [phone] Ameena Grant PharmD Unavailable +[phone]- [phone] José Miguel Prado MD Unavailable Jennifer Torres Unavailable Encounter Details Date Type Department Care Team (Late st Contact Info) Description 11/22/2023 Orders Only [facility] 230 [place], [place] [phone] Larisa Moreland MD [address] [place], [place] [phone] Vitamin D deficiency (Primary Dx) Social History [...] t he electric, gas, oil or water [employer] threatened to shut off services in your [...] Care Team (Late st Contact Info) Description 01/13/2025 9:45 AM EDT Office Visit [facility] [address] [place] [address] Larisa Moreland MD [address] [place] [address] 02/11/2025 9:30 AM EDT Medication Management [facility] [address] [place] [address] Ameena Grant PharmD [address] [place] [address] documented as of this encounter Goals Goal Patient Goal Type Associated Problems Recent Progress Patient-Stated? Author Blood Pressure < 150/90 Blood Pressure 160/90( 025 9:17 AM EDT) No Ameena Quiles PharmD documented as of this encounter Visit Diagnoses Diagnosis Vitamin D deficiency- Primary documented in this encounter Care Teams Pastry Cook Relationship Specialty Start Date End Date Larisa Moreland MD [address] [place] [address] PCP - General Family Medicine 07/24/18 Ameena Grant PharmD [address] [place] [address] Pharmacist Internal Medicine 08/15/22 José Miguel Prado MD [address] [place] [address] Nephrology 07/30/24 Jennifer Torres [address] 3rd [place] [address] Gastroenterology 08/19/24 documented as of this encounter
[2024-12-25 11:42] LABS: Anion Gap 13 (12-20); Blood Urea Nitrogen 19 mg/dL (9-16); Calcium 9.5 mg/dL (8.4-10.2); Carbon Dioxide 27 mmol/L (22-29); Chloride 101 mmol/L (96-108); Estimated Glomerular Filt Rate > 60; Glucose Random 89 mg/dL (60-115); Potassium 4.2 mmol/L (3.3-5.1); Sodium 137 mmol/L (135-145)
[2024-12-25 11:43] LABS: Anion Gap 12 (12-20); Blood Urea Nitrogen 19 mg/dL (9-16); Calcium 9.5 mg/dL (8.4-10.2); Carbon Dioxide 27 mmol/L (22-29); Chloride 101 mmol/L (96-108); Estimated Glomerular Filt Rate > 60; Glucose Random 91 mg/dL (60-115); Potassium 4.4 mmol/L (3.3-5.1); Sodium 136 mmol/L (135-145)
== END 2024-12-25 09:00 | disposition home or self-care (01) ==
LOC: HO.HHCL 08:59
PROVIDERS: Family Medicine; Visit Provider Pharmacist Ambulatory Care
DX: I10 Essential (primary) hypertension (principal)
CPT/HCPCS: 36415; 80048

== ENCOUNTER 2025-01-03 08:27 | Outpatient (REF) | payer MEDICARE, MEDICAID, SELFPAY ==
--- OUTSIDE RECORDS SUMMARY | 2025-01-03 08:34 | XMS_ITS | Encounter Summary ---
Author Organization [employer] Address [address] [facility] [address] 7t [place] [address] Care Team Providers Care Seeing Eye Dog Teacher Name Role Phone Larisa Moreland MD Primary Care Provider + [phone] Ameena Grant PharmD Unavailable +1- [phone] José Miguel Prado MD Unavailable Jennifer Torres Unavailable Encounter Details Date Type Department Care Team (Late st Contact Info) Description 11/22/2023 Orders Only [facility] 230 [place], [place] [phone] Larisa Moreland MD 230 [place], [place] [phone] Vitamin D deficiency (Primary Dx) Social History [...] t he electric, gas, oil or water [employer] threatened to shut off services in your [...] Description 01/13/2025 9:45 AM EDT Office Visit [facility] [address] [place] [phone] Larisa Moreland MD [address] [place] [address] 02/11/2025 9:30 AM EDT Medication Management [facility] [address] [place] [address] Ameena Grant PharmD [address] [place] [address] documented as of this encounter Goals Goal Patient Goal Type Associated Problems Recent Progress Patient-Stated? Author Blood Pressure < 150/90 Blood Pressure 160/90( 025 9:17 AM EDT) No Ameena Quiles PharmD documented as of this encounter Visit Diagnoses Diagnosis Vitamin D deficiency- Primary documented in this encounter Care Teams Seeing Eye Dog Teacher Relationship Specialty Start Date End Date Larisa Moreland MD [address] [place] [address] PCP - General Family Medicine 07/24/18 Ameena Grant PharmD [address] [place] [address] Pharmacist Internal Medicine 08/15/22 José Miguel Prado MD [address] [place] [address] Nephrology 07/30/24 Jennifer Torres [address] 3rd [place] [address] Gastroenterology 08/19/24 documented as of this encounter
== END 2025-01-03 08:28 | disposition home or self-care (01) ==
LOC: HO.MAMMO 08:27
PROVIDERS: PCP Family Medicine; Visit Provider Family Medicine
DX: Z12.31 Encounter for screening mammogram for malignant neoplasm of breast (principal)
CPT/HCPCS: 77063; 77067

== ENCOUNTER → 2025-01-03 09:00 | Outpatient (BNV) | payer MEDICARE, MEDICAID, SELFPAY | PROVIDERS: PCP Family Medicine; Visit Provider Internal Medicine | DX: Z12.31 Encounter for screening mammogram for malignant neoplasm of breast (principal) | CPT/HCPCS: 77063; 77067 ==

== ENCOUNTER 2025-01-08 10:06 | Outpatient (AMB) | payer MEDICARE, MEDICAID, SELFPAY ==
--- NOTE | 2025-01-08 10:18 | HO.NEPHOV_ITS ---
Vital Signs 01/08/25 10:21 Height 4 ft 1 in Weight 177 lb 2 oz BMI 51.9 BP 180/100 H Blood Pressure Location Rt brachial Position Sitting Pulse 62 Pulse Source Pulse Oximeter Pulse Oximetry (%) 97 Oxygen Delivery Method Room Air Intake Visit Reasons: 3 MO FU-LV Manager Of Corporate Communications Required: No Accompanied by: Self / Same As Patient Allergies No Known Allergies (No Known Allergies*) Allergy (Verified 01/08/25 10:21) HPI Comments Details: Ms. Walsh was seen in follow up for labile hypertension. She denies any excessive salt intake, recent weight gain, uncontrolled thyroid disorders, sleep apnea, renal dysfunction, history of hypokalemia, hypercalcemia. She has no his tory of proteinuria but has history of hypertensive retinopathy. She denies any coronary artery disease, congestive heart failure, CVA, carotid stenosis, peripheral arterial disease, renal artery stenosis. She denied any chest pain, shortness of breath, paroxysmal nocturnal dyspnea, orthopnea or urinary symptoms. She does not take excessive nonsteroidal anti-inflammatories but takes NSAIDs quite frequently [facility] Medical History Acute hyponatremia Hypertensive retinopathy Dyslipidemia Vitamin D deficiency Cobalamin deficiency Osteoarthritis IBS (irritable bowel syndrome) delivery delivered High cholesterol HTN (hypertension) Surgical History Hx of bilateral cataract extraction Hx of knee surgery Hx of section Hx of tubal ligation Hx of colonoscopy Family History Mother Cancer Uterine cancer Brother HTN (hypertension) Social History Household Members: None Housing: Apartment Do you presently have visiting nurse or other home services: No Alcohol intake: unknown Patient Tobacco Use Status: Never used Tobacco Gender identity: Female Female Reproductive History Menstrual Age of Menarche: 14 Review of Systems Const All systems reviewed & are unremarkable except as noted in HPI and below Physical Exam Vital Signs: Last Vital Signs Pulse 62 01/08/25 10:21 BP 180/100 H 01/08/25 10:21 Pulse Ox 97 01/08/25 10:21 Oxygen Delivery Method Room Air 01/08/25 10:21 BMI result Body Mass Index 51.9 Const General: comfortable and no acute distress Orientation/consciousness: patient oriented x3 HEENT Head: Yes normocephalic Mouth: Normal oral and palatal mucosa present Eyes EOM: EOMs intact bilaterally Neck Neck: Yes supple Resp Auscultation: clear to auscultation bilaterally Cardio Jugular venous distension: no JVD Rate: regular rate GI Palpation (GI): Soft to palpation Auscultation: normal bowel sounds General: Yes no CVA tenderness Back/Spine/Pelvis Back: no CVA tenderness Skin General skin exam: no rashes or lesions noted Neuro General: patient oriented x3 and moves all extremities Extrem General: Yes no pedal edema Results Reviewed Nephrology Results: Sodium, (135-145) 136 mmol/L 12/25/24 Potassium, (3.3-5.1) 4.4 mmol/L 12/25/24 Chloride, (96-108) 101 mmol/L 12/25/24 Carbon Dioxide, (22-29) 27 mmol/L 12/25/24 BUN, (9-16) 19 mg/dL H 12/25/24 Creatinine, (0.5-1.4) 0.84 mg/dL 12/25/24 Calcium, (8.4-10.2) 9.5 mg/dL 12/25/24 Assessment & Plan Assessment & Plan (1) HTN (hypertension): Code(s): I10 - Essential (primary) hypertension Category: Medical Qualifiers: Hypertension type: primary hypertension Qualified Code(s): I10 - Essential (primary) hypertension Plan Ms. Walsh has longstanding hypertension. She could cut back hydralazine to tid. We may have to increase her ACEI if BP is still high. I ordered 24 hour ABPM. She will benefit from losing some weight. I have asked her to cut back salt in the diet. She should avoid nonsteroidal anti-inflammatories. Her renal functions and serum potassium are close to baseline. She should restrict free water. All these have been explained in detail and all questions were answered. Follow-up appointment given Orders: Orders AMB 24 HR B/P Monitor PLACEMENT Today I10 - Essential (primary) hypertension Coding Level of Care Code Est Pt Level 4 (64981) Diagnoses Primary hypertension I10 Hypertension type: primary hypertension
[2025-01-08 10:21] VITALS: BP 180/100; PULSE 62; O2SAT 97; BMI 51.9
--- OUTSIDE RECORDS SUMMARY | 2025-01-08 11:20 | XMS_ITS | Encounter Summary ---
Author Organization [employer] Address [address] [facility] [address] 7t [place] [address] Care Team Providers Care Injection Wax Molder Name Role Phone Larisa Moreland MD Primary Care Provider + [phone] Ameena Grant PharmD Unavailable [phone]- [phone] José Miguel Prado MD Unavailable Jennifer Torres Unavailable Encounter Details Date Type Department Care Team (Late st Contact Info) Description 11/22/2023 Orders Only [facility] 230 [place], [place] [phone] Larisa Moreland MD 230 [place], [place] [phone] Vitamin D deficiency (Primary Dx) Social History [...] t he electric, gas, oil or water [employer] threatened to shut off services in your [...] Description 01/13/2025 9:45 AM EDT Office Visit [facility] [address] [place] [address] Larisa Moreland MD [address] [place] [address] 02/11/2025 9:30 AM EDT Medication Management [facility] [address] [place] [address] Ameena Grant PharmD [address] [place] [address] documented as of this encounter Goals Goal Patient Goal Type Associated Problems Recent Progress Patient-Stated? Author Blood Pressure < 150/90 Blood Pressure 160/90( 025 9:17 AM EDT) No Ameena Quiles PharmD documented as of this encounter Visit Diagnoses Diagnosis Vitamin D deficiency- Primary documented in this encounter Care Teams Injection Wax Molder Relationship Specialty Start Date End Date Larisa Moreland MD [address] [place] [address] PCP - General Family Medicine 07/24/18 Ameena Grant PharmD [address] [place] [address] Pharmacist Internal Medicine 08/15/22 José Miguel Prado MD [address] [place] [address] Nephrology 07/30/[address] Jennifer Torres [address] 3rd [place] [address] Gastroenterology 08/19/24 documented as of this encounter
== END 2025-01-08 10:50 | disposition home or self-care (01) ==
LOC: HO.HKA 10:06
PROVIDERS: PCP Family Medicine; Visit Provider Internal Medicine Nephrology
DX: I10 Essential (primary) hypertension (principal)
CPT/HCPCS: 99214

== ENCOUNTER → 2025-01-08 10:06 | Outpatient (BNVA) | payer MEDICARE, MEDICAID, SELFPAY | PROVIDERS: PCP Family Medicine; Visit Provider Internal Medicine Nephrology | DX: I10 Essential (primary) hypertension (principal) | CPT/HCPCS: 99212 ==

== ENCOUNTER → 2025-01-15 09:31 | Outpatient (BNVA) | payer MEDICARE, MEDICAID, SELFPAY | PROVIDERS: PCP Family Medicine; Visit Provider Internal Medicine Nephrology | DX: Z13.89 Encounter for screening for other disorder (principal) ==

== ENCOUNTER → 2025-01-16 08:24 | Outpatient (BNVA) | payer MEDICARE, MEDICAID, SELFPAY | PROVIDERS: PCP Family Medicine; Visit Provider Internal Medicine Nephrology | DX: I10 Essential (primary) hypertension (principal) | CPT/HCPCS: 93786; 93788 ==

== ENCOUNTER → 2025-01-20 10:25 | Outpatient (BNVA) | payer MEDICARE, MEDICAID, SELFPAY | PROVIDERS: PCP Family Medicine; Visit Provider Internal Medicine Nephrology | DX: Z13.89 Encounter for screening for other disorder (principal) ==

== ENCOUNTER → 2025-01-21 09:21 | Outpatient (BNVA) | payer MEDICARE, MEDICAID, SELFPAY | PROVIDERS: PCP Family Medicine; Visit Provider Internal Medicine Nephrology | DX: I10 Essential (primary) hypertension (principal) | CPT/HCPCS: 93786; 93788 ==

== ENCOUNTER 2025-01-29 13:09 | Outpatient (AMB) | payer MEDICARE, MEDICAID, SELFPAY ==
--- OUTSIDE RECORDS SUMMARY | 2025-01-29 13:59 | XMS_ITS | Encounter Summary ---
Author Organization [employer] Address [address] [facility] [address] 7t [place] [address] Care Team Providers Care Video Software Engineer Name Role Phone Larisa Moreland MD Primary Care Provider + [phone] Ameena Grant PharmD Unavailable [phone]- [phone] José Miguel Prado MD Unavailable Jennifer Torres Unavailable Encounter Details Date Type Department Care Team (Late st Contact Info) Description 11/22/2023 Orders Only [facility] 230 [place], [place] [phone] Larisa Moreland MD 230 [place], [place] [phone] Vitamin D deficiency (Primary Dx) Social History [...] t he electric, gas, oil or water [employer] threatened to shut off services in your [...] Care Team (Late st Contact Info) Description 02/11/2025 9:30 AM EDT Medication Management [facility] [address] [place] [address] Ameena Grant PharmD [address] [place] [address] 04/07/2025 11:00 AM EDT Office Visit [facility] [address] [place] [address] Larisa Moreland MD [address] [place] [address] documented as of this encounter Goals Goal Patient Goal Type Associated Problems Recent Progress Patient-Stated? Author Blood Pressure < 150/90 Blood Pressure 162/90( 025 9:11 AM EDT) No Ameena Quiles PharmD documented as of this encounter Visit Diagnoses Diagnosis Vitamin D deficiency- Primary documented in this encounter Care Teams Video Software Engineer Relationship Specialty Start Date End Date Larisa Moreland MD [address] [place] [address] PCP - General Family Medicine 07/24/18 Ameena Grant PharmD [address] [place] [address] Pharmacist Internal Medicine 08/15/22 José Miguel Prado MD [address] [place] [address] Nephrology 07/30/[address] Jennifer Torres [address] 3rd [place] [address] Gastroenterology 08/19/24 documented as of this encounter
--- OUTSIDE RECORDS SUMMARY | 2025-01-29 13:59 | XMS_ITS | Clinical Summary ---
Author Organization [facility] Address 100 [facility] 200 [place] [address] Phone Care Team Providers Care Wood Strip Block Floor Installer Name Role Phone Larisa Moreland MD Primary Care Provider U navailable Allergies No known active allergies Medications cholecalciferol (VITAMIN D-3) 1.25 MG (85281 UT) capsule Take 1 capsule by mouth [...] Cancer Screening: Sigmoidoscopy 2005 Influenza Vaccine (#1) 2025 , 04/08/2020, 07/02/2019, Additional history exists Pneumococcal Vaccine: 50+ Years Completed 05/19/2022 Hepatitis B Vaccine Aged Out No longe r eligible based on patient's age to complete this topic Insurance Medicaid [place] UHC Medicare [facility] Medicare Medicaid [place] Care Teams Wood Strip Block Floor Installer Relationship Specialty Start Date End Date Larisa Moreland MD [address] [place] [address] PCP - General Family Medicine 04/19/23
--- OUTSIDE RECORDS SUMMARY | 2025-01-29 14:00 | XMS_ITS | Clinical Summary ---
Author Organization [facility] Address [address] [place] [address] Care Team Providers Care Roasterman Name Role Phone System, Provider Not In [...] 64 03/08/2023 3:09 PM EDT Temperature 36.6 C (97.8 F) 03/08/2023 3:09 PM EDT Respiratory Rate 18 03/08/2023 3:09 PM EDT [...] (Females,Ages 65 and older) 2021 COVID-19 Vaccine (2023- season) 2024 03/06/2023, 11/30/2021, [...] this topic Insurance MEDICAID OUT OF STATE [facility] MEDICARE Care Teams Roasterman Relationship Specialty Start Date End Date System, Provider Not In PCP - General 12/02/17
--- NOTE | 2025-01-29 14:03 | HO.NEPHOV_ITS ---
Vital Signs 01/29/25 14:04 Height 4 ft 1 in Weight 176 lb BMI 51.5 BP 142/80 H Blood Pressure Location Rt brachial Position Sitting Pulse 70 Pulse Source Pulse Oximeter Pulse Oximetry (%) 96 Oxygen Delivery Method Room Air Intake Visit Reasons: BPM results-LVM Printed Circuit Board Drafter Required: No Accompanied by: Self / Same As Patient Allergies No Known Allergies (No Known Allergies*) Allergy (Verified 01/29/25 14:07) HPI Comments Details: Ms. Walsh was seen in follow up for labile hypertension. She denies any excessive salt intake, recent weight gain, uncontrolled thyroid disorders, sleep apnea, renal dysfunction, history of hypokalemia, hypercalcemia. She has no history of proteinuria but has history of hypertensive retinopathy. She denies any coronary artery disease, congestive heart failure, CVA, carotid stenosis, peripheral arterial disease, renal artery stenosis. She denied any chest pain, shortness of breath, paroxysmal nocturnal dyspnea, orthopnea or urinary symptoms. She does not take excessive nonsteroidal anti-inflammatories but takes NSAIDs quite frequently. She had 24 hour BPM which showed uncontrolled BP. [facility] Medical History Acute hyponatremia Hypertensive retinopathy Dyslipidemia Vitamin D deficiency Cobalamin deficiency Osteoarthritis IBS (irritable bowel syndrome) delivery delivered High cholesterol HTN (hypertension) Surgical History Hx of bilateral cataract extraction Hx of knee surgery Hx of section Hx of tubal ligation Hx of colonoscopy Family History Mother Cancer Uterine cancer Brother HTN (hypertension) Social History Household Members: None Housing: Apartment Do you presently have visiting nurse or other home services: No Alcohol intake: unknown Patient Tobacco Use Status: Never used Tobacco Gender identity: Female Female Reproductive History Menstrual Age of Menarche: 14 Review of Systems Const All systems reviewed & are unremarkable except as noted in HPI and below Physical Exam Vital Signs: Last Vital Signs Pulse 70 01/29/25 14:04 BP 142/80 H 01/29/25 14:04 Pulse Ox 96 01/29/25 14:04 Oxygen Delivery Method Room Air 01/29/25 14:04 BMI result Body Mass Index 51.5 Const General: comfortable and no acute distress Orientation/consciousness: patient oriented x3 HEENT Head: Yes normocephalic Mouth: Normal oral and palatal mucosa present Eyes EOM: EOMs intact bilaterally Neck Neck: Yes supple Resp Auscultation: clear to auscultation bilaterally Cardio Jugular venous distension: no JVD Rate: regular rate GI Palpation (GI): Soft to palpation Auscultation: normal bowel sounds General: Yes no CVA tenderness Back/Spine/Pelvis Back: no CVA tenderness Skin General skin exam: no rashes or lesions noted Neuro General: patient oriented x3 and moves all extremities Extrem General: Yes no pedal edema Results Reviewed Nephrology Results: Sodium, (135-145) 136 mmol/L 12/25/24 Potassium, (3.3-5.1) 4.4 mmol/L 12/25/24 Chloride, (96-108) 101 mmol/L 12/25/24 Carbon Dioxide, (22-29) 27 mmol/L 12/25/24 BUN, (9-16) 19 mg/dL H 12/25/24 Creatinine, (0.5-1.4) 0.84 mg/dL 12/25/24 Calcium, (8.4-10.2) 9.5 mg/dL 12/25/24 Assessment & Plan Assessment & Plan (1) HTN (hypertension): Code(s): I10 - Essential (primary) hypertension Category: Medical Qualifiers: Hypertension type: primary hypertension Qualified Code(s): I10 - Essential (primary) hypertension Plan Ms. Walsh has longstanding hypertension. Her BPM was reviewed. I D/Amadou hydralazine. I asked her to take metoprolol 25 mg Am along with lisinopril 20 mg AM. She should take Amlodipine 10 mg PM along with lisinopril 20 mg PM. She will benefit from losing some weight. I have asked her to cut back salt in the diet. She should avoid nonsteroidal anti-inflammatories. Her renal functions and serum potassium are close to baseline. She should restrict free water. All these have been explained in detail and all questions were answered. Follow-up appointment given Orders: Orders Blood Urea Nitrogen 2 Weeks I10 - Essential (primary) hypertension Electrolytes 2 Weeks I10 - Essential (primary) hypertension Creatinine 2 Weeks I10 - Essential (primary) hypertension Coding Level of Care Code Est Pt Level 4 (94330) Diagnoses Primary hypertension I10 Hypertension type: primary hypertension
[2025-01-29 14:04] VITALS: BP 142/80; PULSE 70; O2SAT 96; BMI 51.5
== END 2025-01-29 14:27 | disposition home or self-care (01) ==
LOC: HO.HKA 13:10
PROVIDERS: PCP Family Medicine; Visit Provider Internal Medicine Nephrology
DX: I10 Essential (primary) hypertension (principal)
CPT/HCPCS: 99214

== ENCOUNTER → 2025-01-29 13:09 | Outpatient (BNVA) | payer MEDICARE, MEDICAID, SELFPAY | PROVIDERS: PCP Family Medicine; Visit Provider Internal Medicine Nephrology | DX: I10 Essential (primary) hypertension (principal); Z79.899 Other long term (current) drug therapy | CPT/HCPCS: 99212 ==

== ENCOUNTER 2025-02-07 08:16 | Outpatient (REF) | payer MEDICARE, MEDICAID, SELFPAY ==
--- OUTSIDE RECORDS SUMMARY | 2025-02-07 08:19 | XMS_ITS | Clinical Summary ---
Author Organization [facility] Address [address] [facility] [address] [place] [address] Phone Care Team Providers Care Extermination Supervisor Name Role Phone Larisa Moreland MD Primary Care Provider U navailable Allergies No known active allergies Medications cholecalciferol (VITAMIN D-3) 1.25 MG (88614 UT) capsule Take 1 capsule by mouth [...] age to complete this topic Insurance Medicaid [place] UHC Medicare [facility] Medicare Medicaid [place] Care Teams Extermination Supervisor Relationship Specialty Start Date End Date Larisa Moreland MD [address] [place] [phone] PCP - General Family Medicine 04/19/23
--- OUTSIDE RECORDS SUMMARY | 2025-02-07 08:19 | XMS_ITS | Clinical Summary ---
Author Organization [facility] Address [address] [place] [address] Care Team Providers Care Intelligence Officer Name Role Phone System, Provider Not In [...] this topic Insurance MEDICAID OUT OF STATE [facility] MEDICARE Care Teams Intelligence Officer Relationship Specialty Start Date End Date System, Provider Not In PCP - General 12/02/17
--- OUTSIDE RECORDS SUMMARY | 2025-02-07 08:19 | XMS_ITS | Encounter Summary ---
Author Organization [employer] Address [address] 7t [place] [address] Care Team Providers Care Radio Journalist Name Role Phone Larisa Moreland MD Primary Care Provider + [phone] Ameena Grant PharmD Unavailable +1- [phone] José Miguel Prado MD Unavailable Jennifer Torres Unavailable Encounter Details Date Type Department Care Team (Late st Contact Info) Description 11/22/2023 Orders Only [facility] 230 [place], [place] [phone] Larisa Moreland MD 230 [place], [place] [phone] Vitamin D deficiency (Primary Dx) Social History [...] t he electric, gas, oil or water [employer] threatened to shut off services in your [...] Description 02/11/2025 9:30 AM EDT Medication Management [facility] [address] [place] [address] Ameena Grant PharmD [address] [place] [address] 04/07/2025 11:00 AM EDT Office Visit [facility] [address] [place] [address] Larisa Moreland MD [address] [place] [address] documented as of this encounter Goals Goal Patient Goal Type Associated Problems Recent Progress Patient-Stated? Author Blood Pressure < 150/90 Blood Pressure 162/90( 025 9:11 AM EDT) No Ameena Quiles PharmD documented as of this encounter Visit Diagnoses Diagnosis Vitamin D deficiency- Primary documented in this encounter Care Teams Radio Journalist Relationship Specialty Start Date End Date Larisa Moreland MD [address] [place] [address] PCP - General Family Medicine 07/24/18 Ameena Grant PharmD [address] [place] [address] Pharmacist Internal Medicine 08/15/22 José Miguel Prado MD [address] [place] [address] Nephrology 07/30/[address] Torres [address] 3rd [place] [address] Gastroenterology 08/19/24 documented as of this encounter
[2025-02-07 11:57] LABS: Anion Gap 13 (12-20); Blood Urea Nitrogen 17 mg/dL (9-16); Carbon Dioxide 25 mmol/L (22-29); Chloride 103 mmol/L (96-108); Estimated Glomerular Filt Rate 58; Potassium 4.2 mmol/L (3.3-5.1); Sodium 137 mmol/L (135-145)
== END 2025-02-07 08:17 | disposition home or self-care (01) ==
LOC: HO.HHCL 08:16
PROVIDERS: PCP Family Medicine; Visit Provider Internal Medicine Nephrology
DX: I10 Essential (primary) hypertension (principal)
CPT/HCPCS: 36415; 80051; 82565; 84520

== ENCOUNTER 2025-03-27 08:49 | Outpatient (REF) | payer MEDICARE, MEDICAID, SELFPAY ==
--- OUTSIDE RECORDS SUMMARY | 2025-03-27 09:20 | XMS_ITS | Encounter Summary ---
Author Organization [employer] [facility] Address [address] [facility] 7t [place] [address] Care Team Providers Care Chain Sales Representative Name Role Phone Larisa Moreland MD Primary Care Provider + [phone] Ameena Grant PharmD Unavailable +1- [phone] José Miguel Prado MD Unavailable Jennifer Torres Unavailable Reason for Visit * Reason Comments Med Refill Encounter Details Date Type Department Care Team (Late st Contact Info) Description 11/21/2024 Refill [facility] 230 [place], [place] [phone] Ameena Grant, PharmD 230 [place], [place] [phone] Hypertension, unspecified type Social History Tobacco Use [...] Care Team (Late st Contact Info) Description 04/07/2025 11:00 AM EDT Office Visit [facility] [address] [place] [address] Larisa Moreland MD [address] [place] [address] 05/07/2025 9:00 AM EDT Medication Management [facility] [address] [place] [address] Ameena Grant, PharmD [address] [place] [address] documented as of this encounter Goals Goal Patient Goal Type Associated Problems Recent Progress Patient-Stated? Author Blood Pressure < 150/90 Blood Pressure 132/66( 025 9:36 AM EDT) No Ameena Quiles, PharmD documented as of this encounter Visit Diagnoses Diagnosis Hypertension, unspecified type documented in this encounter Additional Health Concerns Assessment Noted Time PHQ-9 Depression Total Score: 8 05/15/20 24 10:16 AM EDT documented as of this encounter Care Teams Chain Sales Representative Relationship Specialty Start Date End Date Larisa Moreland MD 230 [place] [address] PCP - General Family Medicine 07/24/18 Ameena Grant, MelchorD 230 [place] [address] Pharmacist Internal Medicine 08/15/22 José Miguel Prado MD [address] [place] [address] Nephrology 07/30/[address] Jennifer Torres [address] 3rd [place] [address] Gastroenterology 08/19/24 documented as of this encounter
--- OUTSIDE RECORDS SUMMARY | 2025-03-27 09:20 | XMS_ITS | Encounter Summary ---
Author Organization [facility] Address [address] [facility] 7t [place] [address] Care Team Providers Care Thermometer Maker Name Role Phone Larisa Moreland MD Primary Care Provider +1- [phone] Ameena Grant PharmD Unavailable José Miguel Prado MD Unavailable Jennifer Torres Unavailable Reason for Visit * Reason Comments Med Refill Encounter Details Date Type Department Care Team (Late st Contact Info) Description 07/06/2022 Refill [facility] [address] [place] [address] [phone] Ameena Grant, PharmD 230 [place], [place] [phone] Hypertension, essential (Primary Dx) Social History Tobacco [...] Department Care Team (Late Contact Info) Description 04/07/2025 11:00 AM EDT Office Visit [facility] [address] [place] [address] [phone] Larisa Moreland MD 230 [place], [place] [phone] 05/07/2025 9:00 AM EDT Medication Management [facility] 230 [place] [address] Ameena Grant PharmD 230 [place] [address] documented as of this encounter Visit Diagnoses Diagnosis Hypertension, essential- Primary Unspecified essential hypertension documented in this encounter Care Teams Thermometer Maker Relationship Specialty Start Date End Date Larisa Moreland MD 230 [place] [address] PCP - General Family Medicine 07/24/18 Ameena Grant, MelchorD [address] [place] [address] Pharmacist Internal Medicine 08/15/22 José Miguel Prado MD [address] [place] [address] Nephrology 07/30/[address] Jennifer Torres [address] 3rd [place] [address] Gastroenterology 08/19/24 documented as of this encounter
--- OUTSIDE RECORDS SUMMARY | 2025-03-27 09:20 | XMS_ITS | Encounter Summary ---
Author Organization [employer] Address [address] [facility] 7t [place] [address] Care Team Providers Care Light Rail Operator Name Role Phone Larisa Moreland MD Primary Care Provider + [phone] Ameena Grant PharmD Unavailable +1- [phone] José Miguel Prado MD Unavailable Jennifer Torres Unavailable Encounter Details Date Type Department Care Team (Late st Contact Info) Description 04/26/2023 Abstract [facility] [address] [place] [address] [phone] Deepika Gurrola Social History Tobacco Use Types [...] Description 04/07/2025 11:00 AM EDT Office Visit [facility] [address] [place] [address] [phone] Larisa Moreland MD [address] [place], [place] [phone] 05/07/2025 9:00 AM EDT Medication Management [facility] [address] [place] [address] [phone] PierAmeena Azul PharmD [address] [place] [address] documented as of this encounter Goals Goal Patient Goal Type Associated Problems Recent Progress Patient-Stated? Author Blood Pressure < 150/90 Blood Pressure 132/66( 025 9:36 AM EDT) No Ameena Quiles PharmD documented [...] on filedocumented in this encounter Care Teams Light Rail Operator Relationship Specialty Start Date End Date Larisa Moreland MD [address] [place] [address] PCP - General Family Medicine 07/24/18 Ameena Grant PharmD 230 [place] [address] Pharmacist Internal Medicine 08/15/22 José Miguel Prado MD [address] [place] [address] Nephrology 07/30/[address] Jennifer Torres [address] 3rd [place] [address] Gastroenterology 08/19/24 documented as of this encounter
--- OUTSIDE RECORDS SUMMARY | 2025-03-27 09:20 | XMS_ITS | Encounter Summary ---
Author Organization [employer] Address [address] [facility] 7t [place] [address] Care Team Providers Care Accredited Farm Manager Name Role Phone Larisa Moreland MD Primary Care Provider + [phone] Ameena Grant PharmD Unavailable +1- [phone] José Miguel Prado MD Unavailable Jennifer Torres Unavailable Encounter Details Date Type Department Care Team (Late Contact Info) Description 08/23/2022 Abstract [facility] 230 [place], [place] [phone] Larisa Moreland MD 230 [place], [place] [phone] Social History Tobacco Use Types Packs/Day Years [...] Description 04/07/2025 11:00 AM EDT Office Visit [facility] 230 [place], [place] [phone] Larisa Moreland MD [address] [place] [phone] 05/07/2025 9:00 AM EDT Medication Management [facility] [address] [facility] [place] [address] Ameena Grant PharmD [address] [facility] [place] [address] documented as of this encounter Goals Goal [...] Result * Colonoscopy (12/03/2018) Colonoscopy poor prep [facility] Provider HEALTH MAINTENANCE Final Result * Pap Smear (02/27/2017 12:00 AM EDT) Swab [facility] Provider LAB CYTOLOGY ORDERABLES F inal Result IMAGING documented in this encounter Visit Diagnoses Not on filedocumented in this encounter Care Teams Accredited Farm Manager Relationship Specialty Start Date End Date Larisa Moreland MD [address] [facility] [place], [place] [phone] PCP - General Family Medicine 07/24/18 Ameena Grant PharmD [facility] [place] [address] Pharmacist Internal Medicine 08/15/22 José Miguel Prado MD [address] [place] [address] Nephrology 07/30/[address] Torres [address] 3rd [place] [address] Gastroenterology 08/19/24 documented as of this encounter
--- OUTSIDE RECORDS SUMMARY | 2025-03-27 09:20 | XMS_ITS | Encounter Summary ---
Author Organization [employer] Address [address] [facility] 7t [place] [address] Care Team Providers Care President Ceo & Founder Name Role Phone Larisa Moreland MD Primary Care Provider + [phone] Ameena Grant PharmD Unavailable +1- [phone] José Miguel Prado MD Unavailable Jennifer Torres Unavailable Encounter Details Date Type Department Care Team (Late st Contact Info) Description 03/02/2023 Orders Only [facility] [address] [place] [address] [phone] Paulo Rosa MD [address] [place] [address] [phone] H. pylori infection (Primary Dx) Social History [...] Description 04/07/2025 11:00 AM EDT Office Visit [facility] [address] [place] [address] [phone] Larisa Moreland MD [address] [place] [address] [phone] 05/07/2025 9:00 AM EDT Medication Management [facility] 230 [place] [address] Ameena Grant PharmD 230 [place] [address] Scheduled Orders Name Type Priority Associated Diagnoses Orde r Schedule Helicobacter pylori Antigen, EIA, Stool Lab Routine H. pylori infection [...] pylori) documented in this encounter Care Teams President Ceo & Founder Relationship Specialty Start Date End Date Larisa Moreland MD 230 [place] [address] PCP - General Family Medicine 07/24/18 Ameena Grant PharmD 230 [place] [address] Pharmacist Internal Medicine 08/15/22 José Miguel Prado MD [address] [place] [address] Nephrology 07/30/[address] Jennifer Torres [address] 3rd [place] [address] Gastroenterology 08/19/24 documented as of this encounter
--- OUTSIDE RECORDS SUMMARY | 2025-03-27 09:20 | XMS_ITS | Encounter Summary ---
Author Organization [employer] Address 75 [facility] 7t [place] [address] Care Team Providers Care Blast Furnace Operator Name Role Phone Larisa Moreland MD Primary Care Provider + [phone] Ameena Grant PharmD Unavailable +1- [phone] José Miguel Prado MD Unavailable Jennifer Torres Unavailable Encounter Details Date Type Department Care Team ([facility] Contact Info) Description 2022 Orders Only [facility] [address] [place] [address] [phone] Larisa Moreland MD [address] [place] [address] [phone] Vitamin D deficiency (Primary Dx) Social History [...] Description 04/07/2025 11:00 AM EDT Office Visit [facility] [address] [place] [address] [phone] Larisa Moreland MD 230 [place] [address] 05/07/2025 9:00 AM EDT Medication Management [facility] 230 [place] [address] Ameena Grant, PharmD 230 [place] [address] documented as of this encounter Visit Diagnoses Diagnosis Vitamin D deficiency- Primary documented in this encounter Care Teams Blast Furnace Operator Relationship Specialty Start Date End Date Larisa Moreland MD 230 [place], [place] [phone] PCP - General Family Medicine 07/24/18 Ameena Grant, PharmD [address] [place] [address] [phone] Pharmacist Internal Medicine 08/15/22 José Miguel Prado MD [address] [place] [address] Nephrology 07/30/[address] Jennifer Torres [address] 3rd [place] [address] Gastroenterology 08/19/24 documented as of this encounter
--- OUTSIDE RECORDS SUMMARY | 2025-03-27 09:20 | XMS_ITS | Encounter Summary ---
Author Organization [employer] Address [address] [address] 7t [place] [address] Care Team Providers Care Ivf Embryologist Name Role Phone Larisa Moreland MD Primary Care Provider + [phone] Ameena Grant PharmD Unavailable +1- [phone] José Miguel Prado MD Unavailable Jennifer Torres Unavailable Encounter Details Date Type Department Care Team (Late st Contact Info) Description 11/22/2023 Orders Only [facility] 230 [place], [place] [phone] Larisa Moreland MD 230 [place], [place] [phone] Vitamin D deficiency (Primary Dx) Social History [...] t he electric, gas, oil or water [employer] threatened to shut off services in your [...] Description 04/07/2025 11:00 AM EDT Office Visit [facility] [address] [place] [address] Larisa Moreland MD [address] [place] [address] 05/07/2025 9:00 AM EDT Medication Management [facility] [address] [place] [address] Ameena Grant PharmD [address] [place] [address] documented as of this encounter Goals Goal Patient Goal Type Associated Problems Recent Progress Patient-Stated? Author Blood Pressure < 150/90 Blood Pressure 132/66( 025 9:36 AM EDT) No Ameena Quiles PharmD documented as of this encounter Visit Diagnoses Diagnosis Vitamin D deficiency- Primary documented in this encounter Care Teams Ivf Embryologist Relationship Specialty Start Date End Date Larisa Moreland MD [address] [place] [address] PCP - General Family Medicine 07/24/18 Ameena Grant PharmD [address] [place] [address] Pharmacist Internal Medicine 08/15/22 José Miguel Prado MD [address] [place] [address] Nephrology 07/30/[address] Jennifer Torres [address]rd [place] [address] Gastroenterology 08/19/24 documented as of this encounter
--- OUTSIDE RECORDS SUMMARY | 2025-03-27 09:20 | XMS_ITS | Encounter Summary ---
Author Organization [employer] [facility] Address [address] [facility] 7t [place] [address] Care Team Providers Care Referral Manager Name Role Phone Larisa Moreland MD Primary Care Provider + [phone] Ameena Grant PharmD Unavailable +1- [phone] José Miguel Prado MD Unavailable Jennifer Torres Unavailable Reason for Visit * Reason Comments Med Refill Encounter Details Date Type Department Care Team (Late Contact Info) Description 12/01/2022 Refill [facility] 230 [place], [place] [phone] Crista Victor, STUDY ASSISTANT Left hip pain Social History Tobacco Use [...] Upcoming Encounters Date Type Department Care Team ([facility] Contact Info) Description 04/07/2025 11:00 AM EDT Office Visit [facility] 230 [place], [place] [phone] Larisa Moreland MD 230 [place], [place] [phone] 05/07/2025 9:00 AM EDT Medication Management [facility] [address] [place] [address] Ameena Grant PharmD 230 [place] [address] documented as of this encounter Goals Goal Patient Goal Type Associated Problems Recent Progress Patient-Stated? Author Blood Pressure < 150/90 Blood Pressure 132/66( 025 9:36 AM EDT) No Ameena Quiles PharmD documented as of this encounter Visit Diagnoses Diagnosis Left hip pain Pain in joint, pelvic region and thigh documented in this encounter Care Teams Referral Manager Relationship Specialty Start Date End Date Larisa Moreland MD [address] [place] [address] PCP - General Family Medicine 07/24/18 Ameena Grant PharmD [address] [place] [address] Pharmacist Internal Medicine 08/15/22 José Miguel Prado MD [address] [place] [address] Nephrology 07/30/[address] Jennifer Torres [address] 3rd [place] [address] Gastroenterology 08/19/24 documented as of this encounter
--- OUTSIDE RECORDS SUMMARY | 2025-03-27 09:20 | XMS_ITS | Clinical Summary ---
Author Organization [employer] Address [address] [facility] [address] [place] [address] Care Team Providers Care Grocery Store Courtesy Clerk Name Role Phone Larisa Moreland MD Primary Care Provider [phone]- [phone] Ameena Grant PharmD Unavailable [phone] José Miguel Prado MD Unavailable Jennifer Torres Unavailable Allergies No known active allergies Medications Diclofenac Sodium 1 % gelIndications: Left hip pain APPLY 2 GRAMS TOPICALLY TWICE DAILY IN THE MORNING AND AT BEDTIME NEEDED 100 g 3 023 Active cyanocobalamin (Vitamin B-12) 500 MCG tabletIndicatio [...] OR CHEW 90 tablet 3 025 Active rosuvastatin (Crestor) 40 MG tabletIndicatio ns:Cardiac risk counseling,Dysl ipidemia TAKE 1 TABLET BY MOUTH EVERY EVENING 30 tablet 11 025 Active cholecalciferol (Vitamin D-3) 25 MCG [...] pain or fever. 30 tablet 025 Active ezetimibe (Zetia) 10 MG tabletIndicatio ns:Dyslipidemia TAKE 1 TABLET BY MOUTH EVERY MORNING 90 tablet 3 025 Active Linzess 145 MCG capsuleIndicati ons:Irritable bowel syndrome, unspecified type TAKE 1 CAPSULE BY MOUTH EVERY MORNING 30 capsule 1 025 Active famotidine (Pepcid) 20 MG tabletIndicatio ns:Gastroesopha geal reflux disease, unspecified whether esophagitis present TAKE 1 TABLET BY MOUTH TWICE DAILY 60 tablet 1 025 Active docusate sodium (Colace) 100 MG capsuleIndicati ons:Irritable bowel syndrome, unspecified type TAKE 1 CAPSULE BY MOUTH TWICE DAILY NEEDED FOR CONSTIPATION 180 capsule 1 025 Active losartan (Cozaar) 50 MG tabletIndicatio ns:Hypertension , unspecified type Take 1 tablet (50 mg) by mouth Once per day. 90 tablet 025 Active docusate sodium (Colace) 100 MG capsuleIndicati ons:Irritable bowel syndrome, unspecified type TAKE 1 CAPSULE BY MOUTH TWICE DAILY NEEDED FOR CONSTIPATION 180 capsule 1 024 2024 Discontinued lisinopril 20 MG tablet 025 2024 Discontinued(S senait effects) Active Problems Patient Care Coordination No te Formatting of this note migh t be different from the original. Enrolled in [facility] HTN clinic with Ameena Grant PharmD Problem Noted Date Diagnosed Date Gait abnormality 01/13/2025 Assessment & Plan (01/13/2025 9:17 AM EDT): She is at risk for falls. Class 2 severe obesity due t o excess calories with serious comorbidity and body mass index (BMI) of 38.0 to 38.9 in adult 08/19/2024 Overview (08/19/2024): Discussed weight, diet, exercise with patient in relation to health conditions. Used motivational interviewing to illicit change talk and established initial goals with patient. Assessment & Plan (01/13/2025 9:17 AM EDT): Assessment & Plan (08/19/2024 10:50 AM EST): Discussed weight, diet, exercise with patient in relation to health conditions. Used motivational interviewing to illicit change talk and established initial goals with patient. Acute hyponatremia 07/30/2024 Overview (01/13/2025): Hyponatremia new onset in May 2024 in the absence of hyperglycemia. No obvious medication changes that would have precipitated this. GFR is not impaired. No longer on thiazide. No edema or ascites present. No obvious heart failure. Na was normal up to and including 03/2024. In 05/2024 Na was down to 125. Lab Results Component Value Date NA 137 12/25/2024 NA 136 12/25/2024 NA 134 (L) 08/19/2024 NA 132 (L) 07/30/2024 -will check serum osmolality, urine-sodium, BMP and [...] 08/19/24 DARRYN (acute kidney injury) 07/30/2024 Overview (01/30/2025): Lab Results Component Value Date CREATININE 0.84 12/25/2024 CREATININE 0.84 12/25/2024 CREATININE 0.78 08/19/2024 CREATININE 0.87 12/13/2021 CREATININE 0.87 12/13/2021 CREATININE 0.87 02/23/2021 Note from José Miguel Prado MD , gift wrapper 01/30/25 reviewed Depression, recurrent 05/15/2024 Dry eyes 05/15/2024 Overview (05/15/2024): -prescribed Polyethyl Glycol-Propyl Glycol (Lubricating Eye Drops) 0.4-0.3 % solution Assessment & Plan (05/15/2024 10:41 AM EDT): -prescribed Polyethyl Glycol-Propyl Glycol (Lubricating Eye Drops) 0.4-0.3 % solution Cardiac risk counseling 11/16/2023 Overview (01/13/2025): Calculated 01/13/25: intermediate risk The 10-year ASCVD risk score (Thee WHEELER, et al., 2019) is: 13.8% Values used to calculate the score: Age: 69 years Sex: Female Is Non- : No Diabetic: No Tobacco smoker: No Systolic Blood Pressure: 160 mmHg Is BP treated: Yes HDL Cholesterol: [...] moderate physical activity and nutrition interventions discussed. Other specified health status 03/06/2023 Overview (08/19/2024): -next comprehensive annual evaluation due after 08/19/25 -eye care facilitated by [facility] -dental home is [facility] -health care proxy paperwork given 08/17/23 Assessment & Plan (08/19/2024 10:48 AM EST): -next comprehensive annual evaluation due after 08/19/25 -eye care facilitated by [facility] -dental home is [facility] -health care proxy paperwork given 08/17/23 Assessment & Plan (06/19/2023 9:05 AM EST): -next physical exam due 03/06/2024. -eye care facilitated by [facility]. -dental home is [facility]. Assessment & Plan (03/06/2023 10:40 AM EDT): -next physical exam due 03/06/2024. -eye care facilitated by [facility]. -dental home is [facility]. Peripheral reticular degeneration of both eyes 0 [...] the retina today. She was educated to [facility] with any sudden onset of flashes [...] the retina today. She was educated to [facility] with any sudden onset of flashes [...] GI 11/16/23 -intake for colonoscopy with Jennifer Elissa Macko BEHAVIORAL SCIENTIST-BC done 01/29/2024 -done on 05/30/[address] [...] -intake for colonoscopy with Jennifer D Melissa BEHAVIORAL SCIENTIST-BC done 01/29/2024 -has appt. On 05/30/24 Assessment [...] Overview (11/16/2023): Lab Results Component Value Date [id number] 42.7 03/28/2023 Improved with Vit D supplementation Assessment & Plan (06/19/2023 9:05 AM EST): Patient Vitamin D level was 12 on 08/12/21. Repeat was low 07/2021 188 continue oral b12 and recheck today. Vitamin D3 1000 units, 1 tablet daily started. No results found for: [id number] Assessment & Plan (03/06/2023 10:26 AM EDT): Patient Vitamin D level was 12 on 08/12/21. Repeat was low 07/2021 188 continue oral b12 and recheck today. Vitamin D3 1000 units, 1 tablet daily started. No results found for: [id number] Osteoarthritis of both knees 07/07/2014 Overview (08/16/2023): History of L TKA ~6 years ago Assessment & Plan (06/19/2023 9:04 AM EST): History of L TKA ~6 years ago Assessment & Plan (03/06/2023 10:20 AM EDT): History of L TKA ~6 years ago Dyslipidemia 04/11/2012 Overview (01/13/2025): Lab Results Component Value Date CHOL 159 [...] 4 weeks after start Assessment & Plan (01/13/2025 9:17 AM EDT): Lab Results Component Value Date CHOL 159 [...] 08/10/2022 -continue lifestyle modifications Hypertension 04/11/2012 Overview (01/13/2025): -Blood pressure is generally not controlled. Followed up Collaborative Drug Therapy Managment Program with our PharmD Medication history: -spironolactone 50mg daily added 03/06/2023 and increased to BID 06/19/23 -hydrochlorothiazide switched to chlorthalidone 11/27/23 with CDTM, increased to 25mg 12/15/23 -seen by Dr. Lind, gift wrapper 02/28/24 lisinopril increased to 20 mg daily. [...] 25 XL and amlodipine 10mg and hydralazine -CDTM [facility] restarted lisinopril 10mg once daily 12/10/24 -seen by nephrology 01/08/25: She could cut back hydralazine to tid. We may have to increase her ACEI if BP is still high. 24 hour ABPM ordered -Currently on Metoprolol 25 XL and amlodipine 10mg and hydralazine TID and lisinopril 10mg daily -follow up for ABPM, nephology and Collaborative Drug Therapy Managment Program with our PharmD, CDCES -Continue lifestyle modifications, low Na diet and avoid NSAIDS Assessment & Plan (01/13/2025 9:17 AM EDT): -Blood pressure is generally not controlled. Followed up Collaborative Drug Therapy Managment Program with our PharmD Medication history: -spironolactone 50mg daily added 03/06/2023 and increased to BID 06/19/23 -hydrochlorothiazide switched to chlorthalidone 11/27/23 with CDTM, increased to 25mg 12/15/23 -seen by Dr. Lind, gift wrapper 02/28/24 lisinopril increased to 20 mg daily. [...] 25 XL and amlodipine 10mg and hydralazine -CDTM [facility] restarted lisinopril 10mg once daily 12/10/24 -seen by nephrology 01/08/25: She could cut back hydralazine to tid. We may have to increase her ACEI if BP is still high. 24 hour ABPM ordered -Currently on Metoprolol 25 XL and amlodipine 10mg and hydralazine TID and lisinopril 10mg daily -follow up for ABPM, nephology and Collaborative Drug Therapy Managment Program with our PharmD, DIPAK -Continue lifestyle modifications, low Na diet and avoid NSAIDS Assessment & Plan (08/19/2024 11:22 AM EST): -Blood pressure is generally not controlled. Followed up Collaborative Drug Therapy Managment Program with our PharmD Medication history: -hydrochlorothiazide switched to chlorthalidone 11/27/23 with CDTM, chlorthalidone increased to 25mg once daily by CDTM 12/15/23 -spironolactone 50mg daily added 03/06/2023 and increased to BID 06/19/23 -seen by Dr. Lind, gift wrapper 02/28/24 lisinopril increased to 20 mg daily. [...] with our PharmD -seen by Dr. Lind, gift wrapper 02/28/24 I increased her lisinopril to 20 mg daily. (She was on 40 in the past) Her renal functions and serum potassium are normal. 24 hour ambulatory blood pressure monitor ordered. Thyroid function, renin, aldosterone, cortisol, metanephrines as well as Doppler of her renal arteries ordered. -05/15/24 pt notes she has not heard from gift wrapper, is schedule for follow- up 08/09/24. Assessment [...] Problem Noted Date Diagnosed Date Resolved Date Exercise counseling 08/19/2024 01/14/20 Assessment & Plan (08/19/2024 10:27 AM EST): Exercise Recommendations: At least 150 minutes of moderate-intensity physical activity per week, or an equivalent combination of moderate- and vigorous-intensity activity Dietary counseling 08/19/2024 5 Assessment & Plan (08/19/2024 10:27 AM EST): Dietary Recommendations: Fruits, vegetables, whole grains, protein foods, and fat-free or low-fat dairy products are healthy choices. Eat different types of protein foods in your diet. This can include seafood, lean meats, poultry, beans, peas, lentils, nuts, seeds, soy products, and eggs. Limit foods and beverages higher in added sugars, saturated fat, and sodium. 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 -apt w PCP 08/17/2022 Muscle strain 01/26/2023 07/30/2024 Encounters Date Type Department Care Team Description 03/12/2025 Refill [facility] [address] [place] [address] Larisa Moreland MD Irritable bowel syndrome, unspecified type 03/11/2025 Travel 02/11/2025 Travel 02/08/2025 Refill [facility] [address] [place] [address] Larisa Moreland MD Irritable bowel syndrome, unspecified type; Gastroesophageal reflux disease, unspecified whether esophagitis present 02/07/2025 Orders Only GENERIC EXTERNAL DATA DEPARTMENT Provider, Generic External Data 01/28/2025 Telephone [facility] [address] [place] [address] Ameena Grant, PharmD 01/21/2025 Telephone [facility] [address] [place] [address] Ameena Grant, PharmD 01/16/2025 Refill [facility] [address] [place] [address] Ameena Grant PharmD Hypertension, unspecified type 01/13/2025 9:45 AM EDT Office Visit [facility] [address] [place] [phone] Larisa Moreland MD Hypertension, unspecified type (Primary Dx); Dyslipidemia; Class 2 severe obesity due to excess calories with serious comorbidity and body mass index (BMI) of 38.0 to 38.9 in adult (CMS/HCC); Dietary counseling; Exercise counseling; Housing instability due to imminent risk of homelessness; Gait abnormality 01/13/2025 Travel 01/03/2025 Patient Outreach [facility] [address] [place], [place] [phone] Larisa Moreland MD Pre-visit Planning ([facility] unable to reach LVM ) 12/25/2024 Orders Only [facility] [address] [place] [address] Larisa Moreland MD from Last 3 Months Immunizations Immunization Administration Dates Next Due Influenza High-dose Quadriva [...] Bivalent 11/22/2023 Tdap 03/08/2023,03/06/2023,04/11/2012 Zoster, Recombinant 08/16/2022,05/19/2022 Family History Medical History Relation Name Comments Hypertension Brother Hypertension Daughter Cancer Mother Diabetes Son Hypertension Son Relation Name Status Comments Brother Daughter Mother Son Social History Tobacco Use Types Packs/Day Years Used Date Smoking Tobacco: Never Passive Smoke Exposure: Never Smokeless Tobacco: Never Tobacco Cessation:Counseling Given: Not Answered Alcohol Answer Date Recorded Frequency of Alcohol Consumption Not on file 05/15/2024 Average Number of Drinks Not on file 024 Frequency of Binge Drinking Not on file 04/24 Score 0 05/15/2024 Depression Answer Date Recorded Patient Health Questionnaire-9 Score 0 01/13/2025 Patient Health Questionnaire-9 Score 0 01/13/2025 Last PHQ-9: Questionnaire Data Not on file 0 01/13/2025 Housing Stability Answer Date Recorded What is [...] Date Recorded Patient Health Questionnaire-2 Score 0 01/13/2025 Internet Access Answer Date Recorded Internet Access [...] Sign Reading Time Taken Comments Blood Pressure 132/66 03/11/2025 9:36 AM EDT Pulse 53 03/11/2025 9:36 AM EDT Temperature 36.8 C (98.2 F) 01/13/2025 8:57 AM EDT Respiratory Rate 16 01/13/2025 8:57 AM EDT Oxygen Saturation 98% 12/03/2024 8:40 AM EDT Inhaled Oxygen Concentration - - Weight 80.4 kg (177 lb 4 oz) 01/13/2025 8:57 AM EDT Height 149.9 cm (4' 11 ) 01/13/2025 8:57 AM EDT Body Mass Index 35.8 01/13/2025 8:57 AM EDT Plan of Treatment Upcoming Encounters Date Type Department Care Team (Late st Contact Info) Description 04/07/2025 11:00 AM EDT Office Visit [facility] [address] [place] [address] Larisa Moreland MD [address] [place] [address] 05/07/2025 9:00 AM EDT Medication Management [facility] [address] [place] [address] Ameena Grant, PharmD [address] [place] [address] Health Maintenance Due Date Last Done Comments CT Colonography 1955 FIT DNA/Cologuard 1955 FOBT 1955 Sigmoidoscopy 1955 FIT 03/15/2023 03/15/2022 COVID-19 Vaccine ( season) 2025 03/06/2023, 11/30/2021, 08/02/2021, Additional history exists Influenza Vaccine (#1) 2025 , 05/10/2023, 05/10/2022, Additional history exists Alcohol/Substance Use Screening 05/15/2025 05/15/2024 SDOH Screening 08/08/2025 08/08/2024 Depression Screening 01/13/2026 01/13/2025, 01/14/20 25 Tobacco Screening 01/13/2026 01/13/2025 Mammogram 01/03/2027 01/03/2025, 07/0 09/2023, 12/29/2023, Additional history exists Colonoscopy 05/30/2029 05/30/2024, 12/03/2018 Colorectal Cancer Screening 05/30/2029 Lipid Panel 07/30/2029 07/30/2024, 0810/2023, 01/19/2024, Additional history exists DTaP/Tdap/Td Vaccines (4 - Td or Tdap) 03/08/2033 03/08/2023, 03/06/2023, 04/11/2012 Cervical Cancer Screening Discontinued HPV/Cotest Discontinued 05/18/2021, 04/24, 05/18/2021 Pap Smear Discontinued 05/18/2021, 02/27/2017 Pneumococcal Vaccine: 50+ Years Completed 05/19/2022 Zoster Vaccines Completed 08/16/2022, 05/19/2022 Hepatitis C Screening Completed 03/28/2023 RSV Patients and Patients Aged 60 years or older Completed 11/22/2023 HIB Vaccines Aged Out No longer eligi [...] patient's age to complete this topic Meningococcal B Vaccine Aged Out No l onger eligible based on patient's age to complete [...] 9:36 AM EDT) No Ameena Quiles PharmD Procedures Procedure Name Priority Date/Time Associated Diagnosis Comments CREATININE, SERUM Routine 02/07/2025 8:3 0 AM EDT UREA NITROGEN (BUN) Routine 02/07/2025 8 :30 AM EDT ELECTROLYTE PANEL Routine 02/07/2025 8:3 0 AM EDT BI MAMMOGRAM SCREENING TOMOSYNTHESIS BILATERAL Routine 01/03/2025 8:35 AM EDT BASIC METABOLIC PANEL Routine 12/25/2024 9:07 AM EDT BASIC METABOLIC PANEL Routine 12/25/2024 9:07 AM EDT Hypertension, unspecified type LIPID PANEL, STANDARD Routine 07/30/2024 9:25 AM EST HM COLONOSCOPY Routine 05/30/2024 HEPATITIS C AB W/REFL TO HCV RNA, QN, PCR Routine 03/28/2023 8:50 AM EDT Encounter for hepatitis C screening test for low risk patient LINDA HISTORICAL FECAL IMMUNOCHEMICAL TEST X1 (FIT) Routine 03/15/2022 12:00 AM EDT PAP/HPV Routine 05/18/2021 from Last 3 Months or Most Recently Relevant to Health Maintenance Results * Creatinine, Serum (02/07/2025 8:30 AM EDT) Creatinine, Serum 0.96 0.5 - 1.4 mg/dL [facility] Estimated Glomerular Filt Rate 58 [facility] Comment:Chronic Kidney Disea se: Estimated GFR < 60 mL/min/[id number] Kidney Disease: Estimated GFR < 15 mL/min/1.73m2 02/07/2025 8:30 AM EDT 02/07/2025 11:16 AM EDT us Generic External Data Provider LAB BLOOD ORDERAB LES Final Result Performing Organization Address City/[facility]/ZIP Co de Phone Number [facility] [address] [place] [phone] * (ABNORMAL) BUN (Blood Urea Nitrogen) (02/07/2025 8:30 AM EDT) Urea Nitrogen (BUN) 17(H) 9 - 16 mg/dL [facility] 02/07/2025 8:30 AM EDT 02/07/2025 11:16 AM EDT us Generic External Data Provider LAB BLOOD ORDERAB LES Final Result Performing Organization Address City/[facility]/ZIP Co de Phone Number [facility] [address] [place] [phone] * Electrolyte Panel (02/07/2025 8:30 AM EDT) Sodium 137 135 - 145 mmol/L [facility] Potassium 4.2 3.3 - 5.1 mmol/L [facility] Chloride 103 96 - 108 mmol/L [facility] Carbon Dioxide 25 22 - 29 mmol/L [facility] Anion Gap 13 12 - 20 [facility] 02/07/2025 8:30 AM EDT 02/07/2025 11:16 AM EDT us Generic External Data Provider LAB BLOOD ORDERAB LES Final Result [facility] [address] [place] [phone] * BI Mammogram Screening Tomosynthesis Bilateral (01/03/2025 8:35 AM EDT) Anatomical Region Laterality Modality Breast Bilateral Mammography 01/03/2025 8:35 AM EDT Narrative 01/11/2025 11:13 AM EDT [facility] [address] [place] [address] Mammography Report Signed Patient: Trisha Walsh MR#: [id number] 09 : 1955 Acct:[id number] Age/Sex: 69 / F ADM Date: 01/03/25 Loc: HO.MAMMO Attending Dr: Larisa Moreland MD Ordering Physician: Larisa Moreland MD Results: 1N egative Date of Service: 01/03/25 Follow Up: 1 Year From Orig ina Mammogram Procedure(s): MM tomosynthesis screening BI Accession Number(s): [id number] cc: Larisa Moreland MD EXAMINATION: MM SCREENING DIGITAL BREAST TOMOSYNTHESIS, BILATERAL CLINICAL INFORMATION: Screening. Asymptomatic. COMPARISON: Mammography: Comparison is made with available priors TECHNIQUE: Digital breast mammography with tomosynthesis is performed in both the craniocaudal and mediolateral oblique views along with computer-aided detection (CAD). FINDINGS: There are scattered areas of fibroglandular density (ACR BI-RADS breast composition Category b). There are no significant masses, abnormal calcifications, or other abnormalities. MM/MM tomosynthesis screening BI IMPRESSION: No mammographic evidence of malignancy. ASSESSMENT: BI-RADS BI-RADS 1 - Negative RECOMMENDATION: Routine annual mammography screening. 1 year F/U This examination should not preclude the clinical evaluation of a suspicious palpable abnormality. This patient's information was entered into a reminder system with a target due date for their next mammogram. Electronically signed by: Lesa Piedra DO 01/11/2025 11:10 AM EDT RP Dictated By: Lesa Piedra DO Signed By: <Electronically signed by Lesa Piedra DO in OV> 01/11/25 1110 DD/ 0835 TD/TT: 01/03/25 0856 Data Management Engineer: Procedure Note Donotuseinterpreter, Image - [facility] [address] [place] [address] Mammography Report Signed Patient: Mayelin Walsh#: [id number] 09 : 1955cct:[id number] Age/Sex: 69 / FADM Date: 01/03/25 Loc: HO.MAMMO Attending Dr: Larisa Moreland MD Ordering Physician: Larisa Moreland MDResults: 1N egative Date of Service: 01/03/25Follow Up: 1 Year From Orig ina Mammogram Procedure(s): MM tomosynthesis screening BI Accession Number(s): [id number] cc: Larisa Moreland MD EXAMINATION: MM SCREENING DIGITAL BREAST TOMOSYNTHESIS, BILATERAL CLINICAL INFORMATION: Screening. Asymptomatic. COMPARISON: Mammography: Comparison is made with available priors TECHNIQUE: Digital breast mammography with tomosynthesis is performed in both the craniocaudal and mediolateral oblique views along with computer-aided detection (CAD). FINDINGS: There are scattered areas of fibroglandular density (ACR BI-RADS breast composition Category b). There are no significant masses, abnormal calcifications, or other abnormalities. MM/MM tomosynthesis screening BI IMPRESSION: No mammographic evidence of malignancy. ASSESSMENT: BI-RADS BI-RADS 1 - Negative RECOMMENDATION: Routine annual mammography screening. 1 year F/U This examination should not preclude the clinical evaluation of a suspicious palpable abnormality. This patient's information was entered into a reminder system with a target due date for their next mammogram. Electronically signed by: Lesa Piedra DO 01/11/2025 11:10 AM EDT Dictated By: Lesa Piedra DO Signed By: <Electronically signed by Lesa Piedra DO in OV> 01/11/25 1110 DD/ 0835 TD/TT: 01/03/25 0856 Data Management Engineer: Larisa Moreland MD IMG BI PROCEDURES Edited R esult - Final * (ABNORMAL) Basic Metabolic Panel (12/25/2024 9:07 AM EDT) Only the most recent of2 resultswithin the time period is included. Sodium 136 135 - 145 mmol/L [facility] Potassium 4.4 3.3 - 5.1 mmol/L [facility] Chloride 101 96 - 108 mmol/L [facility] Carbon Dioxide 27 22 - 29 mmol/L [facility] Anion Gap 12 12 - 20 [facility] Urea Nitrogen (BUN) 19(H) 9 - 16 mg/dL [facility] Creatinine, Serum 0.84 0.5 - 1.4 mg/dL [facility] Estimated Glomerular Filt Rate >60 [facility] Comment:Chronic Kidney Disea se: Estimated GFR < 60 mL/min/[id number] Kidney Disease: Estimated GFR < 15 mL/min/1.73m2 Glucose 91 60 - 115 mg/dL [facility] Calcium 9.5 8.4 - 10.2 mg/dL [facility] 12/25/2024 9:07 AM EDT 12/25/2024 11:16 AM EDT Larisa Moreland MD LAB BLOOD ORDERABLES Final Result Performing Organization Address [facility] Co de Phone Number [facility] [address] [place] [phone] * Lipid Panel, Standard (07/30/2024 9:25 AM EST) Pathologist [facility] Triglycerides 75 <150 mg/dL [facility] Comment:Desirable Triglyceri de: less than 150 mg/dLBorderline High Triglyceride 150-199 mg/dLHigh Triglyceride: 200-499 mg/dLVery High Triglyceride: greater than or equal to 5OO mg/dL Cholesterol 159 <200 mg/dL [facility] Comment:Desirable Cholestero l: less than 200 mg/dLBorderline High Cholesterol: 200-239 mg/dLHigh Cholesterol: greater than 239 mg/dL LDL Cholesterol Calculated 81 <100 mg/dL [facility] Comment:Desirable LDL: less than 100 mg/dLNear Optimal/Above Optimal LDL: 110- 129 mg/dLBorderline High LDL: 130-159 mg/dLHigh LDL: 160-189 mg/dLVery High LDL: greater than or equal to 190 mg/dL HDL Cholesterol 63 >40 mg/dL [facility] Comment:Desirable HDL: great er than 40 mg/dL Note: This HDL assay may give artificially low results in patients with liver disease. 07/30/2024 9:25 AM EST 07/30/2024 11:39 AM EST Larisa Moreland MD LAB BLOOD ORDERABLES Final Result Performing Organization Address City/[facility] Co de Phone Number [facility] [address] [place] [address] [phone] * Hm Colonoscopy (05/30/2024) [facility] Colonoscopy Normal Normal Comment:Reshma Lewis MD , pers onal history of polyps Historical Provider HEALTH MAINTENANCE Final Result * Hepatitis C Antibody with Reflex to HCV, RNA, Quantitative, Real-Time PCR (03/28/2023 8:50 AM EDT) Hepatitis C Antibody Nonreactive Nonreactive [facility] Comment:Antibodies to HCV no t detected; does not exclude early acuteHCV infection. Blood Venous blood specimen / Unknown 03/28/2023 8:50 AM EDT 03/28/2023 8:50 AM EDT Larisa Moreland MD LAB BLOOD ORDERABLES Final Result [facility] [address] [place] [address] [phone] * Fecal immunochemical test x1 (FIT) (03/15/2022 12:00 AM EDT) FIT Date 1 03/14/2022 [facility] FIT Date 2 03/15/2022 [facility] FIT1 NEGATIVE NEGATIVE [facility] FIT2 NEGATIVE NEGATIVE [facility] 03/15/2022 Dru Fernández MD HISTORICAL/NON ORDERABLE LABS Final Result Performing Organization Address City/[facility]/ZIP Co de Phone Number [facility] [address] [place] [address], * Hm Pap Smear (05/18/2021) Pap Negative for intraephithelial lesion or malignancy Negative for intraephithelial lesion or malignancy, Other HPV Undetected Historical Pradeep HOLLINS HEALTH MAINTENANCE Final Result from Last 3 Months or Most Recently Relevant to Health Maintenance Insurance [facility] STANDARD [facility] MEDICARE ADVANTAGE Care Teams Grocery Store Courtesy Clerk Relationship Specialty Start Date End Date Merly, MD Larisa [address] [place] [address] PCP - General Family Medicine 07/24/18 Ameena Grant, MelchorD [address] [place] [address] Pharmacist Internal Medicine 08/15/22 José Miguel Prado MD [address] [place] [address] Nephrology 07/30/[address] 3rd [place] [address] Gastroenterology 08/19/24
--- OUTSIDE RECORDS SUMMARY | 2025-03-27 09:20 | XMS_ITS | Clinical Summary ---
Author Organization [facility] Address [address] [facility] [address] [place] [address] Phone Care Team Providers Care Form Press Operator Name Role Phone Larisa Moreland MD Primary Care Provider U navailable Allergies No known active allergies Medications cholecalciferol (VITAMIN D-3) 1.25 MG (84192 UT) capsule Take 1 capsule by mouth [...] age to complete this topic Insurance Medicaid [place] UHC Medicare [facility] Medicare Medicaid [place] Care Teams Form Press Operator Relationship Specialty Start Date End Date Larisa Moreland MD [address] [place] [phone] PCP - General Family Medicine 04/19/23
--- OUTSIDE RECORDS SUMMARY | 2025-03-27 09:20 | XMS_ITS | Clinical Summary ---
Author Organization [facility] Address [address] [place] [address] Care Team Providers Care Pre Press Manager Name Role Phone System, Provider Not In [...] Health Maintenance Due Date Last Done Comments Advance Care Planning 1955 Hepatitis C Virus Screening 1955 Mammogram 1996 Colonoscopy 2001 Pneumococcal Vaccines 50+ (1 of 1 - PCV) 2006 Zoster (Shingles) Vaccine (1 of 2) 2006 RSV Vaccine 60 years and older and Patients (1 - Risk 60-74 years 1-dose series) 2016 DXA Bone Density (Females,Ages 65 and older) 2021 Influenza Vaccine 02/21/2025 05/10/2022, , 04/08/2020, Additional history exists COVID-19 Vaccine (2024- season) 2025 03/06/2023, 11/30/2021, 08/02/2021, Additional history exists DTaP/Tdap/Td Vaccines (2 - Td or Tdap) 03/08/2033 03/08/2023 Hepatitis B Vaccines Aged Out No long er eligible based on patient's age to complete this topic Insurance MEDICAID OUT OF STATE [facility] MEDICARE Care Teams Pre Press Manager Relationship Specialty Start Date End Date System, Provider Not In PCP - General 12/02/17
--- OUTSIDE RECORDS SUMMARY | 2025-03-27 09:20 | XMS_ITS | Encounter Summary ---
Author Organization [facility] Address [address] [facility] [address] [place] [address] Care Team Providers Care Gymnastics Instructor Name Role Phone Larisa Moreland MD Primary Care Provider + [phone] Ameena Grant PharmD Unavailable +1- [phone] José Miguel Prado MD Unavailable Jennifer Torres Unavailable Encounter Details Date Type Department Care Team (Late Contact Info) Description 07/06/2022 Orders Only [facility]EDS [address] [place], [place] [phone] Hanna Aguirre LPN Social History Tobacco Use [...] Description 04/07/2025 11:00 AM EDT Office Visit [facility] MEDICINE [address] [place] [phone] Larisa Moreland MD [address] [place] [address] [phone] 05/07/2025 9:00 AM EDT Medication Management [facility] MEDICINE [address] [place] [address] [phone] Ameena Grant, PharmD [address] [place] [address] documented as of this encounter Visit Diagnoses Not on filedocumented in this encounter Care Teams Gymnastics Instructor Relationship Specialty Start Date End Date Larisa Moreland MD [address] [place] [address] PCP - General Family Medicine 07/24/18 Ameena Grant, PharmD [address] [place] [address] Pharmacist Internal Medicine 08/15/22 José Miguel Prado MD [address] [place] [address] Nephrology 07/30/[address] Jennifer Torres [address] [place] [address] Gastroenterology 08/19/24 documented as of this encounter
[2025-03-27 11:48] LABS: Anion Gap 12 (12-20); Blood Urea Nitrogen 15 mg/dL (9-16); Calcium 9.4 mg/dL (8.4-10.2); Carbon Dioxide 25 mmol/L (22-29); Chloride 101 mmol/L (96-108); Estimated Glomerular Filt Rate > 60; Potassium 4.0 mmol/L (3.3-5.1); Sodium 134 mmol/L (135-145)
== END 2025-03-27 08:50 | disposition home or self-care (01) ==
LOC: HO.HHCL 08:49
PROVIDERS: PCP Family Medicine; Referring Provider Internal Medicine Nephrology; Visit Provider Family Medicine
DX: I10 Essential (primary) hypertension (principal)
CPT/HCPCS: 36415; 80048

== ENCOUNTER 2025-04-02 14:01 | Outpatient (AMB) | payer MEDICARE, MEDICAID, SELFPAY ==
--- NOTE | 2025-04-02 14:26 | HO.NEPHOV ---
Vital Signs 04/02/25 14:28 Height 4 ft 1 in Weight 179 lb 2 oz BMI 52.4 BP 130/88 Blood Pressure Location Rt brachial Position Sitting Pulse 76 Pulse Source Pulse Oximeter Pulse Oximetry (%) 99 Oxygen Delivery Method Room Air Intake Visit Reasons: Rscng missed appt-LVM Wedding Consultant Required: No Accompanied by: Self / Same As Patient Allergies No Known Allergies (No Known Allergies*) Allergy (Verified 04/02/25 14:27) HPI Comments Details: Ms. Walsh was seen in follow up for labile hypertension. She denies any excessive salt intake, recent weight gain, uncontrolled thyroid disorders, sleep apnea, renal dysfunction, history of hypokalemia, hypercalcemia. She has no history of proteinuria but has history of hypertensive retinopathy. She denies any coronary artery disease, congestive heart failure, CVA, carotid stenosis, peripheral arterial disease, renal artery stenosis. She denied any chest pain, shortness of breath, paroxysmal nocturnal dyspnea, orthopnea or urinary symptoms. She previously took NSAIDs frequently but states she now only uses tylenol as needed for knee pain. She states she is taking metoprolol 25mg every a.m., amlodipine 10mg and losartan 50mg every p.m. She states she stopped lisinopril as it was giving her diarrhea- since she has switched to losartan the diarrhea has resolved. Blood pressures are controlled at home as well. [facility] Medical History (Reviewed 10/03/24 @ 09:05 by Mirela Wan [facility]) Acute hyponatremia Hypertensive retinopathy Dyslipidemia Vitamin D deficiency Cobalamin deficiency Osteoarthritis IBS (irritable bowel syndrome) delivery delivered High cholesterol HTN (hypertension) Surgical History Hx of bilateral cataract extraction Hx of knee surgery Hx of section Hx of tubal ligation Hx of colonoscopy Family History Mother Cancer Uterine cancer Brother HTN (hypertension) Social History Household Members: None Housing: Apartment Do you presently have visiting nurse or other home services: No Alcohol intake: unknown Patient Tobacco Use Status: Never used Tobacco Gender identity: Female Female Reproductive History Menstrual Age of Menarche: 14 Review of Systems Const All systems reviewed & are unremarkable except as noted in HPI and below Physical Exam Vital Signs: Last Vital Signs Pulse 76 04/02/25 14:28 BP 130/88 04/02/25 14:28 Pulse Ox 99 04/02/25 14:28 Oxygen Delivery Method Room Air 04/02/25 14:28 BMI result Body Mass Index 52.4 Const General: comfortable and no acute distress Orientation/consciousness: patient oriented x3 Neck Neck: Yes supple Resp Auscultation: clear to auscultation bilaterally Cardio Jugular venous distension: no JVD Rate: regular rate GI Palpation (GI): Soft to palpation Auscultation: normal bowel sounds General: Yes no CVA tenderness Back/Spine/Pelvis Back: no CVA tenderness Skin General skin exam: no rashes or lesions noted Neuro General: patient oriented x3 and moves all extremities Extrem General: Yes no pedal edema Results Reviewed Nephrology Results: Sodium, (135-145) 134 mmol/L L 03/27/25 Potassium, (3.3-5.1) 4.0 mmol/L 03/27/25 Chloride, (96-108) 101 mmol/L 03/27/25 Carbon Dioxide, (22-29) 25 mmol/L 03/27/25 BUN, (9-16) 15 mg/dL 03/27/25 Creatinine, (0.5-1.4) 0.84 mg/dL 03/27/25 Calcium, (8.4-10.2) 9.4 mg/dL 03/27/25 Assessment & Plan Assessment & Plan (1) HTN (hypertension): Code(s): I10 - Essential (primary) hypertension Category: Medical Qualifiers: Hypertension type: primary hypertension Qualified Code(s): I10 - Essential (primary) hypertension Plan Ms. Walsh has longstanding hypertension. Her blood pressure is controlled on her current medication regimen. Her renal function remains normal. She should continue metoprolol 25mg PO daily in the mornings, and amlodipine 10mg daily every evening along with losartan 50mg daily every evening. She will benefit from losing some weight. I have asked her to cut back salt in the diet. She should avoid nonsteroidal anti-inflammatories. Her renal functions and serum potassium are close to baseline. She should restrict free water. All these have been explained in detail and all questions were answered. Follow-up appointment given Orders: Orders Electrolytes 6 Months I10 - Essential (primary) hypertension Blood Urea Nitrogen 6 Months I10 - Essential (primary) hypertension Creatinine 6 Months I10 - Essential (primary) hypertension Coding Level of Care Code Est Pt Level 4 (51454) Diagnoses Primary hypertension I10 Hypertension type: primary hypertension
[2025-04-02 14:28] VITALS: BP 130/88; PULSE 76; O2SAT 99; BMI 52.4
--- OUTSIDE RECORDS SUMMARY | 2025-04-02 17:11 | XMS_ITS | Clinical Summary ---
Author Organization [facility] Address [address] [facility] [address] [place] [address] Phone Care Team Providers Care Beader Tender Name Role Phone Larisa Moreland MD Primary Care Provider U navailable Allergies No known active allergies Medications cholecalciferol (VITAMIN D-3) 1.25 MG (68682 UT) capsule Take 1 capsule by mouth [...] age to complete this topic Insurance Medicaid [place] UHC Medicare [facility] Medicare Medicaid [place] Care Teams Beader Tender Relationship Specialty Start Date End Date Larisa Moreland MD [address] [place] [phone] PCP - General Family Medicine 04/19/23
--- OUTSIDE RECORDS SUMMARY | 2025-04-02 17:11 | XMS_ITS | Clinical Summary ---
Author Organization [facility] Address [address] [place] [address] Care Team Providers Care Yarding Engineer Name Role Phone System, Provider Not In [...] this topic Insurance MEDICAID OUT OF STATE [facility] MEDICARE Care Teams Yarding Engineer Relationship Specialty Start Date End Date System, Provider Not In PCP - General 12/02/17
== END 2025-04-02 14:40 | disposition home or self-care (01) ==
PROVIDERS: PCP Family Medicine; Visit Provider Nurse Practitioner Family
DX: I10 Essential (primary) hypertension (principal)
CPT/HCPCS: 99214

== ENCOUNTER → 2025-04-02 14:01 | Outpatient (BNVA) | payer MEDICARE, MEDICAID, SELFPAY | PROVIDERS: PCP Family Medicine; Visit Provider Internal Medicine Nephrology | DX: I10 Essential (primary) hypertension (principal) | CPT/HCPCS: 99212 ==

== ENCOUNTER 2025-04-22 09:33 | Outpatient (REF) | payer MEDICARE, MEDICAID, SELFPAY ==
--- OUTSIDE RECORDS SUMMARY | 2025-04-22 09:20 | XMS_ITS | Encounter Summary ---
Author Organization [facility] Address [address] [facility] 7[address] [place] [address] Care Team Providers Care Open Hearth Stockyard Supervisor Name Role Phone Larisa Moreland MD Primary Care Provider +- [phone] Ameena Grant PharmD Unavailable [phone]- [phone] José Miguel Prado MD Unavailable Jennifer Torres Unavailable Reason for Referral * Imaging (Urgent) - Authorized Specialty Diagnoses / Procedures Referred By Contkay henry Referred To Contact Radiology Diagnoses Left flank pain Dysuria Procedures US Renal Complete Paulo Rosa MD [address] [place] [address] Phone: tel: fax: Referral ID Status Reason Start Date Expiration Date V isits Requested Visits Authorized [id number] Authorized 04/22/2025 04/22/2026 1 1 Reason for Visit * Reason Comments Back Pain Encounter Details Date Type Department Care Team (Late st Contact Info) Description 04/22/2025 9:20 AM EDT Office Visit [facility] [address] [place] [address] [phone] Paulo Rosa MD [address] [place] [address] [phone] Left flank pain (Primary Dx); Essential hypertension; Dysuria Social History Tobacco Use Types Packs/Day Years Used Date Smoking Tobacco: Never Passive Smoke Exposure: Never Smokeless Tobacco: Never Alcohol Answer Date [...] Sign Reading Time Taken Comments Blood Pressure 146/94 04/22/2025 9:09 AM EDT Pulse 63 04/22/2025 9:09 AM EDT Temperature 36.6 C (97.9 F) 04/22/2025 9:09 AM EDT Respiratory Rate 18 04/22/2025 9:09 AM EDT Oxygen Saturation 97% 04/22/2025 9:09 AM EDT Inhaled Oxygen Concentration - - Weight 82.5 kg (181 lb 12.8 oz) 04/22/2025 9:09 AM EDT Height - - Body Mass Index 36.72 04/07/2025 10:52 AM EDT documented in this encounter Progress Notes * Paulo Rosa MD - 04/22/2025 9:20 AM EDT Subjective Patient ID: Trisha Walsh is a 69 y.o. female. HPI 2 days ago Trisha had onset of constant pain in left back that radiates to left side, feels better with movements of torso. Had little relief with Tylenol. Has associated occasional nausea with 1 episode of vomiting last night, dizziness. No dysuria, urgency or frequency. No fever, sweats, chills, or vaginal discharge. No family h/o kidney stones. Lives alone. Never smoked. No EtOH. Retired. Patient Active Problem List Diagnosis Date Noted Gait abnormality 01/13/2025 Class 2 severe obesity due to excess calories with serious comorbidity and body mass index (BMI) of38.0 to 38.9 in adult ([facility]) 08/19/2024 Acute hyponatremia 07/30/2024 DARRYN (acute kidney injury) ([facility]) 07/30/2024 Depression, recurrent ([facility]) 05/15/2024 Dry eyes 05/15/2024 Cardiac risk counseling 11/16/2023 Helicobacter pylori (H. 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 Respiratory: Negative for shortness of breath. Cardiovascular: Negative for chest pain. Gastrointestinal: Positive for abdominal pain, nausea and vomiting. Genitourinary: Positive for flank pain. Musculoskeletal: Positive for back pain. Skin: Negative for rash. Neurological: Negative for headaches. Objective Physical Exam Constitutional: Appearance: Normal appearance. HENT: Right Ear: Tympanic membrane, ear canal and external ear normal. Left Ear: Tympanic membrane, ear canal and external ear normal. Nose: Nose normal. Mouth/Throat: Mouth: Mucous membranes are moist. Pharynx: Oropharynx is clear. Eyes: Conjunctiva/sclera: Conjunctivae normal. Pupils: Pupils are equal, round, and reactive to light. Cardiovascular: Rate and Rhythm: Normal rate and regular rhythm. Heart sounds: No murmur heard. Pulmonary: Effort: Pulmonary effort is normal. Breath sounds: Normal breath sounds. Abdominal: General: Abdomen is flat. Palpations: Abdomen is soft. Tenderness: There is no abdominal tenderness. There is left CVA tenderness. There is no right CVA tenderness. Musculoskeletal: General: Normal range of motion. Cervical back: No tenderness. Skin: Findings: No rash. Neurological: Mental Status: She is alert. Gait: Gait is intact. Psychiatric: Mood and Affect: Mood normal. Behavior: Behavior normal. Procedures Assessment/Plan Diagnoses and all orders for this visit: Left flank pain U/A: + blood, leuk, nitrite. Urine C&S pending. Presumptive left pyelonephritis. Prescribed Augmentin. Continue Tylenol as needed. She avoids NSAIDs because of history of acute kidney injury. Renal ultrasound ordered to evaluate for left ureter stone. Go to the ED if symptoms worsen. - Culture, Urine, Routine Essential hypertension States is taking her BP meds as prescribed. States home BP readings are occasionally in the 150s systolic. Has home BP monitor. Reviewed BP parameters, given written BP log that includes BP parameters, to keep daily. Advised to keep her CD TM appointment on , and bring her BP log with her. Good morning - POCT urinalysis dipstick manually resulted Other orders - amoxicillin-clavulanate (Augmentin) 875-125 MG tablet; Take 1 tablet by mouth 2 times daily. documented in this encounter Plan of Treatment Upcoming Encounters Date Type Department Care Team (Late st Contact Info) Description 05/07/2025 9:00 AM EDT Medication Management [facility] [address] [place] [address] Ameena Grant, PharmD [address] [place] [address] Scheduled Orders Name Type Priority Associated Diagnoses Orde r Schedule Culture, Urine, Routine Microbiology Routine Left flank pain Ordered: 04/22/2025 US Renal Complete Imaging Urgent Left flank pain Dysuria Expected: 04/22/2025, Expires: 04/22/2026 documented as of this encounter Goals Goal Patient Goal Type Associated Problems Recent Progress Patient-Stated? Author Blood Pressure < 150/90 Blood Pressure 146/94( 025 9:09 AM EDT) No Piers-Ameena Hernández, MelchorD documented as of this encounter Procedures Procedure Name Priority Date/Time Associated Diagnosis Comments POCT URINALYSIS DIPSTICK Routine 04/22/2025 9:16 AM EDT Dysuria documented in this encounter Results * (ABNORMAL) POCT urinalysis dipstick manually resulted (04/22/2025 9:16 AM EDT) Color, UA Yellow Clarity, UA Clear Glucose, UA Negative Bilirubin, UA Negative Ketones, UA Negative Spec Grav, UA 1.015 Blood, UA Positive(A) Negative, None Detected Comment:Small pH, UA 6.5 Protein, UA Few 15 Comment:30 mg/dL Urobilinogen, UA 0.2 Leukocytes, UA Moderate(A) Negative, Rare, Trace Nitrite, UA Positive(A) Negative, None Detected Urine 04/22/2025 9:16 AM EDT Paulo Rosa MD POINT OF CARE TEST ENTER/EDIT OR DERABLES Final Result documented in this encounter Visit Diagnoses Diagnosis Left flank pain- Primary Abdominal pain, unspecified site Essential hypertension Unspecified essential hypertension Dysuria documented in this encounter Additional Health Concerns Assessment Noted Time PHQ-9 Depression Total Score: 0 01/14/20 25 8:59 AM EDT documented as of this encounter Care Teams Open Hearth Stockyard Supervisor Relationship Specialty Start Date End Date Larisa Moreland MD [address] [place] [address] PCP - General Family Medicine 07/24/18 Ameena Grant, Camryn [address] [place] [address] Pharmacist Internal Medicine 08/15/22 José Miguel Prado MD [address] [place] [address] Nephrology 07/30/24 Jennifer Torres [address] [place] [address] Gastroenterology 08/19/24 documented as of this encounter
--- OUTSIDE RECORDS SUMMARY | 2025-04-22 17:08 | XMS_ITS | Encounter Summary ---
Author Organization [facility] Address [address] [facility] [address] [place] [address] Care Team Providers Care Blast Furnace Keeper Name Role Phone Larisa Moreland MD Primary Care Provider +- [phone] Ameena Grant PharmD Unavailable [phone] José Miguel Prado MD Unavailable Jennifer Torres Unavailable Encounter Details Date Type Department Care Team (Latest Contact Info) Description 04/22/2025 Travel Social History Tobacco Use Types Packs/Day [...] Description 05/07/2025 9:00 AM EDT Medication Management [facility] [address] [place] [address] Ameena Grant PharmD [address] [place] [address] documented as of this encounter Goals Goal Patient Goal Type Associated Problems Recent Progress Patient-Stated? Author Blood Pressure < 150/90 Blood Pressure 146/94( 025 9:09 AM EDT) No Ameena Quiles PharmD documented as of this encounter Visit Diagnoses Not on filedocumented in this encounter Additional Health Concerns Assessment Noted Time PHQ-9 Depression Total Score: 0 01/14/20 25 8:59 AM EDT documented as of this encounter Care Teams Blast Furnace Keeper Relationship Specialty Start Date End Date Larisa Moreland MD [address] [place] [address] [phone] PCP - General Family Medicine 07/24/18 Ameena Grant PharmD [address] [place] [phone] Pharmacist Internal Medicine 08/15/22 José Miguel Prado MD [address] [place] [address] Nephrology 07/30/24 Jennifer Torres [address] [place] [address] Gastroenterology 08/19/24 documented as of this encounter
--- OUTSIDE RECORDS SUMMARY | 2025-04-22 17:08 | XMS_ITS | Clinical Summary ---
Author Organization [facility] Address [address] [facility] [address] [place] [address] Phone Care Team Providers Care Chief Development Officer Name Role Phone Larisa Moreland MD Primary Care Provider U navailable Allergies No known active allergies Medications cholecalciferol (VITAMIN D-3) 1.25 MG (95771 UT) capsule Take 1 capsule by mouth [...] age to complete this topic Insurance Medicaid [place] UHC Medicare [facility] [place] [address] Medicaid [place] Care Teams Chief Development Officer Relationship Specialty Start Date End Date Larisa Moreland MD [address] [place] [address] PCP - General Family Medicine 04/19/23
--- OUTSIDE RECORDS SUMMARY | 2025-04-22 17:08 | XMS_ITS | Encounter Summary ---
Author Organization [employer] Address [address] [facility] 7t [place] [address] Care Team Providers Care Career Resource Specialist Name Role Phone Larisa Moreland MD Primary Care Provider + [phone] Ameena Grant PharmD Unavailable [phone]- [phone] José Miguel Prado MD Unavailable Jennifer Torres Unavailable Reason for Visit * Reason Comments Med Refill Encounter Details Date Type Department Care Team (Late st Contact Info) Description 11/21/2024 Refill [facility] [address] [place], [place] [phone] Ameena Grant, PharmD [address] [place], [place] [phone] Hypertension, unspecified type Social History Tobacco Use [...] Description 05/07/2025 9:00 AM EDT Medication Management [facility] [address] [place] [address] Ameena Grant, PharmD [address] [place] [address] documented as of this encounter Goals Goal Patient Goal Type Associated Problems Recent Progress Patient-Stated? Author Blood Pressure < 150/90 Blood Pressure 146/94( 025 9:09 AM EDT) No Ameena Quiles, PharmD documented as of this encounter Visit Diagnoses Diagnosis Hypertension, unspecified type documented in this encounter Additional Health Concerns Assessment Noted Time PHQ-9 Depression Total Score: 8 05/15/20 24 10:16 AM EDT documented as of this encounter Care Teams Career Resource Specialist Relationship Specialty Start Date End Date Larisa Moreland MD [address] [place] [address] PCP - General Family Medicine 07/24/18 Ameena Grant PharmD [address] [place] [address] Pharmacist Internal Medicine 08/15/22 José Miguel Prado MD [address] [place] [address] Nephrology 07/30/[address] Jennifer Torres [address] 3rd [place] [address] Gastroenterology 08/19/24 documented as of this encounter
--- OUTSIDE RECORDS SUMMARY | 2025-04-22 17:08 | XMS_ITS | Encounter Summary ---
Author Organization [employer] Address [address] [facility] [address] 7t [place] [address] Care Team Providers Care Car Repairer Pullman Name Role Phone Larisa Moreland MD Primary Care Provider + [phone] Ameena Grant PharmD Unavailable [phone]- [phone] José Miguel Prado MD Unavailable Jennifer Torres Unavailable Encounter Details Date Type Department Care Team (Late st Contact Info) Description 11/22/2023 Orders Only [facility] 230 [place], [place] [phone] Larisa Moreland MD 230 [place], [place] [phone] Vitamin D deficiency (Primary Dx) Social History [...] t he electric, gas, oil or water [employer] threatened to shut off services in your [...] Description 05/07/2025 9:00 AM EDT Medication Management [facility] [address] [place] [address] Ameena Grant PharmD [address] [place] [address] documented as of this encounter Goals Goal Patient Goal Type Associated Problems Recent Progress Patient-Stated? Author Blood Pressure < 150/90 Blood Pressure 146/94( 025 9:09 AM EDT) No Ameena Quiles PharmD documented as of this encounter Visit Diagnoses Diagnosis Vitamin D deficiency- Primary documented in this encounter Care Teams Car Repairer Pullman Relationship Specialty Start Date End Date Larisa Moreland MD [address] [place] [address] PCP - General Family Medicine 07/24/18 Ameena Grant, PharmD [address] [place] [address] Pharmacist Internal Medicine 08/15/22 José Miguel Prado MD [address] [place] [address] Nephrology 07/30/24 Jennifer Torres [address] 3rd [place] [address] Gastroenterology 08/19/24 documented as of this encounter
--- OUTSIDE RECORDS SUMMARY | 2025-04-22 17:08 | XMS_ITS | Encounter Summary ---
Author Organization [employer] Address [address] [facility] 7[address] [place] [address] Care Team Providers Care Sound Recordist Name Role Phone Larisa Moreland MD Primary Care Provider + [phone] Ameena Grant PharmD Unavailable [phone]- [phone] José Miguel Prado MD Unavailable Jennifer Torres Unavailable Encounter Details Date Type Department Care Team (Late Contact Info) Description 07/06/2022 Orders Only [facility] [address] [place] [address] Hanna Aguirre LPN Social History Tobacco Use [...] Department Care Team (Late Contact Info) Description 05/07/2025 9:00 AM EDT Medication Management [facility] 230 [place] [address] Ameena Grant, PharmD 230 [place] [address] documented as of this encounter Visit Diagnoses Not on filedocumented in this encounter Care Teams Sound Recordist Relationship Specialty Start Date End Date Larisa Moreland MD 230 [place] [address] PCP - General Family Medicine 07/24/18 Ameena Grant PharmD 230 [place] [address] Pharmacist Internal Medicine 08/15/22 José Miguel Prado MD [address] [place] [address] Nephrology 07/30/[address] Jennifer Torres [address]rd [place] [address] Gastroenterology 08/19/24 documented as of this encounter
--- OUTSIDE RECORDS SUMMARY | 2025-04-22 17:08 | XMS_ITS | Encounter Summary ---
Author Organization [employer] Address [address] [facility] 7t [place] [address] Care Team Providers Care Curator Of Education Name Role Phone Larisa Moreland MD Primary Care Provider + [phone] Ameena Grant PharmD Unavailable [phone] José Miguel Prado MD Unavailable Jennifer Torres Unavailable Reason for Visit * Reason Comments Med Refill Encounter Details Date Type Department Care Team (Late st Contact Info) Description 04/18/2025 Refill [facility] 230 [place], [place] [phone] Larisa Moreland MD 230 [place], [place] [phone] Gastroesophageal reflux disease, unspecified whether esophagitis present; [...] Description 05/07/2025 9:00 AM EDT Medication Management [facility] [address] [place] [address] Ameena Grant PharmD [address] [place] [address] documented as of this encounter Goals Goal [...] documented as of this encounter Care Teams Curator Of Education Relationship Specialty Start Date End Date Larisa Moreland MD [address] [place] [address] PCP - General Family Medicine 07/24/18 Ameena Grant, Camryn [address] [place] [address] Pharmacist Internal Medicine 08/15/22 José Miguel Prado MD [address] [place] [address] Nephrology 07/30/24 Jennifer Torres [address]rd [place] [address] Gastroenterology 08/19/24 documented as of this encounter
--- OUTSIDE RECORDS SUMMARY | 2025-04-22 17:09 | XMS_ITS | Encounter Summary ---
Author Organization [employer] Address [address] [facility] 7t [place] [address] Care Team Providers Care Cyber Legal Advisor Name Role Phone Larisa Moreland MD Primary Care Provider + [phone] Ameena Grant PharmD Unavailable [phone]- [phone] José Miguel Prado MD Unavailable Jennifer Torres Unavailable Reason for Visit * Reason Comments Med Refill Encounter Details Date Type Department Care Team (Late Contact Info) Description 12/01/2022 Refill [facility] 230 [place], [place] [phone] Crista Victor, REIMBURSEMENT REP Left hip pain Social History Tobacco Use [...] Care Team ([facility] Contact Info) Description 05/07/2025 9:00 AM EDT Medication Management [facility] [address] [place], [place] [phone] Ameena Grant, PharmD [address] [place], [place] [phone] documented as of this encounter Goals Goal Patient Goal Type Associated Problems Recent Progress Patient-Stated? Author Blood Pressure < 150/90 Blood Pressure 146/94( 025 9:09 AM EDT) No Ameena Quiles PharmD documented as of this encounter Visit Diagnoses Diagnosis Left hip pain Pain in joint, pelvic region and thigh documented in this encounter Care Teams Cyber Legal Advisor Relationship Specialty Start Date End Date Larisa Moreland MD [address] [place] [address] PCP - General Family Medicine 07/24/18 Ameena Grant, PharmD [address] [place] [address] Pharmacist Internal Medicine 08/15/22 José Miguel Prado MD [address] [place] [address] Nephrology 07/30/[address] Jennifer Torres [address]rd [place] [address] Gastroenterology 08/19/24 documented as of this encounter
--- OUTSIDE RECORDS SUMMARY | 2025-04-22 17:09 | XMS_ITS | Encounter Summary ---
Author Organization [employer] Address [address] [facility] 7t [place] [address] Care Team Providers Care Associate Counsel Name Role Phone Larisa Moreland MD Primary Care Provider + [phone] Ameena Grant PharmD Unavailable +1- [phone] José Miguel Prado MD Unavailable Jennifer Torres Unavailable Encounter Details Date Type Department Care Team (Late st Contact Info) Description 04/26/2023 Abstract [facility] 230 [place], [place] [phone] Deepika Gurrola Social History Tobacco Use Types [...] Description 05/07/2025 9:00 AM EDT Medication Management [facility] 230 [place], [place] [phone] Ameena Grant, PharmD 230 [place], [place] [phone] documented as of this encounter Goals Goal [...] on filedocumented in this encounter Care Teams Associate Counsel Relationship Specialty Start Date End Date Larisa Moreland MD [address] [place] [address] PCP - General Family Medicine 07/24/18 Ameena Grant, PharmD [address] [place] [address] Pharmacist Internal Medicine 08/15/22 José Miguel Prado MD [address] [place] [address] Nephrology 07/30/[address] Jennifer Torres [address] 3rd [place] [address] Gastroenterology 08/19/24 documented as of this encounter
--- OUTSIDE RECORDS SUMMARY | 2025-04-22 17:09 | XMS_ITS | Clinical Summary ---
Author Organization [employer] Address [address] [place] [address] Care Team Providers Care Rn Advanced Name Role Phone Larisa Moreland MD Primary Care Provider [phone]- [phone] Ameena Grant PharmD Unavailable [phone] José Miguel Prado MD Unavailable Jennifer Torres Unavailable Allergies No known active allergies Medications Diclofenac Sodium 1 % gelIndications: Left hip pain APPLY 2 GRAMS TOPICALLY TWICE DAILY IN THE MORNING AND AT BEDTIME NEEDED 100 g 3 023 Active cyanocobalamin (Vitamin B-12) 500 MCG tabletIndicatio ns:Cobalamin deficiency TAKE 1 TABLET BY MOUTH EVERY MORNING 90 tablet 3 024 Active rosuvastatin (Crestor) 40 MG tabletIndicatio ns:Cardiac risk counseling,Dysl ipidemia TAKE 1 TABLET BY MOUTH EVERY EVENING 30 tablet 11 025 Active cholecalciferol (Vitamin D-3) 25 MCG tabletIndicatio ns:Vitamin D deficiency TAKE 1 TABLET BY MOUTH EVERY MORNING 90 tablet 3 025 Active ezetimibe (Zetia) 10 MG tabletIndicatio ns:Dyslipidemia TAKE 1 TABLET BY MOUTH EVERY MORNING 90 tablet 3 025 Active docusate sodium (Colace) 100 MG capsuleIndicati ons:Irritable bowel syndrome, unspecified type TAKE 1 CAPSULE BY MOUTH TWICE DAILY NEEDED FOR CONSTIPATION 180 capsule 1 025 Active losartan (Cozaar) 50 MG tabletIndicatio ns:Essential hypertension Take 1 tablet (50 mg) by mouth Once per day. 90 tablet 09/15/2 025 Active amLODIPine (Norvasc) 10 MG tabletIndicatio ns:Essential hypertension TAKE 1 TABLET BY MOUTH EVERY EVENING 90 tablet 3 Active metoprolol succinate XL (Toprol-XL) 25 MG 24 hr tabletIndicatio ns:Essential hypertension TAKE 1 TABLET BY MOUTH EVERY MORNING DO NOT BREAK, CRUSH, DISSOLVE OR CHEW 90 tablet 3 Active famotidine (Pepcid) 20 MG tabletIndicatio ns:Gastroesopha geal reflux disease, unspecified whether esophagitis present TAKE 1 TABLET BY MOUTH TWICE DAILY 60 tablet 1 Active Linzess 145 MCG capsuleIndicati ons:Irritable bowel syndrome, unspecified type TAKE 1 CAPSULE BY MOUTH EVERY MORNING 30 capsule 1 Active amoxicillin-cla vulanate (Augmentin) 875-125 MG tablet Take 1 tablet by mouth 2 times daily. 14 tablet Active polyvinyl alcohol (Liquifilm Tears) 1.4 % ophthalmic solution INSTILL 2 DROPS IN EACH EYE DAILY NEEDED DRY EYES 15 mL 1 2024 Discontinued(M ed list cleanup (will not trigger notification to Pharmacy)) amLODIPine (Norvasc) 10 MG tabletIndicatio ns:Essential hypertension TAKE 1 TABLET BY MOUTH EVERY EVENING 90 tablet 3 2024 Discontinued(R eorder (will not trigger notification to Pharmacy)) metoprolol succinate XL (Toprol-XL) 25 MG 24 hr tabletIndicatio ns:Essential hypertension TAKE 1 TABLET BY MOUTH EVERY MORNING DO NOT BREAK, CRUSH, DISSOLVE OR CHEW 90 tablet 3 2024 Discontinued(R eorder (will not trigger notification to Pharmacy)) lidocaine-prilo maxx (Emla) 2.5-2.5 % cream Apply topically if needed in the morning and at bedtime for moderate pain. 30 g 025 2024 Discontinued(M ed list cleanup (will not trigger notification to Pharmacy)) acetaminophen (Tylenol) 325 MG tablet Take 1 tablet (325 mg) by mouth every 6 (six) hours if needed for moderate pain or fever. 30 tablet 2024 Discontinued(M ed list cleanup (will not trigger notification to Pharmacy)) Linzess 145 MCG capsuleIndicati ons:Irritable bowel syndrome, unspecified type TAKE 1 CAPSULE BY MOUTH EVERY MORNING 30 capsule 1 025 2024 Discontinued famotidine (Pepcid) 20 MG tabletIndicatio ns:Gastroesopha geal reflux disease, unspecified whether esophagitis present TAKE 1 TABLET BY MOUTH TWICE DAILY 60 tablet 1 025 2024 Discontinued losartan (Cozaar) 50 MG tabletIndicatio ns:Hypertension , unspecified type Take 1 tablet (50 mg) by mouth Once per day. 90 tablet 025 2024 Discontinued(R eorder (will not trigger notification to Pharmacy)) Active Problems Patient Care Coordination No te Formatting of this note migh t be different from the original. Enrolled in [facility] HTN clinic with Ameena Grant PharmD [...] initial goals with patient. Assessment & Plan (04/07/2025 11:24 AM EDT): Discussed weight, diet, exercise with patient in [...] goals with patient. Acute hyponatremia 07/30/2024 Overview (04/07/2025): Hyponatremia new onset in May 2024 in the absence of hyperglycemia. No obvious medication changes that would have precipitated this. GFR is not impaired. No longer on thiazide. No edema or ascites present. No obvious heart failure. Na was normal up to and including 03/2024. In 05/2024 Na was down to 125. Lab Results Component Value Date NA 134 (L) 03/27/2025 NA 137 02/07/2025 NA 137 12/25/2024 NA 136 12/25/2024 -will check serum osmolality, urine-sodium, BMP and urine osmolality 08/19/24 -serum osmolality 282 mOsm/kg (normal but low normal ) isotonic hyponatremia -urine Na 100 mEq/L -urine osm pending -04/07/25 will continue to monitor. Assessment & Plan (04/07/2025 11:24 AM EDT): Hyponatremia new onset in May 2024 in the absence of hyperglycemia. No obvious medication changes that would have precipitated this. GFR is not impaired. No longer on thiazide. No edema or ascites present. No obvious heart failure. Na was normal up to and including 03/2024. In 05/2024 Na was down to 125. Lab Results Component Value Date NA 134 (L) 03/27/2025 NA 137 02/07/2025 NA 137 12/25/2024 NA 136 12/25/2024 -will check serum osmolality, urine-sodium, BMP and urine osmolality 08/19/24 -serum osmolality 282 mOsm/kg (normal but low normal ) isotonic hyponatremia -urine Na 100 mEq/L -urine osm pending -04/07/25 will continue to monitor. Assessment & Plan (08/19/2024 10:23 AM EST): [...] 08/19/24 DARRYN (acute kidney injury) 07/30/2024 Overview (04/07/2025): Lab Results Component Value Date CREATININE 0.84 03/27/2025 CREATININE 0.96 02/07/2025 CREATININE 0.84 12/25/2024 CREATININE 0.84 12/25/2024 CREATININE 0.87 12/13/2021 CREATININE 0.87 12/13/2021 CREATININE 0.87 02/23/2021 Note from José Miguel Prado MD , videotape recording engineer 01/30/25 reviewed Depression, recurrent 05/15/2024 Dry eyes 05/15/2024 Overview (05/15/2024): -prescribed Polyethyl Glycol-Propyl Glycol (Lubricating Eye Drops) 0.4-0.3 % solution Assessment & Plan (05/15/2024 10:41 AM EDT): -prescribed Polyethyl Glycol-Propyl Glycol (Lubricating Eye Drops) 0.4-0.3 % solution Cardiac risk counseling 11/16/2023 Overview (04/07/2025): Calculated 04/07/25: intermediate risk The 10-year ASCVD risk score (Thee DK, et al., 2019) is: 9.6% Values used to calculate the score: Age: 69 years Sex: Female Is Non- : No Diabetic: No Tobacco smoker: No Systolic Blood Pressure: 132 mmHg Is BP treated: Yes HDL Cholesterol: 63 mg/dL Total Cholesterol: 159 mg/dL Lab Results Component Value Date LDLCHOL 133 (H) 08/10/2022 -goal LDL < 100 Plan: -Tobacco cessation: not applicable -Statin therapy: high intensity dose: rosuvastatin 20, will increase to 40mg 10/24/23, recheck in 1 month -Importance of moderate physical activity and nutrition interventions discussed. Assessment & Plan (04/07/2025 11:24 AM EDT): Calculated 04/07/25: intermediate risk The 10-year ASCVD risk score (Thee WHEELER, et al., 2019) is: 9.6% Values used to calculate the score: Age: 69 years Sex: Female Is Non- : No Diabetic: No Tobacco smoker: No Systolic Blood Pressure: 132 mmHg Is BP treated: Yes HDL Cholesterol: 63 mg/dL Total Cholesterol: 159 mg/dL Lab Results Component Value Date LDLCHOL 133 (H) 08/10/2022 -goal LDL < 100 Plan: -Tobacco cessation: not applicable -Statin therapy: high intensity dose: rosuvastatin 20, will increase to 40mg /09/16, recheck in 1 month -Importance of moderate [...] dose: rosuvastatin 20, will increase to 40mg /24, recheck in 1 month -Importance of moderate physical activity and nutrition interventions discussed. Other specified health status 03/06/2023 Overview (08/19/2024): -next comprehensive annual evaluation due after 08/19/25 -eye care facilitated by [facility] -[facility] -health care proxy paperwork given 08/17/23 Assessment & Plan (08/19/2024 10:48 AM EST): -next comprehensive annual evaluation due after 08/19/25 -eye care facilitated by [facility] -[facility] -health care proxy paperwork given 08/17/23 Assessment & Plan (06/19/2023 9:05 AM EST): -next physical exam due 03/06/2024. -eye care facilitated by [facility]. -dental home is [facility]. Assessment & Plan (03/06/2023 10:40 AM EDT): -next physical exam due 03/06/2024. -eye care facilitated by [facility]. -dental home is [facility]. Peripheral reticular degeneration of both eyes 0 [...] the retina today. She was educated to [facility] with any sudden onset of flashes of [...] the retina today. She was educated to [facility] with any sudden onset of [...] the retina today. She was educated to [facility] with any sudden onset of [...] -intake for colonoscopy with Jennifer D Melissa CARE TRANSITION MGR-BC done 01/29/2024 -done on 05/30/[address] [...] -intake for colonoscopy with Jennifer D Melissa CARE TRANSITION MGR-BC done 01/29/2024 -done on 05/30/[address] [...] -intake for colonoscopy with Jennifer D Melissa CARE TRANSITION MGR-BC done 01/29/2024 -has appt. On 05/30/24 Assessment [...] Overview (11/16/2023): Lab Results Component Value Date [id number] 42.7 03/28/2023 Improved with Vit D supplementation Assessment & Plan (06/19/2023 9:05 AM EST): Patient Vitamin D level was 12 on 08/12/21. Repeat was low 07/2021 188 continue oral b12 and recheck today. Vitamin D3 1000 units, 1 tablet daily started. No results found for: [id number] Assessment & Plan (03/06/2023 10:26 AM EDT): Patient Vitamin D level was 12 on 08/12/21. Repeat was low 07/2021 188 continue oral b12 and recheck today. Vitamin D3 1000 units, 1 tablet daily started. No results found for: [id number] Osteoarthritis of both knees 07/07/2014 Overview (08/16/2023): [...] 08/10/2022 CHOLHDLRAT 3.5 08/10/2022 -continue lifestyle modifications Essential hypertension 04/11/2012 Overview (04/03/2025): -Blood pressure is generally not controlled. Followed up Collaborative Drug Therapy Managment Program with our PharmD Medication history: -spironolactone 50mg daily added 03/06/2023 and increased to BID 06/19/23 -hydrochlorothiazide switched to chlorthalidone 11/27/23 with CDTM, increased to 25mg 12/15/23 -seen by Dr. Lind, videotape recording engineer 02/28/24 lisinopril increased to 20 mg daily. [...] XL and amlodipine 10mg and hydralazine -CDTM [facility] restarted lisinopril 10mg once daily 12/10/24 -seen [...] modifications, low Na diet and avoid NSAIDS -Per nephrology note 04/02/25 metoprolol 25mg PO daily in the mornings, and amlodipine 10mg daily every evening along with losartan 50mg daily every evening. Assessment & Plan (04/07/2025 11:24 AM EDT): -Blood pressure is generally not controlled. But today is at goal 04/07/25 Followed up Collaborative Drug Therapy Managment Program with our PharmD Medication history: -spironolactone 50mg daily added 03/06/2023 and increased to BID 06/19/23 -hydrochlorothiazide switched to chlorthalidone 11/27/23 with CDTM, increased to 25mg 12/15/23 -seen by Dr. Lind, videotape recording engineer 02/28/24 lisinopril increased to 20 mg daily. [...] XL and amlodipine 10mg and hydralazine -CDTM [facility] restarted lisinopril 10mg once daily 12/10/24 -seen [...] modifications, low Na diet and avoid NSAIDS -Per nephrology note 04/02/25 metoprolol 25mg PO daily in the mornings, and amlodipine 10mg daily every evening along with losartan 50mg daily every evening. Orders: losartan (Cozaar) 50 MG tablet; Take 1 tablet (50 mg) by mouth Once per day. amLODIPine (Norvasc) 10 MG tablet; TAKE 1 TABLET BY MOUTH EVERY EVENING metoprolol succinate XL (Toprol-XL) 25 MG 24 hr tablet; TAKE 1 TABLET BY MOUTH EVERY MORNING DO NOT BREAK, CRUSH, DISSOLVE OR CHEW Assessment & Plan (01/13/2025 9:17 AM EDT): -Blood pressure is generally not controlled. Followed up Collaborative Drug Therapy Managment Program with our PharmD Medication history: -spironolactone 50mg daily added 03/06/2023 and increased to BID 06/19/23 -hydrochlorothiazide switched to chlorthalidone 11/27/23 with CDTM, increased to 25mg 12/15/23 -seen by Dr. Lind, videotape recording engineer 02/28/24 lisinopril increased to 20 mg daily. [...] XL and amlodipine 10mg and hydralazine -CDTM [facility] restarted lisinopril 10mg once daily 12/10/24 -seen [...] to BID 06/19/23 -seen by Dr. Lind, videotape recording engineer 02/28/24 lisinopril increased to 20 mg daily. [...] with our PharmD -seen by Dr. Lind, videotape recording engineer 02/28/24 I increased her lisinopril to 20 mg daily. (She was on 40 in the past) Her renal functions and serum potassium are normal. 24 hour ambulatory blood pressure monitor ordered. Thyroid function, renin, aldosterone, cortisol, metanephrines as well as Doppler of her renal arteries ordered. -05/15/24 pt notes she has not heard from videotape recording engineer, is schedule for follow- up 08/09/24. Assessment [...] in case needs to go to ED -[employer] apt 09/2023 -apt w PCP 08/17/2022 Muscle strain 01/26/2023 07/30/2024 Encounters Date Type Department Care Team Description 04/22/2025 9:20 AM EDT Office Visit [facility] [address] [place] [address] Paulo Rosa MD Left flank pain (Primary Dx); Essential hypertension; Dysuria 04/22/2025 Travel 04/18/2025 Refill [facility] [address] [place] [address] Larisa Moreland MD Gastroesophageal reflux disease, unspecified whether esophagitis present; Irritable bowel syndrome, unspecified type 04/07/2025 11:00 AM EDT Office Visit [facility] [address] [place] [phone] Larisa Moreland MD Essential hypertension (Primary Dx); Acute hyponatremia; Cardiac risk counseling; Class 2 severe obesity due to excess calories with serious comorbidity and body mass index (BMI) of 36.0 to 36.9 in adult ([facility]); Dietary counseling; Exercise counseling 04/07/2025 Travel 04/04/2025 Telephone [facility] [address] [place] [address] Larisa Moreland MD CHART PREP 03/27/2025 Orders Only [facility] [address] [place] [phone] Larisa Moreland MD 03/12/2025 Refill [facility] [address] [place] [phone] Larisa Moreland MD Irritable bowel syndrome, unspecified type 03/11/2025 Travel 02/11/2025 Travel 02/08/2025 Refill [facility] [address] [place] [phone] Larisa Moreland MD Irritable bowel syndrome, unspecified type; Gastroesophageal reflux disease, unspecified whether esophagitis present 02/07/2025 Orders Only GENERIC EXTERNAL DATA DEPARTMENT Provider, Generic External Data 01/28/[address] [phone] Ameena Grant, PharmD 01/21/2025 Telephone [facility] [address] [place] [phone] Ameena Grant, PharmD from Last 3 Months Immunizations Immunization Administration [...] 12.8 oz) 04/22/2025 9:09 AM EDT Height 149.9 cm (4' 11 ) 04/07/2025 10: 52 AM EDT Body Mass Index 36.72 04/07/2025 10:52 AM EDT Plan of Treatment Upcoming Encounters Date Type Department Care Team (Late st Contact Info) Description 05/07/2025 9:00 AM EDT Medication Management [facility] [address] [place] [address] Ameena Grant, PharmD [address] [place] [address] Health Maintenance Due Date Last Done Comments CT Colonography 1955 FIT DNA/Cologuard 1955 FOBT 1955 Sigmoidoscopy 1955 FIT 03/15/2023 03/15/2022 COVID-19 Vaccine ( season) 2025 03/06/2023, 11/30/2021, 08/02/2021, Additional history exists Influenza Vaccine (#1) 2025 , 05/10/2023, 05/10/2022, Additional history exists Alcohol/Substance Use Screening 05/15/2025 05/15/2024 SDOH Screening 08/08/2025 08/08/2024 Depression Screening 01/13/2026 01/13/2025, 01/14/20 25 Tobacco Screening 04/22/2026 04/22/2025 Mammogram 01/03/2027 01/03/2025, 07/0 09/2023, 12/29/2023, Additional [...] Blood Pressure 146/94( 025 9:09 AM EDT) Ameena Decker PharmD Procedures Procedure Name Priority Date/Time Associated Diagnosis Comments POCT URINALYSIS DIPSTICK Routine 04/22/2025 9:16 AM EDT Dysuria BASIC METABOLIC PANEL Routine 03/27/2025 8:53 AM EDT CREATININE, SERUM Routine 02/07/2025 8:3 0 AM EDT UREA NITROGEN (BUN) Routine 02/07/2025 8 :30 AM EDT ELECTROLYTE PANEL Routine 02/07/2025 8:3 0 AM EDT BI MAMMOGRAM SCREENING TOMOSYNTHESIS BILATERAL Routine 01/03/2025 8:35 AM EDT LIPID PANEL, STANDARD Routine 07/30/2024 [...] Recently Relevant to Health Maintenance Results * (ABNORMAL) POCT urinalysis dipstick manually [...] CARE TEST ENTER/EDIT OR DERABLES Final Result * (ABNORMAL) Basic Metabolic Panel (03/27/2025 8:53 AM EDT) Sodium 134(L) 135 - 145 mmol/L [facility] Potassium 4.0 3.3 - 5.1 mmol/L [facility] Chloride 101 96 - 108 mmol/L [facility] Carbon Dioxide 25 22 - 29 mmol/L [facility] Anion Gap 12 12 - 20 [facility] Urea Nitrogen (BUN) 15 9 - 16 mg/dL [facility] Creatinine, Serum 0.84 0.5 - 1.4 mg/dL [facility] Estimated Glomerular Filt Rate >60 [facility] Comment:Chronic Kidney Disea se: Estimated GFR < 60 mL/min/[id number] Kidney Disease: Estimated GFR < 15 mL/min/1.73m2 Glucose 93 60 - 115 mg/dL [facility] Calcium 9.4 8.4 - 10.2 mg/dL [facility] 03/27/2025 8:53 AM EDT 03/27/2025 11:10 AM EDT Larisa Moreland MD LAB BLOOD ORDERABLES Final Result [facility] [address] [place] [phone] * Creatinine, Serum (02/07/2025 8:30 AM EDT) Creatinine, Serum 0.96 0.5 - 1.4 mg/dL [facility] Estimated Glomerular Filt Rate 58 [facility] Comment:Chronic Kidney Disea se: Estimated GFR < 60 mL/min/[id number] Kidney Disease: Estimated GFR < 15 mL/min/1.73m2 02/07/2025 8:30 AM EDT 02/07/2025 11:16 AM EDT us Generic External Data Provider LAB BLOOD ORDERAB LES Final Result Performing Organization Address [facility] Co de Phone Number [facility] [address] [place] [phone] * (ABNORMAL) BUN (Blood Urea Nitrogen) (02/07/2025 8:30 AM EDT) Urea Nitrogen (BUN) 17(H) 9 - 16 mg/dL [facility] 02/07/2025 8:30 AM EDT 02/07/2025 11:16 AM EDT us Generic External Data Provider LAB BLOOD ORDERAB LES Final Result Performing Organization Address [facility] de Phone Number [facility] [address] [place] [phone] * Electrolyte Panel (02/07/2025 8:30 AM EDT) Sodium 137 135 - 145 mmol/L [facility] Potassium 4.2 3.3 - 5.1 mmol/L [facility] Chloride 103 96 - 108 mmol/L [facility] Carbon Dioxide 25 22 - 29 mmol/L [facility] Anion Gap 13 12 - 20 [facility] 02/07/2025 8:30 AM EDT 02/07/2025 11:16 AM EDT us Generic External Data Provider LAB BLOOD ORDERAB LES Final Result Performing Organization Address [facility] Co de Phone Number [facility] [address] [place] [phone] * BI Mammogram Screening Tomosynthesis Bilateral (01/03/2025 8:35 AM EDT) Anatomical Region Laterality Modality Breast Bilateral Mammography 01/03/2025 8:35 AM EDT Narrative 01/11/2025 11:13 AM EDT [address] [place] [address] Mammography Report Signed Patient: Trisha Walsh MR#: [id number] 09 : 1955 Acct:[id number] Age/Sex: 69 / F ADM Date: 01/03/25 Loc: HO.MAMMO Attending Dr: Larisa Moreland MD Ordering Physician: Larisa Moreland MD Results: 1N egative Date of Service: 01/03/25 Follow Up: 1 Year From [facility] Mammogram Procedure(s): MM tomosynthesis screening BI Accession Number(s): [id number] cc: Larisa Moreland MD EXAMINATION: MM SCREENING [...] Piedra DO in OV> 01/11/25 1110 DD/ 4 TD/TT: 01/03/2556 Shrimp Boat Captain: Procedure Note Donotuseinterpreter, Image - 01/11/2025 [facility] [address] [place], [place] [address] Mammography Report Signed Patient: Mayelin Walsh#: [id number] 09 : 7Acct:[id number] Age/Sex: 69 / FADM Date: 01/03/25 Loc: HO.MAMMO Attending Dr: Larisa Moreland MD Ordering Physician: Larisa Moreland MDResults: 1N egative Date of Service: 01/03/25Follow Up: 1 Year From Orig inal Mammogram Procedure(s): MM tomosynthesis screening BI Accession Number(s): [id number] cc: Larisa Moreland MD EXAMINATION: MM SCREENING [...] Piedra DO in OV> 01/11/25 1110 DD/ TD/TT: 01/03/2556 Shrimp Boat Captain: us Larisa Moreland MD IMG BI PROCEDURES Edited R esult - Final * Lipid Panel, Standard (07/30/2024 9:25 AM EST) Triglycerides 75 <150 mg/dL [facility] Comment:Desirable Triglyceri de: less than 150 mg/dLBorderline High Triglyceride 150-199 mg/dLHigh Triglyceride: 200-499 mg/dLVery High Triglyceride: greater than or equal to 5OO mg/dL Cholesterol 159 <200 mg/dL [facility] Comment:Desirable Cholestero l: less than 200 mg/dLBorderline High Cholesterol: 200-239 mg/dLHigh Cholesterol: greater than 239 mg/dL LDL Cholesterol Calculated 81 <100 mg/dL [facility] Comment:Desirable LDL: less than 100 mg/dLNear Optimal/Above Optimal LDL: 110- 129 mg/dLBorderline High LDL: 130-159 mg/dLHigh LDL: 160-189 mg/dLVery High LDL: greater than or equal to 190 mg/dL HDL Cholesterol 63 >40 mg/dL [facility] Comment:Desirable HDL: great er than 40 mg/dL Note: This HDL assay may give artificially low results in patients with liver disease. 07/30/2024 9:25 AM EST 07/30/2024 11:39 AM EST Larisa Moreland MD LAB BLOOD ORDERABLES Final Result [facility] [address] [place] [phone] * Colonoscopy (05/30/2024) Colonoscopy Normal Normal Comment:Reshma Lewis MD , pers onal history of polyps Historical Provider HEALTH MAINTENANCE Final Result * Hepatitis C Antibody with Reflex to HCV, RNA, Quantitative, Real-Time PCR (03/28/2023 8:50 AM EDT) Hepatitis C Antibody Nonreactive Nonreactive [facility] Comment:Antibodies to HCV no t detected; does not exclude early acuteHCV infection. Blood Venous blood specimen / Unknown 03/28/2023 8:50 AM EDT 03/28/2023 8:50 AM EDT Larisa Moreland MD LAB BLOOD ORDERABLES Final Result [facility] [address] [place] [phone] * Fecal immunochemical test x1 (FIT) (03/15/2022 12:00 AM EDT) FIT Date 1 03/14/2022 [facility] FIT Date 2 03/15/2022 [facility] FIT1 NEGATIVE NEGATIVE [facility] FIT2 NEGATIVE NEGATIVE [facility] 03/15/2022 Dru Fernández MD HISTORICAL/NON ORDERABLE LABS Final Result Performing Organization Address City/[facility]/ZIP Co de Phone Number [facility] [address] * Hm Pap Smear (05/18/2021) Pap Negative for intraephithelial lesion or malignancy Negative for intraephithelial lesion or malignancy, Other HPV Undetected Dru Fernández MD HEALTH MAINTENANCE Final Result from Last 3 Months or Most Recently Relevant to Health Maintenance Insurance [facility] MEDICARE ADVANTAGE Care Teams Rn Advanced Relationship Specialty Start Date End Date Merly, MD Larisa [address] [place] [address] PCP - General Family Medicine 07/24/18 Ameena Grant, PharmD [address] [place] [phone] Pharmacist Internal Medicine 08/15/22 José Miguel Prado MD [address] [place] [address] Nephrology 07/30/[address] Torres [address] 3rd [place] [address] Gastroenterology 08/19/24
--- OUTSIDE RECORDS SUMMARY | 2025-04-22 17:09 | XMS_ITS | Encounter Summary ---
Author Organization [facility] Address [address] [facility] [address] [place] [address] Care Team Providers Care Manufacturing Maintenance Technician Name Role Phone Larisa Moreland MD Primary Care Provider [phone]- [phone] Ameena Grant PharmD Unavailable [phone] José Miguel Prado MD Unavailable Jennifer Torres Unavailable Reason for Visit * Reason Comments Med Refill Encounter Details Date Type Department Care Team (Late Contact Info) Description 07/06/2022 Refill [facility] MEDICINE [address] [place] [address] [phone] Penelope Grantsa, PharmD [address] [place], [place] [phone] Hypertension, essential (Primary Dx) Social History Tobacco [...] [facility] [address] [place] [phone] Penelope Grantsa, PharmD [address] [place], [place] [phone] documented as of this encounter Visit Diagnoses Diagnosis Hypertension, essential- Primary Unspecified essential hypertension documented in this encounter Care Teams Manufacturing Maintenance Technician Relationship Specialty Start Date End Date Larisa Moreland MD [address] [place] [address] PCP - General Family Medicine 07/24/18 Ameena Grant PharmD [address] [place] [address] Pharmacist Internal Medicine 08/15/22 José Miguel Prado MD [address] [place] [address] Nephrology 07/30/[address] Jennifer Torres [address] 3rd [place] [address] Gastroenterology 08/19/24 documented as of this encounter
--- OUTSIDE RECORDS SUMMARY | 2025-04-22 17:09 | XMS_ITS | Clinical Summary ---
Author Organization [facility] Address [address] [place] [address] Care Team Providers Care Mutual Fund Analyst Name Role Phone System, Provider Not In [...] this topic Insurance MEDICAID OUT OF STATE [facility] MEDICARE Care Teams Mutual Fund Analyst Relationship Specialty Start Date End Date System, Provider Not In PCP - General 12/02/17
--- OUTSIDE RECORDS SUMMARY | 2025-04-22 17:09 | XMS_ITS | Encounter Summary ---
Author Organization [employer] Address [address] [facility] 7t [place] [address] Care Team Providers Care Rock Cutter Name Role Phone Larisa Moreland MD Primary Care Provider + [phone] Ameena Grant PharmD Unavailable [phone] José Miguel Prado MD Unavailable Jennifer Torres Unavailable Encounter Details Date Type Department Care Team ([facility] Contact Info) Description 2022 Orders Only [facility] MEDICINE [address] [place] [phone] Larisa Moreladn MD [address] [place], [place] [phone] Vitamin D deficiency (Primary Dx) Social History [...] Description 05/07/2025 9:00 AM EDT Medication Management [facility] MEDICINE [address] [place], [place] [phone] Ameena Grant, PharmD [address] [place] [address] documented as of this encounter Visit Diagnoses Diagnosis Vitamin D deficiency- Primary documented in this encounter Care Teams Rock Cutter Relationship Specialty Start Date End Date Larisa Moreland MD [address] [place] [address] PCP - General Family Medicine 07/24/18 Ameena Grant, PharmD [address] [place], [place] [phone] Pharmacist Internal Medicine 08/15/22 José Miguel Prado MD [address] [place] [address] Nephrology 07/30/[address] Jennifer Torres [address] 3rd [place] [address] Gastroenterology 08/19/24 documented as of this encounter
--- OUTSIDE RECORDS SUMMARY | 2025-04-22 17:09 | XMS_ITS | Encounter Summary ---
Author Organization [employer] Address [address] [facility] 7t [place] [address] Care Team Providers Care Civil Estimator Name Role Phone Larisa Moreland MD Primary Care Provider [phone]- [phone] Ameena Grant PharmD Unavailable [phone] José Miguel Prado MD Unavailable Jennifer Torres Unavailable Encounter Details Date Type Department Care Team (Late st Contact Info) Description 03/02/2023 Orders Only [facility] [address] [place] [phone] Paulo Rosa MD [address] [place] [address] H. pylori infection (Primary Dx) Social History [...] Description 05/07/2025 9:00 AM EDT Medication Management [facility] MEDICINE [address] [place] [address] Ameena Grant, PharmD [address] [place] [address] Scheduled Orders Name Type Priority Associated Diagnoses [...] pylori) documented in this encounter Care Teams Civil Estimator Relationship Specialty Start Date End Date Larisa Moreland MD [address] [place] [address] PCP - General Family Medicine 07/24/18 Ameena Grant, PharmD [address] [place] [address] Pharmacist Internal Medicine 08/15/22 José Miguel Prado MD [address] [place] [address] Nephrology 07/30/[address] Jennifer Torres [address]rd [place] [address] Gastroenterology 08/19/24 documented as of this encounter
--- OUTSIDE RECORDS SUMMARY | 2025-04-22 17:09 | XMS_ITS | Encounter Summary ---
Author Organization [employer] Address [address] [facility] 7t [place] [address] Care Team Providers Care Bleach Chlorinator Name Role Phone Larisa Moreland MD Primary Care Provider Ameena Grant PharmD Unavailable [phone] José Miguel Prado MD Unavailable Jennifer Torres Unavailable Encounter Details Date Type Department Care Team ([facility] Contact Info) Description 08/23/2022 Abstract [facility] MEDICINE [address] [place] [address] Larisa Moreland MD [address] [place], [place] [phone] Social History Tobacco Use Types Packs/Day Years [...] Description 05/07/2025 9:00 AM EDT Medication Management [facility] MEDICINE [address] [place], [place] [phone] Ameena Grant, PharmD [address] [place] [address] documented as of this encounter Goals Goal [...] Pap Smear (02/27/2017 12:00 AM EDT) Swab Historical Provider LAB CYTOLOGY ORDERABLES F inal Result IMAGING documented in this encounter Visit Diagnoses Not on filedocumented in this encounter Care Teams Bleach Chlorinator Relationship Specialty Start Date End Date Larisa Moreland MD [address] [place] [address] PCP - General Family Medicine 07/24/18 Ameena Grant, PharmD [address] [place] [address] Pharmacist Internal Medicine 08/15/22 José Miguel Prado MD [address] [place] [address] Nephrology 07/30/24 Jennifer Torres [address] 3rd [place] [address] Gastroenterology 08/19/24 documented as of this encounter
== END 2025-04-22 09:34 | disposition home or self-care (01) ==
LOC: HO.HHCLNP 09:33
PROVIDERS: Visit Provider Emergency Medicine
DX: R10.9 Unspecified abdominal pain (principal)
CPT/HCPCS: 87086

== ENCOUNTER 2025-06-08 09:26 | Emergency (ER) | payer MEDICARE, MEDICAID, SELFPAY ==
--- NOTE | ~2025-06-08 | CT_ITS ---
CLINICAL HISTORY: L flank pain Exam: Unenhanced CT abdomen and pelvis with multiplanar reformats. Comparison: None. Findings: CT abdomen: Lung bases are clear. Liver is free of gross focal lesions and ductal dilatation. Gallbladder appears unremarkable. Spleen is unremarkable. Pancreas and adrenal glands appear unremarkable. Kidneys reveal a punctate nonobstructing right renal calculus (4; 272 and 5; 45). Kidneys otherwise unremarkable. No other urolithiasis or hydroureteronephrosis. No free intraperitoneal fluid or retroperitoneal masses or adenopathy. Abdominal aorta is normal caliber with mild calcific athero sclerosis. Bowel loops reveal no abnormal wall thickening or distention. Mild colonic diverticulosis is present, without CT evidence of diverticulitis. The appendix is not identified, however there is no secondary CT evidence of appendicitis. CT pelvis: Uterus and adnexal structures appear unremarkable. Urinary bladder is free of filling defects. No pelvic masses, fluid or adenopathy. Osseous structures reveal diffuse thoracolumbar degenerative disease. There is grade 1 anterolisthesis L4 on L5 with likely result in severe central canal stenoses at this level (4; 380). Impression: 1. No acute abnormality or CT explanation for left flank pain. Specifically, no left urolithiasis or hydroureteronephrosis. 2. Punctate nonobstructing right renal calculus. This document has been electronically signed by: Shiva Christensen MD on 06/08/2025 13:01:04
[2025-06-08 09:31] VITALS: BP 211/97; PULSE 67; RESP 18; TEMP 36.3; O2SAT 97; BMI 53.9
[2025-06-08 10:08] LABS: MANUAL DIFF FLAG NO
--- OUTSIDE RECORDS SUMMARY | 2025-06-08 10:09 | XMS_ITS | Clinical Summary ---
Author Organization [facility] Address [address] [place] [address] Care Team Providers Care Dramatic Art Teacher Name Role Phone System, Provider Not In [...] Planning 1955 Hepatitis C Virus Screening 1955 Colonoscopy 2001 Pneumococcal Vaccines 50+ (1 of 1 - PCV) 2006 RSV Vaccine 50 years and older and Patients (1 - Risk 50-74 years 1-dose series) 2006 Zoster (Shingles) Vaccine (1 of 2) 2006 DXA Bone Density (Females,Ages 65 and older) 2021 Mammogram 12/27/2024 12/27/2022 Influenza Vaccine 02/21/2025 05/10/2022, , 04/08/2020, Additional history exists COVID-19 Vaccine ( season) 2025 03/06/2023, 11/30/2021, 08/02/2021, Additional history exists DTaP/Tdap/Td Vaccines (2 - Td or Tdap) 03/08/2033 03/08/2023 Hepatitis B Vaccines Aged Out No long er eligible based on patient's age to complete this topic Insurance MEDICAID OUT OF STATE [facility] MEDICARE Care Teams Dramatic Art Teacher Relationship Specialty Start Date End Date System, Provider Not In PCP - General 12/02/17
[2025-06-08 10:10] LABS: Hematocrit 37.4 % (37.0-47.0); Hemoglobin 12.6 g/dl (12.0-16.0); Imm Gran Abs Auto 0.01 X10*3/uL (0.00-0.03); Imm Gran Pct Auto 0.2 % (0.0-0.4); Lymphocytes Absolute Auto 1.2 X10*3/uL (1.2-4.9); Mean Corpuscular HGB Conc 33.7 g/dl (31.0-35.0); Mean Corpuscular Hemoglobin 30.3 pg (27.0-33.0); Mean Corpuscular Volume 89.9 fL (80.0-98.0); NRBC Abs Auto 0.000 X10*3/uL (0.0-0.012); NRBC Pct Auto 0.0 /100WBC (0.0-0.2); Platelet Count 308 X10*3/uL (160-400); Red Blood Count 4.16 X10*6/uL (4.20-5.50); White Blood Count 5.5 X10*3/uL (4.8-10.8)
--- NOTE | 2025-06-08 10:16 | ED.GENADULT ---
HPI - General Adult General Chief complaint: General Medical Stated complaint: Stomach Pain Time Seen by Provider: 06/08/25 10:14 Source: patient and RN notes reviewed Mode of arrival: ambulatory Limitations: no limitations History of Present Illness ED Provider: Diana Macdonald PA-C HPI narrative: This is a 69-year-old female, with a past medical history of hypertension, hyperlipidemia, who presents emergency department with concerns of left flank pain. Patient reports that she developed left sided flank pain last night while watching television. She denies any recent trauma, injury, heavy lifting or falls. Reports that the pain is in her left flank, denies any abdominal pain. She denies any fevers, chills, chest pain, shortness of breath, nausea, vomiting, constipation or diarrhea. Her last bowel movement was this morning. Reports that she has been eating and drinking normally. She endorses urinary frequency and mild dysuria. She states that she has a history of similar symptoms 2-3 months ago, and was seen at an urgent care where she was given antibiotics, in her symptoms fully resolved up until yesterday. No other complaints or concerns at this time. MD complaint: Left flank pain, urinary symptoms Onset (ago): day(s) Relieving factors: none Exacerbating factors: none Treatments prior to arrival: none Related Data Home Medications ?Medication ?Instructions ?Recorded ?Confirmed docusate sodium 100 mg capsule 100 mg PO BID PRN constipation 10/04/23 10/03/24 ezetimibe 10 mg tablet 10 mg PO DAILY 01/10/24 10/03/24 rosuvastatin 40 mg tablet 40 mg PO BEDTIME 01/10/24 10/03/24 amlodipine 10 mg tablet 10 mg PO BEDTIME 04/09/24 10/03/24 cholecalciferol (vitamin D3) 25 25 mcg PO DAILY 04/09/24 10/03/24 mcg (1,000 unit) capsule famotidine 20 mg tablet 20 mg PO BID 04/09/24 10/03/24 linaclotide 145 mcg capsule 145 mcg PO DAILY 04/09/24 10/03/24 metoprolol succinate 25 mg 25 mg PO DAILY 04/09/24 10/03/24 tablet,extended release 24 hr cyanocobalamin (vitamin B-12) 500 500 mcg PO DAILY 06/17/24 10/03/24 mcg tablet lidocaine-prilocaine 2.5 %-2.5 % topical 01/08/25 topical cream losartan 50 mg tablet 50 mg PO DAILY 04/02/25 Previous Rx's ?Medication ?Instructions ?Recorded cefuroxime axetil 250 mg tablet 250 mg PO BID 7 days #14 tabs 06/08/25 Allergies Allergy/AdvReac Type Severity Reaction Status Date / Time No Known Allergies (No Known Allergy Verified 06/08/25 09:31 Allergies*) Review of Systems Review of Systems: Constitutional : No Fever, No Chills ENT/Mouth : No sore throat, No Rhinorrhea Eyes: No Eye Pain, No Swelling, No Redness Cardiovascular : No Chest Pain, No SOB Respiratory : No Cough, No Sputum Gastrointestinal : No Nausea, No Vomiting, No Diarrhea, No abdominal Pain Genitourinary : + Dysuria, No Hematuria Musculoskeletal : No joint pain, No Myalgias, No Joint Swelling Skin : No Skin Lesions Neuro : No Weakness, No Numbness, No Headache All other systems reviewed and are negative Yes all other systems are reviewed and are negative Constitutional: Constitutional: Reports as per [facility] Past Medical History Medical History Acute hyponatremia Hypertensive retinopathy Dyslipidemia Vitamin D deficiency Cobalamin deficiency Osteoarthritis IBS (irritable bowel syndrome) delivery delivered High cholesterol HTN (hypertension) Surgical History Hx of bilateral cataract extraction Hx of knee surgery Hx of section Hx of tubal ligation Hx of colonoscopy Family History Family History Mother Cancer Uterine cancer Brother HTN (hypertension) Social History Social History Household Members: None Housing: Apartment Do you presently have visiting nurse or other home services: No Alcohol intake: unknown Patient Tobacco Use Status: Never used Tobacco Gender identity: Female Physical Exam ED Vital Signs: Vital Signs - 24 hr 06/08/25 09:31 06/08/25 10:29 06/08/25 11:35 Temperature 97.3 F 98.0 F Pulse Rate 67 55 Respiratory Rate 18 Blood Pressure 211/97 H 179/78 H 167/83 H Pulse Oximetry 97 98 Oxygen Delivery Method Room Air Room Air 06/08/25 14:00 06/08/25 14:58 Temperature 97.6 F 97.6 F Pulse Rate 55 55 Respiratory Rate 18 18 Blood Pressure 177/86 H 177/86 H Pulse Oximetry 98 98 Oxygen Delivery Method Room Air Room Air BMI result Body Mass Index 53.9 Const General: cooperative, comfortable and no acute distress Orientation/consciousness: patient oriented x3 Limitations: no limitations HENMT Head: Yes normal to inspection, Yes normocephalic and Yes atraumatic Ears: hearing grossly normal bilaterally General nose exam: Normal external nose present Face and sinus: Yes normal facial exam Mouth: Normal oral and palatal mucosa present, oropharynx normal and moist mucous membranes Throat: Yes posterior oropharynx normal Eyes General: appearance normal, both eyes and all related structures Eyelids: Yes eyelids normal Conjunctivae: conjunctivae normal Sclerae: sclerae normal Pupils: Equal, round and reactive pupils present EOM: EOMs intact bilaterally Neck Neck: Yes normal visual inspection, Yes full ROM and Yes no lymphadenopathy Lymphatic: no lymphadenopathy noted Chest Chest palpation & inspection: normal inspection of the chest Resp Effort & Inspection: normal respiratory effort and able to speak in complete sentences Auscultation: clear to auscultation bilaterally, no crackles, no rales, no rhonchi and no wheezes Cardio Rate: regular rate Rhythm: regular rhythm Heart sounds: S1 normal heart sound present and S2 normal heart sound present GI Other: Abdomen is soft, nontender, nondistended Inspection: Yes normal to inspection Other: Left-sided CVA tenderness. Skin General skin exam: no rashes or lesions noted Trauma: no lacerations or abrasions Wounds: no wounds Neuro General: patient oriented x3 and moves all extremities Cranial nerves: Yes Equal, round and reactive pupils present Extrem General: Yes normal to inspection Right upper extremity: normal to inspection Left upper extremity: normal to inspection Right lower extremity: normal to inspection Left lower extremity: normal to inspection Medications Administered Discontinued Medications Generic Name Dose Route Start Last Admin Trade Name Freq PRN Reason Stop Dose Admin Acetaminophen 1,000 mg in 100 mls @ 400 mls/hr 06/08/25 14:02 06/08/25 14:53 Ofirmev IV 06/08/25 14:16 Infused ONCE ONE Infusion Ketorolac Tromethamine 15 mg 06/08/25 10:28 06/08/25 10:38 Ketorolac Tromethamine 15 Mg/Ml Vial IVPUSH 06/08/25 10:29 15 mg ONCE ONE Administration Medical Decision Making Medical Decision Making [facility] Narrative: This is a 69-year-old female, with a past medical history of hypertension, hyperlipidemia, who presents emergency department with concerns of left-sided flank pain and urinary symptoms starting yesterday. On arrival, patient hypertensive at 211/97, all other vital signs within normal limits. She is speaking full sentences under no acute distress. On examination, abdomen is soft, nontender, nondistended, she does have left-sided CVA tenderness. She does note to have some urinary symptoms. Differential diagnoses include pyelonephritis, acute cystitis, nephrolithiasis, obstructive uropathy. Plan: CBC to rule out any anemia, BMP to rule out any electrolyte derangement, CT abdomen and pelvis to evaluate for nephrolithiasis or obstructive uropathy. We will also medicate with IV fluids, IV Toradol for pain control, plus or minus single dose of IV antibiotics pending overall workup. Repeat blood pressure improved to 179/78, we will continue to closely monitor. She has no headache, dizziness, chest pain or shortness of breath. >> Labs return, no leukocytosis, stable H&H, CHEM wnl, no evidence of DARRYN. UA revealingtrace blood, rbc's, wbcs, squamous cells, 2+ bacteria. UA is contaminated, however given symptoms, will treat with abx. CT revealing No acute abnormality or CT explanation for left flank pain. Specifically, no left urolithiasis or hydroureteronephrosis. Pt overall feeling well, pain well managed. Will d/c on abx, given return precautions. She understands and agrees with plan. Pt stable for d/c. Differential Diagnosis Differential Diagnoses: The differential diagnosis associated with the presentation includes See above Lab Data [facility] Lab Attestation statement: I reviewed the patient's lab results. 06/08/25 10:04 06/08/25 10:04 Labs: Lab Results 06/08/25 06/08/25 Range/Units 10:04 11:56 WBC 5.5 (4.8-10.8) X10*3/uL RBC 4.16 L D (4.20-5.50) X10*6/uL Hgb 12.6 D (12.0-16.0) g/dl Hct 37.4 D (37.0-47.0) % MCV 89.9 (80.0-98.0) fL MCH 30.3 (27.0-33.0) pg MCHC 33.7 (31.0-35.0) g/dl RDW 12.3 (11.0-16.0) % Plt Count 308 (160-400) X10*3/uL MPV 9.4 (9.4-12.3) fL Immature Gran % (Auto) 0.2 (0.0-0.4) % Neut % (Auto) 69.1 (45-73) % Lymph % (Auto) 22.2 (20-40) % [place] % (Auto) 6.8 (2-11) % Eos % (Auto) 1.1 (0-4) % Baso % (Auto) 0.6 (0-2) % Lymph # (Auto) 1.2 (1.2-4.9) X10*3/uL [place] # (Auto) 0.4 (0.1-1.2) X10*3/uL Eos # (Auto) 0.1 (0.0-0.4) X10*3/uL Baso # (Auto) 0.0 (0.0-0.2) X10*3/uL Abs Immat Gran (auto) 0.01 (0.00-0.03) X10*3/uL Absolute Neuts (auto) 3.8 (2.0-8.3) x10*3/uL Absolute Nucleated RBC 0.000 (0.0-0.012) X10*3/uL Nucleated RBC % (auto) 0.0 (0.0-0.2) /100WBC Sodium 132 L (135-145) mmol/L Potassium 4.4 (3.3-5.1) mmol/L Chloride 99 (96-108) mmol/L Carbon Dioxide 24 (22-29) mmol/L Anion Gap 13 (12-20) BUN 15 (9-16) mg/dL Creatinine 0.85 (0.5-1.4) mg/dL Estim Creat Clear Calc 45.5 Estimated GFR > 60 Random Glucose 94 (60-115) mg/dL Calcium 9.0 (8.4-10.2) mg/dL Total Bilirubin 0.4 (0.0-1.0) mg/dL AST 37 H (5-31) U/L ALT 20 (0-31) U/L Alkaline Phosphatase 89 (39-117) U/L Troponin I High Sens 2.7 D (<3.5-17.0) ng/L Total Protein 7.3 (6.5-8.0) g/dL Albumin 4.2 (3.5-5.0) g/dL Lipase 34 (8-78) U/L Urine Color Yellow Urine Appearance Clear Urine pH 7.0 (5.0-9.0) Ur Specific [place] 1.015 (1.005-1.025) Urine Protein Trace (Neg-Trace) mg/dL Urine Glucose (UA) Negative (Negative) mg/dL Urine Ketones Negative (Negative) mg/dL Urine Blood Trace H (Negative) Urine Nitrite Negative (Negative) Ur Leukocyte Esterase Negative (Negative) Urine RBC 6-10 H (0-2) /HPF Urine WBC 6-10 H (0-5) /HPF Ur Squamous Epith Cells 11-20 (0-2) /HPF Urine Bacteria 2+ (None Seen) Hyaline Casts 0-2 (0-2) /LPF Radiology Impression Discussion of test interpretation with radiology: I have reviewed the radiologist's reading. Radiologist Impression: CLINICAL HISTORY: L flank pain Exam: Unenhanced CT abdomen and pelvis with multiplanar reformats. Comparison: None. Findings: CT abdomen: Lung bases are clear. Liver is free of gross focal lesions and ductal dilatation. Gallbladder appears unremarkable. Spleen is unremarkable. Pancreas and adrenal glands appear unremarkable. Kidneys reveal a punctate nonobstructing right renal calculus (4; 272 and 5; 45). Kidneys otherwise unremarkable. No other urolithiasis or hydroureteronephrosis. No free intraperitoneal fluid or retroperitoneal masses or adenopathy. Abdominal aorta is normal caliber with mild calcific athero sclerosis. Bowel loops reveal no abnormal wall thickening or distention. Mild colonic diverticulosis is present, without CT evidence of diverticulitis. The appendix is not identified, however there is no secondary CT evidence of appendicitis. CT pelvis: Uterus and adnexal structures appear unremarkable. Urinary bladder is free of filling defects. No pelvic masses, fluid or adenopathy. Osseous structures reveal diffuse thoracolumbar degenerative disease. There is grade 1 anterolisthesis L4 on L5 with likely result in severe central canal stenoses at this level (4; 380). Impression: 1. No acute abnormality or CT explanation for left flank pain. Specifically, no left urolithiasis or hydroureteronephrosis. 2. Punctate nonobstructing right renal calculus. This document has been electronically signed by: Shiva Christensen MD on 06/08/2025 13:01:04 Dictated By: Shiva Christensen MD Discharge Plan Discharge Clinical Impression: Acute flank pain, Acute UTI Patient Disposition: Home, Self-Care Instructions: Urinary Tract Infection in Women (ED), Flank Pain (ED) Additional Instructions: You were seen in the emergency department today. Your blood work was reassuring. Your urine is indeterminate, it is unclear whether not you truly have a urinary tract infection however given that you are symptomatic, we are going to treat with antibiotics. Finish the entire course of your antibiotics even if your symptoms improve. Please drink plenty of fluids get plenty of rest. May take Tylenol as needed for pain and symptoms. You do have a very small kidney stone on your right kidney, this would not cause you to have any symptoms. You also do have degenerative changes in your back, this can cause you to have back pain. If any new or worsening symptoms occur including but not limited to severe chest pain, shortness for breath, severe abdominal pain, nausea, vomiting, fevers, please seek emergent care. Prescriptions: New cefuroxime axetil 250 mg tablet 250 mg PO BID 7 Days Qty: 14 0RF No Action cyanocobalamin (vitamin B-12) 500 mcg tablet 500 mcg PO DAILY docusate sodium 100 mg capsule 100 mg PO BID PRN (Reason: constipation) metoprolol succinate 25 mg tablet extended release 24 hr 25 mg PO DAILY famotidine 20 mg tablet 20 mg PO BID cholecalciferol (vitamin D3) 25 mcg (1,000 unit) capsule 25 mcg PO DAILY linaclotide 145 mcg capsule 145 mcg PO DAILY lidocaine-prilocaine 2.5-2.5 % cream topical losartan 50 mg tablet 50 mg PO DAILY rosuvastatin 40 mg tablet 40 mg PO BEDTIME ezetimibe 10 mg tablet 10 mg PO DAILY amlodipine 10 mg tablet 10 mg PO BEDTIME Interventions: ED Discharge Assessment Last Done: 06/08/25 14:58 Discharge Date/Time: 06/08/25 14:59 Print Language: Divehi
[2025-06-08 10:29] VITALS: BP 179/78
[2025-06-08 10:30] LABS: Alanine Aminotransferase 20 U/L (0-31); Albumin Level 4.2 g/dL (3.5-5.0); Alkaline Phosphatase 89 U/L (39-117); Anion Gap 13 (12-20); Aspartate Amino Transferase 37 U/L (5-31); Blood Urea Nitrogen 15 mg/dL (9-16); Calcium 9.0 mg/dL (8.4-10.2); Carbon Dioxide 24 mmol/L (22-29); Chloride 99 mmol/L (96-108); Creatinine Clr Calc Pharmacy 45.5; Estimated Glomerular Filt Rate > 60; Potassium 4.4 mmol/L (3.3-5.1); Sodium 132 mmol/L (135-145); Total Protein 7.3 g/dL (6.5-8.0)
[2025-06-08 10:37] LABS: Troponin-I High Sensitivity 2.7 ng/L (<3.5-17.0)
[2025-06-08 10:56] LABS: Lipase 34 U/L (8-78)
[2025-06-08 11:35] VITALS: BP 167/83; PULSE 55; TEMP 36.7; O2SAT 98
[2025-06-08 12:02] LABS: Appearance Urine Clear; Glucose Urine UA Negative (Negative); PH 7.0 (5.0-9.0); Specific Gravity - Urine 1.015 (1.005-1.025); UMIC TRIGGER UACC YES
[2025-06-08 12:04] LABS: UACC Culture Trigger YES
[2025-06-08 14:00] VITALS: BP 177/86; PULSE 55; RESP 18; TEMP 36.4; O2SAT 98
[2025-06-08 14:58] VITALS: BP 177/86; PULSE 55; RESP 18; TEMP 36.4; O2SAT 98
== END 2025-06-08 14:59 | disposition home or self-care (01) ==
PROVIDERS: Physician Assistant Medical; Emergency Provider Emergency Medicine; PCP Family Medicine
DX: N39.0 Urinary tract infection, site not specified (principal); R10.A2 Flank pain, left side; I10 Essential (primary) hypertension
CPT/HCPCS: 36415; 74176; 80053; 81001; 83690; 84484; 85025; 87086; 96365; 96375; 99284; 99285; J0131; J1885

== ENCOUNTER → 2025-06-08 10:28 | Outpatient (BNV) | payer MEDICARE, MEDICAID, SELFPAY | PROVIDERS: Emergency Provider Emergency Medicine; PCP Family Medicine; Visit Provider Radiology Diagnostic Radiology | DX: N20.0 Calculus of kidney (principal) | CPT/HCPCS: 74176 ==